=== PATIENT | male | born 1955 | race Caucasian/White ===

== ENCOUNTER → 2018-01-03 09:24 | Outpatient (CLI) | payer MEDICAID, SELFPAY ==
--- NOTE | 2018-01-03 09:39 | DI.REPORT_ITS ---
SYMPTOM/DIAGNOSIS: CHRONIC LT FOOT PAIN, M79.672 LEFT FOOT: Three views. No priors. No acute fracture or dislocation, lytic or sclerotic lesion is seen. The soft tissues are unremarkable. Mild periarticular spurring is seen at the first metatarsal phalangeal joint. The joint spaces are otherwise well maintained. There is a small spur at the plantar surface of the calcaneus. IMPRESSION: Minimal degenerative changes of the left foot. No acute abnormality.
[2018-01-03 11:21] LABS: ALT 24 U/L (12-78); AST 17 U/L (15-37); Albumin 4.2 g/dL (3.4-5.0); Alkaline Phosphatase 76 U/L (46-116); Anion Gap 7.7 mmol/L (3-11); BUN 22 mg/dL (7-18); Bilirubin, Total 1.2 mg/dL (0.2-1.0); CO2 27.3 mmol/L (21.0-32.0); CREATININE 0.94 mg/dL (0.70-1.30); Calcium 9.1 mg/dL (8.5-10.1); Chloride 104 mmol/L (98-107); Cholesterol 184 mg/dL (50-200); Glucose 99 mg/dL (70-100); HDL Cholesterol 63 mg/dL (40-60); LDL CHOLESTEROL 109 mg/dL (<100); Potassium 4.4 mmol/L (3.5-5.1); Sodium 139 mmol/L (136-145); Total Protein 7.1 g/dL (6.4-8.2); Triglyceride 97 mg/dL (30-150)
== END ==
PROVIDERS: PCP Internal Medicine; Visit Provider Internal Medicine
DX: M79.672 Pain in left foot (principal); M77.32 Calcaneal spur, left foot; M19.072 Primary osteoarthritis, left ankle and foot; G89.29 Other chronic pain; I25.10 Atherosclerotic heart disease of native coronary artery without angina pectoris; Z86.010 Personal history of colon polyps; Z98.890 Other specified postprocedural states; Z12.5 Encounter for screening for malignant neoplasm of prostate
CPT/HCPCS: 36415; 80053; 80061; 83721; 73630; 84154

== ENCOUNTER 2018-07-29 10:19 | Outpatient (CLI) | payer MEDICAID, SELFPAY ==
[2018-07-29 11:18] LABS: Absolute Basophil Count 0.02 k/cumm (0.0-0.2); Absolute Eosinophil Count 0.07 k/cumm (0.0-0.7); Absolute Monocyte Count 0.55 k/cumm (0.11-0.7); Absolute Neutrophil Count 2.97 k/cumm (1.2-6.7); Basophils % 0.4; Eosinophils % 1.3; HCT 44.3 % (40.0-50.0); HGB 15.2 g/dL (13.5-17.5); Lymphocytes % 33.3; Mean Corp. HGB Concentration 34.3 g/dL (32.0-36.0); Mean Corpuscular Hemoglobin 31.4 pg (27.0-33.0); Mean Corpuscular Volume 91.5 fL (80-95); Mean Platelet Volume 11.2 fL (8.0-11.0); Monocytes % 10.2; Neutrophils % 54.8; Platelet Count 227 x1000/uL (130-400); RBC 4.84 m/cumm (4.50-6.00); RBC Distribution Width 13.9 % (11.8-14.1); White Blood Cell Count 5.41 k/cumm (4.4-10.8)
[2018-07-29 11:50] LABS: Anion Gap 8.7 mmol/L (3-11); BUN 22 mg/dL (7-18); CO2 28.3 mmol/L (21.0-32.0); CREATININE 0.93 mg/dL (0.70-1.30); Calcium 9.7 mg/dL (8.5-10.1); Chloride 102 mmol/L (98-107); Glucose 113 mg/dL (70-100); Potassium 4.6 mmol/L (3.5-5.1); Sodium 139 mmol/L (136-145)
== END 2018-07-29 10:39 ==
PROVIDERS: PCP Internal Medicine; Visit Provider Family Medicine
DX: R23.0 Cyanosis (principal)
CPT/HCPCS: 36415; 80048; 83050; 83060; 85025

== ENCOUNTER 2018-08-10 12:11 | Outpatient (CLI) | payer MEDICAID, SELFPAY ==
--- NOTE | 2018-08-10 14:30 | DI.RAD_ITS ---
SYMPTOMS/DIAGNOSIS: FATIGUE, O2 SAT 92-95, NONSMOKER, R53.83 PA AND LATERAL CHEST: The lungs are well expanded and free of infiltrate. There is no pleural effusion. The cardiovascular structures are intact. SUMMARY: Normal chest.
== END 2018-08-10 12:31 ==
PROVIDERS: PCP Internal Medicine; Visit Provider Internal Medicine
DX: R53.83 Other fatigue (principal)
CPT/HCPCS: 71046

== ENCOUNTER 2019-01-27 01:51 | Outpatient (CLI) | payer MEDICAID, SELFPAY ==
--- NOTE | 2019-01-27 08:12 | DI.RAD_ITS ---
EXAM: XR CERVICAL SPINE COMP 4-5V INDICATION: NECK PAIN,M54.2,CERVICALGIA. COMPARISON: No exams were available for comparison TECHNIQUE: 2D digital imaging was performed. FINDINGS: The bony structures are normally mineralized with partial reversal of the normal cervical lordosis. Disc space narrowing and discogenic sclerosis are identified at C4-C5 where the canal and neural fora men appear widely patent. The odontoid is intact and is closely applied to the anterior arch of C1. Prevertebral soft tissues are unremarkable. IMPRESSION: Degenerative changes involving the cervical spine as described above.
== END 2019-01-27 02:11 ==
PROVIDERS: PCP Internal Medicine; Visit Provider Internal Medicine
DX: M54.2 Cervicalgia (principal); M47.812 Spondylosis without myelopathy or radiculopathy, cervical region
CPT/HCPCS: 72050

== ENCOUNTER 2020-01-23 10:06 | Outpatient (REF) | payer MEDICAID, SELFPAY ==
[2020-01-23 14:53] LABS: Anion Gap 6.2 mmol/L (3-11); BUN 24 mg/dL (7-18); CO2 29.8 mmol/L (21.0-32.0); CREATININE 0.85 mg/dL (0.70-1.30); Calcium 9.3 mg/dL (8.5-10.1); Calculated LDL 135 mg/dL (<100); Chloride 103 mmol/L (98-107); Cholesterol 225 mg/dL (<200); Glucose 109 mg/dL (74-106); HDL Cholesterol 60 mg/dL (40-60); Potassium 5.2 mmol/L (3.5-5.1); Sodium 139 mmol/L (136-145); Triglyceride 151 mg/dL (<150)
[2020-01-23 22:18] LABS: PSA, Screening 0.6 ng/mL (0.0-4.5)
== END 2020-01-23 10:26 ==
LOC: LBN 10:06
PROVIDERS: PCP Family Medicine; Visit Provider Family Medicine
DX: E78.5 Hyperlipidemia, unspecified (principal); E87.1 Hypo-osmolality and hyponatremia; Z12.5 Encounter for screening for malignant neoplasm of prostate
CPT/HCPCS: 80048; 80061; 84153

== ENCOUNTER 2020-05-24 02:22 | Outpatient (CLI) | payer MEDICAID, SELFPAY ==
[2020-05-24 11:09] LABS: Potassium 4.6 mmol/L (3.5-5.1)
== END 2020-05-24 02:42 ==
PROVIDERS: PCP Family Medicine; Visit Provider Family Medicine
DX: I10 Essential (primary) hypertension (principal)
CPT/HCPCS: 36415; 84132

== ENCOUNTER 2020-06-12 03:51 | Outpatient (CLI) | payer MEDICAID, SELFPAY ==
[2020-06-12 11:00] LABS: Potassium 4.5 mmol/L (3.5-5.1)
[2020-06-12 11:07] LABS: ALT 24 U/L (16-63); AST 13 U/L (15-37); BUN 28 mg/dL (7-18); CREATININE 0.9 mg/dL (0.70-1.30); Creatine Kinase 82 U/L (39-308); Glucose 106 mg/dL (74-106)
[2020-06-12 11:42] LABS: Calculated LDL 84 mg/dL (<100); Cholesterol 164 mg/dL (<200); HDL Cholesterol 66 mg/dL (40-60); Triglyceride 74 mg/dL (<150)
== END 2020-06-12 03:52 | disposition home or self-care (01) ==
LOC: LBO 03:51
PROVIDERS: PCP Family Medicine; Visit Provider Internal Medicine Cardiovascular Disease
DX: I25.10 Atherosclerotic heart disease of native coronary artery without angina pectoris (principal)
CPT/HCPCS: 36415; 80061; 82550; 82947; 84520; 82565; 84132; 84450; 84460; 84550

== ENCOUNTER 2021-03-28 01:24 | Outpatient (CLI) | payer MEDICAID, SELFPAY ==
--- NOTE | 2021-03-28 09:40 | DI.RAD_ITS ---
Exam(s) XR LUMBAR SPINE COMPLETE EXAM: XR LUMBAR SPINE COMPLETE CLINICAL HISTORY: left low back pain, M54.9. TECHNIQUE: 2D digital imaging was performed. COMPARISON: CR XR CERVICAL SPINE COMP 4-5V from 01/27/2019 CR XR CERVICAL SPINE COMP 4-5V from 01/27/2019 FINDINGS: The vertebral bodies are well maintained in height. Small to moderate endplate osteophytes are seen greatest at L2-3 on the left. There is mild L2-3 disc space narrowing and mild L5-S1 disc space narr owing. No spondylolysis, spondylolisthesis or significant scoliosis. Bowel gas pattern unremarkable . IMPRESSION: Opns-zo-ffsbjrxk degenerative changes. DATA REPOSITORY: RADIATION DOSE DELIVERED:
== END 2021-03-28 01:44 ==
PROVIDERS: PCP Family Medicine; Visit Provider Family Medicine
DX: M54.59 Other low back pain (principal); M51.37 Other intervertebral disc degeneration, lumbosacral region; M25.78 Osteophyte, vertebrae
CPT/HCPCS: 72110

== ENCOUNTER 2021-03-28 03:36 | Outpatient (CLI) | payer MEDICAID, SELFPAY ==
[2021-03-28 10:35] LABS: Calculated LDL 125 mg/dL (<100); Cholesterol 215 mg/dL (<200); Glucose 99 mg/dL (74-106); HDL Cholesterol 62 mg/dL (40-60); Triglyceride 143 mg/dL (<150)
== END 2021-03-28 03:37 | disposition home or self-care (01) ==
LOC: LBO 03:36
PROVIDERS: PCP Family Medicine; Visit Provider Family Medicine
DX: E78.5 Hyperlipidemia, unspecified (principal); R73.9 Hyperglycemia, unspecified; Z12.5 Encounter for screening for malignant neoplasm of prostate
CPT/HCPCS: 36415; 80061; 82947; 84153

== ENCOUNTER 2021-10-14 13:54 | Emergency (ER) | payer MEDICAID, SELFPAY ==
[2021-10-14] VITALS (15 sets, daily range): BP systolic 131–154; BP diastolic 74–94; PULSE 78–104; RESP 14–24; TEMP 36.8; O2SAT 97
--- NOTE | 2021-10-14 13:45 | RT.EKG_ITS ---
APPROVED REPORT Exam: Resting ECG Reason for Exam: chest pain Patient Location: E HR:96 bpm ECG Measurements Heart Rate 96 AXIS TX 157 P 55 QRSd 102 QRS -22 QT 364 T 55 QTc 461 Conclusion Sinus rhythm. Probable left atrial enlargement Incomplete RBBB and LAFB.
--- NOTE | 2021-10-14 14:00 | DI.RAD_ITS ---
Exam(s) XR CHEST 2V PA LATERAL EXAM: XR CHEST 2V PA LATERAL CLINICAL HISTORY: Anterior CP and cough TECHNIQUE: 2D digital imaging was performed. COMPARISON: CR XR CHEST 2V PA LATERAL from 08/10/2018 FINDINGS: MEDIASTINUM: Normal. HEART: Normal. PULMONARY VASCULATURE: Normal. LUNGS: Clear. PLEURAL SPACE: No pleural effusion or pneumothorax. BONE:Unremarkable for age. IMPRESSION: No acute abnormality. DATA REPOSITORY: RADIATION DOSE DELIVERED:
--- NOTE | 2021-10-14 14:15 | W.ED.GENAD ---
Discharge Plan Disposition Patient Disposition: HOME Condition: Improving Discharge Details Clinical Impression: Persistent cough Primary Care Provider: Carloz Orellana ED Provider: Roddy Charles Home Meds and New Rx's Prescriptions: New prednisone 50 mg tablet 50 mg PO DAILY 4 Days Qty: 4 0RF Continued aspirin [Aspir-81] 81 MG tablet,delayed release (DR/EC) 81 mg PO DAILY Qty: 30 nitroglycerin 0.4 mg tablet, sublingual 0.4 mg Sublingual q 5 mins prn Qty: 25 0RF atorvastatin 40 mg tablet 40 mg PO DAILY Qty: 90 3RF Discharge Instructions Instructions: Acute Cough (ED) Additional Instructions: Your laboratory work-up and chest x-ray were unremarkable. As discussed we will trial a short burst of prednisone for its anti-inflammatory effects. Return if you develop difficulty breathing, or any other acute concerns Medical Decision Making This is a 66-year-old male who presents from home complaining of 7 to 10 days of cough with congestion, minimal sputum production, and a achy dull anterior chest pain that has no exacerbating or ameliorating factors. He reports no change with nitroglycerin at home. He arrives to ER slightly hypertensive but with otherwise normal vital signs. He does have a history of atherosclerotic coronary artery disease status post stenting in 2016. Differential diagnosis is broad including viral syndrome, pneumonia, ACS, must exclude consideration of pulmonary embolism. Patient was placed on a threat monitoring analyst and screening laboratories obtained. He is referred for x-ray and EKG. Patient's laboratories returned with a white count of 11.3, hematocrit 44, platelets 200. D-dimer is 460, unremarkable electrolytes with a BUN of 27 and creatinine 1.0. Troponin is negative, BNP is 49. Chest x-ray without acute findings. Patient will note recent diagnosis of COVID. Patient may have some component of long COVID and persistent cough. He may benefit from a brief burst of steroids. Discussed with him the risks and benefits. He is stable and appropriate for discharge Lab Data Lab results reviewed: Yes I reviewed the patient's lab results. Labs: Laboratory Results - last 24 hr 10/14/21 10/14/21 10/14/21 14:24 14:24 14:24 WBC 11.39 H RBC 4.70 Hgb 14.7 Hct 44.0 MCV 94 MCH 31.3 MCHC 33.4 RDW 13.2 Plt Count 200 MPV 10.3 Immature Gran % 0.4 Neutrophils % 76.6 Lymphocytes % 13.0 Monocytes % 9.4 Eosinophils % 0.3 Basophils % 0.3 Nucleated RBC % 0.0 Absolute Neutrophils 8.72 H Absolute Lymphocytes 1.48 Absolute Monocytes 1.07 H Absolute Eosinophils 0.03 Absolute Basophils 0.03 D-Dimer 460 Sodium 137 Potassium 3.9 Chloride 101 Carbon Dioxide 28.5 Anion Gap 7.5 BUN 27 H Creatinine 1.0 Estimated GFR/1.73 m2 >= 60.00 Glucose 183 H Calcium 9.1 Magnesium 2.0 Total Bilirubin 1.9 H AST 17 ALT 26 Alkaline Phosphatase 71 Troponin I < 50 NT-Pro-B Natriuret Pep 49 Total Protein 7.2 Albumin 4.0 HPI General Mode of arrival: ambulatory. Date/Time Provider Initiated Documentation: 10/14/21 13:56. Limitations to Documentation: no limitations. Information obtained by: patient. History of Present Illness 66 year old M presents to the emergency department with the chief complaint of 7 to 10 days of cough that has been dry and chest discomfort, described as moderate, Quality is described as dull, and is localized to the chest. Patient reports no radiation. Patient started experiencing this day(s) and it has been intermittent. No relieving factors improve symptom(s), No exacerbating factors reported . Patient notes chest pain and cough; denies fever/chills, nausea/vomiting, syncope and weakness. Patient did receive the following treatments prior to arrival, none Related Data Home Medications Medication Instructions Recorded Confirmed aspirin 81 mg tablet,delayed 81 mg PO DAILY #30 tab-caps 08/04/16 10/14/21 release (Aspir-) nitroglycerin 0.4 mg sublingual 0.4 mg sublingual q 5 mins prn #25 09/02/20 10/14/21 tablet tab-caps atorvastatin 40 mg tablet 40 mg PO DAILY #90 tab-caps 02/12/21 10/14/21 prednisone 50 mg tablet 50 mg PO DAILY 4 days #4 tabs 10/14/21 Previous Rx's Medication Instructions Recorded nitroglycerin 0.4 mg sublingual 0.4 mg sublingual q 5 mins prn #25 09/02/20 tablet tab-caps atorvastatin 40 mg tablet 40 mg PO DAILY #90 tab-caps 02/12/21 prednisone 50 mg tablet 50 mg PO DAILY 4 days #4 tabs 10/14/21 Allergies Allergy/AdvReac Type Severity Reaction Status Date / Time No Known Allergies Allergy Verified 10/14/21 14:00 General Stated Complaint: Chest Pain VIJAY: 3 Review of Systems Narrative: No leg pain or swelling, no rash, no fever or sputum production. 8 systems were reviewed and otherwise negative. Patient reports loose stool yesterday and today. PFSH All Active Problems Persistent cough (Acute) Testicular pain, left (Acute) Elevated blood pressure reading without diagnosis of hypertension (Acute) Umbilical hernia (Acute) Cervical arthritis (Acute) URI (upper respiratory infection) (Acute) Plantar fasciitis (Acute) Neck and shoulder pain (Acute) Status post vasectomy (Acute) Right flank pain (Acute) Personal history of colonic polyps (Chronic) -Hyperplastic polyp Polyp of colon (Acute) hyperplastic Hyperlipidemia (Acute) Family history of diabetes mellitus (Acute 12/21/13) mother Family history of coronary artery disease (Acute 12/21/13) father and brother Chest pain (Acute) atypical negative ETT 2009 Arteriosclerotic heart disease (Acute 07/08/15) Stents x 5 Lad x2 diagonal RCA OM1 Alcohol abuse (Acute) Surgical History Vasectomy Family History Mother Diabetes Essential hypertension Hyperlipidemia Father Heart disease Hyperlipidemia Sister Asthma Cancer Brother Heart disease Hyperlipidemia FAMILY HISTORY CAD (coronary artery disease) Sister No problems noted. Sister No problems noted. Daughter No problems noted. Son No problems noted. Social History Smoking/Tobacco Use Status: Former Tobacco Use Quit Date: 05/10/05 Tobacco: How many years used: 5 Smokeless tobacco user: chewing tobacco Smoking risk assessment performed?: Yes Alcohol Intake: current Alcohol Intake frequency: 0-2 drinks per day Drug use: Never Substance use type: does not use Caregiver/Support person: No Household members: none Communication Needs: None Pets and animals: Yes Pets and animals: cat(s) Do you think of yourself as: straight/heterosexual Current gender identity: male What is your relationship status?: How often do you talk on the phone with friends or family?: decline to answer How often do you get together with friends or relatives?: decline to answer How often do you attend nondenominational or holiness services?: decline to answer Do you belong to any clubs or organized social groups?: decline to answer Panel score (0-1 are the most socially isolated patients): 1 What type of physical activity do you participate in: decline to answer Duration: > 90 minutes/day Frequency: decline to answer Mildred/Yarsanism: No preference Special mildred needs: No Seatbelt use: always Helmet use: Yes Helmet use: always Drive intox or ride w/intox hazardous materials tanker driver: No Do you feel safe at home: Yes Do you feel safe in your relationship?: Yes Exam Narrative Exam Narrative: GEN: awake, alert, oriented 3. Pleasant, well groomed, interactive. HEAD: Normocephalic, atraumatic ENT: Mucous membranes moist, oropharynx unremarkable, External ear exam unremarkable EYES: PERRL, EOMI NECK: Full ROM, no ELEAZAR, no menigismus CHEST/RESP: Nontender, clear to auscultation bilateral, no wheeze/rhonchi/rales CARDIOVASCULAR: RRR, no murmur, rub belia. 2+ Rad pulse bilateral ABDOMEN: Soft, nontender, no mass. +Bowel sounds EXT: Full ROM, no edema, no rash Neuro: Grossly normal neurologic exam, conversant, interactive. Psych: Speech fluent, thoughts congruent, affect normal Course Vital Signs Vital signs: Vital Signs Temperature 36.8 C 10/14/21 13:57 Pulse 96 H 10/14/21 13:57 Respiratory Rate 16 10/14/21 13:57 Blood Pressure 154/92 H 10/14/21 13:57 Pulse Oximetry 97 10/14/21 13:57 Temperature 36.8 C 10/14/21 13:57 Temperature Source Temporal Artery Scan 10/14/21 13:57 Pulse 96 H 10/14/21 13:57 Respiratory Rate 16 10/14/21 13:57 Respiratory Effort 10/14/21 13:59 Blood Pressure 154/92 H 10/14/21 13:57 Blood Pressure Position Sitting 10/14/21 13:57 Pulse Oximetry 97 10/14/21 13:57 Oxygen Delivery Method Room Air 10/14/21 13:57 Oxygen Flow Rate 0 10/14/21 13:57 Pain Level 4 10/14/21 13:57
[2021-10-14 14:32] LABS: Abs Immature Grans 0.04 10^3/uL (0.0-0.06); Absolute Basophil Count 0.03 10^3/uL (0.0-0.2); Absolute Eosinophil Count 0.03 10^3/uL (0.0-0.7); Absolute Lymphocyte Count 1.48 10^3/uL (1.2-3.4); Absolute Monocyte Count 1.07 10^3/uL (0.1-0.8); Basophils % 0.3; Eosinophils % 0.3; HGB 14.7 g/dL (13.5-17.5); Immature Grans % 0.4; MCH 31.3 pg (27.0-33.0); MCHC 33.4 % (32.0-36.0); MCV 94 fL (80-95); MPV 10.3 fL (8.0-11.0); Monocytes % 9.4; Neutrophils % 76.6; Platelet Count 200 10^3/uL (130-400); RDW 13.2 % (11.8-14.1); RDW-SD 45.3 fL; WBC 11.39 10^3/uL (4.4-10.8)
[2021-10-14 14:33] LABS: Absolute Neutrophil Count 8.72 10^3/uL (1.2-6.7)
[2021-10-14 14:54] LABS: ALT 26 U/L (16-63); AST 17 U/L (15-37); Alkaline Phosphatase 71 U/L (46-116); Anion Gap 7.5 mmol/L (3-11); BUN 27 mg/dL (7-18); Bilirubin, Total 1.9 mg/dL (0.2-1.0); CO2 28.5 mmol/L (21.0-32.0); Calcium 9.1 mg/dL (8.5-10.1); Chloride 101 mmol/L (98-107); Glucose 183 mg/dL (74-106); NT-proBNP 49 pg/mL (<300); Potassium 3.9 mmol/L (3.5-5.1); Sodium 137 mmol/L (136-145); Total Protein 7.2 g/dL (6.4-8.2); Troponin I < 50 ng/L (<or=60)
[2021-10-14 15:11] LABS: D-Dimer 460 ng/mlFEU (<500)
[2021-10-14] MEDS: predniSONE 20 MG TAB 60 MG PO (15:50)
== END 2021-10-14 15:59 | disposition home or self-care (01) ==
PROVIDERS: Emergency Provider Emergency Medicine; PCP Family Medicine
DX: R05.1 Acute cough (principal); R07.9 Chest pain, unspecified
CPT/HCPCS: 80053; 93005; 99284; 71046; 83735; 83880; 84484; 85025; 85379; 93010; 99283; J7512

== ENCOUNTER 2022-05-13 09:43 | Outpatient (CLI) | payer MEDICARE, SELFPAY ==
[2022-05-13 12:31] LABS: Hemoglobin A1C 5.4 % (<5.7)
[2022-05-13 12:32] LABS: Bilirubin, Total 1.2 mg/dL (0.2-1.0); Calculated LDL 188 mg/dL (<100); Cholesterol 293 mg/dL (<200); HDL Cholesterol 73 mg/dL (40-60); Triglyceride 162 mg/dL (<150)
[2022-05-14 11:56] LABS: Hepatitis C Ab w Rflx HCV PCR Negative (Negative)
== END 2022-05-13 09:44 | disposition home or self-care (01) ==
LOC: LOS 09:43
PROVIDERS: PCP Family Medicine; Visit Provider Family Medicine
DX: E78.5 Hyperlipidemia, unspecified (principal); R73.9 Hyperglycemia, unspecified; R17 Unspecified jaundice; Z11.59 Encounter for screening for other viral diseases
CPT/HCPCS: 36415; 80061; 86803; 82247; 83036

== ENCOUNTER 2022-11-17 03:33 | Outpatient (CLI) | payer MEDICARE, SELFPAY ==
[2022-11-17 12:19] LABS: HCT 44.6 % (40.0-50.0); HGB 14.8 g/dL (13.5-17.5); MCH 31.2 pg (27.0-33.0); MCHC 33.2 % (32.0-36.0); MCV 94 fL (80-95); MPV 10.7 fL (8.0-11.0); Platelet Count 255 10^3/uL (130-400); RBC 4.75 10^6/uL (4.36-5.78); RDW 12.9 % (11.8-14.1); RDW-SD 44.8 fL; WBC 6.01 10^3/uL (4.4-10.8)
[2022-11-17 12:31] LABS: Anion Gap 7.6 mmol/L (3-11); BUN 26 mg/dL (7-18); CO2 27.4 mmol/L (21.0-32.0); Calcium 9.2 mg/dL (8.5-10.1); Calculated LDL 155 mg/dL (<100); Chloride 104 mmol/L (98-107); Cholesterol 235 mg/dL (<200); Estimated GFR 83.52 (mL/min/1.73m2); Glucose 111 mg/dL (74-106); HDL Cholesterol 66 mg/dL (40-60); Potassium 4.5 mmol/L (3.5-5.1); Sodium 139 mmol/L (136-145); Triglyceride 72 mg/dL (<150)
== END 2022-11-17 03:34 | disposition home or self-care (01) ==
LOC: LOS 03:33
PROVIDERS: PCP Family Medicine; Visit Provider Physician Assistant
DX: I25.10 Atherosclerotic heart disease of native coronary artery without angina pectoris (principal)
CPT/HCPCS: 36415; 80048; 80061; 85027

== ENCOUNTER 2023-04-22 01:55 | Outpatient (CLI) | payer MEDICARE, SELFPAY ==
[2023-04-22 13:06] LABS: Anion Gap 6.1 mmol/L (3-11); BUN 18 mg/dL (7-18); CO2 29.9 mmol/L (21.0-32.0); Calcium 9.1 mg/dL (8.5-10.1); Calculated LDL 81 mg/dL (<100); Chloride 103 mmol/L (98-107); Cholesterol 177 mg/dL (<200); Estimated GFR 83.01 (mL/min/1.73m2); Glucose 125 mg/dL (74-106); HDL Cholesterol 75 mg/dL (40-60); Potassium 4.3 mmol/L (3.5-5.1); Sodium 139 mmol/L (136-145); Triglyceride 107 mg/dL (<150)
== END 2023-04-22 01:56 | disposition home or self-care (01) ==
LOC: LOS 01:55
PROVIDERS: PCP Family Medicine; Visit Provider Physician Assistant
DX: I25.10 Atherosclerotic heart disease of native coronary artery without angina pectoris (principal)
CPT/HCPCS: 36415; 80048; 80061

== ENCOUNTER → 2023-11-25 01:31 | Outpatient (CLI) | payer MEDICARE, SELFPAY ==
--- OUTSIDE RECORDS SUMMARY | 2023-11-25 01:37 | XMS_ITS | Encounter Summary ---
Author Organization [facility] Address [address] [place] [address] Care Team Providers Care Oven Baker Name Role Phone Carloz Orellana MD Primary Care Provider [phone] Encounter Details Date Type Department Care Team (Late st Contact Info) Description 04/27/2023 Orders Only [facility] Cardiology - [address] [place] [address] Jennifer Michelle, RN [address] [place] [address] Social History Tobacco Use Types Packs/Day Years Used Date Smoking Tobacco: Never Smokeless Tobacco: Former Chew Comments:former use Alcohol Use Standard Drinks/Week Comments Yes 1 (1 standard drink = 0.6 oz pur e alcohol) Interpersonal Safety Answer Date Record ed Physically Hurt Never 12/10/2019 Verbally Threaten Not on file 12/10/2019 Sex and Gender Information Value Date Recorded Sex Assigned at Male 06/05/2019 10:10 EST Gender Identity Male 06/05/2019 10:10 EST Sexual Orientation Not on file documented as of this encounter Functional Status Functional Status Response Date of Assess ment Are you deaf or do you have serious difficulty h earing? No 07/16/2015 Are you blind or do you have serious difficulty seeing, even when wearing glasses? No 07/16/2015 Do you have serious difficul ty walking or climbing stairs? (5 years old or older) No 07/16/2015 Do you have difficulty dress ing or bathing? (5 years old or older) No 07/16/2015 Because of a physical, menta l, or emotional condition, does this person have difficulty doing errands alone such as visiting a doctor's office or shopping? No 10/14/2017 Cognitive Status Response Date of Assessm ent Because of a physical, menta l, or emotional condition, does this person have serious difficulty concentrating, remembering, or making decisions? No 06/04/2020 documented as of this encounter Ordered Prescriptions Prescription Sig Dispensed Refills Start Date End Da te atorvastatin (LIPITOR) 80 mg tablet Take 1 Tablet by mouth at bedtime. 90 Tablet 3 04/27/2023 documented in this encounter Plan of Treatment Upcoming Encounters Date Type Department Care Team (Late st Contact Info) Description 12/28/2023 13:00 EDT Office Visit [facility] Cardiology - [address] [address] Rosalind Mckeon PA-C [address] [place] [address] [address] [place] [phone] documented as of this encounter Visit Diagnoses Not on filedocumented in this encounter Discontinued Medications Medication Sig Discontinue Reason Start Date End Da te atorvastatin (LIPITOR) 40 mg tablet Take 1 Tablet by mouth daily. 12/15/2022 04/27/2023 documented as of this encounter Care Teams Oven Baker Relationship Specialty Start Date End Date Carloz Orellana MD [address] [place] [id number] PCP - General Family Medicine - Primary Care 04/06/22 documented as of this encounter
--- OUTSIDE RECORDS SUMMARY | 2023-11-25 01:37 | XMS_ITS | Encounter Summary ---
Author Organization [facility] Address [address] [place] [address] Care Team Providers Care Magazine Designer Name Role Phone Carloz Orellana MD Primary Care Provider [phone] Reason for Visit * Reason Onset Date Comments Advice Only 04/20/2023 Encounter Details Date Type Department Care Team (Late st Contact Info) Description 04/20/2023 Telephone [facility] Cardiology - [facility] [address] [place] [address] Rosalind Mckeon, PAYogeshC [address] [facility] [address] [place] [phone] Advice Only Social History Tobacco Use Types Packs/Day Years [...] No 10/14/2017 Cognitive Status Response Date of [facility] ent Because of a physical, menta l, or emotional condition, does this person have serious difficulty concentrating, remembering, or making decisions? No 06/04/2020 documented as of this encounter Miscellaneous Notes * Telephone Encounter - Jennifer Michelle, MELANIE - 04/20/2023 1350 EST ear Mr. Lima: I have tried leaving a message on your preferred contact phone number, the recording says there is no room for any more messages. I am about to fax the lab requests to [facility]. I am unsure of their policies, I do not know if you need to make an appointment or not. I am Rosalind Sanchezs, PA-C nurse and will be looking for the results. Please give me a call at [phone] if you have any questions. Jennifer RN * Telephone Encounter - Jazmyn Murray - 04/20/2023 1228 EST Would like lab orders sent to [facility] in [facility] so he can get them done before he goes out of town. documented in this encounter Plan of Treatment Upcoming Encounters Date Type Department Care Team (Late st Contact Info) Description 12/28/2023 13:00 EDT Office Visit [facility] Cardiology - [place] [address] Rosalind Mckeon PA-C [address] [facility] [address] [place] [phone] documented as of this encounter Visit Diagnoses Not on filedocumented in this encounter Care Teams Magazine Designer Relationship Specialty Start Date End Date Orellana, Carloz J, MD [address] [place] [address] PCP - General Family Medicine - Primary Care 04/06/22 documented as of this encounter
--- OUTSIDE RECORDS SUMMARY | 2023-11-25 01:37 | XMS_ITS | Encounter Summary ---
Author Organization [facility] Address [address] [place] [address] Care Team Providers Care Finish Photographer Name Role Phone Carloz Orellana MD Primary Care Provider [phone] Encounter Details Date Type Department Care Team (Late st Contact Info) Description 11/18/2022 Orders Only [facility] Cardiology - [address] [place] [address] Joie Welsh, RN Social History Tobacco Use Types Packs/Day Years [...] No 10/14/2017 Cognitive Status Response Date of Assess ent Because of a physical, menta l, or emotional condition, does this person have serious difficulty concentrating, remembering, or making decisions? No 06/04/2020 documented as of this encounter Progress Notes * Joie Welsh, RN - 11/18/2022 1223 EDT Manually entered BMP, lipid profile, CBC drawn on 11/17/22 from [facility]. Routed to Rosalind Mckeon PA-C. Physical copy of results scanned into chart. documented in this encounter Plan of Treatment Upcoming Encounters Date Type Department Care Team (Late st Contact Info) Description 12/28/2023 13:00 EDT Office Visit [facility] Cardiology - [address] [address] Rosalind Mckeon PA-C [address] [facility] [address] [place] [phone] documented as of this encounter Procedures Procedure Name Priority Date/Time Associated Diagnosis Comments COMPLETE BLOOD COUNT Routine 11/17/2022 LIPID PROFILE (INCLUDES CHOLESTEROL, TRIGLYCERIDES, HDL, LDL) Routine 11/17/2022 BASIC METABOLIC PANEL (BMP) Routine 11/17/2022 documented in this encounter Results * BASIC METABOLIC PANEL (BMP) (11/17/2022) GFR, Calculated, External 83.52 [facility] Glucose, Serum, External 111 mg/dL [facility] Calculated Calcium, External [facility] BUN, External 26 mg/dL [facility] Calcium, External 9.2 mg/dL [facility] Chloride, External 104 mmol/L [facility] CO2, External 27.4 mmol/L [facility] Creatinine, External 1 mg/dL [facility] Fasting?, External [facility] Potassium, External 4.5 mmol/L [facility] Sodium, External 139 mmol/L [facility] Blood VENOUS BLOOD / Unknown 11/17/2022 Rosalind Mckeon PA-C CHEMISTRY & BLOOD G ORDERABLES [facility] * COMPLETE BLOOD COUNT (11/17/2022) HCT, External 44.6 [facility] MCH, External 31.2 g/dL [facility] MCV, External 94 [facility] MCHC, External 33.2 g/dL [facility] Hemoglobin, External 14.8 % [facility] WBC, External 6.01 [facility] RBC, External 4.75 [facility] PLT, External 255 [facility] RDW-CV, External 12.9 [facility] Blood VENOUS BLOOD / Unknown 11/17/2022 Rosalind Mckeon PA-C HEMATOLOGY & PF4 OR DERABLES Performing Organization Address City/[facility] Co de Phone Number [facility] * LIPID PROFILE (INCLUDES CHOLESTEROL, TRIGLYCERIDES, HDL, LDL) (11/17/2022) Cholesterol, External 235 [facility] Triglycerides, External 72 [facility] HDL, External 66 [facility] LDL, External 155 [facility] Chol/HDL Ratio, External [facility] Fasting?, External [facility] Blood VENOUS BLOOD / Unknown 11/17/2022 Rosalind Mckeon PA-C CHEMISTRY & BLOOD G ORDERABLES [facility] documented in this encounter Visit Diagnoses Not on filedocumented in this encounter Care Teams Finish Photographer Relationship Specialty Start Date End Date Carloz Orellana MD [address] [place] [address] PCP - General Family Medicine - Primary Care 04/06/22 documented as of this encounter
--- OUTSIDE RECORDS SUMMARY | 2023-11-25 01:37 | XMS_ITS | Encounter Summary ---
Author Organization [facility] Address [address] [place] [address] Care Team Providers Care Radioisotope Technologist Name Role Phone Carloz Orellana MD Primary Care Provider [phone] Reason for Visit * Reason Onset Date Comments Labs Only 11/02/2022 Encounter Details Date Type Department Care Team (Late st Contact Info) Description 11/02/2022 Telephone [facility] Cardiology - [address] [place] [address] Joie Welsh, RN Labs Only Social History Tobacco Use Types Packs/Day [...] encounter Miscellaneous Notes * Telephone Encounter - Joie Welsh RN - 11/02/2022 2654 EDT Images from the original note were not included. Rosalind Mckeon, LEA P Cardiology Nurse Pool Can we get recent labs (within 3 months) from PCP? To included lipids, BMP and CBC. If not done in the last 3 months, then please let patient know and fax lab recs to wherever he wants to go for labs. Thanks, Rosalind Called PCP office who states that pt has not completed labs for them since October 2021. States that lab draw will need to be completed at [facility] lab. Attempted to call pt on both home and mobile phones, no answer, no ability to leave VM. Will send [employer] message. documented in this encounter Plan of Treatment Upcoming Encounters Date Type Department Care Team (Late st Contact Info) Description 12/28/2023 13:00 EDT Office Visit [facility] Cardiology - [address] [place] [address] Rosalind Mckeon, FANC [address] [facility] [address] [place] [phone] documented as of this encounter Visit Diagnoses Diagnosis ASCVD (arteriosclerotic cardiovascular disease)- Primary Unspecified cardiovascular disease documented in this encounter Care Teams Radioisotope Technologist Relationship Specialty Start Date End Date Carloz Orellana MD [address] [place] [address] PCP - General Family Medicine - Primary Care 04/06/22 documented as of this encounter
--- OUTSIDE RECORDS SUMMARY | 2023-11-25 01:37 | XMS_ITS | Encounter Summary ---
Author Organization [facility] Address [address] [place] [address] Care Team Providers Care Structural Steel Equipment Erector Name Role Phone Carloz Orellana MD Primary Care Provider [phone] [phone] Reason for Visit * Reason Comments Coronary Artery Disease ASCVD (arteriosc lerotic cardiovascular disease) Encounter Details Date Type Department Care Team (Latest Contact Info) Description 08/24/2023 10:40 EDT Office Visit [facility] - [address] [address] Rosalind Mckeon, PA-C [address] [facility] [address] [place] [phone] ASCVD (arteriosclerotic cardiovascular disease) (Primary Dx); Primary hypertension Social History Tobacco Use Types Packs/Day Years [...] on file documented as of this encounter Last Filed Vital Signs Vital Sign Reading Time Taken Comments Blood Pressure 126/90 08/24/2023 1037 EDT Pulse 70 08/24/2023 1037 EDT Temperature - - Respiratory Rate - - Oxygen Saturation 96% 08/24/2023 1037 EDT Inhaled Oxygen Concentration - - Weight 88 kg (194 lb) 08/24/2023 1037 EDT Height - - Body Mass Index 26.31 04/30/2022 1140 EST documented in this encounter Functional Status Functional Status Response [...] Dispensed Refills Start Date End Da te amLODIPine (NORVASC) 5 mg tablet Take 1 Tablet by mouth daily. 90 Tablet 1 08/24/2023 documented in this encounter Progress Notes * Rosalind Mckeon, LEA - 08/24/2023 1040 EDT Subjective: Patient ID: Lan Lima is an 68 y.o. male. Chief Complaint Patient presents with Coronary Artery Disease ASCVD (arteriosclerotic cardiovascular disease) History of Present Illness: Bairon is a 68-year-old male with a pertinent medical history including coronary artery disease history abnormal stress test with subsequent PCI, NSTEMI soon after PCI with repeat PCI, most recent stenting 2015, hyperlipidemia and family history of coronary disease who presents for routine follow-up, last seen in December. He had some recurrent anginal symptoms at that time, he was started on amlodipine but was dizzy on this and so was discontinued. He had felt improved with weight loss, diet as needed metoprolol for singular elevated blood pressures. Since then, he describes getting sick with a flulike syndrome over the winter now with a chronic cough, still recovering slowly but surely. He notes he was unable to be as active during this period, weeks to couple months and has gained the weight back that he lost. With this his blood pressure hasbeen more elevated on average just above 140/90 with some variability. With this he gets a head pressure sensation as he has in the past with he be willing to retry antihypertensives, antianginals. He describes stable angina with moderate exertion, or stress quickly relieved with rest. Has not feltthe need to take nitro as it does quickly resolve on its own. He has been compliant with his aspirin and statin therapy. ROS: Chronic dry nonproductive cough since pulmonary infection (was on antibiotics and steroids forthis previously ). no bleeding issues. No other recent illness or change in medical history. Patient Active Problem List Diagnosis Date Noted ASCVD (arteriosclerotic cardiovascular disease) 12/14/2022 Umbilical hernia without obstruction and without gangrene 01/22/2020 Subsequent non-ST elevation (NSTEMI) myocardial infarction within 4 weeks of initial infarction ([facility]) 07/13/2015 Chest pain 07/08/2015 Past Medical History: Diagnosis Date Abnormal nuclear stress test Activity, other involving cardiorespiratory exercise Noted 03/30/22- 1-2 FOS without difficulty/very active. Anomaly, cardiac 2016 Noted 03/30/22- DC, cardiac stents x 6 total Arthritis Noted 03/30/22-Neck pain due to arthritis. ASCVD (arteriosclerotic cardiovascular disease) Chest pain radiating to arm Colon polyp Coronary artery disease 2016 Noted 03/30/22 Does not exercise Edentulous Noted 03/30/22- He does have missing teeth. Family history of coronary artery disease Head trauma Noted 03/30/22- Several Head injuries as a teenager with LOC. Heart attack ([facility]) Noted 03/30/22- Heart attack a few weeks after stent placement History of general anesthesia HLD (hyperlipidemia) Noted 03/30/22- Not taking Lipitor, afraid of memory loss. Umbilical hernia Noted 03/30/22 Past Surgical History: Procedure Laterality Date ANKLE FRACTURE SURGERY Right CARDIAC SURGERY six stents x2 FRACTURE SURGERY broken leg -right UMBILICAL HERNIA REPAIR N/A 04/06/2022 no mesh Family History Problem Relation Age of Onset High Cholesterol Father Heart Disease Father Breast Cancer Sister Heart Disease Brother Colon Cancer Neg Hx Colon Polyps Neg Hx Endometrial Cancer Neg Hx Esophageal Cancer Neg Hx Ovarian Cancer Neg Hx Pancreatic Cancer Neg Hx Rectal Cancer Neg Hx Stomach Cancer Neg Hx Social Social History Tobacco Use Smoking status: Never Smokeless tobacco: Former Types: Chew Tobacco comments: former use Substance Use Topics Alcohol use: Yes Alcohol/week: 1.0 - 2.0 standard drink of alcohol Types: 1 - 2 Shots of liquor per week Drug use: No Marital Status: Occupation: Data Unavailable Outpatient Medications Marked as Taking for the 08/24/23 encounter (Office Visit) with Rosalind Mckeon PA-C Medication Sig Dispense Refill aspirin 81 mg EC tablet Take 1 Tablet by mouth daily. atorvastatin (LIPITOR) 80 mg tablet Take 1 Tablet by mouth at bedtime. 90 Tablet 3 nitroGLYCERIN (NITROSTAT) 0.[address] 1 tablet under the tongue every 5 minutes as needed for Pain. Reported on 04/16/2016 25 tablet 3 Allergies Allergen Reactions No Known Drug Allergies Objective: BP 126/90 (BP Cuff Location: Right arm, BP Patient Position: Sitting, BP Cuff Sizes: Adult, regular) Pulse 70 Wt 88 kg (194 lb) SpO2 96% BMI 26.31 kg/m?? Wt Readings from Last 3 Encounters: 08/24/23 88 kg (194 lb) 12/15/22 79.8 kg (176 lb) 10/30/22 87.2 kg (192 lb 3.2 oz) Physical Exam CONST: Appears healthy and well developed. No signs of apparent distress present. HEAD/FACE: Normal on inspection. No JVD appreciated while sitting upright. EYES: Conjunctivae clear without petechiae. No xanthelasma of the upper & lower lids. Sclerae clear. RESP: No use of accessory muscles noted. Good air entry bilaterally. No rales or rhonchi appreciated over the lungs bilaterally. CV: regular rate and rhythm. S1 is normal. S2 is normal. No extra sounds. No murmurs. 2+ bilateral radial and posterior tibialis, dorsalis pedis pulses. Digits and Nails: No clubbing, cyanosis or edema. ABD: non-distended MUSCULO: Spine: No scoliosis or thoracic kyphosis. SKIN: pink, warm and dry without suspicious rashes or lesions. NEURO: Alert and oriented x3. Mood is normal. Affect is normal. Memory is grossly intact. Speech isarticulate and language is fluent. Knowledge and vocabulary consistent with education. PSYCH: Mood/Affect: Patient's attitude is cooperative and appropriate. Data Labs 04/2023 Cholesterol 177 Triglycerides 107 HDL 75 LDL 81 Most Recent Cardiac Testing ECG today 10/30/2022: Sinus rhythm with incomplete right bundle branch block. Transthoracic Echocardiogram 08/26/2018 *STUDY CONCLUSIONS* Summary: 1. Left ventricle: The cavity size was normal. Wall thickness was normal. Systolic function was normal. The estimated ejection fraction was 55-60%. Wall motion was normal; there were no regional wall motion abnormalities. 2. Aortic valve: Valve area (VTI): 3cm^2. Valve area (Vmax): 3cm^2. Valve area (Vmean): 3cm^2. 3. Mitral valve: Valve area by continuity equation (using LVOT flow): 4.8cm^2. 4. Right ventricle: The cavity size was normal. Wall thickness was normal. Systolic function was normal. Left Heart Catheterization 07/17/2015: IMPRESSIONS: 1. Single vessel coronary artery disease. 2. Non ST-elevated myocardial infarction (NSTEMI). The culprit lesion was identified and reperfusion was successfully achieved. SUMMARY: 1. HPI and indications: Dyspnea. Coronary artery disease. Unstable angina. 2. Left main: Normal. 3. LAD: Prior intervention: drug-eluting stent in the proximal LAD. The stent originated in the proximal vessel and terminated in the mid vessel. The stented segment is patent. Proximal vessel lesion: There is a < 10% in-stent restenosis. 4. 1st diagonal: Prior intervention: stent in the proximal D1. Proximal vessel lesion: There is a 10% in-stent restenosis. Mid-vessel lesion: There is a 30% stenosis. 5. Left circumflex: Mid-vessel lesion: There is a 30% stenosis. 6. 1st obtuse marginal: Prior intervention: stent in the proximal OM1. Proximal vessel lesion: There is a 10% in-stent restenosis. 7. RCA posterolateral extension: Proximal vessel lesion: There is an 80%de reggie stenosis. This lesion is irregularly contoured, complex, eccentric, without evidence of thrombus, worsened from a prior study, and a bifurcation lesion. There is MALATHI grade 3 flow (brisk flow) across the lesion. The lesion is significant by visual estimate. The lesion was stented (see 1st lesion intervention), with balloon angioplasty. Following intervention, there is a residual 0% stenosis with an excellent angiographic appearance and MALATHI grade 3 flow (brisk flow). 8. Right posterior descending: Ostial lesion: There is an 80% stenosis. An angioplasty with balloon angioplasty was performed (see 2nd lesion intervention). Following intervention, there is a residual 0% stenosis with an excellent angiographic appearance, a smooth contour, and MALATHI grade 3 flow (brisk flow). Resulting blush score 3: normal transfer of contrast through the microvasculature. The stent is fully deployed and fully apposed. RECOMMENDATIONS: 1. ACC recommendation: PCI w/o planned CABG. 2. Aspirin. 3. Clopidogrel (Plavix). Assessment & Plan: 1. ASCVD (arteriosclerotic cardiovascular disease) Stable class II angina with exertion, or stress relieved with rest In the context of recent decrease in exertion, weight gain related to pulmonary illness Currently not on any antianginals Is appropriately maintained on aspirin 81 mg and atorvastatin 80 mg daily He generally is distrustful of medications But while he makes lifestyle changes again to lose weight, would be agreeable to resuming amlodipine 5 mg once daily for its antianginal and antihypertensive effects. Once he loses the weight, he would be eager to get off this medication if possible. 2. Primary hypertension Suboptimally controlled. Start amlodipine 5 mg once daily today. LEA Clarke Dr. was the supervising physician today in office. Primary Care Provider: Carloz Orellana Referring Provider: no referring provider I spent a total of 33 minutes on the date of this encounter meeting with the patient and reviewing documentation/coordinating care as described in the above note. documented in this encounter Plan of Treatment Upcoming Encounters Date Type Department Care Team (Late st Contact Info) Description 12/28/2023 13:00 EDT Office Visit [facility] - [address] [place] [address] Rosalind Mckeon PA-C 62 [facility] [address] [place] [phone] documented as of this encounter Visit Diagnoses Diagnosis ASCVD (arteriosclerotic cardiovascular disease)- Primary Unspecified cardiovascular disease Primary hypertension Unspecified essential hypertension documented in this encounter Care Teams Structural Steel Equipment Erector Relationship Specialty Start Date End Date Carloz Orellana MD [address] [place] [address] PCP - General Family Medicine - Primary Care 04/06/22 documented as of this encounter
--- OUTSIDE RECORDS SUMMARY | 2023-11-25 01:37 | XMS_ITS | Encounter Summary ---
Author Organization [facility] Address [address] [place] [address] Care Team Providers Care Type Copyist Name Role Phone Carloz Orellana MD Primary Care Provider [phone] Reason for Visit * Reason Comments Heart Problem ASCVD (arteriosclero tic cardiovascular disease) Encounter Details Date Type Department Care Team (Latest Contact Info) Description 12/15/2022 14:20 EDT Office Visit [facility] - [address] [address] Rosalind Mckeon, PA-C 62 [facility] [address] [place] [phone] ASCVD (arteriosclerotic cardiovascular disease) (Primary Dx) Social History Tobacco Use Types Packs/Day Years [...] Sign Reading Time Taken Comments Blood Pressure 122/68 12/15/2022 1411 EDT Pulse 51 12/15/2022 1411 EDT Temperature - - Respiratory Rate - - Oxygen Saturation 100% 12/15/2022 1411 EDT Inhaled Oxygen Concentration - - Weight 79.8 kg (176 lb) 12/15/2022 1411 EDT Height - - Body Mass Index 23.86 04/30/2022 1140 EST documented in this encounter [...] 1 Tablet by mouth daily. 90 Tablet 3 12/15/2022 04/27/2023 documented in this encounter Progress Notes * Rosalind Mckeon PA-C - 12/15/2022 1420 EDT Images from the original note were not included. Subjective: Patient ID: Lan Lima is an 67 y.o. male. Chief Complaint Patient presents with ??? Heart Problem ASCVD (arteriosclerotic cardiovascular disease) History of Present Illness: Bairon is a 67-year-old male with a pertinent medical history including coronary artery disease history abnormal stress test with subsequent PCI, NSTEMI soon after PCI with repeat PCI, most recent stenting 2015, hyperlipidemia and family history of coronary disease who presents for routine follow-up, last seen in October of this year. He reported gradually recurrent anginal symptoms over the course of the year, exertional and associated with elevated BP. He did not wish to go for stress testing or LHC if possible. He was started on amlodipine for anti-anginal and anti-hypertensive effects. He had ongoing intrascapular discomfort for 1 week after starting amlodipine, but they subsequentlyimproved. 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 His blood pressure was becoming much lower with 110s to 120s over 60s and he found himself a little dizzy and so he stopped amlodipine a few days ago. His blood pressures remain 120s over 70s on average and his dizziness has resolved. This is also in the context of doing major lifestyle changes, he has lost 30 pounds over the course of the year intentionally with diet changes -stopped eating snacks late at night, cut out alcohol. Denies other cardiac symptoms. No dyspnea, edema, orthopnea, near-syncope or syncope. He had no previous intolerance to atorvastatin but had wondered if it caused dementia and that was why it was held previously, he is open to resuming it after review of his cholesterol labs from year. ROS: Occasional headaches at night now resolved with improved blood pressure. No bleeding issues. No other recent illness or change in medical history. Patient Active Problem List Diagnosis Date Noted ??? ASCVD (arteriosclerotic cardiovascular disease) 12/14/2022 ??? Umbilical hernia without obstruction and without gangrene 01/22/2020 ??? Subsequent non-ST elevation (NSTEMI) myocardial infarction within 4 weeks of initial infarction(HCC) 07/13/2015 ??? Chest pain 07/08/2015 Past Medical History: Diagnosis Date ??? Abnormal nuclear stress test ??? Activity, other involving cardiorespiratory exercise Noted 03/30/22- 1-2 FOS without difficulty/very active. ??? Anomaly, cardiac 2016 Noted 03/30/22- [place], cardiac stents x 6 total ??? Arthritis Noted 03/30/22-Neck pain due to arthritis. ??? ASCVD (arteriosclerotic cardiovascular disease) ??? Chest pain radiating to arm ??? Colon polyp ??? Coronary artery disease 2016 Noted 03/30/22 ??? Does not exercise ??? Edentulous Noted 03/30/22- He does have missing teeth. ??? Family history of coronary artery disease ??? Head trauma Noted 03/30/22- Several Head injuries as a teenager with LOC. ??? Heart attack (HCC-CMS) (HCC) (HCC-CMS) Noted 03/30/22- Heart attack a few weeks after stent placement ??? History of general anesthesia ??? HLD (hyperlipidemia) Noted 03/30/22- Not taking Lipitor, afraid of memory loss. ??? Umbilical hernia Noted 03/30/22 Past Surgical History: Procedure Laterality Date ??? ANKLE FRACTURE SURGERY Right ??? CARDIAC SURGERY six stents x2 ??? FRACTURE SURGERY broken leg -right ??? UMBILICAL HERNIA REPAIR N/A 04/06/2022 no mesh Family History Problem Relation Age of Onset ??? High Cholesterol Father ??? Heart Disease Father ??? Breast Cancer Sister ??? Heart Disease Brother ??? Colon Cancer Neg Hx ??? Colon Polyps Neg Hx ??? Endometrial Cancer Neg Hx ??? Esophageal Cancer Neg Hx ??? Ovarian Cancer Neg Hx ??? Pancreatic Cancer Neg Hx ??? Rectal Cancer Neg Hx ??? Stomach Cancer Neg Hx Social Social History Tobacco Use ??? Smoking status: Never ??? Smokeless tobacco: Former Types: Chew ??? Tobacco comments: former use Substance Use Topics ??? Alcohol use: Yes Alcohol/week: 1.0 - 2.0 standard drink of alcohol Types: 1 - 2 Shots of liquor per week ??? Drug use: No Marital Status: Occupation: Data Unavailable Outpatient Medications Marked as Taking for the 12/15/22 encounter (Office Visit) with Rosalind Mckeon MC, PA-C Medication Sig Dispense Refill ??? aspirin 81 mg EC tablet Take 1 Tablet by mouth daily. ??? nitroGLYCERIN (NITROSTAT) 0.[address] 1 tablet under the tongue every 5 minutes as needed for Pain. Reported on 04/16/2016 25 tablet 3 Allergies Allergen Reactions ??? No Known Drug Allergies Objective: BP 122/68 (BP Cuff Location: Left arm, BP Patient Position: Sitting, BP Cuff Sizes: Adult, regular) Pulse 51 Wt 79.8 kg (176 lb) SpO2 100% BMI 23.86 kg/m?? Wt Readings from Last 3 Encounters: 12/15/22 79.8 kg (176 lb) 10/30/22 87.2 kg (192 lb 3.2 oz) 04/30/22 91.6 kg (202 lb) Physical Exam CONST: Appears healthy and well [...] Patient's attitude is cooperative and appropriate. Data Most Recent Cardiac Testing ECG today 10/30/2022: Sinus rhythm with incomplete right bundle branch block. Transthoracic Echocardiogram 08/26/2018 *STUDY CONCLUSIONS* Summary:?? 1. Left ventricle: The cavity size was [...] & Plan: 1. ASCVD (arteriosclerotic cardiovascular disease) Bairon describes stable class II angina over this past year, typically intrascapular discomfort on exertion It is stable if not improved first last visit Now with well-controlled blood pressure, no significant progression of his angina with stopping amlodipine though I discussed caution and stopping medications like this he can stay off it at this time but low threshold to resume but perhaps at a lower dose 2.5 mg instead of 5 mg given his improved b lood pressure with weight loss. Otherwise we will continue aspirin 81 mg daily As his total and LDL cholesterol are well above his goal of below 150 and 70 respectively, he is agreeable to resuming atorvastatin 40 mg daily which he tolerated previously and had reasonable control we will recheck before next visit If he is to have progressive anginal symptoms he is to contact this office, consider Ranexa vs low dose amlodipine given his improved BP. LEA Clarke Dr. was the supervising physician today in office. Primary Care Provider: Carloz Orellana Referring Provider: no referring provider I spent a total of 35 minutes on the date of this encounter meeting with the patient and reviewing documentation/coordinating care as described in the above note. documented in this encounter Plan of Treatment Upcoming Encounters Date Type Department Care Team (Late st Contact Info) Description 12/28/2023 13:00 EDT Office Visit [facility] - [address] [place], [place] [id number] Rosalind Mckeon PA-C 62 [facility] [address] [place] [phone] Scheduled Orders Name Type Priority Associated Diagnoses Orde r Schedule LIPID PROFILE (INCLUDES CHOLESTEROL, TRIGLYCERIDES, HDL, LDL) Lab Routine ASCVD (arteriosclerotic cardiovascular disease) Expected: 03/17/2023 (Approximate), Expires: 12/16/2023 documented as of this encounter Visit Diagnoses Diagnosis ASCVD (arteriosclerotic cardiovascular disease)- Primary Unspecified cardiovascular disease documented in this encounter Discontinued Medications Medication Sig Discontinue Reason Start Date End Da te amLODIPine (NORVASC) 5 mg tablet Take 1 Tablet by mouth daily. Alternate therapy 10/30/2022 12/15/2022 documented as of this encounter Care Teams Type Copyist Relationship Specialty Start Date End Date Carloz Orellana MD [address] [place] [id number] PCP - General Family Medicine - Primary Care 04/06/22 documented as of this encounter
--- OUTSIDE RECORDS SUMMARY | 2023-11-25 01:37 | XMS_ITS | Encounter Summary ---
Author Organization [facility] Address [address] [place] [address] Care Team Providers Care Retail Parts Professional Name Role Phone Carloz Orellana MD Primary Care Provider [phone] Reason for Visit * Reason Onset Date Comments Results 04/27/2023 Encounter Details Date Type Department Care Team (Late st Contact Info) Description 04/27/2023 Telephone [facility] - [address] [place] [address] Jennifer Michelle, RN [address] [place] [address] Results Social History Tobacco Use Types Packs/Day Years [...] Miscellaneous Notes * Telephone Encounter - Jennifer Michelle RN - 04/27/2023 1024 EST Informed patient of the following lab values: Cholesterol 177 Triglycerides 107 HDL 75 LDL 81 Pt is also reporting when his SBP is over 140, he feels pressure in the back of his head. This usually occurs in the evening and prevents him from sleeping. He takes 1 to 2 left over Metoprolol when this happens. Per Rosalind Mckeon PA-C he is to increase his Atorvastating form 40mg to 80mg at night. Confirmed best phone numbers to reach him at, updated in chart. 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 documented in this encounter Plan of Treatment Upcoming Encounters Date Type Department Care Team (Late st Contact Info) Description 12/28/2023 13:00 EDT Office Visit [facility] - [address] [place] [address] Rosalind Mckeon PA-C 62 [facility] [address] [place] [phone] documented as of this encounter Visit Diagnoses Not on filedocumented in this encounter Care Teams Retail Parts Professional Relationship Specialty Start Date End Date Carloz Orellana MD [address] [place] [address] PCP - General Family Medicine - Primary Care 04/06/22 documented as of this encounter
--- OUTSIDE RECORDS SUMMARY | 2023-11-25 01:37 | XMS_ITS | Encounter Summary ---
Author Organization [facility] Address [address] [place] [address] Care Team Providers Care Railroad Car Loader Name Role Phone Carloz Orellana MD Primary Care Provider [phone] [phone] Reason for Referral * Laboratory Services (Routine/Next Available) - New Request Specialty Diagnoses / Procedures [facility] Referred To Contact Diagnoses Atherosclerosis of coronary artery of [place] heart without angina pectoris, unspecified vessel or lesion type Procedures LIPID PROFILE (INCLUDES CHOLESTEROL, TRIGLYCERIDES, HDL, LDL) Donta Mckeon PA-C [address] [place] [id number] Referral ID Status Reason Start Date Expiration Date V isits Requested Visits Authorized [id number] New Request 04/20/2023 1 1 Encounter Details Date Type Department Care Team (Late st Contact Info) Description 04/20/2023 Orders Only [facility] Cardiology - [facility] [address] [facility] [place] [address] Jennifer Michelle, RN [address] [place] [address] Atherosclerosis of coronary artery of [place] heart without angina pectoris, unspecified vessel or lesion type (Primary Dx) Social History Tobacco Use Types [...] as of this encounter Progress Notes * Jennifer Michelle, RN - 04/20/2023 1415 EST Labs ordered documented in this encounter Miscellaneous Notes * Addendum Note - Donta Mckeon PA-C - 04/20/2023 1415 ESTAddended by: DONTA MCKEON on: 04/20/2023 14:42 Modules accepted: Orders documented in this encounter Plan of Treatment Upcoming Encounters Date Type Department Care Team (Late st Contact Info) Description 12/28/2023 13:00 EDT Office Visit [facility] Cardiology - [address] [place] [address] Donta Mckeon PA-C [address] [place] [address] [address] [place] [address] Scheduled Orders Name Type Priority Associated Diagnoses Orde r Schedule BASIC METABOLIC PANEL (BMP) Lab Routine Atherosclerosis of coronary artery of [place] heart without angina pectoris, unspecified vessel or lesion type Expected: 04/20/2023 (Approximate), Expires: 04/20/2024 LIPID PROFILE (INCLUDES CHOLESTEROL, TRIGLYCERIDES, HDL, LDL) Lab Routine Atherosclerosis of coronary artery of [place] heart without angina pectoris, unspecified vessel or lesion type Expected: 04/20/2023 (Approximate), Expires: 04/20/2024 documented as of this encounter Visit Diagnoses Diagnosis Atherosclerosis of coronary artery of [place] heart without angina pectoris, unspecified vessel or lesion type- Primary documented in this encounter Care Teams Railroad Car Loader Relationship Specialty Start Date End Date Carloz Orellana MD [address] [place] [id number] PCP - General Family Medicine - Primary Care 04/06/22 documented as of this encounter
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
--- OUTSIDE RECORDS SUMMARY | 2023-11-25 01:37 | XMS_ITS | Referral Summary ---
Author Organization [facility] Address [address] [place] [address] Care Team Providers Care Tile Power Shear Operator Name Role Phone Carloz Orellana MD Primary Care Provider [phone] Allergies Active Allergy Reactions Criticality Noted Date [...] original. - Medicaid ACO (X8) per web/Trace #[id number] Brando Shannon 06/17/20 12:56 Problem Noted Date Diagnosed Date ASCVD (arteriosclerotic cardiovascular disease) 12/14/2022 Umbilical hernia without obstruction and without gangrene 01/22/2020 Subsequent non-ST elevation (NSTEMI) myocardial infarction within 4 weeks of initial infarction ([facility]) 07/13/2015 Chest pain 07/08/2015 Social History Tobacco Use Types Packs/Day Years [...] 10:10 EST Sexual Orientation Not on file Last Filed Vital Signs Vital Sign Reading [...] Body Mass Index 26.31 04/30/2022 1140 EST Functional Status Functional Status Response Date of [...] concentrating, remembering, or making decisions? No 06/04/2020 Plan of Treatment Upcoming Encounters Date Type Department Care Team (Late st Contact Info) Description 12/28/2023 13:00 EDT Office Visit [facility] Cardiology - [address] [place] [address] Rosalind Mckeon PA-C [address] [place] [address] Medical Devices Implanted Type Area Clinical Research Technician Device Identifier Shelf Expiration Date Model / Serial / Lot Cardiac Stents X5-Mr Safe ([facility] 06/13/19) Procedures Procedure Name Priority Date/Time [...] C Antibody Negative Negative 05/14/2022 11:52 EST [facility] Blood VENOUS BLOOD / Unknown 05/13/2022 10:12 EST 05/13/2022 21:57 EST Provider Outr Resulting Lab CHEMISTRY & BLOOD GAS ORDERABLES [facility] [address] [place] [address] * COLONOSCOPY PROCEDURE (06/05/2019 11:49 EST) Anatomical [...] procedure. ??Total sedation time was ??12 ??minutes. [place] Bowel Prep Right Colon: 3 ? Transverse [...] Reed MD Enio Reed MD GI PROCEDURE [place] from Last 3 Months or Most Recently Relevant to Health Maintenance Advance Directives For more information, please contact: [phone] * Full Code (Latest Code Status on [...] the discussion? Not Discusse d Care Teams Tile Power Shear Operator Relationship Specialty Start Date End Date Carloz Orellana MD [address] [place] [address] PCP - General Family Medicine - Primary Care 04/06/22
--- OUTSIDE RECORDS SUMMARY | 2023-11-25 01:38 | XMS_ITS | Encounter Summary ---
Author Organization [facility] Address [address] [place] [address] Care Team Providers Care Public Address Servicer Name Role Phone Veronica Servin MD Primary Care Provider +[phone] Encounter Details Date Type Department Care Team (Late st Contact Info) Description 08/04/2018 Phlebotomy Only [address] [address] Utilization Supervisor, Outpatient ASCVD (arteriosclerotic cardiovascular disease); Weakness Social History Tobacco Use Types Packs/Day Years Used Date Smoking Tobacco: Never Smokeless Tobacco: Former Chew Alcohol Use Standard Drinks/Week Comments Yes 0 (1 standard drink = 0.6 oz pur e alcohol) rarely Sex and Gender Information Value Date Recorded [...] difficulty concentrating, remembering, or making decisions? No 10/14/2017 documented as of this encounter Plan of Treatment Upcoming Encounters Date Type Department Care Team (Late st Contact Info) Description 12/28/2023 13:00 EDT Office Visit [facility] Cardiology - [address] [place] [address] Rosalind Mckeon PA-C [address] [place] [address] documented as of this encounter Procedures Procedure Name Priority Date/Time Associated Diagnosis Comments BACTERIAL CULTURE, BLOOD Routine 08/04/2018 12:48 EDT ASCVD (arteriosclerotic cardiovascular disease) Weakness BACTERIAL CULTURE, BLOOD Routine 08/04/2018 12:48 EDT ASCVD (arteriosclerotic cardiovascular disease) Weakness RHEUMATOID FACTOR Routine 08/04/2018 12: 48 EDT Weakness C REACTIVE PROTEIN Routine 08/04/2018 12 :48 EDT Weakness ANTI NUCLEAR AB (SUPA), IFA Routine 08/04/2018 12:48 EDT Weakness documented in this encounter Results * C REACTIVE PROTEIN (08/04/2018 12:48 EDT) Pathologist [facility] C Reactive Protein <7.0 <10.0 mg/L 08/04/2018 14:26 EDT [facility] Blood specimen (specimen) BLOOD SPECIMEN / Unknown 08/04/2018 12:48 EDT 08/04/2018 13:43 EDT Ken Kapadia MD CHEMISTRY & BLOOD GA S ORDERABLES [facility] [address] [place] [address] * ANTI NUCLEAR AB (SUPA), IFA (08/04/2018 12:48 EDT) Pathologist [facility] SUPA Interpretation Negative Negative 2018 11:04 EDT [facility] Comment: No titer performed, SUPA screen is negative. Results were obtained with the INOVA NOVA Lite HEp-2 SUPA kit by indirect immunofluorescence. Blood specimen (specimen) BLOOD SPECIMEN / Unknown 08/04/2018 12:48 EDT 08/04/2018 13:43 EDT Ken Kpaadia MD IMMUNOLOGY AND SEROL OGY ORDERABLES [facility] [address] [place] [address] * RHEUMATOID FACTOR (08/04/2018 12:48 EDT) Rheumatoid Factor <8 <12.5 IU/mL 08/05/2018 11:14 EDT [facility] Blood specimen (specimen) BLOOD SPECIMEN / Unknown 08/04/2018 12:48 EDT 08/04/2018 13:43 EDT Ken Kapadia MD CHEMISTRY & BLOOD GA S ORDERABLES Performing Organization Address [facility] Co de Phone Number [facility] [address] [place] [address] * BACTERIAL CULTURE, BLOOD (08/04/2018 12:48 EDT) Result No growth 08/09/2018 7:58 EDT [facility] Blood specimen (specimen) BLOOD SPECIMEN / Unknown 08/04/2018 12:48 EDT 08/04/2018 14:17 EDT Comment:Left~Antecubital Ken Kapadia MD MICROBIOLOGY - GENER AL ORDERABLES Performing Organization Address [facility] Co de Phone Number [facility] [address] [place] [address] * BACTERIAL CULTURE, BLOOD (08/04/2018 12:48 EDT) Result No growth 08/09/2018 7:58 EDT [facility] Blood specimen (specimen) BLOOD SPECIMEN / Unknown 08/04/2018 12:48 EDT 08/04/2018 14:16 EDT Comment:Right~Antecubital Ken Kapadia MD MICROBIOLOGY - GENER AL ORDERABLES [facility] [address] [place] [address] documented in this encounter Visit Diagnoses Diagnosis ASCVD (arteriosclerotic cardiovascular disease) Unspecified cardiovascular disease Weakness Other malaise and fatigue documented in this encounter Care Teams Public Address Servicer Relationship Specialty Start Date End Date Veronica Servin MD PCP - General 10/13/17 08/22/18 documented as of this encounter
--- OUTSIDE RECORDS SUMMARY | 2023-11-25 01:38 | XMS_ITS | Encounter Summary ---
Author Organization [facility] Address [address] [place] [address] Care Team Providers Care Cage Maker Machine Name Role Phone Ann Carrillo MD Primary Care Provider Reason for Visit * Reason Comments Follow-up 1 yr FUR Encounter Details Date Type Department Care Team (Latest Contact Info) Description 06/04/2020 11:00 EST Office Visit [facility] Cardiology - [address] [place] [address] Ken Kapadia MD [address] [place] [address] ASCVD (arteriosclerotic cardiovascular disease) (Primary Dx) Social History Tobacco Use Types Packs/Day Years Used Date Smoking Tobacco: Never Smokeless Tobacco: Former Chew Comments:former use Alcohol Use Standard Drinks/Week Comments Yes 4 (1 standard drink = 0.6 oz pur [...] Sign Reading Time Taken Comments Blood Pressure 122/90 06/04/2020 1054 EST Pulse 64 06/04/2020 1054 EST Temperature - - Respiratory Rate - - Oxygen Saturation 97% 06/04/2020 1054 EST Inhaled Oxygen Concentration - - Weight 91.9 kg (202 lb 9.6 oz) 06/04/[address] Height - - Body Mass Index 27.48 01/22/2020 0949 EDT documented in this encounter Functional Status Functional [...] as of this encounter Progress Notes * Ken Kapadia MD - 06/04/2020 1100 EST Subjective: Patient is a 65 y.o. male who presents for follow-up of ASCVD. Patient reports upcoming herniorrhaghy for umbilical hernia. He denies chest pain on exertion and dyspnea on exertion. He describes his symptoms as not changed. He has been compliant with his medications. Medications side effects include none Past Medical History: Diagnosis Date ??? Abnormal nuclear stress test ??? Anomaly, cardiac PR, cardiac stents, CAD ??? Chest pain radiating to arm ??? Colon polyp ??? Family history of coronary artery disease ??? HLD (hyperlipidemia) Patient Active Problem List Diagnosis Date Noted ??? Umbilical hernia without obstruction and without gangrene 01/22/2020 Priority: Medium ??? Subsequent non-ST elevation (NSTEMI) myocardial infarction within 4 weeks of initial infarction([facility]) 07/13/2015 Priority: Medium ??? Chest pain 07/08/2015 Priority: Medium Current Outpatient Medications Medication Sig Dispense Refill ??? aspirin 81 mg EC tablet Take 81 mg by mouth daily. ??? atorvastatin (LIPITOR) 40 mg tablet Take 1 Tab by mouth at bedtime. 90 Tab 3 ??? nitroGLYCERIN (NITROSTAT) 0.[address] 1 tablet under the tongue every 5 minutes as needed for Pain. Reported on 04/16/2016 25 tablet 3 ??? polyethylene glycol (GOLYTELY) 236-22.74-6.74 -5.86 gram suspension Follow instructions on 'colonoscopy preparation instructions' sheet. (Patient not taking: Reported on 01/22/2020) 1 Bottle 0 No current facility-administered medications for this visit. Review of Systems A ten point ROS was performed. Pertinent positives are listed above, all others are negative. Works [id number] MyQuoteApp Objective: BP 122/90 (BP Cuff Location: Right arm, BP Patient Position: Sitting, BP Cuff Sizes: Adult, regular) Pulse 64 Wt 91.9 kg (202 lb 9.6 oz) SpO2 97% BMI 27.48 kg/m?? Body mass index is 27.48 kg/m??. Physical Exam: General: Alert, cooperative, no distress, appears stated age. Eyes: Conjunctivae not injected, not pale, nonicteric. Ears: Hearing grossly intact. Neck: Trachea midline, no adenopathy, no thyromegaly. Carotid upstroke normal, no carotid bruit andno JVD. Lungs: Clear to auscultation bilaterally. Chest wall: No tenderness or deformity. Heart: Regular heart sounds, S1, S2 normal, no murmur or rub heard. Normal apical impulse. Abdomen: Soft, non-tender to palpation. No masses felt, No organomegaly. No bruits heard. Extremities: No peripheral edema. No cyanosis. Pulses: Radial pulses 2+ bilaterally. Dorsalis pedis and tibialis posterior 2+ bilaterally. Skin: No pallor, rashes or lesions. Lymph nodes: Cervical, supraclavicular, and axillary nodes normal. Neurologic: Normal strength, nonfocal on exam. Lab Review: Lab Results Component Value Date CHOL 168 07/13/2015 TRIG 130 07/13/2015 HDL 53 07/13/2015 LDLBASE 89 07/13/2015 Assessment: Lan Lima is a 65 y.o. year old male who presents with stable CV status and good functional status Plan: Cont present rx Patient stable from CV status to undergo elective hernia repair documented in this encounter Plan of Treatment Upcoming Encounters Date Type Department Care Team (Late st Contact Info) Description 12/28/2023 13:00 EDT Office Visit [facility] Cardiology - [facility] [address] [facility] [place] [address] Rosalind Mckeon, FANC [address] [facility] [address] [place] [address] documented as of this encounter Visit Diagnoses Diagnosis ASCVD (arteriosclerotic cardiovascular disease)- Primary Unspecified cardiovascular disease documented in this encounter Care Teams Cage Maker Machine Relationship Specialty Start Date End Date Ann Carrillo MD [address] [place] [id number] PCP - General 08/23/18 04/05/22 documented as of this encounter
--- OUTSIDE RECORDS SUMMARY | 2023-11-25 01:38 | XMS_ITS | Encounter Summary ---
Author Organization [facility] Address [address] [place] [address] Care Team Providers Care Senior Paralegal Name Role Phone Carloz Orellana MD Primary Care Provider [phone] Reason for Visit * Reason Onset Date Comments Follow-up Diagnostic PSG 04/10/2022 Encounter Details Date Type Department Care Team (Late st Contact Info) Description 04/10/2022 Telephone [facility] General Surgery - [facility] [address] [place] [address] Ken Rich MD [address] [place] [address], [address] [place] [address] Follow-up Diagnostic PSG Social History Tobacco Use Types Packs/Day Years [...] encounter Miscellaneous Notes * Telephone Encounter - Anna Alvarado RN - 04/10/2022 1241 EST Images from the original note were not included. Picture received: purple area that he is concerned about is post op bruising. To call back with anyfurther changes * Telephone Encounter - Katherine Germain RN - 04/10/2022 1140 EST Call back to patient. Patient Hernia surgical area dark purple. Does not think it is the surgical marker site. Asked patient to send us a picture to review with Dr. Plascencia. Patient denies n/v/d. Patient is able to pass gas. Notes abdomen feels hard, bloated. Patient will call us back if having issues figuring out how to attach picture via [employer]. * Telephone Encounter - Jennifer Artis - 04/10/2022 1120 EST Patient had surgery 04/06 open umbilical hernia, he said the area is purple and red told him to call because she believes she was told in pre-op that it should not turn this color. documented in this encounter Plan of Treatment Upcoming Encounters Date Type Department Care Team (Late st Contact Info) Description 12/28/2023 13:00 EDT Office Visit [facility] [place] [address] Rosalind Mckeon, PAYogeshC [address] [facility] [address] [place] [address] documented as of this encounter Visit Diagnoses Not on filedocumented in this encounter Care Teams Senior Paralegal Relationship Specialty Start Date End Date Carloz Orellana MD [address] [place] [id number] PCP - General Family Medicine - Primary Care 04/06/22 documented as of this encounter
--- OUTSIDE RECORDS SUMMARY | 2023-11-25 01:38 | XMS_ITS | Encounter Summary ---
Author Organization [facility] Address [address] [place] [address] Care Team Providers Care Senior Peoplesoft Developer Name Role Phone Ann Carrillo MD Primary Care Provider Encounter Details Date Type Department Care Team (Late st Contact Info) Description 01/22/2020 Orders Only [facility] General Surgery - [address] [id number] Ken Rich MD [address] [facility] [place] [address] Encounter for preprocedure screening laboratory testing for COVID-19 (Primary Dx) Social History Tobacco Use Types Packs/Day Years Used Date Smoking Tobacco: Never Smokeless Tobacco: Former Chew Alcohol Use Standard Drinks/Week Comments Yes 4 [...] Description 12/28/2023 13:00 EDT Office Visit [facility] Cardiology - [address] [address] Rosalind Mckeon, PAYogeshC [address] [facility] [address] [place] [address] documented as of this encounter Visit Diagnoses Diagnosis Encounter for preprocedure screening laboratory testing for COVID-19- Primary documented in this encounter Care Teams Senior Peoplesoft Developer Relationship Specialty Start Date End Date Ann Carrillo MD [address] [place] [address] [address] [place] [phone] PCP - General 08/23/18 04/05/22 documented as of this encounter
--- OUTSIDE RECORDS SUMMARY | 2023-11-25 01:38 | XMS_ITS | Encounter Summary ---
Author Organization [facility] Address [address] [place] [address] Care Team Providers Care Keypunch Operators Supervisor Name Role Phone Ann Carrillo MD Primary Care Provider Reason for Visit * Reason Comments Cardiac Testing * Cardiology (Routine) - Closed Specialty Diagnoses / Procedures Referred By [facility] Referred To Contact Diagnoses Weakness Procedures ECHOCARDIOGRAM Ken Kapadia MD [address] [place] [address] Referral ID Status Reason Start Date Expiration Date Visits Re quested Visits Authorized [id number] Closed 08/04/2018 1 1 Encounter Details Date Type Department Care Team (Latest Contact Info) Description 08/26/2018 11:15 EDT Procedure visit [facility] Cardiology [place] [place] [address] Ken Kapadia MD [address] [place] [address] EchoYasemin Discharge Disposition: Auto Discharge Social History Tobacco Use Types Packs/Day Years [...] No 10/14/2017 documented as of this encounter Discharge Diagnoses Diagnosis R53.1 Weakness-R53.1[ICD-10-CM] R06.00 Dyspnea, unspecified-R06.00[ICD-10-CM] documented in this encounter Discharge Disposition Disposition Code Departure Means Destination Auto Discharge documented in this encounter Plan of Treatment Upcoming Encounters Date Type Department Care Team (Late st Contact Info) Description 12/28/2023 13:00 EDT Office Visit [facility] Cardiology - [address] [address] Rosalind Mckeon, PA-C [address] [place] [address] [place] [address] documented as of this encounter Visit Diagnoses Not on filedocumented in this encounter Care Teams Keypunch Operators Supervisor Relationship Specialty Start Date End Date Ann Carrillo MD [address] [place], [place] [address] [address] [place] [phone] PCP - General 08/23/18 04/05/22 documented as of this encounter
--- OUTSIDE RECORDS SUMMARY | 2023-11-25 01:38 | XMS_ITS | Encounter Summary ---
Author Organization [facility] Address [address] [place] [address] Care Team Providers Care Information Technology Project Manager Name Role Phone Carloz Orellana MD Primary Care Provider [phone] Encounter Details Date Type Department Care Team (Late st Contact Info) Description 05/13/2022 Lab Requisition [facility] Pathology & Laboratory Medicine - [address] [address] Outr Resulting Lab, Provider Social History Tobacco Use Types Packs/Day Years [...] No 06/04/2020 documented as of this encounter Plan of Treatment Upcoming Encounters Date Type Department Care Team (Late st Contact Info) Description 12/28/2023 13:00 EDT Office Visit [facility] Cardiology - [address] [facility] [place] [address] Rosalind Mckeon PA-C [address] [facility] [address] [place] [address] documented as of this encounter Procedures Procedure Name Priority Date/Time Associated Diagnosis Comments HEPATITIS C AB W REFLEX TO HCV RNA BY PCR Routine 05/13/2022 10:12 EST documented in this encounter Results * HEPATITIS C AB W REFLEX TO HCV RNA BY PCR (05/13/2022 10:12 EST) Hep C Antibody Negative Negative 05/14/2022 11:52 EST [facility] Blood VENOUS BLOOD / Unknown 05/13/2022 10:12 EST 05/13/2022 21:57 EST Provider Outr Resulting Lab CHEMISTRY & BLOOD GAS ORDERABLES Performing Organization Address City/State/[facility] Co de Phone Number [facility] [address] [place] [address] documented in this encounter Visit Diagnoses Not on filedocumented in this encounter Care Teams Information Technology Project Manager Relationship Specialty Start Date End Date Carloz Orellana MD [address] [place] [address] PCP - General Family Medicine - Primary Care 04/06/22 documented as of this encounter
--- OUTSIDE RECORDS SUMMARY | 2023-11-25 01:38 | XMS_ITS | Encounter Summary ---
Author Organization [facility] Address [address] [place] [address] Care Team Providers Care Extruder Operator Multiple Name Role Phone Ann Carrillo MD Primary Care Provider Reason for Referral * Radiology Services (Routine) - Closed Specialty Diagnoses / Procedures Referred By Contac t Referred To Contact Radiology Diagnoses Cervicalgia Pain in unspecified shoulder Procedures MR CERVICAL SPINE WO CONTRAST Ann Carrillo MD [address] [place] [address] Referral ID Status Reason Start Date Expiration Date Visits Re quested Visits Authorized [id number] Closed 06/22/2019 09/20/2019 1 1 Reason for Visit * Radiology Services (Routine) - Closed Specialty Diagnoses / Procedures Referred By Contac t Referred To Contact Radiology Diagnoses Cervicalgia Pain in unspecified shoulder Procedures MR CERVICAL SPINE WO CONTRAST Ann Carrillo MD [address] [place] [address] Referral ID Status Reason Start Date Expiration Date Visits Re quested Visits Authorized [id number] Closed 06/22/2019 09/20/2019 1 1 Encounter Details Date Type Department Care Team (Latest Contact Info) Description 06/26/2019 13:28 EST - 06/26/2019 23:59 EST Hospital Encounter Radha Rebollar [facility] [address] [place] [address] Cervicalgia; Pain in unspecified shoulder Discharge Disposition: Home or Self Care Social History Tobacco Use Types Packs/Day Years Used Date Smoking Tobacco: Never Smokeless Tobacco: Former Chew Alcohol Use Standard Drinks/Week Comments Yes 4 (1 standard drink = 0.6 oz pur e alcohol) Sex and Gender Information Value Date Recorded [...] No 10/14/2017 documented as of this encounter Medications at Time of Discharge Medication Sig Dispensed Refills Start Date End Date aspirin 81 mg EC tablet Take 1 Tablet by mouth daily. nitroGLYCERIN (NITROSTAT) 0.[address] 1 tablet under the tongue every 5 minutes as needed for Pain. Reported on 04/16/2016 25 tablet 3 09/15/2018 atorvastatin (LIPITOR) 40 mg tablet Take 1 Tab by mouth at bedtime. 90 Tab 3 06/01/2019 04/06/2022 polyethylene glycol (GOLYTELY) 236-22.74-6.74 -5.86 gram suspension Follow instructions on 'colonoscopy preparation instructions' sheet. 1 Bottle 05/16/2019 06/21/2020 documented as of this encounter Discharge Disposition Disposition Code Departure Means Destination Home or Self Snf documented in this encounter Plan of Treatment Upcoming Encounters Date Type Department Care Team (Late st Contact Info) Description 12/28/2023 13:00 EDT Office Visit [facility] Cardiology - [address] [place], [place] [phone] Rosalind Mckeon PA-C [address] [place] [address] documented as of this encounter Procedures Procedure Name Priority Date/Time Associated Diagnosis Comments MR CERVICAL SPINE WO CONTAST Routine 06/26/2019 14:49 EST Cervicalgia Pain in unspecified shoulder documented in this encounter Results * MR CERVICAL SPINE WO CONTRAST (06/26/2019 14:49 EST) Anatomical Region Laterality Modality Spine Magnetic Resonan ce 06/26/2019 14:5 9 EST Impressions 06/26/2019 14:59 EST 1. Mild multilevel spondylolisthesis. 2. Cervical degenerative disc and degenerative joint disease. 3. Spinal narrowing due to posterior disc osteophyte complexes at C4-5, C5-6 and C6-7 without associated cord impingement. 4. Multilevel neural foraminal narrowing due to uncovertebral spurring and facet hypertrophy as described by level above. Narrative 06/26/2019 14:59 EST MR CERVICAL SPINE WO CONTRAST 06/26/2019 2:15 PM Signs and Symptoms: Neck and shoulder pain Comparison: None available Technique: Multiplanar noncontrast MR images of the cervical spine were obtained. Findings: There is nonspecific reversal of the cervical lordosis. There is slight anterolisthesis of C2 on C3, retrolisthesis of C5 on C6 and mild anterolisthesis of C7 on T1. Vertebral body heights are preserved. There is mild disc space narrowing and uncovertebral spurring at C3-4, C4-5, C5-6 and C6-7. There appears to be degenerative-appearing fusion of the facet joints at C2-3 on the right. C2-3: No spinal canal stenosis is noted. There is minimal right neural foraminal narrowing due to uncinate spurring and facet hypertrophy. No neural foraminal stenosis is noted. C3-4: No central spinal stenosis is noted. There is moderate right and minimal left neural foraminal narrowing due to uncinate spurring. C4-5: Posterior disc osteophyte complex effaces the ventral thecal sac without cord impingement appreciated. There is moderate bilateral neural foraminal narrowing due to uncinate spurring. C5-6: Posterior disc osteophyte complex produces mass effect on the ventral thecal sac without cord impingement. There is minimal right neural foraminal narrowing due to uncinate during. Moderate left neural foraminal stenosis is noted due to uncinate spurring. C6-7: Posterior disc osteophyte complex produces mass effect on the ventral thecal sac without cord impingement. No neural foraminal stenosis is noted. C7-T1: No central spinal or neural foraminal stenosis is noted. Procedure Note Anne Kessler MD - 06/26/2019 MR CERVICAL SPINE WO CONTRAST 06/26/2019 2:15 PM Signs and Symptoms: Neck and shoulder pain Comparison: None available Technique: Multiplanar noncontrast MR images of the cervical spine were obtained. Findings: There is nonspecific reversal of the cervical lordosis. There is slightanterolisthesis of C2 on C3, retrolisthesis of C5 on C6 and mildanterolisthesis of C7 on T1. Vertebral body heights are preserved. Thereis mild disc space narrowing and uncovertebral spurring at C3-4, C4-5,C5-6 and C6-7. There appears to be degenerative-appearing fusion of thefacet joints at C2-3 on the right. C2-3: No spinal canal stenosis is noted. There is minimal right neuralforaminal narrowing due to uncinate spurring and facet hypertrophy. Noneural foraminal stenosis is noted. C3-4: No central spinal stenosis is noted. There is moderate right andminimal left neural foraminal narrowing due to uncinate spurring. C4-5: Posterior disc osteophyte complex effaces the ventral thecal sacwithout cord impingement appreciated. There is moderate bilateral neuralforaminal narrowing due to uncinate spurring. C5-6: Posterior disc osteophyte complex produces mass effect on theventral thecal sac without cord impingement. There is minimal right neuralforaminal narrowing due to uncinate during. Moderate left neural foraminalstenosis is noted due to uncinate spurring. C6-7: Posterior disc osteophyte complex produces mass effect on theventral thecal sac without cord impingement. No neural foraminal stenosisis noted. C7-T1: No central spinal or neural foraminal stenosis is noted. IMPRESSION 1. Mild multilevel spondylolisthesis. 2. Cervical degenerative disc and degenerative joint disease. 3. Spinal narrowing due to posterior disc osteophyte complexes at C4-5,C5-6 and C6-7 without associated cord impingement. 4. Multilevel neural foraminal narrowing due to uncovertebral spurring andfacet hypertrophy as described by level above. Ann Carrillo MD IMG MRI ORDERAB LES documented in this encounter Visit Diagnoses Diagnosis Cervicalgia Pain in unspecified shoulder documented in this encounter Care Teams Extruder Operator Multiple Relationship Specialty Start Date End Date Ann Carrillo MD [address] [place] [address] PCP - General 08/23/18 04/05/22 documented as of this encounter
--- OUTSIDE RECORDS SUMMARY | 2023-11-25 01:38 | XMS_ITS | Encounter Summary ---
Author Organization [facility] Address [address] [place] [address] Care Team Providers Care Health And Wellness Coach Name Role Phone Ann Carrillo MD Primary Care Provider Carloz Orellana MD Primary Care Provider [phone] Reason for Visit * Reason Onset Date Comments Other 01/15/2022 Encounter Details Date Type Department Care Team (Late st Contact Info) Description 01/15/2022 Telephone [facility] General Surgery - [address] [address] Ken Rich MD [address] [facility] [address] [place] [address] Other Social History Tobacco Use Types Packs/Day Years [...] encounter Miscellaneous Notes * Telephone Encounter - Debra Gee - 01/15/2022 1125 EDT Patient in clinic in September- calling back to schedule surgery. documented in this encounter Plan of Treatment Upcoming Encounters Date Type Department Care Team (Late st Contact Info) Description 12/28/2023 13:00 EDT Office Visit [facility] Cardiology - [address] [phone] Rosalind Mckeon, PA-C [address] [place] [address] [place] [address] documented as of this encounter Visit Diagnoses Not on filedocumented in this encounter Care Teams Health And Wellness Coach Relationship Specialty Start Date End Date Ann Carrillo MD [address] [place] [address] PCP - General 08/23/18 04/05/22 Carloz Orellana MD [address] [place] [address] PCP - General Family Medicine - Primary Care 04/06/22 documented as of this encounter
--- OUTSIDE RECORDS SUMMARY | 2023-11-25 01:38 | XMS_ITS | Encounter Summary ---
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 06/05/19 1130 Posted [facility] GI/ENDO ENDO Gastroenterology [facility] Outpatient Procedure H - Elective Panel 1 Procedure LRB Anes Op Region Wound Class Comments COLONOSCOPY PROCEDURE-GI N/A Nurse Moderate Sedation Surgeon Surgeon Role Service Panel Enio Reed MD Primary Gastroenterology 1 documented in this encounter Social History Tobacco Use Types Packs/Day Years [...] Sign Reading Time Taken Comments Blood Pressure 119/79 06/05/2019 1157 EST Pulse - - Temperature 35.8 ??C (96.4 ??F) 06/05/2019 1157 EST Respiratory Rate 11 06/05/2019 1157 EST Oxygen Saturation 97% 06/05/2019 1157 EST Inhaled Oxygen Concentration - - Weight 90.7 kg (200 lb) 06/05/2019 1040 EST Height 182.9 cm (6') 06/05/2019 1040 EST Body Mass Index 27.12 06/05/2019 1040 EST documented in this encounter Functional Status [...] Discharge Disposition Disposition Code Departure Means Destination Comment s Home or Self Care Wheelchair Home accompanied by , Rosa documented in this encounter H&P Notes * Enio Reed MD - 06/05/2019 1132 EST Endoscopy Sedation for Procedure History & Physical Date: 06/05/2019 Time: 11:32 Location: [facility] GI/ENDO Planned Procedure: Procedure(s): COLONOSCOPY PROCEDURE-GI Chief Complaint/Indications for Procedure: Encounter for screening for malignant neoplasm of colon [Z12.11] History Previous Complication with Sedation and/or Anesthesia? Allergies: Allergies Allergen Reactions ??? No Known Drug Allergies Current Medications: Current Facility-Administered Medications: diphenhydrAMINE (BENADRYL) injection 25 mg intravenous Once PRN lactated ringers (LR) infusion intravenous CONTINUOUS lidocaine (PF) 10 mg/mL (1 %) injection 2 mg intradermal PRN ondansetron (PF) (ZOFRAN) injection 2-4 mg intravenous PRN sodium chloride 0.9 % (flush) flush 3 mL intravenous PRN Past Medical History: Past Medical History: Diagnosis Date ??? Abnormal nuclear stress test ??? Anomaly, cardiac IL, cardiac stents, CAD ??? Chest pain radiating to arm ??? Colon polyp ??? Family history of coronary artery disease ??? HLD (hyperlipidemia) Social History: Past Surgical History: Procedure Laterality Date ??? ANKLE FRACTURE SURGERY Social History Tobacco Use ??? Smoking status: Never Smoker ??? Smokeless tobacco: Former User Types: Chew Substance Use Topics ??? Alcohol use: Yes Alcohol/week: 4.0 - 5.0 standard drinks Types: 4 - 5 Shots of liquor per week Family History: Family History Problem Relation Age of Onset ??? Heart Disease Father ??? Heart Disease Brother ??? Breast Cancer Sister ??? Colon Cancer Neg Hx ??? Colon Polyps Neg Hx ??? Endometrial Cancer Neg Hx ??? Esophageal Cancer Neg Hx ??? Ovarian Cancer Neg Hx ??? Pancreatic Cancer Neg Hx ??? Rectal Cancer Neg Hx ??? Stomach Cancer Neg Hx Review of Systems as pertinent: Physical Exam Vital Signs: BP (!) 143/83 Temp 35.9 ??C (96.6 ??F) (Tympanic) Resp 14 Ht 182.9 cm (72) Wt90.7 kg (200 lb) SpO2 98% BMI 27.12 kg/m?? Heart Examination: Cardiac Regularity: Regular Respiratory Examination: Respiratory Pattern: Regular Breath Sounds Right: Clear Breath Sounds Left: Clear Abdominal Examination: Soft, non-tender, bowel sounds normal, no masses, no organomegaly Additional physical exam related to the proposed procedure, patient activity, disease state and treatment as pertinent: Assessment Previous complications with sedation or anesthesia?: No Airway Concerns: None/NA Anesthesia Classification: ASA 2 Plan: Proceed with sedation for procedure Fasting Time: Date of Last Liquid: 06/05/19 Time of Last Liquid: 0600 Date of Last Solid: 06/03/19 Time of Last Solid: 2300 Patient Appropriate Candidate for Planned Sedation?: Yes Enio Reed MD 06/05/2019 11:32 documented in this encounter Plan of Treatment Upcoming Encounters Date Type Department Care Team (Late st Contact Info) Description 12/28/2023 13:00 EDT Office Visit [facility] Cardiology - [address] [address] Rosalind Mckeon, LEA [address] [facility] [address] [place] [address] documented as of this encounter Procedures Procedure Name Priority Date/Time Associated Diagnosis Comments COLONOSCOPY PROCEDURE Routine 06/05/2019 11:49 EST SURGICAL PATHOLOGY Routine 06/05/2019 11 :43 EST COLONOSCOPY 06/05/2019 11:30 EST Encounter for screening for malignant neoplasm of colon Personal history of colonic polyps documented in this encounter Results * COLONOSCOPY PROCEDURE (06/05/2019 11:49 EST) Anatomical [...] procedure. ??Total sedation time was ??12 ??minutes. Barney Bowel Prep Right Colon: 3 ? Transverse [...] MD Enio Reed MD GI PROCEDURE ORDE RABLES * SURGICAL PATHOLOGY (06/05/2019 11:43 EST) Final Diagnosis A. COLON, TRANSVERSE, POLYP, BIOPSY: -Tubular adenoma. 06/06/2019 14:28 EST [facility] at 1428 Clinical History Screening for malignant neoplasm of colon; personal history of colon polyps; clinical diagnosis code: Z12.11, Z86.010 06/06/2019 14:28 EST [facility] Attestation By the signature below, the attending physician certifies that they have personally conducted a gross and/or microscopic examination of the described specimens and rendered or confirmed the above diagnosis. 06/06/2019 14:28 EST [facility] at 1428 Gross Description A. Received in formalin labelled with proper patient identification (initials B, R) and transverse colon polyp are 2 briones-brown irregular tissues, 0.2 x 0.2 x 0.1 cm and 0.4 x 0.2 x 0.1 cm. Entirely submitted in A1. Lisa Lopez 06/05/2019 14:07 06/06/2019 14:28 EST [facility] Scanned Images 06/06/2019 14:28 EST [facility] Tissue POLYP OF COLON / Unknown 06/05/2019 11:43 EST 06/05/2019 12:37 EST Comment:Pre-op diagnosis: Encounter for screening for malignant neoplasm of colon [Z12.11] Personal history of colonic polyps [Z86.010] Enio Reed MD PATHOLOGY ORDERAB LES [facility] [address] [place] [address] documented in this encounter Visit Diagnoses Diagnosis Encounter for screening for malignant neoplasm of colon Special screening for malignant neoplasms, colon Personal history of colonic polyps documented in this encounter Administered Medications Inactive Administered Medications - up to 3 most recent administrations Medication Order MAR Action Action Date Dose Rate Site diphenhydrAMINE (BENADRYL) injection 25 mg 25 mg, intravenous, ONCE PRN, 1 dose, Starting on Wed06/05/19 at 1130, Until Wed06/05/19 at 1436, Sleep, Routine, Preprocedure lactated ringers (LR) infusion 30 mL/hr, intravenous, CONTINUOUS, Starting on Wed06/05/19 at 1145, Until Wed06/05/19 at 1436, Routine, Preprocedure New Bag 06/05/2019 11:00 EST 30 mL/hr 30 mL/hr lidocaine (PF) 10 mg/mL (1 %) injection 2 mg 2 mg, intradermal, PRN, 4 doses, Starting on Wed06/05/19 at 1130, Until Wed06/05/19 at 1436, peripheral intravenous catheter placement, Routine, Preprocedure meperidine (PF) (DEMEROL) injection intravenous, PRN, Starting on Wed06/05/19 at 1134, Until Wed06/05/19 at 1436, Routine Given 06/05/2019 11:40 EST 25 mg Given 06/05/2019 11:34 EST 50 mg midazolam (MDV) (VERSED) injection intravenous, PRN, Starting on Wed06/05/19 at 1134, Until Wed06/05/19 at 1436, Routine Given 06/05/2019 11:39 EST 1 mg Given 06/05/2019 11:34 EST 2 mg ondansetron (PF) (ZOFRAN) injection 2-4 mg 2-4 mg, intravenous, PRN, Starting on Wed06/05/19 at 1130, Until Wed06/05/19 at 1436, Nausea, Vomiting, Routine, Intraprocedure sodium chloride 0.9 % (flush) flush 3 mL 3 mL, intravenous, PRN, Starting on Wed06/05/19 at 1130, Until Wed06/05/19 at 1436, Line Care, Routine, Preprocedure documented in this encounter Discontinued Medications Medication Sig Discontinue Reason Start Date End Da te acetaminophen (TYLENOL) 325 mg tablet Take 2 Tabs by mouth every 4 hours as needed for Pain. Patient Stopped Taking 07/08/2015 06/05/2019 famotidine (PEPCID) 20 mg tablet Take 1 Tab by mouth daily. Patient Stopped Taking 08/06/2015 06/05/2019 ibuprofen (MOTRIN) 400 mg tablet Take 1 Tab by mouth 4 times daily. Patient Stopped Taking 07/18/2015 06/05/2019 LORazepam (ATIVAN) 0.5 mg tablet Take 1 mg by mouth 2 times daily. Therapy completed 06/05/2019 documented as of this encounter Active and Recently Administered Medications Times are shown in EST. Continuous Medication Order 06/03/2019 06/04/2019 06/05/2019 lactated ringers (LR) infusion 30 mL/hr, intravenous, CONTINUOUS, Starting on Wed06/05/19 at 1145, Until Wed06/05/19 at 1436, Routine, Preprocedure 1100 (New Bag - Prov ider: Nesha Orellana RN)1231 (Completed - Provider: Amparo Luther RN) PRN Medication Order 06/03/2019 06/04/2019 06/05/2019 diphenhydrAMINE (BENADRYL) injection 25 mg 25 mg, intravenous, ONCE PRN, 1 dose, Starting on Wed06/05/19 at 1130, Until Wed06/05/19 at 1436, Sleep, Routine, Preprocedure lidocaine (PF) 10 mg/mL (1 %) injection 2 mg 2 mg, intradermal, PRN, 4 doses, Starting on Wed06/05/19 at 1130, Until Wed06/05/19 at 1436, peripheral intravenous catheter placement, Routine, Preprocedure meperidine (PF) (DEMEROL) injection intravenous, PRN, Starting on Wed06/05/19 at 1134, Until Wed06/05/19 at 1436, Routine 1134 (Given - Provid er: Anne Fajardo RN)1140 (Given - Provider: Junie Hare RN) midazolam (MDV) (VERSED) injection intravenous, PRN, Starting on Wed06/05/19 at 1134, Until Wed06/05/19 at 1436, Routine 1134 (Given - Provid er: Anne Fajardo RN)1139 (Given - Provider: Junie Hare RN) ondansetron (PF) (ZOFRAN) injection 2-4 mg 2-4 mg, intravenous, PRN, Starting on Wed06/05/19 at 1130, Until Wed06/05/19 at 1436, Nausea, Vomiting, Routine, Intraprocedure sodium chloride 0.9 % (flush) flush 3 mL 3 mL, intravenous, PRN, Starting on Wed06/05/19 at 1130, Until Wed06/05/19 at 1436, Line Care, Routine, Preprocedure documented in this encounter Orders Medications Ordered That Vignesh ht Not Have Been Administered Count Last Ordered Date First Ordered Date diphenhydrAMINE (BENADRYL) injection 25 mg 1 06/05/2019 lidocaine (PF) 10 mg/mL (1 % ) injection 2 mg 1 06/05/2019 ondansetron (PF) (ZOFRAN) injection 2-4 mg 1 06/05/2019 sodium chloride 0.9 % (flush) flush 3 mL 1 06/05/2019 documented in this encounter Care Teams Grain Elevator Operator Relationship Specialty Start Date End Date Ann Carrillo MD [address] [place] [id number] PCP - General 08/23/18 04/05/22 documented as of this encounter
--- OUTSIDE RECORDS SUMMARY | 2023-11-25 01:38 | XMS_ITS | Encounter Summary ---
Author Organization [facility] Address [address] [place] [address] Care Team Providers Care Platen Drier Operator Name Role Phone Carloz Orellana MD Primary Care Provider [phone] Reason for Referral * Specialty Diagnoses / Procedures Referred By Contac t Referred To Contact June Solomon MD [address] [place] [phone] Referral ID Status Reason Start Date Expiration Date Visits Re quested Visits Authorized Comments Please make an appointment with your physician in 3-4 weeks. The number to call is [phone]. Call your physician immediately if: You have any fevers greater than 100 Drainage from you wound that is not clear or looks infected Persistent bleeding Increasing abdominal pain Problems urinating, or persistent nausea/vomiting * Specialty Diagnoses / Procedures Referred By Contac t Referred To Contact June Solomon MD [address] [place] [phone] Referral ID Status Reason Start Date Expiration Date Visits Re quested Visits Authorized Comments We are currently collecting quality data on patients having surgery. You may receive a phone call, email, and/or letter about your surgery asking you a series of follow up questions to evaluate specifics aspects of your care. Thank you for your participation. Reason for Visit * Auth/Cert Specialty Diagnoses / Procedures Referred By Contac t Referred To Contact Diagnoses Umbilical hernia without obstruction and without gangrene Procedures [place] REPAIR UMBILICAL OBED,5+Y/O,REDUC open umbilical hernia repair Referral ID Status Reason Start Date Expiration Date Visits Re quested Visits Authorized [id number] 03/04/2022 05/09/2022 1 1 Encounter Details Date Type Department Care Team (Late st Contact Info) Description 04/06/2022 6:03 EST - 04/06/2022 9:54 EST Hospital Encounter [facility] OR [address] [place] [phone] Ken Rich MD [address] [place] [address], [facility], [address] [place] [address] Discharge Disposition: Home or Self Care Social [...] Sign Reading Time Taken Comments Blood Pressure 123/88 04/06/2022 0945 EST Pulse 53 04/06/2022 0830 EST Temperature 36.4 ??C (97.5 ??F) 04/06/2022 0945 EST Respiratory Rate 14 04/06/2022 0945 EST Oxygen Saturation 98% 04/06/2022 0945 EST Inhaled Oxygen Concentration - - Weight - - Height - - Body Mass Index - - documented in this encounter Functional Status Functional [...] No 06/04/2020 documented as of this encounter Medications at Time of Discharge Medication Sig Dispensed Refills Start Date End Date aspirin 81 mg EC tablet Take 1 Tablet by mouth daily. Cholecalciferol, Vitamin D3, 50 mcg capsule Take 2,000 Units by mouth daily. cyanocobalamin (VITAMIN B-12) 500 mcg tablet Take 500 mcg by mouth daily. HYDROmorphone (DILAUDID) 2 mg tablet Take 1 Tablet by mouth every 8 hours as needed for Pain (For pain not controlled on Tylenol). Daily Max: 6 mg 8 Tablet 04/06/2022 nitroGLYCERIN (NITROSTAT) 0.[address] 1 tablet under the tongue every 5 minutes as needed for Pain. Reported on 04/16/2016 25 tablet 3 09/15/2018 tocopheryl acetate (VITAMIN E) 90 mg (200 unit) capsule Take 200 Units by mouth daily. documented as of this encounter Ordered Prescriptions Prescription Sig Dispensed Refills Start Date End Da te HYDROmorphone (DILAUDID) 2 mg tablet Take 1 Tablet by mouth every 8 hours as needed for Pain (For pain not controlled on Tylenol). Daily Max: 6 mg 8 Tablet 04/06/2022 documented in this encounter Discharge Disposition Disposition Code Departure Means Destination Home or Self Usp documented in this encounter H&P Notes * June Kingston MD - 04/06/2022 0709 EST Surgical H+P Admission Admit Date: 04/06/2022 Date of Service: 04/06/2022 Hospital day: LOS: 0 days Chief Complaint: Umbilical hernia HPI: (The history is obtained from the chart, providers, and the patient.) Lan Lima is a 67 y.o. male who presents with an umbilical hernia. Per clinic visit with Dr. Rich in September 2021 This is a 66 y.o. male who follows up with me today for his umbilical hernia. He had seen me a couple of years ago but postponed his umbilical hernia repair due to COVID. He recently has lost 40 pounds voluntarily. The hernia is relatively asymptomatic. He is never been to the emergency room because of an incarceration event. He is able to reduce it in the supine position. Bowels and urine are normal. Denies any changes to medical conditions or medications since last seen in clinic. Denies any recent hospitalizations, illnesses, or emergency department visits. Today, denies any fevers, chills, chest pain, shortness of breath, nausea, vomiting, abdominal pain, lower extremity swelling. Hernia hascontinued to be reducible. PMH PSH Past Medical History: Diagnosis Date ??? Abnormal nuclear stress test ??? Activity, other involving cardiorespiratory exercise Noted 03/30/22- 1-2 FOS without difficulty/very active. ??? 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 Arthritis [...] with LOC. ??? Heart attack (HCC-CMS) (HCC) Noted 03/30/22- Heart attack a few weeks after stent placement ??? History of general anesthesia ??? HLD (hyperlipidemia) Noted 03/30/22- Not taking Lipitor, afraid of memory loss. ??? Umbilical hernia Noted 03/30/22 Past Surgical History: Procedure Laterality Date ??? ANKLE FRACTURE SURGERY Right ??? CARDIAC SURGERY six stents x2 ??? FRACTURE SURGERY broken leg -right Social History Family history Social History Tobacco Use ??? Smoking status: Never ??? Smokeless tobacco: Former Types: Chew ??? Tobacco comments: former use Substance Use Topics ??? Alcohol use: Yes Alcohol/week: 1.0 - 2.0 standard drink Types: 1 - 2 Shots of liquor per week Family History Problem Relation Age of Onset ??? High Cholesterol Father ??? Heart Disease Father ??? Breast Cancer Sister ??? Heart Disease Brother ??? Colon Cancer Neg Hx ??? Colon Polyps Neg Hx ??? Endometrial Cancer Neg Hx ??? Esophageal Cancer Neg Hx ??? Ovarian Cancer Neg Hx ??? Pancreatic Cancer Neg Hx ??? Rectal Cancer Neg Hx ??? Stomach Cancer Neg Hx Medications Medications Prior to Admission Medication Sig Dispense Refill Last Dose ??? aspirin 81 mg EC tablet Take 81 mg by mouth daily. 04/05/2022 ??? [DISCONTINUED] atorvastatin (LIPITOR) 40 mg tablet Take 1 Tab by mouth at bedtime. (Patient nottaking: No sig reported) 90 Tab 3 ??? Cholecalciferol, Vitamin D3, 50 mcg capsule Take 2,000 Units by mouth daily. Past Week ??? cyanocobalamin (VITAMIN B-12) 500 mcg tablet Take 500 mcg by mouth daily. Past Week ??? nitroGLYCERIN (NITROSTAT) 0.[address] 1 tablet under the tongue every 5 minutes as needed for Pain. Reported on 04/16/2016 (Patient not taking: Reported on 04/06/2022) 25 tablet 3 Not Taking ??? tocopheryl acetate (VITAMIN E) 90 mg (200 unit) capsule Take 200 Units by mouth daily. Past Week Allergies Allergies Allergen Reactions ??? No Known Drug Allergies Review of Systems: A complete 10-point review of systems was completed and is negative except for the above positive mentions in the HPI. Objective/Physical Exam: VS: Patient Vitals for the past 8 hrs: BP Resp Temp SpO2 O2 Device 04/06/22 0637 (!) 142/89 17 36.8 ??C (98.2 ??F) 97 % None Exam: General appearance - alert, well appearing, and in no distress Chest - clear to auscultation, no wheezes, rales or rhonchi, symmetric air entry Heart - normal rate, regular rhythm, normal S1, S2, no murmurs, rubs, clicks or gallops Abdomen - soft, nontender, nondistended, no masses or organomegaly Extremities - no pedal edema noted Labs: CBC: Lab Results Component Value Date WBC 7.15 07/18/2015 RBC 4.04 (L) 07/18/2015 HGB 12.5 (L) 07/18/2015 HCT 36.2 (L) 07/18/2015 MCV 90 07/18/2015 MCH 30.9 07/18/2015 MCHC 34.5 07/18/2015 PLT 256 07/18/2015 BMP: Lab Results Component Value Date NA 140 08/06/2015 K 5.2 (H) 08/06/2015 CL 101 08/06/2015 CO2 28 08/06/2015 BUN 26 08/06/2015 CREATININE 0.98 08/06/2015 CALCIUM 9.7 08/06/2015 MG 2.1 07/16/2015 LABALBU 4.5 08/06/2015 Imaging: (Please refer to the chart for a full radiology report including all of the findings and impressions.) n/a Assessment There are no active hospital problems to display for this patient. Lan Lima is a 67 y.o. male who presents for an umbilical hernia repair. Problems/Plan: OR today Consent complete Ancef preop Plan for PACU then home JUNE KINGSTON MD 04/06/2022 7:09 Portions of this note may be copied from other providers' documentation. All relevant findings and history have been reviewed and updated as appropriate. documented in this encounter OR Notes * OR Surgeon - Ken Rich MD - 04/06/2022 0000 EST OPERATIVE REPORT SERVICE DATE: 04/06/2022 PREOPERATIVE DIAGNOSIS: Umbilical hernia. POSTOPERATIVE DIAGNOSIS: Umbilical hernia. PROCEDURE: Umbilical hernia repair. SURGEON: Ken Rich MD, FACS HSE SPECIALIST: June Kingston MD ANESTHESIA: MAC with local. ESTIMATED BLOOD LOSS: Minimal. FLUIDS: 500 mL of crystalloid. DRAINS: None. COMPLICATIONS: None. INDICATIONS: This is a 67-year-old man with a history of an umbilical hernia. He has had it for several years. He lost a significant amount of weight and he wanted his hernia repaired as it was symptomatic for him. FINDINGS: An approximately 1 cm defect. This was closed primarily. NARRATIVE: The patient was taken to the operating room and placed supine on the operating table, identified as Bairon Lima. I was present for the entire procedure. After sedation was given, the abdomenwas prepped and draped in the usual sterile fashion. The skin in and around the umbilicus was infiltrated with local anesthesia. An infraumbilical incision was then made. It was taken down through the skin and subcutaneous tissue. The umbilical stalk was encircled with a hemostat and the umbilical stalk was dissected off the fascia. The hernia could then be seen and palpated. The hernia sac was dissected from the fascia. The fascia was then dissected from subcutaneous tissue. It came together tr ansversely without tension. The defect was about 1 cm and we closed the defect with 4 interrupted CV-0 Marianna-Hermes sutures. The wound was irrigated. The umbilical stalk was sutured down to the fascia with a 2-0 Vicryl suture. The deep tissue was reapproximated with 2-0 Vicryl suture. Deep dermis was reapproximated with 3-0 Vicryl suture and the skin was closed with subcuticular stitch of 4-0 Monocryl. Prior to closing, we infiltrated the fascia with local anesthetic. Dermabond was applied to the incision. Sponge and instrument counts were correct at the end of the case. The patient was awoken from his sedation and taken to recovery room in stable condition. Unless otherwise noted, there were no complications, no blood loss, no cultures obtained, no specimens removed, and no drains retained. Ken Rich MD FACS / DS Confirmation: [id number] Dictation ID: [id number] cc: Ann Carrillo MD, [address] [place] [phone] Carloz Orellana MD, [place] [address] June Kingston MD, [facility], [address] [place] [phone] Ken Rich MD [facility], [facility] - Surgery, [address] [place] [address] documented in this encounter Miscellaneous Notes * Brief Op Note - June Kingston MD - 04/06/2022 0954 EST Date: 04/06/2022 Location: [facility] OR Name: Lan Lima, : 1955, Diagnosis Pre-Op Diagnosis Codes: * Umbilical hernia without obstruction and without gangrene [K42.9] Post-op Diagnosis * Umbilical hernia without obstruction and without gangrene [K42.9] Procedures * open umbilical hernia repair Surgeons * Ken Rich MD - Primary * June Kingston MD - Resident - Assisting Procedure Summary Anesthesia: Monitor Anesthesia Care ASA: II Estimated Blood Loss: Minimal Total IV Fluids: 500 mL LDAs: none Staff: Handyperson: Judy Nielsen RN Scrub Person: Jazmine Angulo RN Patient Obstetrics Scrub Nurse: Ashlie Gomez Indications: Bairon Lima is an 67 y.o. male who is having surgery for an umbilical hernia. Findings: 1cm umbilical hernia, repaired primarily with goretex sutures Complications: None; patient tolerated the procedure well. Disposition: PACU - hemodynamically stable. Condition: stable Specimens Collected: No specimens collected during this procedure. JUNE KINGSTON MD 04/06/2022 12:48 Pager #[phone] documented in this encounter Plan of Treatment Upcoming Encounters Date Type Department Care Team (Late st Contact Info) Description 12/28/2023 13:00 EDT Office Visit [facility] Cardiology - [address] [place] [address] Rosalind Mckeon PA-C [address] [place] [address] [address] [place] [phone] Scheduled Referrals Name Type Priority Associated Diagnoses Order Schedule PROVIDER FOLLOW-UP INSTRUCTIONS Outpatient Referral Routine Ordered: 04/06/2022 PROVIDER FOLLOW-UP INSTRUCTIONS Outpatient Referral Routine Ordered: 04/06/2022 documented as of this encounter Procedures Procedure Name Priority Date/Time Associated Diagnosis Comments ECG REPORT - SCANNED 04/08/2022 14:37 EST REPAIR, HERNIA, UMBILICAL, REDUCIBLE, AGE 5 YEARS OR OLDER 04/06/2022 7:18 EST Umbilical hernia without obstruction and without gangrene documented in this encounter Results * ECG REPORT - SCANNED (04/08/2022 14:37 EST) 04/08/2022 14:3 7 EST Scan 2 Outgoing Inspector PROCEDURE/MINOR ASPEN GICAL ORDERABLES documented in this encounter Visit Diagnoses Not on filedocumented in this encounter Administered Medications Inactive Administered Medications - up to 3 most recent administrations Medication Order MAR Action Action Date Dose Rate Site atropine 0.1 mg/mL syringe 0.5 mg 0.5 mg, intravenous, PRN, Starting on Wed04/06/22 at 0821, Until Wed04/06/22 at 1154, Symptomatic HR < 50, Routine, Recovery (only) diphenhydrAMINE (BENADRYL) injection 12.5 mg 12.5 mg, intravenous, PRN, 1 dose, Starting on Wed04/06/22 at 0821, Until Wed04/06/22 at 1154, nausea, Routine, Recovery (only) fentaNYL citrate (PF) injection 25-50 mcg 25-50 mcg, intravenous, EVERY 5 MIN PRN, Starting on Wed04/06/22 at 0821, Until Wed04/06/22 at 1154, Pain, Routine, Recovery (only) lactated ringers (LR) infusion at 25 mL/hr, intravenous, CONTINUOUS, Starting on Wed04/06/22 at 0715, Until Wed04/06/22 at 1154, Routine, Preprocedure Restarted 04/06/2022 7:30 EST Continued by Anesthesia 04/06/2022 7:28 EST 25 mL/hr New Bag 04/06/2022 7:13 EST 25 mL/hr lactated ringers (LR) infusion at 75 mL/hr, intravenous, PACU CONTINUOUS, Starting on Wed04/06/22 at 0845, Until Wed04/06/22 at 1154, Routine, Recovery (only) naloxone (NARCAN) injection 0.2 mg 0.2 mg, intravenous, PRN, Starting on Wed04/06/22 at 0821, Until Wed04/06/22 at 1154, Opioid Reversal, Routine, Recovery (only) ondansetron (PF) (ZOFRAN) injection 4 mg 4 mg, intravenous, PRN, 1 dose, Starting on Wed04/06/22 at 0821, Until Wed04/06/22 at 1154, Nausea, Vomiting, Routine, Recovery (only) oxyCODONE (ROXICODONE) immediate release tablet 5-10 mg 5-10 mg, oral, EVERY 30 MINUTES PRN, 2 doses, Starting on Wed04/06/22 at 0821, Until Wed04/06/22 at 1154, Pain, Routine, Recovery (only) Given 04/06/2022 9:22 EST 10 mg documented in this encounter Discontinued Medications Medication Sig Discontinue Reason Start Date End Da te atorvastatin (LIPITOR) 40 mg tablet Take 1 Tab by mouth at bedtime. Therapy completed 06/01/2019 04/06/2022 documented as of this encounter Active and Recently Administered Medications Times are shown in EST. Scheduled Medication Order 04/04/2022 04/05/2022 04/06/2022 ceFAZolin (ANCEF) syringe 2 g (COMPLETED) 2 g, intravenous, Administer over 5 Minutes, PRE-OP ONCE, 1 dose, On Wed04/06/22 at 0730, Routine, Preprocedure 0739 (Given - Provid er: Luana Brown CRNA) Continuous Medication Order 04/04/2022 04/05/2022 04/06/2022 lactated ringers (LR) infusion at 25 mL/hr, intravenous, CONTINUOUS, Starting on Wed04/06/22 at 0715, Until Wed04/06/22 at 1154, Routine, Preprocedure 0713 (New Bag - Prov ider: Gege Jacob RN)0728 (Continued by Anesthesia - Provider: Luana Brown CRNA)0729 (Paused - Provider: Luana Brown CRNA - Comment: Switch to gravity)0730 (Restarted - Provider: Luana Brown CRNA)0819 (Completed - Provider: Luana Brown CRNA) lactated ringers (LR) infusion at 75 mL/hr, intravenous, PACU CONTINUOUS, Starting on Wed04/06/22 at 0845, Until Wed04/06/22 at 1154, Routine, Recovery (only) 0845 (Canceled Entry - Provider: Batch Job User Admin - Comment: Automatically canceled at discontinue of medication order) PRN Medication Order 04/04/2022 04/05/2022 04/06/2022 atropine 0.1 mg/mL syringe 0.5 mg 0.5 mg, intravenous, PRN, Starting on Wed04/06/22 at 0821, Until Wed04/06/22 at 1154, Symptomatic HR < 50, Routine, Recovery (only) bupivacaine (PF) (MARCAINE) 0.5% injection (CANCELED) PRN, Starting on Wed04/06/22 at 0805, Until Wed04/06/22 at 0825, Routine, Intraprocedure 0805 (Given - Provid er: Ken Rich MD) diphenhydrAMINE (BENADRYL) injection 12.5 mg 12.5 mg, intravenous, PRN, 1 dose, Starting on Wed04/06/22 at 0821, Until Wed04/06/22 at 1154, nausea, Routine, Recovery (only) fentaNYL citrate (PF) injection 25-50 mcg 25-50 mcg, intravenous, EVERY 5 MIN PRN, Starting on Wed04/06/22 at 0821, Until Wed04/06/22 at 1154, Pain, Routine, Recovery (only) lidocaine 1 % 40 mL, sodium bicarbonate 4.2 % 4 mL (CANCELED) PRN, Starting on Wed04/06/22 at 0806, Until Wed04/06/22 at 0825, Routine, Intraprocedure 0806 (Given - Provid er: Ken Rich MD) naloxone (NARCAN) injection 0.2 mg 0.2 mg, intravenous, PRN, Starting on Wed04/06/22 at 0821, Until Wed04/06/22 at 1154, Opioid Reversal, Routine, Recovery (only) ondansetron (PF) (ZOFRAN) injection 4 mg 4 mg, intravenous, PRN, 1 dose, Starting on Wed04/06/22 at 0821, Until Wed04/06/22 at 1154, Nausea, Vomiting, Routine, Recovery (only) oxyCODONE (ROXICODONE) immediate release tablet 5-10 mg 5-10 mg, oral, EVERY 30 MINUTES PRN, 2 doses, Starting on Wed04/06/22 at 0821, Until Wed04/06/22 at 1154, Pain, Routine, Recovery (only) 0922 (Given - Provid er: Laura Bond RN) sodium chloride 0.9 % irrigation (CANCELED) PRN, Starting on Wed04/06/22 at 0753, Until Wed04/06/22 at 0825, Routine, Intraprocedure 0753 (Given - Provid er: Ken Rich MD) documented in this encounter Orders Medications Ordered That Vignesh ht Not Have Been Administered Count Last Ordered Date First Ordered Date atropine 0.1 mg/mL syringe 0.5 mg 1 022 bupivacaine (PF) (MARCAINE) 0.5% injection 1 04/06/2022 ceFAZolin (ANCEF) syringe 2 g 1 04/06/2022 diphenhydrAMINE (BENADRYL) i njection 12.5 mg 1 04/06/2022 fentaNYL citrate (PF) injection 25-50 mcg 1 04/06/2022 lactated ringers (LR) infusion 1 04/06/2022 lidocaine (PF) 10 mg/mL (1 % ) injection 2 mg 1 04/06/2022 lidocaine 1 % 40 mL, sodium bicarbonate 4.2 % 4 mL 1 04/06/2022 naloxone (NARCAN) injection 0.2 mg 1 2021 ondansetron (PF) (ZOFRAN) injection 4 mg 1 04/06/2022 sodium chloride 0.9 % irrigation 1 04/06/20 Diet Count Last Ordered Date First Orde red Date DISCHARGE DIET 1 04/06/2022 Nursing Count Last Ordered Date First Orde red Date ACTIVITY INSTRUCTIONS 1 04/06/2022 DRIVING INSTRUCTIONS 1 04/06/2022 WOUND CARE INSTRUCTIONS 1 04/06/2022 Discharge Count Last Ordered Date First Orde red Date DISCHARGE PATIENT 1 04/06/2022 Legal Count Last Ordered Date First Orde red Date MISCELLANEOUS DISCHARGE INSTRUCTIONS 1 03/11 documented in this encounter Care Teams Platen Drier Operator Relationship Specialty Start Date End Date Carloz Orellana MD [address] [place] [id number] PCP - General Family Medicine - Primary Care 04/06/22 documented as of this encounter
--- OUTSIDE RECORDS SUMMARY | 2023-11-25 01:38 | XMS_ITS | Encounter Summary ---
Author Organization [facility] Address [address] [place] [address] Care Team Providers Care Ortho Nurse Name Role Phone Ann Carrillo MD Primary Care Provider Reason for Visit * Reason Onset Date Comments Appointment Related 05/29/2020 Encounter Details Date Type Department Care Team (Late st Contact Info) Description 05/29/2020 Telephone [facility] Cardiology - [address] [place], [place] [phone] Ken Kapadia MD [address] [place] [address] Appointment Related Social History Tobacco Use Types Packs/Day Years [...] 10:10 EST Sexual Orientation Not on file COVID-19 Exposure Response Date Recorded In the last month, have you been in contact with someone who was confirmed or suspected to have Coronavirus / COVID-19? No / Unsure 06/21/2020 13:10 EST documented as of this encounter Functional Status [...] No 10/14/2017 documented as of this encounter Miscellaneous Notes * Telephone Encounter - Wyatt Alexander - 05/29/2020 1211 EST Called 1x for patient's preference regarding an in office visit vs. telehealth appt on 06/04/20, unable to leave a message. documented in this encounter Plan of Treatment Upcoming Encounters Date Type Department Care Team (Late st Contact Info) Description 12/28/2023 13:00 EDT Office Visit [facility] Cardiology - [address] [place] [address] Rosalind Mckeon PA-C [address] [place] [address] [place] [phone] documented as of this encounter Visit Diagnoses Not on filedocumented in this encounter Care Teams Ortho Nurse Relationship Specialty Start Date End Date Ann Carrillo MD [address] [place] [address] [address] [place] [phone] PCP - General 08/23/18 04/05/22 documented as of this encounter
--- OUTSIDE RECORDS SUMMARY | 2023-11-25 01:38 | XMS_ITS | Encounter Summary ---
Author Organization [facility] Address [address] [place] [address] Care Team Providers Care Gas Compressor Turbine Operator Name Role Phone Ann Carrillo MD Primary Care Provider Reason for Visit * Reason Comments Follow-up Umbilical hernia wit hout obstruction and without gangrene Encounter Details Date Type Department Care Team (Late st Contact Info) Description 09/22/2021 9:30 EDT Office Visit [facility] General Surgery - [address] [id number] Ken Rich MD [address] [place] [address], [facility] [address] [place] [address] Umbilical hernia without obstruction and without gangrene (Primary Dx) Social History Tobacco Use Types [...] Sign Reading Time Taken Comments Blood Pressure 159/93 09/22/2021 0905 EDT Pulse 61 09/22/2021 0905 EDT Temperature - - Respiratory Rate - - Oxygen Saturation - - Inhaled Oxygen Concentration - - Weight 86.5 kg (190 lb 9.6 oz) 09/22/2021 09 E DT Height 182.9 cm (6' 0.01) 09/22/2021 09 EDT Body Mass Index 25.84 09/22/2021904 EDT documented in this encounter Functional Status [...] of this encounter Progress Notes * Ken Rich MD - 09/22/2021 0930 EDT Division of General Surgery Date of Service: 09/22/2021 PROBLEM: 1. Umbilical hernia without obstruction and without gangrene HISTORY OF PRESENT ILLNESS: This is a 66 y.o. male who [...] the supine position. Bowels and urine are nor mal. Past Medical History: Diagnosis Date ??? Abnormal nuclear stress test ??? Anomaly, cardiac AL, cardiac stents, CAD ??? Arthritis all joints ache -old age ??? Chest pain radiating to arm ??? Colon polyp ??? Does not exercise ??? Family history of coronary artery disease ??? Heart attack (HCC-CMS) (HCC) ??? History of general anesthesia ??? HLD (hyperlipidemia) Past Surgical History: Procedure Laterality Date ??? ANKLE FRACTURE SURGERY ??? CARDIAC SURGERY six stents x2 ??? FRACTURE SURGERY broken leg -right Family History Problem Relation Age of Onset ??? Heart Disease Father ??? Heart Disease Brother ??? Breast Cancer Sister ??? Colon Cancer Neg Hx ??? Colon Polyps Neg Hx ??? Endometrial Cancer Neg Hx ??? Esophageal Cancer Neg Hx ??? Ovarian Cancer Neg Hx ??? Pancreatic Cancer Neg Hx ??? Rectal Cancer Neg Hx ??? Stomach Cancer Neg Hx Social History Socioeconomic History ??? Marital status: Spouse name: Not on file ??? Number of children: Not on file ??? Years of education: Not on file ??? Highest education level: Not on file Occupational History ??? Not on file Tobacco Use ??? Smoking status: Never Smoker ??? Smokeless tobacco: Former User Types: Chew ??? Tobacco comment: former use Substance and Sexual Activity ??? Alcohol use: Yes Alcohol/week: 1.0 - 2.0 standard drink Types: 1 - 2 Shots of liquor per week ??? Drug use: No ??? Sexual activity: Yes Comment: no viagra Other Topics Concern ??? Not on file Social History Narrative ??? Not on file Social Determinants of Health Financial Resource Strain: Not on file Food Insecurity: Not on file Transportation Needs: Not on file Physical Activity: Not on file Stress: Not on file Social Connections: Not on file Current Outpatient Medications Medication ??? aspirin 81 mg EC tablet ??? atorvastatin (LIPITOR) 40 mg tablet ??? nitroGLYCERIN (NITROSTAT) 0.4 mg SL tablet No current facility-administered medications for this visit. Allergies Allergen Reactions ??? No Known Drug Allergies REVIEW OF SYSTEMS: A ten point review of systems was performed and all were negative except as listed below. Patient Active Problem List Diagnosis ??? Chest pain ??? Subsequent non-ST elevation (NSTEMI) myocardial infarction within 4 weeks of initial infarction(HCC-CMS) (HCC) ??? Umbilical hernia without obstruction and without gangrene OBJECTIVE: Vitals: 09/22/21 0905 BP: (!) 159/93 Pulse: 61 Weight: 86.5 kg (190 lb 9.6 oz) Height: 182.9 cm (72.01) Body mass index is 25.84 kg/m??. He is afebrile. General: No acute distress. HEENT: Normal. Neck: Supple. Skin: Normal. Lungs: Clear, bilaterally. Heart: Regular rate and rhythm. Abdomen: Soft, nondistended, nontender, no masses, no organomegaly. Reducible umbilical hernia. Defect is approximately 1 cm. Vascular: Normal. Musculoskeletal: Normal. Neurologic: Normal. ASSESSMENT & PLAN: A 66 y.o. male with an umbilical hernia. It is symptomatic for him. We talked about the relative merits of open versus laparoscopic repair. I think a laparoscopic repair with a large mesh is unlikelynecessary in this case. It would be easier for him to have an open repair and hopefully done primarily but a small mesh could be placed if there was tension on the fascial closure. PLAN: Umbilical hernia repair was described to the Mr. Lima. Risks include infection, bleeding, bowel injury, recurrence of the hernia. We can do this with sedation and local as an outpatient operation. I explained that he will need to avoid any heavy lifting for about a month after surgery. He understood all this and was willing to proceed. Surgery will be scheduled for the first mutually convenient time. 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 He has had seen Dr. Jairo Kapadia from cardiology as he has a history of coronary artery disease and stent placement. Back in May Dr. Kapadia thought he was an acceptable risk for surgery with routine monitoring. --Ken Rich MD CC: Primary Care Provider: Ann Deleon MD Referring Provider: Ann Carrillo MD . documented in this encounter Plan of Treatment Upcoming Encounters Date Type Department Care Team (Late st Contact Info) Description 12/28/2023 13:00 EDT Office Visit [facility] Cardiology - [place] [id number] [place] [address] Rosalind Mckeon, LEA [address] [facility] [address] [place] [address] documented as of this encounter Visit Diagnoses Diagnosis Umbilical hernia without obstruction and without gangrene- Primary documented in this encounter Care Teams Gas Compressor Turbine Operator Relationship Specialty Start Date End Date Ann Carrillo MD [address] [place] [address] PCP - General 08/23/18 04/05/22 documented as of this encounter
--- OUTSIDE RECORDS SUMMARY | 2023-11-25 01:38 | XMS_ITS | Encounter Summary ---
Author Organization [facility] Address [address] [place] [address] Care Team Providers Care City Planner Name Role Phone Veronica Servin MD Primary Care Provider [phone] Reason for Visit * Reason Onset Date Comments Results 08/08/2018 Encounter Details Date Type Department Care Team (Late st Contact Info) Description 08/08/2018 Telephone [facility] Cardiology - [address] [place], [place] [id number] Ken Kapadia MD [address] [place] [address] Results Social History Tobacco Use Types Packs/Day [...] encounter Miscellaneous Notes * Telephone Encounter - Carly Bermudez RN - 08/10/2018 0907 EDT Notified pt labs ok .Cultures are negative. Awaiting echo. CARLY BERMUDEZ RN * Telephone Encounter - Carly Bermudez RN - 08/09/2018 1535 EDT All labs ok. Cultures negative. Awaiting echo Ken Kapadia MD * Telephone Encounter - Carly Bermudez RN - 08/09/2018 1222 EDT Please review pt's recent labs. Pt asking for results . CARLY BERMUDEZ RN * Telephone Encounter - Rekha Maldonado - 08/08/2018 1635 EDT Reason for Call: Results Summary/Symptoms: Pt looking for his lab results Please call back as soon as possible Rekha Maldonado 08/08/2018 16:36 documented in this encounter Plan of Treatment Upcoming Encounters Date Type Department Care Team (Late st Contact Info) Description 12/28/2023 13:00 EDT Office Visit [facility] Cardiology - [place] [address] Rosalind Mckeon, LEA [address] [facility] [address] [place] [address] documented as of this encounter Visit Diagnoses Not on filedocumented in this encounter Care Teams City Planner Relationship Specialty Start Date End Date Veronica Servin MD PCP - General 10/13/17 08/22/18 documented as of this encounter
--- OUTSIDE RECORDS SUMMARY | 2023-11-25 01:38 | XMS_ITS | Encounter Summary ---
Author Organization [facility] Address [address] [place] [address] Care Team Providers Care Lithoplate Maker Name Role Phone Ann Carrillo MD Primary Care Provider Carloz Orellana MD Primary Care Provider [phone] Reason for Visit * Reason Onset Date Comments COVID-19 06/17/2020 Encounter Details Date Type Department Care Team (Late st Contact Info) Description 06/17/[address] [facility] - [employer] [address] [place] [address] Ken Rich MD [address] [facility] [address] [place] [address] COVID-19 Social History Tobacco Use Types Packs/Day Years [...] encounter Miscellaneous Notes * Telephone Encounter - Scott Luque - 06/18/2020 0912 EST Update: I was able to fax the order to [facility], PT is awaiting a call from them for scheduling. * Telephone Encounter - Scott Luque - 06/17/2020 1706 EST PT wishes to be tested at [facility]. I was unable to fax at the time of this encounter. PT does not require a call back, please just fax his order and cover sheet to [facility]. documented in this encounter Plan of Treatment Upcoming Encounters Date Type Department Care Team (Late st Contact Info) Description 12/28/2023 13:00 EDT Office Visit [facility] Cardiology - [address] [place], [place] [phone] Rosalind Mckeon PA-C [address] [facility] [address] [place] [phone] documented as of this encounter Visit Diagnoses Not on filedocumented in this encounter Care Teams Lithoplate Maker Relationship Specialty Start Date End Date Ann Carrillo MD [address] [place] [address] [address] [place] [phone] PCP - General 08/23/18 04/05/22 Carloz Orellana MD [address] [place] [id number] PCP - General Family Medicine - Primary Care 04/06/22 documented as of this encounter
--- OUTSIDE RECORDS SUMMARY | 2023-11-25 01:38 | XMS_ITS | Encounter Summary ---
Author Organization [facility] Address [address] [place] [address] Care Team Providers Care Production Line Manager Name Role Phone Veronica Servin MD Primary Care Provider [phone] Reason for Referral * Cardiology (Routine) - Closed Specialty Diagnoses / Procedures [facility] Referred To Contact Diagnoses Weakness Procedures ECHOCARDIOGRAM Ken Tracy MD [address] [place] [address] Referral ID Status Reason Start Date Expiration Date Visits Re quested Visits Authorized [id number] Closed 08/04/2018 1 1 Reason for Visit * Reason Comments Shortness of Breath FUR Fatigue Nausea Encounter Details Date Type Department Care Team (Latest Contact Info) Description 08/04/2018 11:30 EDT Office Visit [facility] Cardiology - [address] [place], [place] [phone] Ken Tracy MD [address] [place] [address] Weakness (Primary Dx); ASCVD (arteriosclerotic cardiovascular disease) Social History Tobacco Use Types Packs/Day Years [...] Sign Reading Time Taken Comments Blood Pressure 130/76 08/04/2018 1111 EDT Pulse 60 08/04/2018 1111 EDT Temperature - - Respiratory Rate - - Oxygen Saturation 100% 08/04/2018 1111 EDT Inhaled Oxygen Concentration - - Weight 89.8 kg (198 lb) 08/04/2018 1111 EDT Height 182.9 cm (6') 08/04/2018 1111 EDT Body Mass Index 26.85 08/04/2018 1111 EDT documented in this encounter Functional Status [...] No 10/14/2017 documented as of this encounter Progress Notes * Ken Tracy MD - 08/04/2018 1130 EDT Subjective: Patient is a 63 y.o. male who presents for follow-up of CAD. Patient reports dyspnea on exertion. He denies chest pain on exertion. He describes his symptoms as worsened. Noted blue nails and saw PCP He has been compliant with his medications. Medications side effects include none Past Medical History: Diagnosis Date ??? Abnormal nuclear stress test ??? Chest pain radiating to arm ??? Family history of coronary artery disease ??? HLD (hyperlipidemia) Patient Active Problem List Diagnosis Date Noted ??? Subsequent non-ST elevation (NSTEMI) myocardial infarction within 4 weeks of initial infarction([facility]) 07/13/2015 Priority: Medium ??? Chest pain 07/08/2015 Priority: Medium Current Outpatient Medications Medication Sig Dispense Refill ??? acetaminophen (TYLENOL) 325 mg tablet Take 2 Tabs by mouth every 4 hours as needed for Pain. (Patient not taking: Reported on 04/16/2016) ??? aspirin 81 mg EC tablet Take 81 mg by mouth daily. ??? atorvastatin (LIPITOR) 40 mg tablet Take 1 Tab by mouth at bedtime. 90 Tab 3 ??? famotidine (PEPCID) 20 mg tablet Take 1 Tab by mouth daily. (Patient not taking: Reported on 04/16/2016) 90 Tab 3 ??? ibuprofen (MOTRIN) 400 mg tablet Take 1 Tab by mouth 4 times daily. (Patient not taking: Reported on 04/16/2016) 16 Tab 0 ??? LORazepam (ATIVAN) 0.5 mg tablet Take 1 mg by mouth 2 times daily. ??? nitroGLYCERIN (NITROSTAT) 0.[address] 0.4 mg under the tongue every 5 minutes as needed for Chest Pain. Reported on 04/16/2016 No current facility-administered medications for this visit. Review of Systems A ten point ROS was performed. Pertinent positives are listed above, all others are negative. Objective: BP 130/76 Pulse 60 Ht 182.9 cm (72) Wt 89.8 kg (198 lb) SpO2 100% BMI 26.85 kg/m?? Body mass index is 26.85 kg/m??. Physical Exam: General: Alert, cooperative, no [...] bilaterally. Skin: No pallor, rashes or lesions. Splinter hemmorrhages Lymph nodes: Cervical, supraclavicular, and axillary nodes normal. Neurologic: Normal strength, nonfocal on exam. Lab Review: No visits with results within 2 Month(s) from this visit. Latest known visit with results is: Phlebotomy Only on 08/06/2015 Component Date Value ??? Potassium 08/06/2015 5.2* ??? Sodium 08/06/2015 140 ??? Chloride 08/06/2015 101 ??? CO2 08/06/2015 28 ??? Total Alkaline Phosphata* 08/06/2015 69 ??? Bilirubin, Total 08/06/2015 1.3 ??? AST 08/06/2015 25 ??? ALT 08/06/2015 45 ??? Albumin 08/06/2015 4.5 ??? Total Protein 08/06/2015 7.3 ??? Creatinine 08/06/2015 0.98 ??? GFR, Calculated 08/06/2015 85 ??? BUN 08/06/2015 26 ??? Calcium 08/06/2015 9.7 ??? Calculated Calcium 08/06/2015 9.6 ??? Glucose, Serum 08/06/2015 95 ??? Fasting? 08/06/2015 No ??? CK 08/06/2015 91 Assessment: Lan Lima is a 63 y.o. year old male who presents with atypical sxs Plan: Check Sed Rate RF SUPA * Ken Tracy MD - 08/04/2018 0000 EDT [facility] CARDIOLOG[facility] PROGRESS / FOLLOWUP NOTE - 08/04/2018 [place] [address] Dear Veronica: Lan Lima is a 63-year-old gentleman with known coronary disease, status post non-STEMI/LAD stenting in 07/2015. The patient underwent stress testing as recently as 11/2017 with good results. Thepatient recently developed what he described as blue fingernails. He was seen in evaluation in [facility]. A methemoglobin was drawn, as he had been using some hair dye apparently associated with methemoglobinemia. This workup was unremarkable. The patient was then referred for cardiac evaluation. Symptomatically, the patient states that he has dyspnea on exertion and weakness. It was a little difficult for him to quantitate his symptoms. 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 He states that more recently he finds that he is quite a bit weaker. He denies orthopnea, PND, lower extremity swelling. He states that his back somewhat feels warm but otherwise denies fevers, chills, diaphoresis. He has not had any neurologic symptoms. There is no history of IV drug abuse. Mr Lima on physical today had a blood pressure of 130/76. Heart rate was 60 and regular. Height and weight were unchanged. Cardiac exam demonstrated normal S1 and an S2. No murmurs were appreciated.The patient had no gallops. The lungs were clear. Examination of the fingertips demonstrated splinter hemorrhages throughout. I did not appreciate any Heberden's nodes. The patient had no retinal findings. There was no adenopathy or splenomegaly. The patient had no skin findings. Mr Lima presents with weakness as well as peripheral findings, splinter hemorrhages. Usually we worry about endocarditis in this setting, although these hemorrhages are multiple in nature. Other issues include rheumatologic conditions such as scleroderma or lupus. I did send off some blood work on Lan. I will get him back in for an echocardiogram, although Ithink his risk of endocarditis is pretty low. We will certainly keep you apprised as to the resultsof the above evaluation. Thanks for allowing me to participate in your patient's care. Sincerely, Ken Tracy MD 12 36 PM - Ken Tracy MD nn Dictation ID: [id number] cc: Veronica Servin MD, [address] [address] documented in this encounter Miscellaneous Notes * Addendum Note - Ken Tracy MD - 08/04/2018 1130 EDTAddended by: KEN TRACY on: 08/04/2018 12:04 Modules accepted: Orders documented in this encounter Plan of Treatment Upcoming Encounters Date Type Department Care Team (Late st Contact Info) Description 12/28/2023 13:00 EDT Office Visit [facility] Cardiology - [address] [place] [phone] Rosalind Mckeon, LEA [address] [facility] [address] [place] [address] documented as of this encounter Procedures Procedure Name Priority Date/Time Associated Diagnosis Comments ECHOCARDIOGRAM Routine 08/26/2018 11:33 EDT Weakness documented in this encounter Results * ECHOCARDIOGRAM (08/26/2018 11:33 EDT) Anatomical Region Laterality Modality Other 08/26/2018 11:3 3 EDT Narrative 08/26/2018 11:40 EDT *Interpreting Group:* *[facility]* [address] [place] [address] Date of study: 08/26/2018 Transthoracic Echocardiography M-mode, complete 2D, complete spectral Doppler, and color Doppler *STUDY CONCLUSIONS* Summary: 1. Left ventricle: The cavity size was normal. Wall thickness was ?? normal. Systolic function was normal. The estimated ejection fraction ?? was 55-60%. Wall motion was normal; there were no regional wall ?? motion abnormalities. 2. Aortic valve: Valve area (VTI): 3cm^2. Valve area (Vmax): 3cm^2. ?? Valve area (Vmean): 3cm^2. 3. Mitral valve: Valve area by continuity equation (using LVOT flow): ?? 4.8cm^2. 4. Right ventricle: The cavity size was normal. Wall thickness was ?? normal. Systolic function was normal. *PATIENT PRESENTATION* Height: ? 182.9cm ((72in) ) S/D Pressure: 117 / 70 Weight: ? 89.8kg ((197.6lb) ) BSA: ?2.15m^2 Test start time: ??11:11 AM. Test stop time: ??11:28 AM. ATTENDING ?Ken Tracy MD ORDERING ? Ken Tracy MD REFERRING ?Veronica Servin PERFORMING ?? [facility], Op DRILLER MACHINE ??Renee Ruff RDCS *PROCEDURE DATA* Procedure information: ??The patient was identified by two identifiers. This study was interpreted by [facility]. Pertinent images and digital data are archived for permanent storage and are available for subsequent review. ??Study status: Routine. Transthoracic echocardiography. ??M-mode, complete 2D, complete spectral Doppler, and color Doppler. A Transthoracic Echocardiogram was performed. Scanning was performed from the parasternal, apical, subcostal, and suprasternal notch acoustic windows. Images were obtained using an Simworxq 12 cardiac ultrasound machine. Image quality was adequate. Study completion: ??The patient tolerated the procedure well. *INDICATIONS AND HISTORY* Indications: ?? Weakness (R53.1). *CARDIAC ANATOMY* Left ventricle: ??The cavity size was normal. Wall thickness was normal. Systolic function was normal. The estimated ejection fraction was 55-60%. Wall motion was normal; there were no regional wall motion abnormalities. Diastolic parameters were normal. Aortic valve: ?? Trileaflet; normal thickness leaflets. Mobility was not restricted. ??Doppler: ??Transvalvular velocity was within the normal range. There was no stenosis. There was no significant regurgitation. VTI ratio of LVOT to aortic valve: 0.73. Valve area (VTI): 3cm^2. Indexed valve area (VTI): 1.4cm^2/m^2. Peak velocity ratio of LVOT to aortic valve: 0.72. Valve area (Vmax): 3cm^2. Indexed valve area (Vmax): 1.4cm^2/m^2. Mean velocity ratio of LVOT to aortic valve: 0.71. Valve area (Vmean): 3cm^2. Indexed valve area (Vmean): 1.4cm^2/m^2. ?Mean gradient (S): 4mm Hg. Peak gradient (S): 8mm Hg. Aorta: ??Aortic root: The aortic root was normal in size. Mitral valve: ?? Structurally normal valve. ?? Mobility was not restricted. ??Doppler: ??Transvalvular velocity was within the normal range. There was no evidence for stenosis. There was trivial regurgitation. ?Valve area by continuity equation (using LVOT flow): 4.8cm^2. Indexed valve area by continuity equation (using LVOT flow): 2.2cm^2/m^2. ?Mean gradient (D): 0mm Hg. Peak gradient (D): 1mm Hg. Left atrium: ??The atrium was normal in size. Right ventricle: ??The cavity size was normal. Wall thickness was normal. Systolic function was normal. Pulmonic valve: ?Doppler: ??Transvalvular velocity was within the normal range. There was no evidence for stenosis. There was no significant regurgitation. Tricuspid valve: ?? Structurally normal valve. ?Doppler: ??Transvalvular velocity was within the normal range. There was no evidence for stenosis. There was no significant regurgitation. Pulmonary artery: ?? Pulmonary systolic pressure was within the normal range. Right atrium: ??The atrium was normal in size. Pericardium: ??There was no pericardial effusion. Systemic veins: Inferior vena cava: The vessel was normal in size. The respirophasic diameter changes were in the normal range (greater than or equal to 50%), consistent with normal central venous pressure. Measurements Left ventricle ? Value ?07/16/2015 Reference LV ID, ED, PLAX ?4.8 ?? cm ? 3.5 - 6.0 LV ID, ES, PLAX ?3.2 ?? cm ? 2.1 - 4.0 LV PW thickness, ED, PLAX ?1.1 ?? cm ? LV end-diastolic volume, ? 77 ?ml ? 1-p A2C LV ejection fraction, 1-p ?57 ?% ? A2C LV end-diastolic volume, ? 84 ?ml ? 68 ? 1-p A4C LV ejection fraction, 1-p ?65 ?% ?66 ? A4C LV e', lateral ? 0.115 m/sec ? LV E/e', lateral ? 4 ? LV e', medial ?0.077 m/sec ? LV E/e', medial ?5 ? LV e', average ? 0.096 m/sec ? LV E/e', average ? 4 ? Ventricular septum ? Value ?07/16/2015 Reference IVS thickness, ED, PLAX ?1.1 ?? cm ? LVOT ? Value ?07/16/2015 Reference LVOT ID, S ? 2.3 ?? cm ? LVOT area ?4.2 ?? cm^2 ? LVOT peak velocity, S ?1.02 ??m/sec ? LVOT mean velocity, S ?0.64 ??m/sec ? LVOT VTI, S ?20.4 ??cm ? LVOT mean gradient, S ?2 ? mm Hg ? Stroke volume (SV), LVOT ? 85 ?ml ? DP Stroke index (SV/bsa), ? 40 ?ml/m^2 ?? LVOT DP Aortic valve ? Value ?07/16/2015 Reference Aortic valve peak ?1.4 ?? m/sec ? velocity, S Aortic valve mean ?0.9 ?? m/sec ? velocity, S Aortic valve VTI, S ?28.0 ??cm ? Aortic mean gradient, S ?4 ? mm Hg ? Aortic peak gradient, S ?8 ? mm Hg ? VTI ratio, LVOT/AV ? 0.73 ? Aortic valve area, VTI ? 3 ? cm^2 ? Velocity ratio, peak, ?0.72 ? LVOT/AV Aortic valve area, peak ?3 ? cm^2 ? velocity Velocity ratio, mean, ?0.71 ? LVOT/AV Aortic valve area, mean ?3 ? cm^2 ? velocity Aortic valve area/bsa, ? 1.4 ?? cm^2/m^2 mean velocity Aorta ?Value ?07/16/2015 Reference Aortic root ID ? 3.5 ?? cm ? Ascending aorta ID, A-P ?3.2 ?? cm ? Ascending aorta ID, A-P, S ? 3.2 ?? cm ? Left atrium ?Value ?07/16/2015 Reference LA ID, A-P, ES ? 3.3 ?? cm ? LA ID/bsa, A-P ? 1.5 ?? cm/m^2 ?? <=2.2 LA area, ES, A4C ? 14.3 ??cm^2 ? 19.7 ? 8.8 - 23.4 LA area, ES, A2C ? 19 ?cm^2 ? LA volume, ES, 2-p ? 42 ?ml ? LA volume/bsa, ES, 2-p ? 20 ?ml/m^2 ?? LA/aortic root ratio ? 0.94 ? Mitral valve ? Value ?07/16/2015 Reference Mitral E-wave peak ? 0.42 ??m/sec ? velocity Mitral A-wave peak ? 0.36 ??m/sec ? velocity Mitral deceleration time ?? (H) ? 275 ?? ms ? 150 - 230 Mitral mean gradient, D ?0 ? mm Hg ? Mitral peak gradient, D ?1 ? mm Hg ? Mitral E/A ratio, peak ? 1.2 ? Mitral valve area, LVOT ?4.8 ?? cm^2 ? continuity Mitral valve area/bsa, ? 2.2 ?? cm^2/m^2 LVOT continuity Legend: (L) ??and ??(H) ??kimberly values outside specified reference range. I have personally reviewed the images and have reviewed and edited the reported findings. Electronically signed by Jayjay Santiago MD 08/26/2018 11:39 Procedure Note Jayjay June MD - 08/26/2018 *Interpreting Group:* *[facility]* [address] [place] [address] Date of study: 08/26/2018 Transthoracic Echocardiography M-mode, complete 2D, complete spectral Doppler, and color Doppler *STUDY CONCLUSIONS* Summary: 1. Left ventricle: The [...] thickness was normal. Systolic function was normal. *PATIENT PRESENTATION* Height: 182.9cm ((72in) ) S/D Pressure: 117 / 70 Weight: 89.8kg ((197.6lb) ) BSA: 2.15m^2 Test start time: 11:11 AM. Test stop time: 11:28 AM. ATTENDING Ken Tracy MD ORDERING Ken Tracy MD REFERRING Veronica Servin PERFORMING [facility], Op DRILLER MACHINE Renee Ruff RDCS *PROCEDURE DATA* Procedure information: The patient was identified by two identifiers. This study was interpreted by [facility]. Pertinent images and digital data are archived for permanent storage and are available for subsequent review. Study status: Routine. Transthoracic echocardiography. M-mode, complete 2D, complete spectral Doppler, and color Doppler. A Transthoracic Echocardiogram was performed. Scanning was performed from the parasternal, apical, subcostal, and suprasternal notch acoustic windows. Images were obtained using an Simworxq 12 cardiac ultrasound machine. Image quality was adequate. Study completion: The patient tolerated the procedure well. *INDICATIONS AND HISTORY* Indications: Weakness (R53.1). *CARDIAC ANATOMY* Left ventricle: The cavity size was normal. Wall thickness was normal. Systolic function was normal. The estimated ejection fraction was 55-60%. Wall motion was normal; there were no regional wall motion abnormalities. Diastolic parameters were normal. Aortic valve: Trileaflet; normal thickness leaflets. Mobility was not restricted. Doppler: Transvalvular velocity was within the normal range. There was no stenosis. There was no significant regurgitation. VTI ratio of LVOT to aortic valve: 0.73. Valve area (VTI): 3cm^2. Indexed valve area (VTI): 1.4cm^2/m^2. Peak velocity ratio of LVOT to aortic valve: 0.72. Valve area (Vmax): 3cm^2. Indexed valve area (Vmax): 1.4cm^2/m^2. Mean velocity ratio of LVOT to aortic valve: 0.71. Valve area (Vmean): 3cm^2. Indexed valve area (Vmean): 1.4cm^2/m^2. Mean gradient (S): 4mm Hg. Peak gradient (S): 8mm Hg. Aorta: Aortic root: The aortic root was normal in size. Mitral valve: Structurally normal valve. Mobility was not restricted. Doppler: Transvalvular velocity was within the normal range. There was no evidence for stenosis. There was trivial regurgitation. Valve area by continuity equation (using LVOT flow): 4.8cm^2. Indexed valve area by continuity equation (using LVOT flow): 2.2cm^2/m^2. Mean gradient (D): 0mm Hg. Peak gradient (D): 1mm Hg. Left atrium: The atrium was normal in size. Right ventricle: The cavity size was normal. Wall thickness was normal. Systolic function was normal. Pulmonic valve: Doppler: Transvalvular velocity was within the normal range. There was no evidence for stenosis. There was no significant regurgitation. Tricuspid valve: Structurally normal valve. Doppler: Transvalvular velocity was within the normal range. There was no evidence for stenosis. There was no significant regurgitation. Pulmonary artery: Pulmonary systolic pressure was within the normal range. Right atrium: The atrium was normal in size. Pericardium: There was no pericardial effusion. Systemic veins: Inferior vena cava: The vessel was normal in size. The respirophasic diameter changes were in the normal range (greater than or equal to 50%), consistent with normal central venous pressure. Measurements Left ventricle Value 07/16/2015 Reference LV ID, ED, PLAX 4.8 cm 3.5 - 6.0 LV ID, ES, PLAX 3.2 cm 2.1 - 4.0 LV PW thickness, ED, PLAX 1.1 cm LV end-diastolic volume, 77 ml 1-p A2C LV ejection fraction, 1-p 57 % A2C LV end-diastolic volume, 84 ml 68 1-p A4C LV ejection fraction, 1-p 65 % 66 A4C LV e', lateral 0.115 m/sec LV E/e', lateral 4 LV e', medial 0.077 m/sec LV E/e', medial 5 LV e', average 0.096 m/sec LV E/e', average 4 Ventricular septum Value 07/16/2015 Reference IVS thickness, ED, PLAX 1.1 cm LVOT Value 07/16/2015 Reference LVOT ID, S 2.3 cm LVOT area 4.2 cm^2 LVOT peak velocity, S 1.02 m/sec LVOT mean velocity, S 0.64 m/sec LVOT VTI, S 20.4 cm LVOT mean gradient, S 2 mm Hg Stroke volume (SV), LVOT 85 ml DP Stroke index (SV/bsa), 40 ml/m^2 LVOT DP Aortic valve Value 07/16/2015 Reference Aortic valve peak 1.4 m/sec velocity, S Aortic valve mean 0.9 m/sec velocity, S Aortic valve VTI, S 28.0 cm Aortic mean gradient, S 4 mm Hg Aortic peak gradient, S 8 mm Hg VTI ratio, LVOT/AV 0.73 Aortic valve area, VTI 3 cm^2 Velocity ratio, peak, 0.72 LVOT/AV Aortic valve area, peak 3 cm^2 velocity Velocity ratio, mean, 0.71 LVOT/AV Aortic valve area, mean 3 cm^2 velocity Aortic valve area/bsa, 1.4 cm^2/m^2 mean velocity Aorta Value 07/16/2015 Reference Aortic root ID 3.5 cm Ascending aorta ID, A-P 3.2 cm Ascending aorta ID, A-P, S 3.2 cm Left atrium Value 07/16/2015 Reference LA ID, A-P, ES 3.3 cm LA ID/bsa, A-P 1.5 cm/m^2 <=2.2 LA area, ES, A4C 14.3 cm^2 19.7 8.8 - 23.4 LA area, ES, A2C 19 cm^2 LA volume, ES, 2-p 42 ml LA volume/bsa, ES, 2-p 20 ml/m^2 LA/aortic root ratio 0.94 Mitral valve Value 07/16/2015 Reference Mitral E-wave peak 0.42 m/sec velocity Mitral A-wave peak 0.36 m/sec velocity Mitral deceleration time (H) 275 ms 150 - 230 Mitral mean gradient, D 0 mm Hg Mitral peak gradient, D 1 mm Hg Mitral E/A ratio, peak 1.2 Mitral valve area, LVOT 4.8 cm^2 continuity Mitral valve area/bsa, 2.2 cm^2/m^2 LVOT continuity Legend: (L) and (H) kimberly values outside specified reference range. I have personally reviewed the images and have reviewed and edited the reported findings. Electronically signed by Jayjay Santiago MD 08/26/2018 11:39 Ken Tracy MD CARDIAC ECHO ORDERAB LES * BACTERIAL CULTURE, BLOOD (08/04/2018 12:48 EDT) Result No growth 08/09/2018 7:58 EDT [facility] Blood specimen (specimen) BLOOD SPECIMEN / Unknown 08/04/2018 12:48 EDT 08/04/2018 14:16 EDT Comment:Right~Antecubital Ken Tracy MD MICROBIOLOGY - GENER AL ORDERABLES Performing Organization Address City/[facility] Co de Phone Number [facility] [address] [place] [address] * BACTERIAL CULTURE, BLOOD (08/04/2018 12:48 EDT) Result No growth 08/09/2018 7:58 EDT [facility] Blood specimen (specimen) BLOOD SPECIMEN / Unknown 08/04/2018 12:48 EDT 08/04/2018 14:17 EDT Comment:Left~Antecubital Ken Tracy MD MICROBIOLOGY - GENER AL ORDERABLES Performing Organization Address [facility] Co de Phone Number [facility] [address] [place] [address] * RHEUMATOID FACTOR (08/04/2018 12:48 EDT) Rheumatoid Factor <8 <12.5 IU/mL 08/05/2018 11:14 EDT [facility] Blood specimen (specimen) BLOOD SPECIMEN / Unknown 08/04/2018 12:48 EDT 08/04/2018 13:43 EDT Ken Tracy MD CHEMISTRY & BLOOD GA S ORDERABLES Performing Organization Address [facility] Co de Phone Number [facility] [address] [place] [phone] * ANTI NUCLEAR AB (SUPA), IFA (08/04/2018 12:48 EDT) SUPA Interpretation Negative Negative 2018 11:04 EDT [facility] Comment: No titer performed, SUPA screen is negative. Results were obtained with the [facility] Lite HEp-2 SUPA kit by indirect immunofluorescence. Blood specimen (specimen) BLOOD SPECIMEN / Unknown 08/04/2018 12:48 EDT 08/04/2018 13:43 EDT Ken Tracy MD IMMUNOLOGY AND SEROL OGY ORDERABLES Performing Organization Address [facility] Co de Phone Number [facility] [address] [place] [address] * C REACTIVE PROTEIN (08/04/2018 12:48 EDT) C Reactive Protein <7.0 <10.0 mg/L 08/04/2018 14:26 EDT [facility] Blood specimen (specimen) BLOOD SPECIMEN / Unknown 08/04/2018 12:48 EDT 08/04/2018 13:43 EDT Ken Tracy MD CHEMISTRY & BLOOD GA S ORDERABLES Performing Organization Address [facility] Co de Phone Number [facility] [address] [place] [phone] documented in this encounter Visit Diagnoses Diagnosis Weakness- Primary Other malaise and fatigue ASCVD (arteriosclerotic cardiovascular disease) Unspecified cardiovascular disease documented in this encounter Care Teams Production Line Manager Relationship Specialty Start Date End Date Veronica Servin MD PCP - General 10/13/17 08/22/18 documented as of this encounter
--- OUTSIDE RECORDS SUMMARY | 2023-11-25 01:38 | XMS_ITS | Encounter Summary ---
Author Organization [facility] Address [address] [place] [address] Care Team Providers Care Freight Handler Name Role Phone Ann Carrillo MD Primary Care Provider Carloz Orellana MD Primary Care Provider [phone] [phone] Encounter Details Date Type Department Care Team (Late st Contact Info) Description 01/23/2020 Lab Requisition [facility] Pathology & Laboratory Medicine - [address] [address] Outr Resulting Lab, Provider Social History Tobacco [...] Info) Description 12/28/2023 13:00 EDT Office Visit [facility] Cardiology - [facility] [address] [place] [address] Rosalind Mckeon PA-C [address] [place] [address] documented as of this encounter Procedures Procedure Name Priority Date/Time Associated Diagnosis Comments PSA TOTAL, DIAGNOSTIC Routine 01/23/2020 9:00 EDT documented in this encounter Results * PSA TOTAL, DIAGNOSTIC (01/23/2020 9:00 EDT) PSA 0.6 0.0 - 4.5 ng/mL 01/23/2020 22:14 EDT [facility] Blood VENOUS BLOOD / Unknown 01/23/2020 9:00 EDT 01/23/2020 20:54 EDT Narrative [facility] - 01/23/2020 22:14 EDT NOTE: Serum PSA concentration should not be interpreted as absolute evidence for the presence or absence of malignant disease. Assayed on Siemens ADVIA Centaur XPT using chemiluminescent technology.??Values obtained by using different assay methods cannot be used interchangeably. Provider Outr Resulting Lab CHEMISTRY & BLOOD GAS ORDERABLES [facility] [address] [place] [address] documented in this encounter Visit Diagnoses Not on filedocumented in this encounter Care Teams Freight Handler Relationship Specialty Start Date End Date Ann Carrillo MD [address] [place] [address] PCP - General 08/23/18 04/05/22 Carloz Orellana MD [address] [place] [address] PCP - General Family Medicine - Primary Care 04/06/22 documented as of this encounter
--- OUTSIDE RECORDS SUMMARY | 2023-11-25 01:38 | XMS_ITS | Encounter Summary ---
Author Organization [facility] Address [address] [place] [address] Care Team Providers Care Therapeutic Recreation Assistant Name Role Phone Ann Carrillo MD Primary Care Provider Encounter Details Date Type Department Care Team (Late st Contact Info) Description 06/05/2019 10:10 EST - 06/05/2019 12:35 EST Hospital Encounter [facility] Endoscopy - [address] [address] Enio Reed MD [address] [facility], [address] [place] [address] Discharge Disposition: Home or Self [...] Sign Reading Time Taken Comments Blood Pressure 128/79 06/05/2019 1217 EST Pulse - - Temperature 35.8 ??C (96.4 ??F) 06/05/2019 1157 EST Respiratory Rate 15 06/05/2019 1217 EST Oxygen Saturation 95% 06/05/2019 1217 EST Inhaled Oxygen Concentration - - Weight [...] & Physical Date: 06/05/2019 Time: 11:32 Location: [facility] GI/ENDO Planned Procedure: Procedure(s): COLONOSCOPY PROCEDURE-GI Chief [...] Abnormal nuclear stress test ??? 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 Chest pain radiating [...] 12/28/2023 13:00 EDT Office Visit [facility] Cardiology - [address] [place] [address] Rosalind Mckeon PA-C [address] [place] [address] documented as of this encounter [...] procedure. ??Total sedation time was ??12 ??minutes. [place] Bowel Prep Right Colon: 3 ? Transverse [...] TRANSVERSE, POLYP, BIOPSY: -Tubular adenoma. 06/06/2019 14:28 [facility] at 1428 Clinical History Screening for malignant neoplasm of colon; personal history of colon polyps; clinical diagnosis code: Z12.11, Z86.010 06/06/2019 14:28 [facility] Attestation By the signature below, the attending physician certifies that they have personally conducted a gross and/or microscopic examination of the described specimens and rendered or confirmed the above diagnosis. 06/06/2019 14:28 [facility] at 1428 Gross Description A. Received in formalin labelled with proper patient identification (initials B, R) and transverse colon polyp are 2 briones-brown irregular tissues, 0.2 x 0.2 x 0.1 cm and 0.4 x 0.2 x 0.1 cm. Entirely submitted in A1. Lisa Lopez 06/05/2019 14:07 06/06/2019 14:28 EST [facility] Scanned Images 06/06/2019 14:28 EST [facility] Tissue POLYP OF COLON / Unknown 06/05/2019 11:43 EST 06/05/2019 12:37 EST Comment:Pre-op diagnosis: Encounter for screening for malignant neoplasm of colon [Z12.11] Personal history of colonic polyps [Z86.010] Enio Reed MD PATHOLOGY ORDERAB LES Performing Organization Address City/State/[facility] Co de Phone Number [facility] [address] [place] [address] documented in this encounter Visit Diagnoses Not [...] Anne Fajardo RN)1140 (Given - Provider: Junie Hare, RN) midazolam (MDV) (VERSED) injection intravenous, PRN, [...] 06/05/2019 documented in this encounter Care Teams Therapeutic Recreation Assistant Relationship Specialty Start Date End Date Ann Carrillo MD [address] [facility] [address] [place] [address] PCP - General 08/23/18 04/05/22 documented as of this encounter
--- OUTSIDE RECORDS SUMMARY | 2023-11-25 01:38 | XMS_ITS | Encounter Summary ---
Author Organization [facility] Address [address] [place] [address] Care Team Providers Care Solderer Barrel Ribs Name Role Phone Ann Carrillo MD Primary Care Provider Reason for Visit * Reason Comments Heart Problem 1 yr f/u ASCVD Encounter Details Date Type Department Care Team (Latest Contact Info) Description 06/05/2021 11:00 EST Office Visit [facility] Cardiology - [address] [place] [address] Ken Kapadia MD [address] [place] [address] ASCVD (arteriosclerotic cardiovascular disease) (Primary Dx) [...] Sign Reading Time Taken Comments Blood Pressure 124/76 06/05/2021 1058 EST Pulse 67 06/05/2021 1058 EST Temperature - - Respiratory Rate - - Oxygen Saturation 98% 06/05/2021 1058 EST Inhaled Oxygen Concentration - - Weight 95.5 kg (210 lb 9.6 oz) 06/05/[address] Height - - Body Mass Index 28.56 01/22/2020 0949 EDT documented in this encounter [...] Progress Notes * Ken Kapadia MD - 06/05/2021 1100 EST Subjective: Patient is a 66 y.o. male who presents for follow-up of ASCVD . Patient reports doing well. He denies chest pain on exertion and dyspnea on exertion. He describes his symptoms as not changed. He has been compliant with his medications. Medications side effects include none Past Medical History: Diagnosis Date ??? Abnormal nuclear stress test ??? 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 Arthritis all joints ache -old age ??? Chest pain radiating to arm ??? Colon polyp ??? Does not exercise ??? Family history of coronary artery disease ??? Heart attack ([facility]) ([facility]) ??? History of general anesthesia ??? HLD (hyperlipidemia) Patient Active Problem List Diagnosis Date Noted ??? Umbilical hernia without obstruction and without gangrene 01/22/2020 ??? Subsequent non-ST elevation (NSTEMI) myocardial infarction within 4 weeks of initial infarction(HCC-CMS) ([facility]) 07/13/2015 ??? Chest pain 07/08/2015 Current Outpatient Medications Medication Sig Dispense Refill ??? aspirin 81 mg EC tablet Take 81 mg by mouth daily. ??? atorvastatin (LIPITOR) 40 mg tablet Take 1 Tab by mouth at bedtime. 90 Tab 3 ??? nitroGLYCERIN (NITROSTAT) 0.[address] 1 tablet under the tongue every 5 minutes as needed for Pain. Reported on 04/16/2016 25 tablet 3 No current facility-administered medications for this visit. Review of Systems A ten point ROS was performed. Pertinent positives are listed above, all others are negative. Wanting to get umbilical Objective: BP 124/76 (BP Cuff Location: Left arm, BP Patient Position: Sitting, BP Cuff Sizes: Adult, regular) Pulse 67 Wt 95.5 kg (210 lb 9.6 oz) SpO2 98% BMI 28.56 kg/m?? Body mass index is 28.56 kg/m??. Physical Exam: General: Alert, cooperative, no [...] 89 07/13/2015 Assessment: Lan Lima is a 66 y.o. year old male who presents with ASCVD , asymptomatic w/ excellent functional status Plan: Cont present rx patient is an acceptable candidate for elective herniorrhaphy with routine monitoring documented in this encounter Plan of Treatment Upcoming Encounters Date Type Department Care Team (Late st Contact Info) Description 12/28/2023 13:00 EDT Office Visit [facility] Cardiology - [facility] [address] [facility] [place], [place] [phone] Rosalind Mckeon, LEA [address] [facility] [address] [place] [address] documented as of this encounter Visit Diagnoses Diagnosis ASCVD (arteriosclerotic cardiovascular disease)- Primary Unspecified cardiovascular disease documented in this encounter Care Teams Solderer Barrel Ribs Relationship Specialty Start Date End Date Ann Carrillo MD [address] [place] [phone] PCP - General 08/23/18 04/05/22 documented as of this encounter
--- OUTSIDE RECORDS SUMMARY | 2023-11-25 01:38 | XMS_ITS | Encounter Summary ---
Author Organization [facility] Address [address] [place] [address] Care Team Providers Care Dam Tender Name Role Phone Ann Carrillo MD Primary Care Provider Carloz Orellana MD Primary Care Provider [phone] Reason for Visit * Reason Onset Date Comments COVID-19 06/13/2020 Encounter Details Date Type Department Care Team (Late st Contact Info) Description 06/13/2020 Telephone [facility] - [employer] [address] [place] [address] Ken Rich MD [address] [facility] [address] [place] [address] COVID-19 Social History Tobacco Use [...] encounter Miscellaneous Notes * Telephone Encounter - Jesenia Alaniz - 06/15/2020 1515 EST Voicemail on both lines not set up. This is 2nd attempt to contact for covid scheduling. * Telephone Encounter - Martita Hermosillo - 06/13/2020 1155 EST Voicemail box is not set up yet. Unable to leave message. This is our first attempt. documented in this encounter Plan of Treatment Upcoming Encounters Date Type Department Care Team (Late st Contact Info) Description 12/28/2023 13:00 EDT Office Visit [facility] Cardiology - [address] [place] [address] Rosalind Mckeon, LEA [address] [facility] [address] [place] [address] documented as of this encounter Visit Diagnoses Not on filedocumented in this encounter Care Teams Dam Tender Relationship Specialty Start Date End Date Ann Carrillo MD [address] [place] [address] [address] [place] [phone] PCP - General 08/23/18 04/05/22 Carloz Orellana MD [address] [place] [address] PCP - General Family Medicine - Primary Care 04/06/22 documented as of this encounter
--- OUTSIDE RECORDS SUMMARY | 2023-11-25 01:38 | XMS_ITS | Encounter Summary ---
Author Organization [facility] Address [address] [place] [address] Care Team Providers Care Visitor Use Assistant Name Role Phone Carloz Orellana MD Primary Care Provider [phone] Reason for Visit * Reason Comments Follow-up Umbilical hernia wit hout obstruction and without gangrene Encounter Details Date Type Department Care Team (Late st Contact Info) Description 04/30/2022 11:40 EST Post-op Visit [facility] General Surgery - [facility] [address] [place], [place] [address] Ken Rich MD [address] [place] [address], [address] [place] [address] Umbilical hernia without obstruction and [...] Sign Reading Time Taken Comments Blood Pressure 154/99 04/30/2022 1140 EST Pulse 67 04/30/2022 1140 EST Temperature - - Respiratory Rate - - Oxygen Saturation - - Inhaled Oxygen Concentration - - Weight 91.6 kg (202 lb) 04/30/2022 1140 EST Height 182.9 cm (6' 0.01) 04/30/2022 1140 EST Body Mass Index 27.39 04/30/2022 1140 EST documented in this encounter [...] Progress Notes * Ken Rich MD - 04/30/2022 1140 EST Lan Lima is several weeks status-post umbilical hernia repair. He Is doing well and has no pain. He has not noticed any bulging. His bowels and urine are normal, and he is eating well. OBJECTIVE: His incision is well healed. There is no sign of infection or recurrent hernia. ASSESSMENT AND PLAN: Doing well after umbilical hernia repair, fully recovered. Resume regular activity. Mr.. Lima was counseled on signs, symptoms and rates of recurrent hernia and will follow up in the future as needed. --Ken Rich MD CC: Carloz Orellana MD documented in this encounter Plan of Treatment Upcoming Encounters Date Type Department Care Team (Late st Contact Info) Description 12/28/2023 13:00 EDT Office Visit [facility] Cardiology - [address] [place], [place] [phone] Rosalind Mckeon, PAYogeshC [address] [facility] [address] [place] [address] documented as of this encounter Visit Diagnoses Diagnosis Umbilical hernia without obstruction and without gangrene- Primary documented in this encounter Care Teams Visitor Use Assistant Relationship Specialty Start Date End Date Carloz Orellana MD [address] [place] [address] PCP - General Family Medicine - Primary Care 04/06/22 documented as of this encounter
--- OUTSIDE RECORDS SUMMARY | 2023-11-25 01:38 | XMS_ITS | Encounter Summary ---
Author Organization [facility] Address [address] [place] [address] Care Team Providers Care Senior Advisor Name Role Phone Carloz Orellana MD Primary Care Provider [phone] [phone] Reason for Visit * Reason Comments Heart Problem Encounter Details Date Type Department Care Team (Latest Contact Info) Description 10/30/2022 8:00 EDT Office Visit [facility] Cardiology - [address] [address] Rosalind Mckeon, PAYogeshC [address] [facility] [address] [place] [phone] ASCVD (arteriosclerotic cardiovascular disease) (Primary Dx) [...] Sign Reading Time Taken Comments Blood Pressure 150/90 10/30/2022 0803 EDT Pulse 67 10/30/2022 0803 EDT Temperature - - Respiratory Rate - - Oxygen Saturation 98% 10/30/2022 0803 EDT Inhaled Oxygen Concentration - - Weight 87.2 kg (192 lb 3.2 oz) 10/30/2022 0803 E DT Height - - Body Mass Index 26.06 04/30/2022 1140 EST documented in this encounter [...] 1 Tablet by mouth daily. 90 Tablet 10/30/2022 12/15/2022 documented in this encounter Progress Notes * Rosalind Mckeon, LEA - 10/30/2022 0800 EDT Subjective: Patient ID: Lan Lima is an 67 y.o. male. Chief Complaint Patient presents with ??? Heart Problem History of Present Illness: Bairon is a 67-year-old male with a pertinent medical history including coronary artery disease history abnormal stress test with subsequent PCI, NSTEMI soon after PCI with repeat PCI, most recent stenting 2015, hyperlipidemia and family history of coronary disease who presents for routine follow-up, previously followed by Dr. Kapadia last seen in May 2021. At that time, patient expressed concerns that statins were causing memory issues and so statin was discontinued. Patient today notes his memory issues did not improve, but he has remained off the statin therapy. He recently had his lipidsredone 3 months ago at his PCP office, but is not aware of the results. His biggest concern today is over this past year he has developed recurrent anginal symptoms including discomfort, tightness between his shoulder blades as he did before PCI although this is not as intense. 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 He has generalized fatigue. Over the past 6 months his blood pressures havebeen elevated on home checks often with systolics in the 150s. He is concerned he may have another blockage. He has no rapid progression of symptoms, he is not on any antianginal or antihypertensive regimen. Breathing is okay. No edema, orthopnea, PND. Rare mild palpitations, self-limited. ROS: Occasional headaches at night, he wonders if this is the hypertension. No bleeding issues. No other recent illness [...] active. ??? Anomaly, cardiac 2016 Noted 03/30/22- [place], cardiac stents x 6 total ??? Arthritis [...] Outpatient Medications Marked as Taking for the 10/30/22 encounter (Office Visit) with Rosalind Mckeon PA-C Medication Sig Dispense Refill ??? aspirin 81 mg EC tablet Take 1 Tablet by mouth daily. ??? nitroGLYCERIN (NITROSTAT) 0.[address] 1 tablet under the tongue every 5 minutes as needed for Pain. Reported on 04/16/2016 25 tablet 3 Allergies Allergen Reactions ??? No Known Drug Allergies Objective: BP (!) 150/90 (BP Cuff Location: Left arm, BP Patient Position: Sitting, BP Cuff Sizes: Adult, regular) Pulse 67 Wt 87.2 kg (192 lb 3.2 oz) SpO2 98% BMI 26.06 kg/m?? Physical Exam CONST: Appears healthy and well [...] Patient's attitude is cooperative and appropriate. Data Lab Results Component Value Date WBC 7.15 07/18/2015 HGB 12.5 (L) 07/18/2015 HCT 36.2 (L) 07/18/2015 MCV 90 07/18/2015 PLT 256 07/18/2015 Lab Results Component Value Date NA 140 08/06/2015 K 5.2 (H) 08/06/2015 CL 101 08/06/2015 CO2 28 08/06/2015 BUN 26 08/06/2015 CREATININE 0.98 08/06/2015 SERGLU 95 08/06/2015 CALCIUM 9.7 08/06/2015 CALCGFR 85 08/06/2015 Lab Results Component Value Date CHOL 168 07/13/2015 HDL 53 07/13/2015 TRIG 130 07/13/2015 LDLBASE 89 07/13/2015 CHOLHDL 3.2 07/13/2015 Lab Results Component Value Date HGBA1C 5.2 07/12/2015 Most Recent Cardiac Testing ECG today 10/30/2022: [...] class II angina over this past year, and 6 months of elevated blood pressures Without rapid progression, not currently on antianginals or statin therapy ECG without acute ischemic changes We discussed pathophysiology of coronary disease, stable angina As well as further treatment options Continues aspirin 81 mg daily He is agreeable to resuming statin therapy, we will request labs from PCP and send this over Additionally will treat his blood pressure and angina with amlodipine 5 mg daily I recommend stress testing for risk stratification, he does not trust stress testing would be sufficient to identify the issue. He is also not eager to go for cardiac catheterization directly either given history of previous complication. He also generally speaking would like to minimize number of m edicines. We discussed options in this setting. Today will start antianginal, improve blood pressure, start statin, follow-up closely to see if symptoms improving with medical management. If no improvement or if he is to have rapidly progressive symptoms, he is to contact this office and we could reconsider cardiac catheterization for definitivediagnosis and possible intervention. Will get recent labs from PCP - EKG 12-LEAD Rosalind Mckeon PA-C Dr. was the supervising physician today in office. Primary Care Provider: Carloz Orellana Referring Provider: no referring provider I spent a total of 45 minutes on the date of this encounter meeting with the patient and reviewing documentation/coordinating care as described in the above note. documented in this encounter Plan of Treatment Upcoming Encounters Date Type Department Care Team (Late st Contact Info) Description 12/28/2023 13:00 EDT Office Visit [facility] Cardiology - [address] [place], [place] [phone] Rosalind Mckeon PA-C [address] [place] [address] documented as of this encounter Procedures Procedure Name Priority Date/Time Associated Diagnosis Comments ECG REPORT - SCANNED 11/02/2022 13:17 EDT EKG 12-LEAD Routine 10/30/2022 8:10 EDT ASCVD (arteriosclerotic cardiovascular disease) documented in this encounter Results * ECG REPORT - SCANNED (11/02/2022 13:17 EDT) 11/02/2022 13:1 7 EDT Scan 2 Pan Cleaner PROCEDURE/MINOR ASPEN GICAL ORDERABLES * EKG 12-LEAD (10/30/2022 8:10 EDT) 10/30/2022 8:10 EDT Narrative [facility] EKG - 10/30/2022 17:34 EDT ? [facility] ? Test Date: ?2022-10-30 Pat Name: ? LAN LIMA ?Department: ?? [facility] Card ? Room: ? Gender: ? Male ? Research Nurse Practitioner: ?? [id number] : ?1955 ? Requested By: SHAHAB Grant Order Number: [id number] ? Reading MD: ?? LAZ YASMEEN MD ? Measurements Intervals ?[place] ? Rate: ? 60 ? P: ?30 [place]: ? 169 ?QRS: ?-12 QRSD: ? 105 ?T: ?40 QT: ? 430 ? QTc: ?431 ? Interpretive Statements SINUS RHYTHM INCOMPLETE RIGHT BUNDLE BRANCH BLOCK Compared to ECG 07/17/2015 10:38:17 Incomplete right bundle-branch block now present ST (T wave) deviation no longer present Myocardial infarct finding no longer present I reviewed the tracing and have either agreed or edited the findings in this report. Electronically Signed On 10-30-2022 17:34:12 EDT by LAZ ARANA MD. Procedure Note Laz Arana MD - 10/30/2022 [facility] Test Date: 2022-10-30 Pat Name: LAN LIMA Department: [facility] Irvin Room: Gender: Male Research Nurse Practitioner: [id number] : 1955 Requested By: SHAHAB Grant Order Number: [id number] Reading MD: LAZ ARANA MD Measurements Intervals [place] Rate: 60 P: 30 [place]: 169 QRS: -12 QRSD: 105 T: 40 QT: 430 QTc: 431 Interpretive Statements SINUS RHYTHM INCOMPLETE RIGHT BUNDLE BRANCH BLOCK Compared to ECG 07/17/2015 10:38:17 Incomplete right bundle-branch block now present ST (T wave) deviation no longer present Myocardial infarct finding no longer present I reviewed the tracing and have either agreed or edited the findings inthis report. Electronically Signed On 10-30-2022 17:34:12 EDT by LAZ TALAMANTES. Rosalind Mckeon PA-C CARDIAC ECG ORDERAB LES [facility] EKG documented in this encounter Visit Diagnoses Diagnosis ASCVD (arteriosclerotic cardiovascular disease)- Primary Unspecified cardiovascular disease documented in this encounter Care Teams Senior Advisor Relationship Specialty Start Date End Date Carloz Orellana MD [address] [place] [address] PCP - General Family Medicine - Primary Care 04/06/22 documented as of this encounter
--- OUTSIDE RECORDS SUMMARY | 2023-11-25 01:38 | XMS_ITS | Encounter Summary ---
Author Organization [facility] Address [address] [place] [address] Care Team Providers Care Custom Seamstress Name Role Phone Ann Carrillo MD Primary Care Provider Reason for Visit * Reason Onset Date Comments Coordination Of Care 06/12/2020 Encounter Details Date Type Department Care Team (Late st Contact Info) Description 06/12/2020 Telephone [facility] Cardiology - [address] [place] [address] Micah Diaz, RN [address] [place] [address] Coordination Of Care Social History Tobacco Use Types Packs/Day [...] encounter Miscellaneous Notes * Telephone Encounter - Micah Diaz RN - 06/12/2020 0814 EST Incoming fax received from [facility] lab requesting lab orders be faxed to them for Maikel's lab draw today. Outgoing fax sent to [facility] lab with orders and request for them to fax us the results to [phone] documented in this encounter Plan of Treatment Upcoming Encounters Date Type Department Care Team (Late st Contact Info) Description 12/28/2023 13:00 EDT Office Visit [facility] Cardiology - [address] [address] Rosalind Mckeon, PA-C [address] [place] [address] [place] [phone] documented as of this encounter Visit Diagnoses Not on filedocumented in this encounter Care Teams Custom Seamstress Relationship Specialty Start Date End Date Ann Carrillo MD [address] [place] [address] [address] [place] [phone] PCP - General 08/23/18 04/05/22 documented as of this encounter
--- OUTSIDE RECORDS SUMMARY | 2023-11-25 01:38 | XMS_ITS | Encounter Summary ---
Author Organization [facility] Address [address] [place] [address] Care Team Providers Care Religious Assistant Name Role Phone Ann Carrillo MD Primary Care Provider Encounter Details Date Type Department Care Team (Late st Contact Info) Description 05/17/2020 Orders Only [facility] General Surgery - [address] [phone] Ken Rich MD 111 [facility], [address] [place] [address] Encounter for preoperative screening laboratory testing for COVID-19 virus (Primary Dx) Social History Tobacco Use Types [...] Info) Description 12/28/2023 13:00 EDT Office Visit [facility] Cardiology - [address] [address] Rosalind Mckeon, PAYogeshC 62 [facility] [address] [place] [phone] documented as of this encounter Visit Diagnoses Diagnosis Encounter for preoperative screening laboratory testing for COVID-19 virus- Primary documented in this encounter Care Teams Religious Assistant Relationship Specialty Start Date End Date Ann Carrillo MD [address] [place] [address] [address] [place] [phone] PCP - General 08/23/18 04/05/22 documented as of this encounter
--- OUTSIDE RECORDS SUMMARY | 2023-11-25 01:38 | XMS_ITS | Encounter Summary ---
Author Organization [facility] Address [address] [place] [address] Care Team Providers Care Hob Grinder Name Role Phone Ann Carrillo MD Primary Care Provider Reason for Visit * Reason Onset Date Comments Labs Only 06/05/2020 Encounter Details Date Type Department Care Team (Late st Contact Info) Description 06/05/2020 Telephone [facility] Cardiology - [address] [place] [address] Nidhi Toledo, RN Labs Only Social History Tobacco Use [...] encounter Miscellaneous Notes * Telephone Encounter - Nidhi Toledo RN - 06/05/2020 1301 EST Have external orders for lipids, tried to call pt on phones, however both Voice mailboxes are not set up. Mailed orders with the lipid profile protocol to pt at home address. documented in this encounter Plan of Treatment Upcoming Encounters Date Type Department Care Team (Late st Contact Info) Description 12/28/2023 13:00 EDT Office Visit [facility] Cardiology - [address] [place], [place] [phone] Rosalind Mckeon, FANC [address] [place] [address] [place] [phone] documented as of this encounter Visit Diagnoses Not on filedocumented in this encounter Care Teams Hob Grinder Relationship Specialty Start Date End Date Ann Carrillo MD [address] [place] [address] [address] [place] [phone] PCP - General 08/23/18 04/05/22 documented as of this encounter
--- OUTSIDE RECORDS SUMMARY | 2023-11-25 01:38 | XMS_ITS | Encounter Summary ---
Author Organization [facility] Address [address] [place] [address] Care Team Providers Care Tactical Debriefer Name Role Phone Ann Carrillo MD Primary Care Provider Reason for Visit * Reason Onset Date Comments Follow-up Diagnostic PSG 04/01/2022 Encounter Details Date Type Department Care Team (Late st Contact Info) Description 04/01/2022 Telephone [facility] General Surgery - [address] [phone] Ken Rich MD [address] [place] [address], [facility] [address] [place] [address] Follow-up Diagnostic PSG Social History [...] encounter Miscellaneous Notes * Telephone Encounter - Chandra Jennifer - 04/01/2022 0820 EST Check in at 6;00 am 04/06.nothing to eat or drink after midnight. documented in this encounter Plan of Treatment Upcoming Encounters Date Type Department Care Team (Late st Contact Info) Description 12/28/2023 13:00 EDT Office Visit [facility] Cardiology - [address] [phone] Rosalind Mckeon, PA-C [address] [place] [address] [place] [phone] documented as of this encounter Visit Diagnoses Not on filedocumented in this encounter Care Teams Tactical Debriefer Relationship Specialty Start Date End Date Ann Carrillo MD [address] [place] [address] [address] [place] [phone] PCP - General 08/23/18 04/05/22 documented as of this encounter
--- OUTSIDE RECORDS SUMMARY | 2023-11-25 01:38 | XMS_ITS | Encounter Summary ---
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 acetaminophen (TYLENOL) 325 mg tablet Take 2 Tabs by mouth every 4 hours as needed for Pain. 07/08/2015 06/05/2019 atorvastatin (LIPITOR) 40 mg tablet Take 1 Tab by mouth at bedtime. 90 Tab 3 10/14/2017 06/01/2019 famotidine (PEPCID) 20 mg tablet Take 1 Tab by mouth daily. 90 Tab 3 08/06/2015 06/05/2019 ibuprofen (MOTRIN) 400 mg tablet Take 1 Tab by mouth 4 times daily. 16 Tab 0 07/18/2015 06/05/2019 LORazepam (ATIVAN) 0.5 mg tablet Take 1 mg by mouth 2 times daily. 06/05/2019 nitroGLYCERIN (NITROSTAT) 0.[address] 0.4 mg under the tongue every 5 minutes as needed for Chest Pain. Reported on 04/16/2016 09/15/2018 documented as of this encounter Discharge Disposition Disposition Code Departure Means Destination Auto Discharge Home documented in this encounter Plan of Treatment Upcoming Encounters Date Type Department Care Team (Late st Contact Info) Description 12/28/2023 13:00 EDT Office Visit [facility] Cardiology - [facility] 62 [facility] [place] [address] Rosalind Mckeon, PA-C 62 [facility] [address] [place] [phone] documented as of this encounter Visit Diagnoses Not on filedocumented in this encounter Care Teams Industrial Equipment Wirer Relationship Specialty Start Date End Date Veronica Servin MD PCP - General 10/13/17 08/22/18 documented as of this encounter
--- OUTSIDE RECORDS SUMMARY | 2023-11-25 01:38 | XMS_ITS | Encounter Summary ---
Author Organization [facility] Address [address] [place] [address] Care Team Providers Care Cold Rolling Coordinator Name Role Phone Veronica Servin MD Primary Care Provider [phone] Encounter Details Date Type Department Care Team (Late st Contact Info) Description 08/04/2018 11:40 EDT Procedure visit [facility] Endocrinology - [address] [address] Ken Kapadia MD [facility] [place] [place] [phone] Phlebotomy, [facility] Social History Tobacco Use Types Packs/Day Years [...] as of this encounter Progress Notes * Tata Soto - 08/04/2018 1140 EDT Can collect Blood cultures at [facility] Pt was redirected to [facility] lab for collections. documented in this encounter Plan of Treatment Upcoming Encounters Date Type Department Care Team (Late st Contact Info) Description 12/28/2023 13:00 EDT Office Visit [facility] Cardiology - [address] [place], [place] [phone] Rosalind Mckeon, PAYogeshC 62 [facility] [address] [place] [address] documented as of this encounter Visit Diagnoses Not on filedocumented in this encounter Care Teams Cold Rolling Coordinator Relationship Specialty Start Date End Date Veronica Servin MD PCP - General 10/13/17 08/22/18 documented as of this encounter
--- OUTSIDE RECORDS SUMMARY | 2023-11-25 01:38 | XMS_ITS | Encounter Summary ---
Author Organization [facility] Address [address] [place] [address] Care Team Providers Care Coroner Technician Name Role Phone Carloz Orellana MD Primary Care Provider [phone] Reason for Visit * Auth/Cert Specialty Diagnoses / Procedures [facility] To Contact Diagnoses Umbilical hernia without obstruction and without gangrene Procedures [place] REPAIR UMBILICAL OBED,5+Y/O,REDUC open umbilical hernia repair Referral ID Status Reason Start Date Expiration Date Visits Re quested Visits Authorized [id number] 03/04/2022 05/09/2022 1 1 Encounter Details Date Type Department Care Team (Late st Contact Info) Description 04/06/2022 7:25 EST - 04/06/2022 9:10 EST Surgery [facility] OR [address] [place] [address] Ken Rich MD [address] [place] [address], [facility], [address] [place] [address] open umbilical hernia repair [84838 (CPT??)] Surgery Details Date/Time Status Location OR Service Patient Class Case Cl ass Case Type Trauma Case? 04/06/22 0725 Posted [facility] OR [facility] H - Elective Panel 1 Procedure LRB Anes Op Region Wound Class Comments open umbilical hernia repair N/A Monitored Anesthesia Care Abdomen Class I/ Clean Surgeon Surgeon Role Service Panel Ken Rich MD Primary General 1 June Solomon MD Resident - Assisting Rosario munoz 1 documented in this encounter Social History [...] Sign Reading Time Taken Comments Blood Pressure 116/81 04/06/2022 0900 EST Pulse 53 04/06/2022 0830 EST Temperature 36.4 ??C (97.5 ??F) 04/06/2022 0830 EST Respiratory Rate 13 04/06/2022 0900 EST Oxygen Saturation 96% 04/06/2022 0900 EST Inhaled Oxygen Concentration - - Weight [...] Code Departure Means Destination Home or Self Half-Way documented in this encounter H&P Notes * [...] active. ??? 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 Arthritis [...] hernia repair. SURGEON: Ken Rich MD, FACS CORN POPPER: June Kingston MD ANESTHESIA: MAC with local. [...] closed the defect with 4 interrupted CV-0 Riparius-Hermes sutures. The wound was irrigated. The umbilical [...] Ken Rich MD FACS / DS Confirmation: [id number] Dictation ID: [id number] cc: Ann Carrillo MD, [address] [place], [place] [phone] Carloz Orellana MD, [place] [address] June Kingston MD, [facility], [address] [place] [address] Ken Rich MD [facility], [facility] - Surgery, [address] [place] [address] documented in this encounter Miscellaneous Notes * Brief Op Note - June Kingston MD - 04/06/2022 0954 EST Date: 04/06/2022 Location: [facility] OR Name: Lan Lima, : 1955, [...] IV Fluids: 500 mL LDAs: none Staff: Director Home Health: Judy Nielsen RN Scrub Person: Hudson, Jazmine, RN Patient Carbon Grinder: Ashlie Gomez Indications: Bairon Lima is an 67 y.o. male who is having surgery for an umbilical hernia. Findings: 1cm umbilical hernia, repaired primarily with goretex sutures Complications: None; patient tolerated the procedure well. Disposition: PACU - hemodynamically stable. Condition: stable Specimens Collected: No specimens collected during this procedure. JUNE KINGSTON MD 04/06/2022 12:48 Pager #[phone] documented in this encounter Plan of Treatment Upcoming Encounters Date Type Department Care Team (Late st Contact Info) Description 12/28/2023 13:00 EDT Office Visit [facility] Cardiology - [address] [address] Rosalind Mckeon PA-C 62 [facility] [address] [place] [address] Scheduled Referrals Name Type Priority [...] EST) 04/08/2022 14:3 7 EST Scan 2 Gas Fitter PROCEDURE/MINOR ASPEN GICAL ORDERABLES documented in this encounter Visit Diagnoses Diagnosis Umbilical hernia without obstruction and without gangrene documented in this encounter Administered Medications Inactive Administered Medications - up to 3 most recent administrations Medication Order MAR Action Action Date Dose Rate Site atropine 0.1 mg/mL syringe 0.5 mg 0.5 mg, intravenous, PRN, Starting on Wed04/06/22 at 0821, Until Wed04/06/22 at 1154, Symptomatic HR < 50, Routine, Recovery (only) bupivacaine (PF) (MARCAINE) 0.5% injection PRN, Starting on Wed04/06/22 at 0805, Until Wed04/06/22 at 0825, Routine, Intraprocedure Given 04/06/2022 8:05 EST 10 mL diphenhydrAMINE (BENADRYL) injection 12.5 mg 12.5 mg, [...] Until Wed04/06/22 at 1154, Routine, Recovery (only) lidocaine 1 % 40 mL, sodium bicarbonate 4.2 % 4 mL PRN, Starting on Wed04/06/22 at 0806, Until Wed04/06/22 at 0825, Routine, Intraprocedure Given 04/06/2022 8:06 EST 9 mL naloxone (NARCAN) injection 0.2 mg 0.2 mg, [...] (only) Given 04/06/2022 9:22 EST 10 mg sodium chloride 0.9 % irrigation PRN, Starting on Wed04/06/22 at 0753, Until Wed04/06/22 at 0825, Routine, Intraprocedure Given 04/06/2022 7:5 3 EST 1,000 mL documented in this encounter Discontinued Medications Medication [...] 0.1 mg/mL syringe 0.5 mg 1 022 ceFAZolin (ANCEF) syringe 2 g 1 04/06/2022 diphenhydrAMINE (BENADRYL) i njection 12.5 mg 1 04/06/2022 fentaNYL citrate (PF) injection 25-50 mcg 1 04/06/2022 lactated ringers (LR) infusion 1 04/06/2022 lidocaine (PF) 10 mg/mL (1 % ) injection 2 mg 1 04/06/2022 naloxone (NARCAN) injection 0.2 mg 1 2021 ondansetron (PF) (ZOFRAN) injection 4 mg 1 04/06/2022 Diet Count Last Ordered Date First Orde [...] 03/11 documented in this encounter Care Teams Coroner Technician Relationship Specialty Start Date End Date Carloz Orellana MD [address] [place] [address] PCP - General Family Medicine - Primary Care 04/06/22 documented as of this encounter
--- OUTSIDE RECORDS SUMMARY | 2023-11-25 01:38 | XMS_ITS | Encounter Summary ---
Author Organization [facility] Address [address] [place] [address] Care Team Providers Care Refrigeration Service Technician Name Role Phone Ann Carrillo MD Primary Care Provider Reason for Visit * Reason Onset Date Comments Other 05/12/2019 Encounter Details Date Type Department Care Team (Late st Contact Info) Description 05/12/2019 Telephone [facility] [place] [address] Chase Weaver, RN Other Social History Tobacco Use Types Packs/Day [...] encounter Miscellaneous Notes * Telephone Encounter - Chase Weaver RN - 05/16/2019 0847 EST RN spoke with patient regarding cardiac clearance for his colonoscopy at the recommendation of CARO Hidalgo per referral. Patient states he has not called the office yet. RN spoke with Dr. Kapadia's office regarding clearance and they want him to come in for an appointment on 06/01 at 10:40 for an evaluation prior to his colo on 06/05. Patient expressed understanding. RN notified Dr. Reed. * Telephone Encounter - Chase Weaver RN - 05/12/2019 1655 EST RN spoke with patient regarding ativan and cardiology clearance. Patient states he does not take ativan. Per the colonoscopy referral note from the PCP, patient was requested to get clearance for theprocedure for colonoscopy. Patient reports he has not done this yet but will call his milk inspector to send us the clearance. Electronically signed by CHASE WEAVER RN RN attempted to call cardiology but the office was closed. documented in this encounter Plan of Treatment Upcoming Encounters Date Type Department Care Team (Late st Contact Info) Description 12/28/2023 13:00 EDT Office Visit [facility] [place] [address] Rosalind Mckeon PA-C 62 [facility] [address] [place] [phone] documented as of this encounter Visit Diagnoses Not on filedocumented in this encounter Care Teams Refrigeration Service Technician Relationship Specialty Start Date End Date Ann Carrillo MD [address] [place] [address] [address] [place] [address] PCP - General 08/23/18 04/05/22 documented as of this encounter
--- OUTSIDE RECORDS SUMMARY | 2023-11-25 01:38 | XMS_ITS | Encounter Summary ---
Author Organization [facility] Address [address] [place] [address] Care Team Providers Care Applications Programmer Analyst Name Role Phone Ann Carrillo MD Primary Care Provider Encounter Details Date Type Department Care Team (Late st Contact Info) Description 05/12/2019 Orders Only [facility] Gastroenterology - [address] [phone] Enio Reed MD 111 [facility], [address] [place] [address] Social History Tobacco Use Types Packs/Day Years [...] No 10/14/2017 documented as of this encounter Ordered Prescriptions Prescription Sig Dispensed Refills Start Date End Da te polyethylene glycol (GOLYTELY) 236-22.74-6.74 -5.86 gram suspension Follow instructions on 'colonoscopy preparation instructions' sheet. 1 Bottle 05/16/2019 06/21/2020 documented in this encounter Plan of Treatment Upcoming Encounters Date Type Department Care Team (Late st Contact Info) Description 12/28/2023 13:00 EDT Office Visit [facility] Cardiology - [address] [phone] Rosalind Mckeon, PAKatharina 62 [facility] [address] [place] [phone] documented as of this encounter Visit Diagnoses Not on filedocumented in this encounter Care Teams Applications Programmer Analyst Relationship Specialty Start Date End Date Ann Carrillo MD [address] [place] [address] [address] [place] [phone] PCP - General 08/23/18 04/05/22 documented as of this encounter
--- OUTSIDE RECORDS SUMMARY | 2023-11-25 01:38 | XMS_ITS | Encounter Summary ---
Author Organization [facility] Address [address] [place] [address] Care Team Providers Care Microsoft Developer Name Role Phone Carloz Orellana MD Primary Care Provider [phone] Reason for Visit * Auth/Cert Specialty Diagnoses / Procedures [facility] Referred To Contact Diagnoses Umbilical hernia without obstruction and without gangrene Procedures CO REPAIR UMBILICAL OBED,5+Y/O,REDUC open umbilical hernia repair Referral ID Status Reason Start Date Expiration Date Visits Re quested Visits Authorized [id number] 03/04/2022 05/09/2022 1 1 Encounter Details Date Type Department Care Team (Late st Contact Info) Description 04/06/2022 7:28 EST Anesthesia Event [facility] OR [address] [place], [place] [id number] Scott Alfaro MD PhD 111 [facility], [facility] [address] [place] [phone] Anesthesia Record Procedure Summary Procedure Name Responsible Anesthesiologist Anesthesia Start Time Anesthesia Stop Time open umbilical hernia repair (Abdomen) Scott Alfaro MD PhD 04/06/22 0728 04/06/22 0830 Events Date Time Event Comment 04/06/2022 0728 An Start The patient was re-evaluated immediately before moderate or deep sedation use, before anesthesia induction, or before the anesthesia procedure. 0728 An Start Data 0738 An Induction The patient was reevaluated immediately before moderate or deep sedation use and before anesthesia induction. 0740 Anesthesia Ready 0746 Incision LA per surgeon 0825 an stop data 0830 Handoff to RN I completed my handoff to the receiving nurse during which we: 1. Identified the patient 2. Identified the responsible provider 3. Reviewed the pertinent medical history 4. Discussed the surgical course 5. Reviewed intra-op anesthesia management and issues during anesthesia 6. Set expectations for post-procedure period 7. Allowed opportunity for questions and acknowledgement of understanding. 0830 An Stop Meds Name Total dexaMETHasone (DECADRON) injection 4 mg/ mL (for IV doses up to 10mg) 8 mg ketAMINE 5 mL prefilled syringe 30 mg midazolam (versed) 1 mg/mL 2 mL vial 2 m g ondansetron (PF) (ZOFRAN) injection 4 mg lidocaine 2% (PF) injection glass vial 8 0 mg propOFol (DIPRIVAN) injection 70 mg propOFol injection 347,680 mcg ceFAZolin (ANCEF) syringe 2 g 2 g dexmedetomidine injection - vial 20 mcg acetaminophen 10 mg/ml 100 mL infusion 1 ,000 mg ketOROLAC injection 30 mg lactated ringers (LR) infusion 500 mL * Agents Name O2 N2O Air Aux O2 flow * Blood No blood administrations on file. Lines, Drains, and Airways Type Details Placement Removal Peripheral IV 04/06/22; 0712; 12/0 09/28; 20; 1.25; B Villanueva Introcan; Right, Posterior, Lateral, Distal; Forearm; Inserted by RN; 1; None; 2% Chlorhexidine with IPA 04/06/22 0712 by Gege Jacob, safety and skill based pay manager 04/06/22; 0746; Inci gregorio; Midline; Umbilicus; Incision to facilitate umbilical hernia repair; N; Full thickness 04/06/22 0746 by Judy Nielsen, MELANIE documented in this encounter Social History Tobacco [...] No 06/04/2020 documented as of this encounter OR Notes * Anesthesia Postprocedure Evaluation - Luana Bronw CRNA - 04/06/2022 0830 EST Patient: Bairon Lima Vital signs were reviewed with the recovery nurse. [facility] Vitals Value Taken Time BP 104/71 04/06/22 0830 Temp 36.4 04/06/22 0830 Resp 12 04/06/22 0830 Pulse From Oximetry 57 04/06/22 0830 SpO2 97 04/06/22 0830 Heart Rate 57 04/06/22 0830 Last Pain Score - Numeric Pain Level (Scale 1-10): 0 Type of Anesthesia - MAC Anesthesia Post Evaluation Post-procedure vitals reviewed and are stable. Level of consciousness: sedated Temperature status: normothermia Respiratory status: airway patent and nasal cannula Cardiovascular status: acceptable Hydration status: adequate Pain management: adequate Post-Op Assessment: patient tolerated procedure well with no complications Patient participation: able to participate Disposition: outpatient/home Anesthesia Complications: No apparent anesthesia complications * Anesthesia Preprocedure Evaluation - Scott Alfaro MD PhD - 04/06/2022 0770 EST Anesthesia Preprocedure Evaluation Patient Medical History, including Anesthesia History reviewed. Chart and Nursing Notes reviewed, including NPO status and Medication History. Additional ROS/History Findings: Allergies Allergen Reactions ??? No Known Drug Allergies Review of Systems Past Medical History: Diagnosis Date ??? Abnormal nuclear stress test ??? Activity, other involving cardiorespiratory exercise Noted 03/30/22- 1-2 FOS without difficulty/very active. ??? 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 Arthritis [...] memory loss. ??? Umbilical hernia Noted 03/30/22 Relevant Problems CARDIOVASCULAR (+) Subsequent non-ST elevation (NSTEMI) myocardial infarction within 4 weeks of initial infarction(HCC) Physical Exam Airway Mallampati: I TM distance: >3 FB Neck ROM: full Cardiovascular Rhythm: regular Rate: normal Dental Comments: Multiple missing molars. Permanent upper bridge. Nothing loose or removable. Pulmonary - normal exam Abdominal Anesthesia Plan ASA 2 Anesthesia Type - MAC Anesthesia plan and risks discussed. Informed consent obtained from patient. Specific risks discussed were bleeding, myocardial infarction, stroke, dental injury, nausea and vomiting. PAT Note PAT Note by Everton Mcghee LPN at 2022 15:20 Version 1 of 1 Pt has upcoming surgery on 04/06/22 for an open umbilical hernia repair with Dr. Rich. Pt has aPMHX of MT and has 6 stents. Pt is followed by Dr. Kapadia at [facility] Cardio and he states he was cleared for surgery back in 06/05/21. documented in this encounter Plan of Treatment Upcoming Encounters Date Type Department Care Team (Late st Contact Info) Description 12/28/2023 13:00 EDT Office Visit [facility] Cardiology - [address] [place] [address] Rosalind Mckeon PA-C [address] [facility] [address] [place] [address] documented as of this encounter Visit Diagnoses Not on filedocumented in this encounter Administered Medications Inactive Administered Medications - up to 3 most recent administrations Medication Order MAR Action Action Date Dose Rate Site acetaminophen (OFIRMEV) IV solution intravenous, PRN, Starting on Wed04/06/22 at 0753, Until Wed04/06/22 at 0830, Routine, Anesthesia Intraprocedure Given 04/06/2022 7:53 EST 1,000 mg ceFAZolin (ANCEF) syringe 2 g 2 g, intravenous, Administer over 5 Minutes, PRE-OP ONCE, 1 dose, On Wed04/06/22 at 0730, Routine, Preprocedure Given 04/06/2022 7:39 EST 2 g dexAMETHasone (DECADRON) injection intravenous, PRN, Starting on Wed04/06/22 at 0750, Until Wed04/06/22 at 0830, Routine, Anesthesia Intraprocedure Given 04/06/2022 7:50 EST 8 mg dexmedeTOMIDine (PRECEDEX) injection intravenous, PRN, Starting on Wed04/06/22 at 0746, Until Wed04/06/22 at 0830, Routine, Anesthesia Intraprocedure Given 04/06/2022 8:04 EST 8 mcg Given 04/06/2022 7:46 EST 12 mcg ketAMINE in NaCl, iso-osmotic (KETALAR) 50 mg/5 mL (10 mg/mL) IV injection intravenous, PRN, Starting on Wed04/06/22 at 0738, Until Wed04/06/22 at 0830, Routine, Anesthesia Intraprocedure Given 04/06/2022 7:38 EST 30 mg ketOROLAC (TORADOL) injection intravenous, PRN, Starting on Wed04/06/22 at 0816, Until Wed04/06/22 at 0830, Routine, Anesthesia Intraprocedure Given 04/06/2022 8:16 EST 30 mg lactated ringers (LR) infusion at 25 mL/hr, intravenous, CONTINUOUS, Starting on Wed04/06/22 at 0715, Until Wed04/06/22 at 1154, Routine, Preprocedure Restarted 04/06/2022 7:30 EST Continued by Anesthesia 04/06/2022 7:28 EST 25 mL/hr New Bag 04/06/2022 7:13 EST 25 mL/hr lidocaine (PF) 20 mg/mL (2 %) injection intravenous, PRN, Starting on Wed04/06/22 at 0738, Until Wed04/06/22 at 0830, Routine, Anesthesia Intraprocedure Given 04/06/2022 7:38 EST 80 mg midazolam (PF) (VERSED) injection intravenous, PRN, Starting on Wed04/06/22 at 0730, Until Wed04/06/22 at 0830, Routine, Anesthesia Intraprocedure Given 04/06/2022 7:30 EST 2 mg ondansetron (PF) (ZOFRAN) injection intravenous, PRN, Starting on Wed04/06/22 at 0806, Until Wed04/06/22 at 0830, Routine, Anesthesia Intraprocedure Given 04/06/2022 8:06 EST 4 mg propOFol (DIPRIVAN) injection intravenous, PRN, Starting on Wed04/06/22 at 0738, Until Wed04/06/22 at 0830, Routine, Anesthesia Intraprocedure Given 04/06/2022 7:47 EST 30 mg Given 04/06/2022 7:38 EST 40 mg propOFol (DIPRIVAN) injection intravenous, FA IP EQF CONTINUOUS PRN FOR ONE STEP MEDS, Starting on Wed04/06/22 at 0738, Until Wed04/06/22 at 0830, Routine, Anesthesia Intraprocedure Rate Change 04/06/2022 8:06 EST 80 mcg/kg/min 40.704 mL/hr Rate Change 04/06/2022 7:52 EST 125 mcg/kg/min 63.6 mL/hr Rate Change 04/06/2022 7:47 EST 150 mcg/kg/min 76.32 mL/hr documented in this encounter Care Teams Microsoft Developer Relationship Specialty Start Date End Date Carloz Orellana MD [address] [place] [address] [place] [address] PCP - General Family Medicine - Primary Care 04/06/22 documented as of this encounter
--- OUTSIDE RECORDS SUMMARY | 2023-11-25 01:38 | XMS_ITS | Encounter Summary ---
Author Organization [facility] Address [address] [place] [address] Care Team Providers Care Fire Truck Driver Name Role Phone Carloz Orellana MD Primary Care Provider [phone] Reason for Visit * Reason Onset Date Comments Appointment Related 05/25/2022 Encounter Details Date Type Department Care Team (Late st Contact Info) Description 05/25/2022 Telephone [facility] Cardiology - [address] [place], [place] [phone] Ken Kapadia MD [address] [place] [address] Appointment Related Social History Tobacco Use [...] encounter Miscellaneous Notes * Telephone Encounter - Clarisa Myers - 05/25/2022 1012 EST Patient states he was supposed to return in one year. Former patient of Dr. Kapadia's Please call back to reschedule documented in this encounter Plan of Treatment Upcoming Encounters Date Type Department Care Team (Late st Contact Info) Description 12/28/2023 13:00 EDT Office Visit [facility] Cardiology - [address] [place] [address] Rosalind Mckeon, FANC [address] [place] [address] [address] [place] [phone] documented as of this encounter Visit Diagnoses Not on filedocumented in this encounter Care Teams Fire Truck Driver Relationship Specialty Start Date End Date Carloz Orellana MD [address] [place] [address] PCP - General Family Medicine - Primary Care 04/06/22 documented as of this encounter
--- OUTSIDE RECORDS SUMMARY | 2023-11-25 01:38 | XMS_ITS | Encounter Summary ---
Author Organization [facility] Address [address] [place] [address] Care Team Providers Care Core Assembly Supervisor Name Role Phone Ann Carrillo MD Primary Care Provider Reason for Visit * Reason Comments Coronary Artery Disease Encounter Details Date Type Department Care Team (Latest Contact Info) Description 09/15/2018 14:10 EDT Office Visit [facility] Cardiology - [place] [address] Ken Kapadia MD [address] [place] [address] Atherosclerosis of [place] coronary artery of [place] heart without angina pectoris (Primary Dx) Social History Tobacco Use Types [...] Sign Reading Time Taken Comments Blood Pressure 150/70 09/15/2018 1407 EDT Pulse 61 09/15/2018 1407 EDT Temperature - - Respiratory Rate - - Oxygen Saturation 98% 09/15/2018 1407 EDT Inhaled Oxygen Concentration - - Weight 86.5 kg (190 lb 12.8 oz) 09/15/2018 1407 EDT Height 182.9 cm (6' 0.01) 09/15/2018 1407 EDT Body Mass Index 25.87 09/15/2018 1407 EDT documented in this encounter Functional Status [...] Dispensed Refills Start Date End Da te nitroGLYCERIN (NITROSTAT) 0.[address] 1 tablet under the tongue every 5 minutes as needed for Pain. Reported on 04/16/2016 25 tablet 3 09/15/2018 documented in this encounter Progress Notes * Ken Kapadia MD - 09/15/2018 1410 EDT Subjective: Patient is a 63 y.o. male who presents for follow-up of abnormal nail. Patient reports doing better. He denies chest pain on exertion and [...] within 4 weeks of initial infarction([facility]) 07/13/2015 Priority: Medium ??? Chest [...] above, all others are negative. Objective: BP (!) 150/70 Pulse 61 Ht 182.9 cm (72.01) Wt 86.5 kg (190 lb 12.8 oz) SpO2 98% BMI 25.87 kg/m?? Body mass index is 25.87 kg/m??. Physical Exam: General: Alert, cooperative, no [...] 89 07/13/2015 Assessment: Lan Lima is a 63 y.o. year old male who presents with cad stable Plan: Cont present rx documented in this encounter Plan of Treatment Upcoming Encounters Date Type Department Care Team (Late st Contact Info) Description 12/28/2023 13:00 EDT Office Visit [facility] Cardiology - [facility] [address] [place] [address] Rosalind Mckeon PA-C 62 [facility] [address] [place] [phone] documented as of this encounter Visit Diagnoses Diagnosis Atherosclerosis of [place] coronary artery of [place] heart without angina pectoris- Primary documented in this encounter Discontinued Medications Medication Sig Discontinue Reason Start Date End Da te nitroGLYCERIN (NITROSTAT) 0.[address] 0.4 mg under the tongue every 5 minutes as needed for Chest Pain. Reported on 04/16/2016 Reorder 09/15/2018 documented as of this encounter Care Teams Core Assembly Supervisor Relationship Specialty Start Date End Date Ann Carrillo MD [address] [facility] [address] [place] [phone] PCP - General 08/23/18 04/05/22 documented as of this encounter
--- OUTSIDE RECORDS SUMMARY | 2023-11-25 01:38 | XMS_ITS | Encounter Summary ---
Author Organization [facility] Address [address] [place] [address] Care Team Providers Care Transmitter Chief Name Role Phone Ann Carrillo MD Primary Care Provider Carloz Orellana MD Primary Care Provider [phone] Encounter Details Date Type Department Care Team (Late st Contact Info) Description 03/28/2021 Lab Requisition [facility] - [address] [address] Outr Resulting Lab, Provider Social History Tobacco [...] 12/28/2023 13:00 EDT Office Visit [facility] Cardiology - [facility] [address] [facility] [place] [address] Rosalind Mckeon PA-C [address] [facility] [address] [place] [address] documented as of this encounter Procedures Procedure Name Priority Date/Time Associated Diagnosis Comments PSA TOTAL, DIAGNOSTIC Routine 03/28/2021 9:20 EST documented in this encounter Results * PSA TOTAL, DIAGNOSTIC (03/28/2021 9:20 EST) PSA 1.0 0.0 - 4.5 ng/mL 03/28/2021 18:09 EST [facility] Blood VENOUS BLOOD / Unknown 03/28/2021 9:20 EST 03/28/2021 17:02 EST Narrative [facility] - 03/28/2021 18:09 EST NOTE: Serum PSA concentration should not be interpreted as absolute evidence for the presence or absence of malignant disease. Assayed on Siemens ADVIA Centaur XPT using chemiluminescent technology.??Values obtained by using different assay methods cannot be used interchangeably. Provider Outr Resulting Lab CHEMISTRY & BLOOD GAS ORDERABLES [facility] [address] [place] [address] documented in this encounter Visit Diagnoses Not on filedocumented in this encounter Care Teams Transmitter Chief Relationship Specialty Start Date End Date Ann Carrillo MD [address] [place] [address] PCP - General 08/23/18 04/05/22 Carloz Orellana MD [address] [place] [address] PCP - General Family Medicine - Primary Care 04/06/22 documented as of this encounter
--- OUTSIDE RECORDS SUMMARY | 2023-11-25 01:38 | XMS_ITS | Encounter Summary ---
Author Organization [facility] Address [address] [place] [address] Care Team Providers Care Speech Correction Consultant Name Role Phone Ann Carrillo MD Primary Care Provider Reason for Visit * Reason Comments New Patient Visit Hernia * Consult (Routine) - Closed Specialty Diagnoses / Procedures [facility] To Contact General Surgery Diagnoses Umbilical hernia Ann Carrillo MD [address] [place] [address] [address] [place] [address] Surgery [address] [place] [address] Referral ID Status Reason Start Date Expiration Date Visits Re quested Visits Authorized [id number] Closed 1 1 Encounter Details Date Type Department Care Team (Late st Contact Info) Description 01/22/2020 10:00 EDT Office Visit [facility] General Surgery - [address] [id number] Ken Rich MD [address] [place] [address], [address] [place] [address] Umbilical hernia without obstruction and [...] Sign Reading Time Taken Comments Blood Pressure 169/97 01/22/2020948 EDT Pulse 78 01/22/2020948 EDT Temperature - - Respiratory Rate - - Oxygen Saturation - - Inhaled Oxygen Concentration - - Weight 91.6 kg (202 lb) 01/22/2020948 EDT Height 182.9 cm (6') 01/22/2020948 EDT Body Mass Index 27.4 01/22/2020948 EDT documented in this encounter Functional Status [...] as of this encounter Progress Notes * Kemi Woodard MD - 01/22/2020 1000 EDT Division of General Surgery Date of Service: 01/22/2020 PROBLEM: 1. Umbilical hernia without obstruction and without gangrene HISTORY OF PRESENT ILLNESS: I am seeing Lan Lima in the office today in consultation by Ann Carrillo, * for 1. Umbilical hernia without obstruction and without gangrene This is a 64 y.o. male w/ history of CAD and NSTEMI who is here for an umbilical hernia. Has had hernia for 'a couple of years' - about two. Causes pain 'at times' w/ increased activity. Pt is able to reduce, but this can be painful as well. No hx of abd surgeries or trauma to the area. No sx of obstruction from hernia. Has had two cardiac catheterizations, six stents placed. Last one was about four years ago. Gets chest pains intermittently, but not severe. Followed by Dr. Kapadia from cardiology. Social History Tobacco Use ??? Smoking status: Never Smoker ??? Smokeless tobacco: Former User Types: Chew Substance Use Topics ??? Alcohol use: Yes Alcohol/week: 4.0 - 5.0 standard drinks Types: 4 - 5 Shots of liquor per week Past Medical History: Diagnosis Date ??? Abnormal nuclear stress test ??? Anomaly, cardiac IA, cardiac stents, CAD ??? Chest pain radiating to arm ??? Colon polyp ??? Family history of coronary artery disease ??? HLD (hyperlipidemia) Past Surgical History: Procedure Laterality Date ??? ANKLE FRACTURE SURGERY Current Outpatient Medications Medication ??? aspirin 81 mg EC tablet ??? atorvastatin (LIPITOR) 40 mg tablet ??? nitroGLYCERIN (NITROSTAT) 0.4 mg SL tablet ??? polyethylene glycol (GOLYTELY) 236-22.74-6.74 -5.86 gram suspension No current facility-administered medications for this visit. Allergies Allergen Reactions ??? No Known Drug Allergies REVIEW OF SYSTEMS: A ten point review of systems was performed and all were negative except as listed below. Patient Active Problem List Diagnosis ??? Chest pain ??? Subsequent non-ST elevation (NSTEMI) myocardial infarction within 4 weeks of initial infarction([facility]) ??? Umbilical hernia without obstruction and without gangrene OBJECTIVE: Vitals: 01/22/20 0949 BP: (!) 169/97 Pulse: 78 Weight: 91.6 kg (202 lb) Height: 182.9 cm (72) Body mass index is 27.4 kg/m??. He is afebrile. General: No acute distress. HEENT: Normal. Neck: Supple. Skin: Normal. Lungs: Clear, bilaterally. Heart: Regular rate and rhythm. No murmurs Abdomen: Soft, nondistended, nontender, no masses, no organomegaly. Diverticula of rectus noted, <1 cm umbilical hernia that is reducible Vascular: Normal. Musculoskeletal: Normal. Neurologic: Normal. ASSESSMENT & PLAN: A 64 y.o. male with small umbilical hernia. Discussed with patient the risks of undergoing repair considering his cardiac history. Due to the small size of the hernia informed him that it would be easy to do under local anesthesia without needto place a mesh as an outpatient. Will want him to be cleared by cardiology prior to his surgery. Will also need EKG. Pt amenable to plan. Will have him schedule for surgery at his earliest convenience. Pt seen and discussed with Dr. Hilario Woodard MD 01/22/20 10:31 Family Medicine PGY2, Page #[phone] Attestation statement: I saw and examined the patient with the resident/fellow. I agree with the findings and plan of care documented in the resident's/fellow's note. --Ken Rich MD CC: Primary Care Provider: Ann Deleon MD documented in this encounter Plan of Treatment Upcoming Encounters Date Type Department Care Team (Late st Contact Info) Description 12/28/2023 13:00 EDT Office Visit [facility] Cardiology - [address] [place] [address] Rosalind Mckeon PA-C [address] [place] [address] [place] [phone] Scheduled Orders Name Type Priority Associated Diagnoses Orde r Schedule EKG 12-LEAD ECG Routine Umbilical hernia without obstruction and without gangrene Ordered: 01/22/2020 documented as of this encounter Visit Diagnoses Diagnosis Umbilical hernia without obstruction and without gangrene- Primary documented in this encounter Care Teams Speech Correction Consultant Relationship Specialty Start Date End Date Ann Carrillo MD [address] [facility] [address] [place] [address] PCP - General 08/23/18 04/05/22 documented as of this encounter
--- OUTSIDE RECORDS SUMMARY | 2023-11-25 01:38 | XMS_ITS | Encounter Summary ---
Author Organization [facility] Address [address] [place] [address] Care Team Providers Care Food Adviser Name Role Phone Ann Carrillo MD Primary Care Provider Reason for Visit * Reason Comments Coronary Artery Disease fur Encounter Details Date Type Department Care Team (Latest Contact Info) Description 06/01/2019 10:40 EST Office Visit [facility] Cardiology [place] [place] [address] Ken Kapadia MD [address] [place] [address] ASCVD (arteriosclerotic cardiovascular disease) (Primary Dx) [...] Sign Reading Time Taken Comments Blood Pressure 138/80 06/01/2019 1045 EST Pulse 73 06/01/2019 1045 EST Temperature - - Respiratory Rate - - Oxygen Saturation 96% 06/01/2019 1045 EST Inhaled Oxygen Concentration - - Weight 93.9 kg (207 lb) 06/01/2019 1045 EST Height 182.9 cm (6' 0.01) 06/01/2019 1045 EST Body Mass Index 28.07 06/01/2019 1045 EST documented in this encounter Functional Status [...] at bedtime. 90 Tab 3 06/01/2019 04/06/2022 documented in this encounter Progress Notes * Ken Kapadia MD - 06/01/2019 1040 EST Subjective: Patient is a 64 y.o. male who presents for follow-up of CAD. Patient reports doing well. He denies chest [...] myocardial infarction within 4 weeks of initial infarction([facility]) 07/13/2015 Priority: Medium ??? Chest pain 07/08/2015 [...] instructions' sheet. (Patient not taking: Reported on 06/01/2019) 1 Bottle 0 No current facility-administered medications for this visit. Review of Systems A ten point ROS was performed. Pertinent positives are listed above, all others are negative. Objective: BP 138/80 Pulse 73 Ht 182.9 cm (72.01) Wt 93.9 kg (207 lb) SpO2 96% BMI 28.07 kg/m?? Body mass index is 28.07 kg/m??. Physical Exam: General: Alert, cooperative, no [...] normal. Neurologic: Normal strength, nonfocal on exam. Data: Lab Review: Lab Results Component Value Date NA 140 08/06/2015 NA 139 07/18/2015 NA 131 (L) 07/17/2015 K 5.2 (H) 08/06/2015 K 5.0 07/18/2015 K 4.6 07/17/2015 CL 101 08/06/2015 CL 103 07/18/2015 CL 99 07/17/2015 CO2 28 08/06/2015 CO2 26 07/18/2015 CO2 24 07/17/2015 BUN 26 08/06/2015 BUN 23 07/18/2015 BUN 27 (H) 07/17/2015 CREATININE 0.98 08/06/2015 CREATININE 0.95 07/18/2015 CREATININE 0.85 07/17/2015 CALCIUM 9.7 08/06/2015 Lab Results Component Value Date WBC 7.15 07/18/2015 HGB 12.5 (L) 07/18/2015 HCT 36.2 (L) 07/18/2015 MCV 90 07/18/2015 PLT 256 07/18/2015 Lab Results Component Value Date CHOL 168 07/13/2015 TRIG 130 07/13/2015 HDL 53 07/13/2015 LDLBASE 89 07/13/2015 PCP watching cho;lesterol Assessment: Lan Lima is a 64 y.o. year old male who presents with cad stable Plan: Cont present rx documented in this encounter Plan of Treatment Upcoming Encounters Date Type Department Care Team (Late st Contact Info) Description 12/28/2023 13:00 EDT Office Visit [facility] Cardiology - [address] [address] Rosalind Mckeon, PA-C [address] [place] [address] [place] [phone] documented as of this encounter Visit Diagnoses Diagnosis ASCVD (arteriosclerotic cardiovascular disease)- Primary Unspecified cardiovascular disease documented in this encounter Discontinued Medications Medication Sig Discontinue Reason Start Date End Da te atorvastatin (LIPITOR) 40 mg tablet Take 1 Tab by mouth at bedtime. Reorder 10/14/2017 06/01/2019 documented as of this encounter Care Teams Food Adviser Relationship Specialty Start Date End Date Ann Carrillo MD [address] [place] [address] [address] [place] [address] PCP - General 08/23/18 04/05/22 documented as of this encounter
--- OUTSIDE RECORDS SUMMARY | 2023-11-25 01:38 | XMS_ITS | Encounter Summary ---
Author Organization [facility] Address [address] [place] [address] Care Team Providers Care Watch Dial Stoner Name Role Phone Ann Carrillo MD Primary Care Provider Encounter Details Date Type Department Care Team (Latest Contact Info) Description 2022 9:26 EST - 2022 23:59 EST Hospital Encounter [facility] Pre-Surgical Testing [address] [place] [address] Discharge Disposition: Home or Self Care Social [...] Sign Reading Time Taken Comments Blood Pressure - - Pulse - - Temperature - - Respiratory Rate - - Oxygen Saturation - - Inhaled Oxygen Concentration - - Weight 84.8 kg (187 lb) 2022 0904 EST Height 182.9 cm (6') 2022 0904 EST Body Mass Index 25.36 2022 0904 EST documented in this encounter Functional Status [...] capsule Take 200 Units by mouth daily. atorvastatin (LIPITOR) 40 mg tablet Take 1 Tab by mouth at bedtime. 90 Tab 3 06/01/2019 04/06/2022 documented as of this encounter Discharge Disposition Disposition Code Departure Means Destination Home or Self Care documented in this encounter Plan of Treatment Upcoming Encounters Date Type Department Care Team (Late st Contact Info) Description 12/28/2023 13:00 EDT Office Visit [facility] Cardiology - [address] [address] Rosalind Mckeon, PAYogeshC [address] [place] [address] [address] [place] [address] documented as of this encounter Visit Diagnoses Not on filedocumented in this encounter Historical Medications * This list may reflect changes made after this encounter. Medication Sig Dispensed Refills Start Date End Date cyanocobalamin (VITAMIN B-12) 500 mcg tablet Take 500 mcg by mouth daily. Cholecalciferol, Vitamin D3, 50 mcg capsule Take 2,000 Units by mouth daily. tocopheryl acetate (VITAMIN E) 90 mg (200 unit) capsule Take 200 Units by mouth daily. added in this encounter Care Teams Watch Dial Stoner Relationship Specialty Start Date End Date Ann Carrillo MD [address] [place], [place] [id number] [place] [phone] PCP - General 08/23/18 04/05/22 documented as of this encounter
--- OUTSIDE RECORDS SUMMARY | 2023-11-25 01:38 | XMS_ITS | Encounter Summary ---
Author Organization [facility] Address [address] [place] [address] Care Team Providers Care Bookkeeper Name Role Phone Ann Carrillo MD Primary Care Provider Encounter Details Date Type Department Care Team (Latest Contact Info) Description 06/21/2020 Travel Social History Tobacco Use Types Packs/Day Years [...] 12/28/2023 13:00 EDT Office Visit [facility] Cardiology - [facility] [address] [place] [address] Rosalind Mckeon PA-C [address] [facility] [address] [place] [address] documented as of this encounter Visit Diagnoses Not on filedocumented in this encounter Care Teams Bookkeeper Relationship Specialty Start Date End Date Ann Carrillo MD [address] [place] [address] [address] [place] [phone] PCP - General 08/23/18 04/05/22 documented as of this encounter
--- OUTSIDE RECORDS SUMMARY | 2023-11-25 01:38 | XMS_ITS | Encounter Summary ---
Author Organization [facility] Address [address] [place] [address] Care Team Providers Care Fruit Buying Grader Name Role Phone Ann Carrillo MD Primary Care Provider Reason for Visit * Reason Onset Date Comments Follow-up Diagnostic PSG 03/09/2022 Encounter Details Date Type Department Care Team (Late st Contact Info) Description 03/09/2022 Telephone [facility] General Surgery - [address] [phone] Ken Rich MD [address] [place] [address], [facility] [address] [place] [address] Follow-up Diagnostic PSG Social History [...] * Telephone Encounter - Chandra Jennifer - 03/09/2022 1333 EDT 5 calls made to patient to day can not leave a message tried every number in system, no results. Can not book surgery send a message to the patient also on my chart documented in this encounter Plan of Treatment Upcoming Encounters Date Type Department Care Team (Late st Contact Info) Description 12/28/2023 13:00 EDT Office Visit [facility] Cardiology - [address] [address] Rosalind Mckeon PA-C [address] [place] [address] [place] [phone] documented as of this encounter Visit Diagnoses Not on filedocumented in this encounter Care Teams Fruit Buying Grader Relationship Specialty Start Date End Date Ann Carrillo MD [address] [facility] [address] [place] [phone] PCP - General 08/23/18 04/05/22 documented as of this encounter
--- OUTSIDE RECORDS SUMMARY | 2023-11-25 01:38 | XMS_ITS | Encounter Summary ---
Author Organization [facility] Address [address] [place] [address] Care Team Providers Care Ragman Name Role Phone Ann Carrillo MD Primary Care Provider Reason for Visit * Reason Onset Date Comments Follow-up Diagnostic PSG 05/17/2020 Encounter Details Date Type Department Care Team (Late st Contact Info) Description 05/17/2020 Telephone [facility] General Surgery - [facility] [address] [place], [place] [phone] Ken Rich MD [address] [place] [address], [facility] [address] [place] [address] Follow-up Diagnostic PSG Social History [...] * Telephone Encounter - Chandra Jennifer - 05/17/2020 0805 EST Tried reaching out to patient surgery needs to be moved unable to leave a message. documented in this encounter Plan of Treatment Upcoming Encounters Date Type Department Care Team (Late st Contact Info) Description 12/28/2023 13:00 EDT Office Visit [facility] Cardiology - [address] [address] Rosalind Mckeon, PA-C [address] [facility] [address] [place] [phone] documented as of this encounter Visit Diagnoses Not on filedocumented in this encounter Care Teams Ragman Relationship Specialty Start Date End Date Ann Carrillo MD [address] [place], [place] [id number] [address] [place] [phone] PCP - General 08/23/18 04/05/22 documented as of this encounter
--- OUTSIDE RECORDS SUMMARY | 2023-11-25 01:39 | XMS_ITS | Encounter Summary ---
Author Organization [facility] Address [address] [place] [address] Care Team Providers Care Vice President Process Name Role Phone Veronica Servin MD Primary Care Provider [phone] Encounter Details Date Type Department Care Team (Late st Contact Info) Description 11/08/2017 Results Only Imaging [facility] Cardiology - [address] [place] [address] Ken Kapadia MD [address] [place] [address] Social History Tobacco Use Types Packs/Day Years [...] 12/28/2023 13:00 EDT Office Visit [facility] Cardiology - [address] [place] [address] Rosalind Mckeon PA-C [address] [facility] [address] [place] [address] documented as of this encounter Procedures Procedure Name Priority Date/Time Associated Diagnosis Comments EXERCISE TOLERANCE TEST 11/08/2017 9:00 EDT documented in this encounter Results * EXERCISE TOLERANCE TEST (11/08/2017 9:00 EDT) Anatomical Region Laterality Modality Other 11/08/2017 9:00 EDT Narrative 11/08/2017 20:19 EDT *[facility]* [address] [place] [address] *Interpreting Group:* *[facility] Cardiology* [address] [place] [address] Stress Electrocardiography Ministerio protocol Date of study: ??11/08/2017 *PATIENT PRESENTATION* Height: ? 182.9cm (72in) Blood Pressure: Weight: ? 90kg (198lb) BSA: ?2.15m^2 Referring physician: Veronica Servin Ordering physician: ??Ken Kapadia MD Impressions: ?? Normal study after maximal exercise. Summary: 1. Stress ECG conclusions: The stress ECG is negative. 2. Stress: The target heart rate was achieved. The heart rate response ?? to stress is normal. There is a normal resting blood pressure with an ?? appropriate response to stress. Stress-induced chest tightness that ?? started in stage II of stress protocol and resolved at the beginning ?? of stage III. Exercise capacity is above normal for age. CAD likelihood: ??Pre test likelihood of CAD: 100%. Post test likelihood of CAD: 100%. Indication: ?? I25.10 CAD. History: ??62 year old male with known CAD. History of LHC after normal nuclear stress test with PCI to LAD, left circ, and RCA. Repeat LHC several days later with PCI to distal RCA. Presents with center to left sided chest pain that occurs while he is at work and will continue off and on the rest of the day. Typically occurs several times a week. The pain lasts a few minutes and nothing makes it better or worse. Last occurred 2 weeks ago. Denies any chest pain/discomfort currently. ??Risk factors: ??Family history of coronary artery disease. Dyslipidemia. Medications: ?? Aspirin. ??Atorvastatin (Lipitor). ??Famotidine (Pepcid). Protocol: ??Ministerio protocol. Stress protocol: + +---+ +------+ + + Stage ? HR BP (mmHg) ?? ST/T ?? Rhythm ? Symptoms ? + +---+ +------+ + + Baseline supine 57 130/76 (94) Normal Sinus ? None ? rhythm, ? incomplete ? RBBB ? + +---+ +------+ + + Baseline ? 4 ?? 140/86 (104) ? standing ? + +---+ +------+ + + Stage I; 1.7mph, 100 148/80 (103) ? 10degrees; 3 min ? + +---+ +------+ + + Stage II; ? 123 154/80 (105) ? Twinge of left ?? 2.5mph, ? sided chest ? 12degrees; 3 min ? tightness ? + +---+ +------+ + + Stage III; ? 147 160/76 (104) ? Chest tightness 3.4mph, ? resolved ? 14degrees; 3 min ? + +---+ +------+ + + Stage IV; ? 175 ? Fatigue ? 4.2mph, ? 16degrees; 3 min ? + +---+ +------+ + + Immediate post ?? 175 148/80 (103) ? Subsiding ? stress ? + +---+ +------+ + + Recovery; 1 min 151 ? Subsiding ? + +---+ +------+ + + Recovery; 3 min 114 180/86 (117) ? Resolved ? + +---+ +------+ + + Recovery; 6 min 99 146/82 (103) ? None ? + +---+ +------+ + + * Stress results: ?? Maximal heart rate during stress was 175bpm (109% of maximal predicted heart rate). The maximal predicted heart rate was 160bpm. The target heart rate was achieved. The heart rate response to stress is normal. There is a normal resting blood pressure with an appropriate response to stress. The rate-pressure product for the peak heart rate and blood pressure was 42952ek Hg/min. Stress-induced chest tightness that started in stage II of stress protocol and resolved at the beginning of stage III. The patient experienced mild dyspnea in response to stress. Exercise capacity is above normal for age. Stress ECG: ?? The stress ECG is negative. Study data: ??Dr. Barry Dennis supervised and was readily available during the procedure. ??Study status: ??Routine. ??Consent: ??The risks, benefits, and alternatives to the procedure were explained to the patient and informed consent was obtained. ??Procedure: ??Initial setup. A baseline ECG was recorded. ECG tracings were obtained using the X-scribe 2 machine. Surface ECG leads and manual cuff blood pressure measurements were monitored. Heart sounds: Normal. Lung sounds: Normal. Treadmill exercise testing was performed using the Ministerio protocol. The patient exercised for 10 min 34 sec, to protocol stage 4, to a maximal work rate of 11.2mets. Exercise was terminated due to fatigue. ??Study completion: The patient tolerated the procedure well and was discharged from the lab. ??Discharge: ??The patient left the laboratory in stable condition. ??Birthdate: ??Patient birthdate: 1955. ??Sex: ??Gender: male. ??Study date: ??Study date: 11/08/2017. Study time: 09:00 AM. Signature Documentation: ?? The Stress ECG portion of this study was interpreted by Dr. Nu Duke. Electronically signed by Nu Duke MD 11/08/2017 20:19 Procedure Note Nu Duke MD - 11/08/2017 *[facility]* [address] [place] [id number] *Interpreting Group:* *[facility] Card[facility]* [address] [place] [address] Stress Electrocardiography Ministerio protocol Date of study: 11/08/2017 *PATIENT PRESENTATION* Height: 182.9cm (72in) Blood Pressure: Weight: 90kg (198lb) BSA: 2.15m^2 Referring physician: Veronica Servin Ordering physician: Ken Kapadia MD Impressions: Normal study after maximal exercise. Summary: 1. Stress ECG conclusions: The stress ECG is negative. 2. Stress: The target heart rate was achieved. The heart rate response to stress is normal. There is a normal resting blood pressure with an appropriate response to stress. Stress-induced chest tightness that started in stage II of stress protocol and resolved at the beginning of stage III. Exercise capacity is above normal for age. CAD likelihood: Pre test likelihood of CAD: 100%. Post test likelihood of CAD: 100%. Indication: I25.10 CAD. History: 62 year old male with known CAD. History of LHC after normal nuclear stress test with PCI to LAD, left circ, and RCA. Repeat LHC several days later with PCI to distal RCA. Presents with center to left sided chest pain that occurs while he is at work and will continue off and on the rest of the day. Typically occurs several times a week. The pain lasts a few minutes and nothing makes it better or worse. Last occurred 2 weeks ago. Denies any chest pain/discomfort currently. Risk factors: Family history of coronary artery disease. Dyslipidemia. Medications: Aspirin. Atorvastatin (Lipitor). Famotidine (Pepcid). Protocol: Ministerio protocol. Stress protocol: + +---+ +------+ + + Stage HR BP (mmHg) ST/T Rhythm Symptoms + +---+ +------+ + + Baseline supine 57 130/76 (94) Normal Sinus None rhythm, incomplete RBBB + +---+ +------+ + + Baseline 4 140/86 (104) standing + +---+ +------+ + + Stage I; 1.7mph, 100 148/80 (103) 10degrees; 3 min + +---+ +------+ + + Stage II; 123 154/80 (105) Twinge of left 2.5mph, sided chest 12degrees; 3 min tightness + +---+ +------+ + + Stage III; 147 160/76 (104) Chest tightness 3.4mph, resolved 14degrees; 3 min + +---+ +------+ + + Stage IV; 175 Fatigue 4.2mph, 16degrees; 3 min + +---+ +------+ + + Immediate post 175 148/80 (103) Subsiding stress + +---+ +------+ + + Recovery; 1 min 151 Subsiding + +---+ +------+ + + Recovery; 3 min 114 180/86 (117) Resolved + +---+ +------+ + + Recovery; 6 min 99 146/82 (103) None + +---+ +------+ + + * Stress results: Maximal heart rate during stress was 175bpm (109% of maximal predicted heart rate). The maximal predicted heart rate was 160bpm. The target heart rate was achieved. The heart rate response to stress is normal. There is a normal resting blood pressure with an appropriate response to stress. The rate-pressure product for the peak heart rate and blood pressure was 49284gd Hg/min. Stress-induced chest tightness that started in stage II of stress protocol and resolved at the beginning of stage III. The patient experienced mild dyspnea in response to stress. Exercise capacity is above normal for age. Stress ECG: The stress ECG is negative. Study data: Dr. Barry Dennis supervised and was readily available during the procedure. Study status: Routine. Consent: The risks, benefits, and alternatives to the procedure were explained to the patient and informed consent was obtained. Procedure: Initial setup. A baseline ECG was recorded. ECG tracings were obtained using the X-scribe 2 machine. Surface ECG leads and manual cuff blood pressure measurements were monitored. Heart sounds: Normal. Lung sounds: Normal. Treadmill exercise testing was performed using the Ministerio protocol. The patient exercised for 10 min 34 sec, to protocol stage 4, to a maximal work rate of 11.2mets. Exercise was terminated due to fatigue. Study completion: The patient tolerated the procedure well and was discharged from the lab. Discharge: The patient left the laboratory in stable condition. Birthdate: Patient birthdate: 1955. Sex: Gender: male. Study date: Study date: 11/08/2017. Study time: 09:00 AM. Signature Documentation: The Stress ECG portion of this study was interpreted by Dr. Nu Duke. Electronically signed by Nu Duke MD 11/08/2017 20:19 Ken Kapadia MD CARDIAC SERVICES ORD ERABLES documented in this encounter Visit Diagnoses Not on filedocumented in this encounter Care Teams Vice President Process Relationship Specialty Start Date End Date Veronica Servin MD PCP - General 10/13/17 08/22/18 documented as of this encounter
--- OUTSIDE RECORDS SUMMARY | 2023-11-25 01:39 | XMS_ITS | Encounter Summary ---
Author Organization [facility] Address [address] [place] [address] Care Team Providers Care Insole Doubler Name Role Phone Jony Castellon MD Primary Care Provider [phone] Reason for Referral * Consult (Routine) - Closed Specialty Diagnoses / Procedures Referred By Contac t Referred To Contact Cardiology Diagnoses NSTEMI (non-ST elevated myocardial infarction) ([facility]) Renny Prince MD [address] [place] [address] [facility] Cardiology [address] [place] [address] Referral ID Status Reason Start Date Expiration Date V isits Requested Visits Authorized [id number] Closed Specialty Services Required 07/13/2015 1 1 Question Answer Reason for Request: post hospitalization follow up * Follow Up (Routine) - Closed Specialty Diagnoses / Procedures Referred By Contac t Referred To Contact Diagnoses NSTEMI (non-ST elevated myocardial infarction) ([facility]) Jony Castellon MD [address] [address] Referral ID Status Reason Start Date Expiration Date V isits Requested Visits Authorized [id number] Closed Continuity of Care 07/13/2015 1 1 Question Answer Reason for Request: post hospitalization follow up for NSTEMI and post procedural MA Encounter Details Date Type Department Care Team (Late st Contact Info) Description 07/12/2015 21:53 EST - 07/13/2015 15:26 EST Hospital Encounter [facility] Cardiac/Telemetry Unit [address], [place] [id number] Jayjay Santiago MD [address] [facility] [place], [address] [place] [address] NSTEMI (non-ST elevated myocardial infarction) ([facility]) (Primary Dx) Discharge Disposition: Home or Self Care Social [...] Sign Reading Time Taken Comments Blood Pressure 116/76 07/13/2015 1200 EST Pulse - - Temperature 36.2 ??C (97.2 ??F) 07/13/2015 0756 EST Respiratory Rate 12 07/13/2015 0756 EST Oxygen Saturation 96% 07/13/2015 1200 EST Inhaled Oxygen Concentration - - Weight 93 kg (205 lb) 07/13/2015 0500 EST Height 182.9 cm (6') 07/12/2015 2211 EST Body Mass Index 27.8 07/12/2015 2211 EST documented in this encounter Functional Status Functional Status Response Date of Assess ment Are you deaf or do you have serious difficulty h earing? No 07/12/2015 Are you blind or do you have serious difficulty seeing, even when wearing glasses? No 07/12/2015 Do you have difficulty dress ing or bathing? (5 years old or older) No 07/12/2015 Because of a physical, menta l, or emotional condition, do you have difficulty doing errands alone such as visiting a doctor's office or shopping? (15 years old or older) No 07/12/2015 Cognitive Status Response Date of Assessm ent Because of a physical, menta l, or emotional condition, do you have serious difficulty concentrating, remembering, or making decisions? (5 years old or older) No 07/12/2015 documented as of this encounter Discharge Summaries * Renny Prince MD - 07/13/2015 1304 EST Discharge Summary Attending Physician: Jayjay June MD Date of Admission: 07/12/2015 Date of Discharge: 07/13/2015 Disposition: Home with family Reason for Admission: Vivian procedural MA Hospital Problems: Principal Problem: Subsequent non-ST elevation (NSTEMI) myocardial infarction within 4 weeks of initial infarction Principal Procedure: Hospital Course: Mr. Fernandez is a 60 yo M with CAD with 5 stents on 07/09/15, HLD, former tobacco use, who presented as a transfer from [facility] with elevated troponin.?? He reports feeling a snapping sensation in his left chest and brief pulses of pain that resolved spontaneously and were not associated specifically with exertion, but otherwise has been doing well since his [facility] with stents.?? Hewas found to have an elevated troponin that increased slightly the day of admission at [facility], so in the setting of recent stent placement he was transferred for consideration of in-stent restenosis.?? He had no acute EKG changes suggestive of ischemia, but in the setting of elevated troponinand known CAD, he was initially treated as NSTEMI with heparin and plavix but after his troponins trended down and his echo showed normal EF and LV function without signs of heart damage so we decided that this episode most likely reflected a vivian procedural MA with possible loss of very small diagonal branch and not restenosis of a stent so he was able to be discharged safely home with his regular follow up as previously scheduled at [facility]. He will need to continue his plavix, aspirin, and statin as previously outlined to him after his procedure. Clinical Issues Needing Follow-up: - follow up with cardiology at [facility] as previously scheduled - follow up pcp Results Pending at Discharge: Test results still pending from this admission Procedure Component Value Units Date/Time Hemoglobin A1c [[id number]] Collected: 07/12/152306 Lab Status: In process Specimen Information: Blood Updated: 07/12/15 2177 Discharge Medications: CONTINUE taking these medications Sig acetaminophen 325 mg tablet Commonly known as: TYLENOL 650 mg, oral, EVERY 4 HOURS PRN aspirin 81 mg EC tablet 81 mg, oral, DAILY atorvastatin 40 mg tablet Commonly known as: LIPITOR 40 mg, oral, AT BEDTIME clopidogrel 75 mg tablet Commonly known as: PLAVIX 75 mg, oral, DAILY lisinopril 5 mg tablet Commonly known as: PRINIVIL, ZESTRIL 5 mg, oral, DAILY metoprolol XL 25 mg tablet Commonly known as: TOPROL-XL 25 mg, oral, DAILY nitroGLYCERIN 0.4 mg SL tablet Commonly known as: NITROSTAT 0.4 mg, sublingual, EVERY 5 MIN PRN Allergies: No known drug allergies Appointments Scheduled with [facility] in the Next 3 Months: Follow-Up Appointments and Procedures Recommended to Patient: Follow-up appointments and procedures Amb Consult/Follow Up Cardiology Reason for Request: post hospitalization follow up Authorizing Provider: Renny Prince MD Amb Consult/Follow Up Primary Care Physician Reason for Request: post hospitalization follow up for NSTEMI and post procedural MA Authorizing Provider: Renny Prince MD Follow-Up Labs and Tests: Renny Prince MD Associated attestation - Jayjay Santiago MD - 07/14/2015 1207 EST Patient seen and evaluated 07-13-15. Agree with findings assessment and plan as documented. Echo preserved LV function very mild mid anterior hypokinesis. Suspect periprocedural increase in troponin now trending down with not cardiac symptoms. Jayjay June MD Attending in Cardiology documented in this encounter Medications at Time of Discharge Medication Sig Dispensed Refills Start Date End Date aspirin 81 mg EC tablet Take 1 Tablet by mouth daily. acetaminophen (TYLENOL) 325 mg tablet Take 2 Tabs by mouth every 4 hours as needed for Pain. 07/08/2015 06/05/2019 atorvastatin (LIPITOR) 40 mg tablet Take 1 Tab by mouth at bedtime. 90 Tab 3 07/08/2015 10/14/2017 clopidogrel (PLAVIX) 75 mg tablet Take 1 Tab by mouth daily. 90 Tab 3 07/08/2015 04/16/2016 lisinopril (PRINIVIL, ZESTRIL) 5 mg tablet Take 1 Tab by mouth daily. 90 Tab 1 07/09/2015 04/23/2016 metoprolol XL (TOPROL-XL) 25 mg tablet Take 1 Tab by mouth daily. 90 Tab 3 07/08/2015 10/08/2015 nitroGLYCERIN (NITROSTAT) 0.[address] 0.4 mg under the tongue every 5 minutes as needed for Chest Pain. Reported on 04/16/2016 09/15/2018 documented as of this encounter Discharge Disposition Disposition Code Departure Means Destination Home or Self Care documented in this encounter Progress Notes * Taylor Chapa - 07/13/2015 1206 EST At noon pt c/o 05/19 sharp left mid chest pain, relieved within a few minutes without intervention. MD ASHWIN notified and stat ECG obtained. * Jenna Monique RN - 07/13/2015 0909 EST Critical Access Treatment Support (CATS) Team Nursing Note (SBAR) Status of Event Upon Arrival: Report received from previous cats RN regarding respiratory distress secondary to fluid overload. Status Of Event Upon Arrival: Stable Clinical Situation Team Times: Situation Reported: Pt states his breathing is better. He says if he did something strenuous he would feel like his breathing was inadequate but it is fine while he is resting in bed. Situation Upon Arrival: CATS - Situation Upon Arrival Arrival Situation: Other Education/ Consult: call one now Code Status: Code Status Code Status At Time Of Event: Full Background: Hourly Checks: CATS - Hourly Checks Routine Hourly Observation: Yes Vitals: Patient Vitals for the past 4 hrs: Temp Heart Rate Resp BP SpO2 Cardiac Rhythm 07/13/15 0756 36.2 ??C (97.2 ??F) 68 BPM 12 109/70 mmHg 98 % NSR Respiratory: No respiratory distress noted. CATS - Respiratory O2 Device: None Neurological: Pt awake and alert. GCS: Skin: Pain: Numeric Pain Scale Numeric Pain Level (Scale 1-10): 0 Cats - Recommendations: Cats - Handoff: CATS Team Members: Cats Team Members core maker helper (Name): Jenna Monique Additional Detail: No respiratory distress. Cats team to sign off. Pt educated regarding call one now should he need additional support. documented in this encounter H&P Notes * Tamika Harris - 07/12/2015 2211 EST Cardiology Admission H&P Admission Date: 07/12/2015 Date of Service: 07/12/2015 PCP: Jony Castellon Admitting Attending: Jayjay June MD CC: Elevated troponin Subjective: HPI: Mr. Fernnadez is a 60 yo M with CAD with 5 stents on 07/09/15, HLD, former tobacco use, who presentsas a transfer from [facility]. He underwent elective LHC with 2 DARLIN to LAD/D1, 1DES to D1, 1 DARLIN to OM1, 1 DARLIN to distal RCA on 07/09/15. He was discharged on daily ASA and Plavix, as well as Lisinopril added for HTN and Atorvastatin was restarted. He reports that he has had shortness of breath and constant trying to catch breath for 5 years and felt much better after LHC on 07/08. Yesterday he felt a snap in his left chest and then felt very cold in that area of his chest like ice cubes. He has been having some dyspnea since then. He reports small pains in his left chest that feels like brief pulses of pain that lasts only seconds and resolves spontaneously. The pain can occur at rest or with exertion, though he has been avoiding much exertion, though is walking andgoing up and down some stairs. These are not similar to his symptoms that he was having prior to LHC and stents - before catheterization, he had chest pain with significant exertion such as splittingwood that would resolve with rest, but would not have pain with normal activity such as walking or stairs. He went to see his PCP for a routine follow up today and mentioned these symptoms, so troponin was checked and found to be 1.79. He was then told to go to the [facility] ED, where he had another troponin that was 1.98, so he was transferred to [facility] for further management. He did not have any chest pain while at [facility]. At [facility], he received IV heparin. EKG showed sinus rhythm without acute ischemic changes. On arrival to [facility], he was feeling well with no complaints. He denies chest pain, dyspnea, lightheadedness, dizziness, or nausea. He has been taking his Plavix as instructed including this morning. He lives in [place], [place] with his Rosa and [facility] have a [facility] He is here with his and sister. He is a never smoker but used to chew tobacco, but quit 3 years ago. He drinks 1-2 drinks of scotch per night. He does not use recreational drugs. Review of Systems Positive for brief episodes of chest pain (not currently), baseline dyspnea, dry cough 1-2 days, cramping in toes and lower legs bilaterally yesterday Negative for fever, chills, dizziness, lightheadedness, nausea, leg swelling, abdominal pain, PMH PSH Past Medical History Diagnosis Date ??? Chest pain radiating to arm ??? Abnormal nuclear stress test ??? HLD (hyperlipidemia) ??? Family history of coronary artery disease Past Surgical History Procedure Laterality Date ??? Ankle fracture surgery Social History Family history History Social History ??? Marital Status: Spouse Name: N/A ??? Number of Children: N/A ??? Years of Education: N/A Occupational History ??? Not on file. Social History Main Topics ??? Smoking status: Never Smoker ??? Smokeless tobacco: Former User Types: Chew ??? Alcohol Use: Yes Comment: rarely ??? Drug Use: No ??? Sexual Activity: Yes Comment: no viagra Other Topics Concern ??? Not on file Social History Narrative Family History Problem Relation Age of Onset ??? Heart Disease Father ??? Heart Disease Brother Prescriptions prior to admission Medication Sig Dispense Refill Last Dose ??? acetaminophen (TYLENOL) 325 mg tablet Take 2 Tabs by mouth every 4 hours as needed for Pain. Past Week ??? aspirin 81 mg EC tablet Take 81 mg by mouth daily. 07/12/2015 ??? atorvastatin (LIPITOR) 40 mg tablet Take 1 Tab by mouth at bedtime. 90 Tab 3 07/11/2015 ??? clopidogrel (PLAVIX) 75 mg tablet Take 1 Tab by mouth daily. 90 Tab 3 07/12/2015 ??? lisinopril (PRINIVIL, ZESTRIL) 5 mg tablet Take 1 Tab by mouth daily. 90 Tab 1 07/12/2015 ??? metoprolol XL (TOPROL-XL) 25 mg tablet Take 1 Tab by mouth daily. 90 Tab 3 07/12/2015 ??? nitroGLYCERIN (NITROSTAT) 0.[address] 0.4 mg under the tongue every 5 minutes as needed for Chest Pain. Past Week Allergies Allergies Allergen Reactions ??? No Known Drug Allergies Objective: Blood pressure 126/81, temperature 35.9 ??C (96.7 ??F), temperature source Tympanic, resp. rate 18,height 182.9 cm (72), weight 91.4 kg (201 lb 8 oz), SpO2 96 %. Wt Readings from Last 1 Encounters: 07/12/15 91.4 kg (201 lb 8 oz) General appearance: alert, cooperative, no distress, appears stated age, looks comfortable, sittingin bed Skin: Skin color, temperature, turgor normal. No rashes or lesions Head: Normocephalic, without obvious abnormality, atraumatic Eyes: negative findings: conjunctivae and sclerae normal and PERRL Throat/Mouth: lips, mucosa, and tongue normal; teeth and gums normal and no oral lesions, moist mucus membranes Lungs: clear to auscultation bilaterally, non labored breathing, no crackles or wheezes, on room air Heart: regular rate and rhythm, S1, S2 normal, no murmur, click, rub or gallop Abdomen: soft, non-tender; bowel sounds active, non-distended Extremities: extremities warm, atraumatic, no cyanosis or edema; no tenderness or bleeding at priorright femoral cath site Pulses: 2+ and symmetric DP/PT/radial bilaterally Genitourinary: No Quiroz Labs: Labs from [facility] 07/11 Troponin 1.98 at 1835 <-- 1.79 at 1500 TSH 5.40 Free T4 0.89 CBC: Recent Labs 07/12/15 2307 WBC 8.61 HGB 14.2 HCT 39.8 MCV 87 PLT 255 BMP: Recent Labs 07/12/15 2307 NA 138 K 4.8 CL 101 CO2 28 BUN 23 CREATININE 0.87 EKG shows sinus rhythm without ST changes 07/12/2015 23:07 D-Dimer <200 07/12/2015 23:07 Magnesium 2.3 Troponin I 1.760 (H) Assessment: Mr. Fernandez is a 60 yo M with CAD with 5 stents on 07/09/15, HLD, former tobacco use, who presents as atransfer from [facility] with elevated troponin. He reports feeling a snapping sensation in his left chest and brief pulses of pain that resolve spontaneously and are not associated specifically with exertion, but otherwise has been doing well since his [facility] with stents. He was found to have an elevated troponin that increased slightly this evening at [facility], so in the setting of recent stent placement, have to consider in- stent restenosis. He does not have a prior troponin from before catheterization to compare with, so it is hard to tell if this elevated troponin wasrelated to having catherization done. He has no acute EKG changes suggestive of ischemia, but in the setting of elevated troponin and known CAD, will treat as NSTEMI with heparin overnight and followhis troponin levels. Plan: Elevated troponin/CAD: - Troponin Q8H - Heparin gtt - Continue home Plavix 75mg daily, ASA 81mg daily, Atorvastatin 40mg QHS, Lisinopril 5mg daily, Metoprolol XL 25mg daily (clarified with patient, because [facility] listed 12.5mg) - PRN Nitroglycerin and morphine for pain - Did not order LHC yet - will follow troponin and if increases significantly, then consider LHC tomorrow - Keep NPO in case he needs LHC HLD: - Continue home Atorvastatin 40mg QHS FEN: NPO at midnight PPX: Heparin gtt Lines: PIV Code status: FULL - discussed with patient personally Dispo: Uncertain but may be able to discharge tomorrow if troponin is improving Tamika Harris MD PGY-3 Pager #[phone] 07/12/2015 22:25 Fellow Addendum: HPI as above, per Dr. Harris. Briefly, 60yoM with known CAD s/p PCI to LAD, OM1 and RCA on 07/08/2015 (~ five days ago) presentingto [facility] with on-off sharp chest pains under left breast lasting 5 seconds at the most, and then a snapping sensation followed by cool ice-like sensation over left ch est/breast area yesterday that prompted him to seek further evaluation at outside hospital. Prior to his [facility], patient had chest pain while chopping wood but not when ambulating up stairs or incline (unstable angina). Since his [facility], these past five days, he has not exerted himself to that degree to know if symptoms are recapitulated. At [facility] his troponin arose (1.78 --> 1.9) for which he was transferred with heparin gtt to [facility]. Here, initial troponin is again at 1.7. On ROS, there is no associated chest pressure, diaphoresis, SOB. He endorses compliance with ASA and Plavix since his LHC. EKG: NSR Exam: ?mild crackles bilaterally, otherwise unremarkable Plan: - will manage as NSTEMI for now with continuation of heparin gtt and home regimen of Plavix and ASA. - continue trending TnI. - it is unlikely that the patient is having in-stent thrombosis with such minimal symptoms. There are no troponins from prior elective C to know whether this elevation is procedure-related or new. Renal function is normal. - continue rest of home medications. - patient has consented for LHC. NPO for now. If TnI increases dramatically, or patient develops worsening symptoms, stat EKG and consider LHC. However, if TnI downtrends and patient remains asymptomatic, I am inclined to send patient home with outpatient stress imaging. - could consider a TTE tomorrow to rule out any gross RWMAs, although again degree of symptoms and EKG findings is not consistent with significant wall ischemia to suggest RWMA. PATIENT CONSENT TO CARDIOVASCULAR CATHETERIZATION OR INTERVENTION: I, Minoo Bowling MD PhD, have explained the risks and benefits of cardiac catheterization and/or intervention to the patient (or responsible constitution party) and have answered the patient's (or responsible constitution party's) questions. To the best of my knowledge, the patient (or responsible constitution party) has been adequately informed. The patient (or responsible constitution party) has consented to the interventional cardiac procedure. As part of the consent we reviewed that, like surgical procedures, interventional procedures require aggressive short term support to determine the potential benefits of the procedures. For this reason, the patient (or responsible constitution party) has agreed to remain FULL CODE for a minimum of 48 hours afte r the procedure. Minoo Bowling MD PhD 07/13/2015 1:46 Associated attestation - Jayjay Santiago MD - 07/13/2015 1241 EST Patient seen and evaluated 07-13-15. Agree with findings assessment and plan as documented. Suspectperi-PCI MA possible loss of very small diagonal branch. Normal LV function by echo today ( possible very mild mid anteroseptal hypokinesis. Will d/c/ to home today. Jayjay June MD Attending in Cardiology documented in this encounter Miscellaneous Notes * Plan of Care - Taylor Chapa - 07/13/2015 1349 EST Problem: Daily Care Plan Goals Goal: Care Plan Documentation Outcome: Ongoing at Discharge Date Met: 07/13/15 07/13/15 0756 Care Plan Focus Area of Focus Circulatory Status Goal This Shift VSS, remain CP free Data: Patient is ready to be discharged home. VSS, had brief CP earlier which MD was aware about and ECG obtained. Action: Heparin gtt turned off. Education provided regarding post-MA. Medication education reviewedwith pt and family. IVs removed. Response: Pt and family demonstrate understanding of discharge instructions. Taylor Chapa RN 07/13/2015 13:47 * Plan of Care - Edita Bernabe RN - 07/13/2015 0641 EST Problem: Daily Care Plan Goals Goal: Care Plan Documentation Outcome: Met This Shift 07/12/15 2211 Care Plan Focus Area of Focus Circulatory Status Goal This Shift vss Data: BP 126/81 mmHg Temp(Src) 35.9 ??C (96.7 ??F) (Tympanic) Resp 18 Ht 182.9 cm (72) Wt 92.987 kg (205 lb) BMI 27.80 kg/m2 SpO2 96% Pt A&Ox3, Independent. VSS. No c/o pain. Action: Admission assessment and database. Heparin gtt started and UFH ordered. Response: UFH therapeutic. Pt NPO. Slept most of night. Edita Bernabe RN 07/13/2015 6:35 documented in this encounter Plan of Treatment Upcoming Encounters Date Type Department Care Team (Late st Contact Info) Description 12/28/2023 13:00 EDT Office Visit [facility] Cardiology - [address] [place] [address] Rosalind Mckeon PA-C [address] [place] [address] Scheduled Referrals Name Type Priority Associated Diagnoses Order Schedule AMB CONS/FOLLOW UP PRIMARY CARE PHYSICIAN Outpatient Referral Routine NSTEMI (non-ST elevated myocardial infarction) ([facility]) Ordered: 07/13/2015 AMB CONS/FOLLOW UP CARDIOLOGY Outpatient Referral Routine NSTEMI (non-ST elevated myocardial infarction) ([facility]) Ordered: 07/13/2015 documented as of this encounter Procedures Procedure Name Priority Date/Time Associated Diagnosis Comments ECG REPORT - SCANNED 07/22/2015 9:46 EDT ECG REPORT - SCANNED 07/22/2015 9:46 EDT ECG REPORT - SCANNED 07/17/2015 11:19 EST ECG REPORT - SCANNED 07/17/2015 11:19 EST EKG 12-LEAD STAT 07/13/2015 12:11 EST ECHOCARDIOGRAM Routine 07/13/2015 10:43 EST TROPONIN I Routine 07/13/2015 7:23 EST HEPARIN LEVEL - UNFRACTIONATED HEPARIN STAT 07/13/2015 5:57 EST COMPLETE BLOOD COUNT Routine 07/13/2015 5:57 EST BUN Routine 07/13/2015 5:57 EST CREATININE Routine 07/13/2015 5:57 EST LIPID PROFILE (INCLUDES CHOLESTEROL, TRIGLYCERIDES, HDL, LDL) Routine 07/13/2015 5:57 EST ELECTROLYTES Routine 07/13/2015 5:57 EST TROPONIN I Routine 07/12/2015 23:07 EST PROTIME Routine 07/12/2015 23:07 EST D-DIMER Routine 07/12/2015 23:07 EST COMPLETE BLOOD COUNT Routine 07/12/2015 23:07 EST BUN Routine 07/12/2015 23:07 EST MAGNESIUM Routine 07/12/2015 23:07 EST HEMOGLOBIN A1C Routine 07/12/2015 23:07 EST CREATININE Routine 07/12/2015 23:07 EST ELECTROLYTES Routine 07/12/2015 23:07 EST EKG 12-LEAD Routine 07/12/2015 22:25 EST documented in this encounter Results * ECG REPORT - SCANNED (07/22/2015 9:46 EDT) 07/22/2015 9:46 EDT Scan 2 Machine Helper PROCEDURE/MINOR ASPEN GICAL ORDERABLES * ECG REPORT - SCANNED (07/22/2015 9:46 EDT) 07/22/2015 9:46 EDT Scan 2 Machine Helper PROCEDURE/MINOR ASPEN GICAL ORDERABLES * ECG REPORT - SCANNED (07/17/2015 11:19 EST) 07/17/2015 11:1 9 EST Scan 2 Machine Helper PROCEDURE/MINOR ASPEN GICAL ORDERABLES * ECG REPORT - SCANNED (07/17/2015 11:19 EST) 07/17/2015 11:1 9 EST Scan 2 Machine Helper PROCEDURE/MINOR ASPEN GICAL ORDERABLES * EKG 12-LEAD (07/13/2015 12:11 EST) 07/13/2015 12:1 1 EST Narrative [facility] EKG - 07/19/2015 13:34 EST ? [facility] ? Test Date: ?2015-07-13 Pat Name: ? LAN FERNANDEZ ?Department: ?? TONG 5 ? Room: ? ME507 Gender: ? M ?Corporate Strategy Intern: ?? [id number] : ?1955 ? Requested By: HAFSA DYER Order Number: [id number] ? Reading MD: ?? ROBERTA RANGEL MD ? Measurements Intervals ?[place] ? Rate: ? 69 ? P: ?28 MS: ? 160 ?QRS: ?15 QRSD: ? 105 ?T: ?28 QT: ? 393 ? QTc: ?422 ? Interpretive Statements SINUS RHYTHM INCOMPLETE RIGHT BUNDLE BRANCH BLOCK Compared to ECG 07/12/2015 22:25:16 Incomplete right bundle-branch block now present I reviewed the tracing and have either agreed or edited the findings in this report. Electronically Signed On 07-19-15 13:34:44 EST by ROBERTA RANGEL MD. Procedure Note Roberta Rangel MD - 07/19/2015 [facility] Test Date: 2015-07-13 Pat Name: LAN FERNANDEZ Department: [place] [address] Room: [facility] Gender: M [employer] Strategy Intern: [id number] : 1955 Requested By: HAFSA DYRE Order Number: [id number] Reading MD: ROBERTA RANGEL MD Measurements Intervals [place] Rate: 69 P: 28 MS: 160 QRS: 15 QRSD: 105 T: 28 QT: 393 QTc: 422 Interpretive Statements SINUS RHYTHM INCOMPLETE RIGHT BUNDLE BRANCH BLOCK Compared to ECG 07/12/2015 22:25:16 Incomplete right bundle-branch block now present I reviewed the tracing and have either agreed or edited the findings inthis report. Electronically Signed On 07-19-15 13:34:44 EST by ROBERTA MADDOX. Renny Prince MD CARDIAC ECG [facility] EKG * ECHOCARDIOGRAM (07/13/2015 10:43 EST) Anatomical Region Laterality Modality Other 07/13/2015 10:4 3 EST Narrative 07/14/2015 15:43 EST *Interpreting Group:* *[facility]* [address] [place] [address] ?? Date of study: 07/13/2015 ?? Transthoracic Echocardiography M-mode, complete 2D, complete spectral Doppler, and color Doppler *STUDY CONCLUSIONS* Summary: 1. Left ventricle: The cavity size was normal. Wall thickness was increased in a ?? pattern of mild LVH. Systolic function was normal. The estimated ejection ?? fraction was 60%. There was mild mid anteroseptal hypokinesis. There was an ?? increased relative contribution of atrial contraction to ventricular filling. 2. Right ventricle: The cavity size was normal. Wall thickness was normal. ?? Systolic function was normal. *PATIENT PRESENTATION* Height: ? 182.9cm (72in ) S/D Pressure: 109 / 70 Weight: ? 92.5kg (203.6lb ) BSA: ?2.18m^2 Test start time: ??10:00 AM. Test stop time: ??10:35 AM. ADMITTING ?Jayjay Santiago MD ATTENDING ?Jayjay Santiago MD LEAD BURNER ??Rosa Ulloa PERFORMING ?? [facility], ORDERING ? Tandan, Samvit REFERRING ?Minoo Bowling *PROCEDURE DATA* Procedure information: ??This study was interpreted by [facility]. Pertinent images and digital data are archived for permanent storage and are available for subsequent review. ??Study status: Routine. Transthoracic echocardiography. ??M-mode, complete 2D, complete spectral Doppler, and color Doppler. A Transthoracic Echocardiogram was performed. Scanning was performed from the parasternal, apical, subcostal, and suprasternal notch acoustic windows. Images were obtained using an [employer] 9 cardiac ultrasound machine. Image quality was adequate. ??Study completion: ??The patient tolerated the procedure well. *INDICATIONS AND HISTORY* Indications: ??R79.89 *CARDIAC ANATOMY* Left ventricle: ??The cavity size was normal. Wall thickness was increased in a pattern of mild LVH. Systolic function was normal. The estimated ejection fraction was 60%. There was mild mid anteroseptal hypokinesis. There was an increased relative contribution of atrial contraction to ventricular filling. Aortic valve: ?? Probably trileaflet; normal thickness leaflets. Mobility was not restricted. ??Doppler: ??Transvalvular velocity was within the normal range. There was no stenosis. ??No regurgitation. Aorta: ??Aortic root: The aortic root was normal in size. Mitral valve: ?? Structurally normal valve. ?? Mobility was not restricted. Doppler: ??Transvalvular velocity was within the normal range. There was no evidence for stenosis. ??No regurgitation. Left atrium: ??The atrium was normal in size. Right ventricle: ??The cavity size was normal. Wall thickness was normal. Systolic function was normal. Pulmonic valve: ?Doppler: ??Transvalvular velocity was within the normal range. There was no evidence for stenosis. ??No regurgitation. Tricuspid valve: ?? Structurally normal valve. ?Doppler: ??Transvalvular velocity was within the normal range. There was no evidence for stenosis. ??No regurgitation. Pulmonary artery: ?Systolic pressure could not be accurately estimated. Right atrium: ??The atrium was normal in size. Pericardium: ??There was no pericardial effusion. Systemic veins: Inferior vena cava: The vessel was normal in size; the respirophasic diameter changes were in the normal range (greater than or equal to 50%); findings are consistent with normal central venous pressure. *MEASUREMENT TABLES* 2D measurements ? Normal Left ventricle Volume, ED, MOD, 1-plane ?72.1 ml ? ------- Ejection fraction, MOD, 1-plane ? 60.3 % ?------- Volume index, ED, MOD, 1-plane ?33 ml/m^2 ------- Volume, ED, MOD, 2-plane ?65.2 ml ? 62-170 Ejection fraction, MOD, 2-plane ? 59 % ?------- Volume index, ED, MOD, 2-plane ?30 ml/m^2 ------- Aorta Root diameter, ED ? 35 mm ? ------- Ascending aorta anterior-posterior diameter, S ?31 mm ? ------- Left atrium Anterior-posterior dimension ?35 mm ? ------- Anterior-posterior dimension index ? 1.6 cm/m^2 <2.2 Superior-inferior dimension, A4C ?35 mm ? 29-53 ?? M-mode measurements ? Normal Left ventricle LV internal dimension, ED ? 50.8 mm ? 37-56 LV internal dimension, ES ? 34.3 mm ? ------- Fractional shortening ? 32 % ?29- 45 LV posterior wall, ED ?*12.6 mm ? 6-11 Septal/posterior wall ratio, ED ?0.9 ?------- Relative wall thickness, ED ? *0.5 ?<0.45 Volume, ED, Teichholz ?123 ml ? ------- Volume, ES, Teichholz ? 48.5 ml ? ------- Ejection fraction, Teichholz ? *60.6 % ?64-83 Volume index, ED, Teichholz ? 56 ml/m^2 ------- Volume index, ES, Teichholz ? 22 ml/m^2 ------- Wall mass ?232.8 g ?------- Wall mass index ?106.6 g/m^2 ??------- Mass/height ? 1.27 g/cm ?? ------- Ventricular septum Septal thickness, ED ?10.9 mm ? ------- ?? Doppler measurements ?Normal Left ventricle IVRT ?*113 ms ? 60-100 Ea, lateral annulus, tissue Doppler ? 5.55 cm/s ?? ------- E/Ea, lateral annulus, tissue Doppler ?6.1 ?------- Mitral valve Peak E-wave velocity ?34 cm/s ?? ------- Peak A-wave velocity ?50.9 cm/s ?? ------- Deceleration time ?208 ms ? 150-230 Peak E/A ratio ? 0.7 ?------- Legend: Mean values are shown as u=mean value. Asterisk (*) beasley values outside specified normal range. I have personally reviewed the images and have reviewed and edited the reported findings. Electronically signed by Jayjay Santiago MD 07/14/2015 15:42 Procedure Note Jayjay June MD - 07/14/2015 *Interpreting Group:* *[facility]* [address] [place] [address] Date of study: 07/13/2015 Transthoracic Echocardiography M-mode, complete 2D, complete spectral Doppler, and color Doppler *STUDY CONCLUSIONS* Summary: 1. Left ventricle: The cavity size was normal. Wall thickness wasincreased in a pattern of mild LVH. Systolic function was normal. The estimatedejection fraction was 60%. There was mild mid anteroseptal hypokinesis. Therewas an increased relative contribution of atrial contraction to ventricularfilling. 2. Right ventricle: The cavity size was normal. Wall thickness was normal. Systolic function was normal. *PATIENT PRESENTATION* Height: 182.9cm (72in ) S/D Pressure: 109 / 70 Weight: 92.5kg (203.6lb ) BSA: 2.18m^2 Test start time: 10:00 AM. Test stop time: 10:35 AM. ADMITTING Jayjay Santiago MD ATTENDING Jayjay Santiago MD LEAD BURNER Rosa Ulloa [facility], ORDERING Minoo Bowling REFERRING Minoo Bowling *PROCEDURE DATA* Procedure information: This study was interpreted by [facility]. Pertinent images and digital data are archivedfor permanent storage and are available for subsequent review. Study status: Routine. Transthoracic echocardiography. M-mode, complete 2D, completespectral Doppler, and color Doppler. A Transthoracic Echocardiogram was performed. Scanning was performed from the parasternal, apical, subcostal, andsuprasternal notch acoustic windows. Images were obtained using an [employer] 9 cardiacultrasound machine. Image quality was adequate. Study completion: The patienttolerated the procedure well. *INDICATIONS AND HISTORY* Indications: R79.89 *CARDIAC ANATOMY* Left ventricle: The cavity size was normal. Wall thickness was increasedin a pattern of mild LVH. Systolic function was normal. The estimated ejection fraction was 60%. There was mild mid anteroseptal hypokinesis. There gena increased relative contribution of atrial contraction to ventricularfilling. Aortic valve: Probably trileaflet; normal thickness leaflets. Mobilitywas not restricted. Doppler: Transvalvular velocity was within the normal range.There was no stenosis. No regurgitation. Aorta: Aortic root: The aortic root was normal in size. Mitral valve: Structurally normal valve. Mobility was not restricted. Doppler: Transvalvular velocity was within the normal range. There was no evidence for stenosis. No regurgitation. Left atrium: The atrium was normal in size. Right ventricle: The cavity size was normal. Wall thickness was normal. Systolic function was normal. Pulmonic valve: Doppler: Transvalvular velocity was within the normalrange. There was no evidence for stenosis. No regurgitation. Tricuspid valve: Structurally normal valve. Doppler: Transvalvular velocity was within the normal range. There was no evidence for stenosis.No regurgitation. Pulmonary artery: Systolic pressure could not be accurately estimated. Right atrium: The atrium was normal in size. Pericardium: There was no pericardial effusion. Systemic veins: Inferior vena cava: The vessel was normal in size; the respirophasicdiameter changes were in the normal range (greater than or equal to 50%); findingsare consistent with normal central venous pressure. *MEASUREMENT TABLES* 2D measurements Normal Left ventricle Volume, ED, MOD, 1-plane 72.1 ml ------- Ejection fraction, MOD, 1-plane 60.3 % ------- Volume index, ED, MOD, 1-plane 33 ml/m^2 ------- Volume, ED, MOD, 2-plane 65.2 ml 62-170 Ejection fraction, MOD, 2-plane 59 % ------- Volume index, ED, MOD, 2-plane 30 ml/m^2 ------- Aorta Root diameter, ED 35 mm ------- Ascending aorta anterior-posterior diameter, S 31 mm ------- Left atrium Anterior-posterior dimension 35 mm ------- Anterior-posterior dimension index 1.6 cm/m^2 <2.2 Superior-inferior dimension, A4C 35 mm 29-53 M-mode measurements Normal Left ventricle LV internal dimension, ED 50.8 mm 37-56 LV internal dimension, ES 34.3 mm ------- Fractional shortening 32 % 29-45 LV posterior wall, ED *12.6 mm 6-11 Septal/posterior wall ratio, ED 0.9 ------- Relative wall thickness, ED *0.5 <0.45 Volume, ED, Teichholz 123 ml ------- Volume, ES, Teichholz 48.5 ml ------- Ejection fraction, Teichholz *60.6 % 64-83 Volume index, ED, Teichholz 56 ml/m^2 ------- Volume index, ES, Teichholz 22 ml/m^2 ------- Wall mass 232.8 g ------- Wall mass index 106.6 g/m^2 ------- Mass/height 1.27 g/cm ------- Ventricular septum Septal thickness, ED 10.9 mm ------- Doppler measurements Normal Left ventricle IVRT *113 ms 60-100 Ea, lateral annulus, tissue Doppler 5.55 cm/s ------- E/Ea, lateral annulus, tissue Doppler 6.1 ------- Mitral valve Peak E-wave velocity 34 cm/s ------- Peak A-wave velocity 50.9 cm/s ------- Deceleration time 208 ms 150-230 Peak E/A ratio 0.7 ------- Legend: Mean values are shown as u=mean value. Asterisk (*) beasley values outside specified normal range. I have personally reviewed the images and have reviewed and edited thereported findings. Electronically signed by Jayjay Santiago MD 07/14/2015 15:42 Minoo Bowling MD PhD CARDIAC ECHO ORDERA BLES * (ABNORMAL) TROPONIN I (07/13/2015 7:23 EST) Troponin I (ng/mL) 1.440(H) <0.034 ng/ml 07/13/2015 8:26 EST [facility] Blood specimen (specimen) BLOOD SPECIMEN / Unknown 07/13/2015 7:23 EST 07/13/2015 7:40 EST Tamika Harris MD CHEMISTRY & BLOOD GA S ORDERABLES Performing Organization Address [facility] de Phone Number [facility] [address] [place] [address] * HEPARIN LEVEL - UNFRACTIONATED HEPARIN (07/13/2015 5:57 EST) Heparin Level-UFH 0.46 IU/mL 016 6:28 EST [facility] Comment: Unfractionated heparin therapeutic range = 0.3-0.7 IU/ml This test is not intended for monitoring direct Xa inhibitors, direct thrombin inhibitors, or fondaparinux. Exogenous ATIII is NOT supplied in this assay. For unexpected or persistently low levels, consider measuring patient's ATIII level. Blood specimen (specimen) BLOOD SPECIMEN / Unknown 07/13/2015 5:57 EST 07/13/2015 6:09 EST Tamika Harris MD HEMATOLOGY & PF4 ORD ERABLES Performing Organization Address [facility] Co de Phone Number [facility] [address] [place] [address] * CREATININE (07/13/2015 5:57 EST) Creatinine 0.83 0.66 - 1.25 mg/dl 07/13/2015 7:05 EST [facility] GFR, Calculated 97 >60 ml/min/1.7 3m2 07/13/2015 7:05 EST [facility] Comment: eGFR calculated using CKD-EPI equation for non Americans. Multiply eGFR by 1.16 for Americans. Blood specimen (specimen) BLOOD SPECIMEN / Unknown 07/13/2015 5:57 EST 07/13/2015 6:09 EST Narrative Authorizing Provider Result Yoshi Harris MD CHEMISTRY & BLOOD GA S ORDERABLES Performing Organization Address City/[facility]/ZIP Co de Phone Number [facility] [address] [place] [address] * ELECTROLYTES (07/13/2015 5:57 EST) Sodium 137 136 - 145 mEq/L 07/13/2015 7:05 EST [facility] Potassium 4.4 3.5 - 5.0 mEq/L 07/13/2015 7:05 [facility] Chloride 102 96 - 110 mEq/L 07/13/2015 7:05 [facility] CO2 24 24 - 32 mEq/L 07/13/2015 7:05 [facility] Blood specimen (specimen) BLOOD SPECIMEN / Unknown 07/13/2015 5:57 EST 07/13/2015 6:09 EST Tamika Harris MD CHEMISTRY & BLOOD GA S ORDERABLES Performing Organization Address [facility] Co de Phone Number [facility] [address] [place] [address] * (ABNORMAL) BUN (07/13/2015 5:57 EST) BUN 27(H) 10 - 26 mg/dl 07/13/2015 7:05 EST [facility] Blood specimen (specimen) BLOOD SPECIMEN / Unknown 07/13/2015 5:57 EST 07/13/2015 6:09 EST Narrative Authorizing Provider Result Yoshi Harris MD CHEMISTRY & BLOOD GA S ORDERABLES Performing Organization Address City/[facility]/ZIP Co de Phone Number [facility] [address] [place] [address] * HEMAGRAM (07/13/2015 5:57 EST) WBC 7.00 4.0 - 10.4 K/cmm 07/13/2015 6:23 EST [facility] RBC 4.48 4.36 - 5.78 M/cmm 07/13/2015 6:23 [facility] Hemoglobin 13.8 13.8 - 17.3 gm/dl 07/13/2015 6:23 [facility] HCT 39.6 39.5 - 50.2 % 07/13/2015 6:23 [facility] MCV 88 81 - 95 fl 07/13/2015 6:23 [facility] MCH 30.8 27.6 - 33.0 pg 07/13/2015 6:23 [facility] MCHC 34.8 32.8 - 36.4 gm/dl 07/13/2015 6:23 [facility] RDW-CV 12.9 11.8 - 14.1 % 07/13/2015 6:23 [facility] RDW-SD 42.2 36.5 - 45.9 fl 07/13/2015 6:23 [facility] PLT 252 141 - 377 K/cmm 07/13/2015 6:23 [facility] MPV 10.8 9.5 - 12.7 fl 07/13/2015 6:23 [facility] Blood specimen (specimen) BLOOD SPECIMEN / Unknown 07/13/2015 5:57 EST 07/13/2015 6:09 EST Tamika Harris MD HEMATOLOGY & PF4 ORD ERABLES [facility] [address] [place] [address] * LIPID PROFILE (INCLUDES CHOLESTEROL, TRIGLYCERIDES, HDL, LDL) (07/13/2015 5:57 EST) Cholesterol 168 mg/dl 07/13/2015 7:05 [facility] Comment: Desirable:<200 Borderline High:200-239 High:>jp=803 Triglycerides 130 mg/dl 07/13/2015 7:05 [facility] Comment: Normal:<150 Borderline High:150-199 High:200-499 Very High:>vc=179 HDL 53 mg/dl 07/13/2015 7:05 [facility] Comment: Low:<40 Normal:40-60 Desirable: >60 LDL, Calculated 89 mg/dl 6 7:05 [facility] Comment: Optimal:<100 Near Optimal:100-129 Borderline High:130-159 High:160-189 Very High:>ty=559 Chol/HDL Ratio 3.2 07/13/2015 7:05 [facility] Fasting? Unknown 07/13/2015 6:09 [facility] Non HDL Cholesterol 115 mg/dl 07/13/2015 7:05 [facility] Comment: Desirable:<130 Borderline:130-159 High: 160-189 Very High: >zk=421 Blood specimen (specimen) BLOOD SPECIMEN / Unknown 07/13/2015 5:57 EST 07/13/2015 6:09 EST Tamika Harris MD CHEMISTRY & BLOOD GA S ORDERABLES Performing Organization Address [facility] Co de Phone Number [facility] [address] [place] [address] * D-DIMER (07/12/2015 23:07 EST) D-Dimer <200 <230 ng/mL 07/12/2015 23:35 EST [facility] Comment:CUTOFF VALUE FOR THE EXCLUSION OF DVT and PE: 230 ng/mL D-dimer units Blood specimen (specimen) BLOOD SPECIMEN / Unknown 07/12/2015 23:07 EST 07/12/2015 23:19 EST Tamika Harris MD HEMATOLOGY & PF4 ORD ERABLES [facility] [address] [place] [address] * (ABNORMAL) TROPONIN I (07/12/2015 23:07 EST) Troponin I (ng/mL) 1.760(H) <0.034 ng/ml 07/12/2015 23:49 EST [facility] Blood specimen (specimen) BLOOD SPECIMEN / Unknown 07/12/2015 23:07 EST 07/12/2015 23:19 EST Tamika Harris MD CHEMISTRY & BLOOD GA S ORDERABLES Performing Organization Address [facility] Co de Phone Number [facility] [address] [place] [address] * PROTIME (07/12/2015 23:07 EST) Pro Time 12.8 10.1 - 13.0 secs 07/12/2015 23:35 [facility] I.N.R. 1.1 0.9 - 1.1 Ratio 07/12/2015 23:35 [facility] Comment: Moderate Intensity Coumadin INR = 2.0-3.0 Adjustments in anticoagulant therapy dose should be based upon the INR and NOT the Pro Time. Blood specimen (specimen) BLOOD SPECIMEN / Unknown 07/12/2015 23:07 EST 07/12/2015 23:19 EST Tamika Harris MD HEMATOLOGY & PF4 ORD ERABLES Performing Organization Address [facility] Co de Phone Number [facility] [address] [place] [address] * HEMAGRAM (07/12/2015 23:07 EST) WBC 8.61 4.0 - 10.4 K/cmm 07/12/2015 23:40 [facility] RBC 4.57 4.36 - 5.78 M/cmm 07/12/2015 23:40 [facility] Hemoglobin 14.2 13.8 - 17.3 gm/dl 07/12/2015 23:40 [facility] HCT 39.8 39.5 - 50.2 % 07/12/2015 23:40 [facility] MCV 87 81 - 95 fl 07/12/2015 23:40 [facility] MCH 31.1 27.6 - 33.0 pg 07/12/2015 23:40 [facility] MCHC 35.7 32.8 - 36.4 gm/dl 07/12/2015 23:40 [facility] RDW-CV 13.0 11.8 - 14.1 % 07/12/2015 23:40 [facility] RDW-SD 40.9 36.5 - 45.9 fl 07/12/2015 23:40 [facility] PLT 255 141 - 377 K/cmm 07/12/2015 23:40 [facility] MPV 10.6 9.5 - 12.7 fl 07/12/2015 23:40 [facility] Blood specimen (specimen) BLOOD SPECIMEN / Unknown 07/12/2015 23:07 EST 07/12/2015 23:19 EST Tamika Harris MD HEMATOLOGY & PF4 ORD ERABLES [facility] [address] [place] [address] * MAGNESIUM (07/12/2015 23:07 EST) Magnesium 2.3 1.7 - 2.8 mg/dl 07/12/2015 23:43 [facility] Blood specimen (specimen) BLOOD SPECIMEN / Unknown 07/12/2015 23:07 EST 07/12/2015 23:19 EST Tamika Harris MD CHEMISTRY & BLOOD GA S ORDERABLES [facility] [address] [place] [address] * ELECTROLYTES (07/12/2015 23:07 EST) Sodium 138 136 - 145 mEq/L 07/12/2015 23:43 [facility] Potassium 4.8 3.5 - 5.0 mEq/L 07/12/2015 23:43 [facility] Chloride 101 96 - 110 mEq/L 07/12/2015 23:43 [facility] CO2 28 24 - 32 mEq/L 07/12/2015 23:43 [facility] Blood specimen (specimen) BLOOD SPECIMEN / Unknown 07/12/2015 23:07 EST 07/12/2015 23:19 EST Narrative Authorizing Provider Result Yoshi Harris MD CHEMISTRY & BLOOD GA S ORDERABLES Performing Organization Address City/[facility]/ZIP Co de Phone Number [facility] [address] [place] [address] * BUN (07/12/2015 23:07 EST) BUN 23 10 - 26 mg/dl 07/12/2015 23:43 EST [facility] Blood specimen (specimen) BLOOD SPECIMEN / Unknown 07/12/2015 23:07 EST 07/12/2015 23:19 EST Tamika Harris MD CHEMISTRY & BLOOD GA S ORDERABLES Performing Organization Address [facility] de Phone Number [facility] [address] [place] [address] * CREATININE (07/12/2015 23:07 EST) Creatinine 0.87 0.66 - 1.25 mg/dl 07/12/2015 23:43 EST [facility] GFR, Calculated 95 >60 ml/min/1.7 3m2 07/12/2015 23:43 EST [facility] Comment: eGFR calculated using CKD-EPI equation for non Americans. Multiply eGFR by 1.16 for Americans. Blood specimen (specimen) BLOOD SPECIMEN / Unknown 07/12/2015 23:07 EST 07/12/2015 23:19 EST Narrative Authorizing Provider Result Yoshi Harris MD CHEMISTRY & BLOOD GA S ORDERABLES Performing Organization Address City/[facility] Co de Phone Number [facility] [address] [place] [address] * HEMOGLOBIN A1C (07/12/2015 23:07 EST) Hemoglobin A1C 5.2 % 07/14/2015 11:31 EST [facility] Comment: Reference Range: <5.7% Normal 5.7-6.4% Increased risk for diabetes =>6.5% Diagnostic for diabetes (if confirmed) The A1c goal for non adults in general is <7%. The A1c goal for selected patients may be significantly lower than 7% if this can be achieved without significant hypoglycemia or other adverse effects of treatment. Est Avg Glucose 103 mg/dl 6 11:31 EST [facility] Comment: eAG represents the A1c result expressed as average glucose in mg/dl. Blood specimen (specimen) BLOOD SPECIMEN / Unknown 07/12/2015 23:07 EST 07/12/2015 23:19 EST Tamika Harris MD CHEMISTRY & BLOOD GA S ORDERABLES [facility] [address] [place] [address] * EKG 12-LEAD (07/12/2015 22:25 EST) 07/12/2015 22:2 5 EST Narrative [facility] - 07/19/2015 13:35 EST ? [facility] ? Test Date: ?2015-07-12 Pat Name: ? LAN FERNANDEZ ?Department: ?? TONG 5 ? Room: ? ME507 Gender: ? M ?Corporate Strategy Intern: ?? [id number] : ?1955 ? Requested By: PANTERA Carpio Order Number: [id number] ? Johnny SCHWAB: ?? ROBERTA RANGEL MD ? Measurements Intervals ?[place] ? Rate: ? 71 ? P: ?10 MS: ? 144 ?QRS: ?11 QRSD: ? 101 ?T: ?26 QT: ? 391 ? QTc: ?425 ? Interpretive Statements SINUS RHYTHM Compared to ECG 07/08/2015 23:02:21 No significant changes I reviewed the tracing and have either agreed or edited the findings in this report. Electronically Signed On 07-19-15 13:35:54 EST by ROBERTA RANGEL MD. Procedure Note Roberta Rangel MD - 07/19/2015 [facility] Test Date: 2015-07-12 Pat Name: LAN FERNANDEZ Department: [place] [address] Room: [facility] Gender: M Corporate Strategy Intern: [id number] : 1955 Requested By: PANTERA Carpio Order Number: [id number] Reading MD: ROBERTA RANGEL MD Measurements Intervals [place] Rate: 71 P: 10 MS: 144 QRS: 11 QRSD: 101 T: 26 QT: 391 QTc: 425 Interpretive Statements SINUS RHYTHM Compared to ECG 07/08/2015 23:02:21 No significant changes I reviewed the tracing and have either agreed or edited the findings inthis report. Electronically Signed On 07-19-15 13:35:54 EST by ROBERTA MADDOX. Tamika Harris MD CARDIAC ECG ORDERABL ES [facility] EKG documented in this encounter Visit Diagnoses Diagnosis Subsequent non-ST elevation (NSTEMI) myocardial infarction within 4 weeks of initial infarction (HCC-CMS)- Primary NSTEMI (non-ST elevated myocardial infarction) (HCC-CMS) Acute myocardial infarction, subendocardial infarction, episode of care unspecified documented in this encounter Administered Medications Inactive Administered Medications - up to 3 most recent administrations Medication Order MAR Action Action Date Dose Rate Site aspirin EC tablet 81 mg 81 mg, oral, DAILY, First dose on 07/13/15 at 0900, Until Discontinued, Routine Given 07/13/2015 8:51 EST 81 mg atorvastatin (LIPITOR) tablet 40 mg 40 mg, oral, AT BEDTIME, First dose (after last modification) on 07/13/15 at 0245, Until Discontinued, Routine Given 07/13/2015 3:06 EST 40 mg clopidogrel (PLAVIX) tablet 75 mg 75 mg, oral, DAILY, First dose on 07/13/15 at 0900, Until Discontinued, Routine Given 07/13/2015 8:51 EST 75 mg heparin in 1/2 NS 25,000 unit/250 mL infusion 15 Units/kg/hr ? 83.1 kg Adjusted weight (12.465 mL/hr, rounded to 12.5 mL/hr), intravenous, CONTINUOUS, Starting on Wed07/12/15 at 2315, Until 07/13/15 at 1735, Routine Rate Documented 07/13/2015 7:56 EST 15 Units/kg/hr 12.5 mL/hr New Bag 07/12/2015 23:17 EST 15 Units/kg/hr 12.5 mL/hr lisinopril (PRINIVIL, ZESTRIL) tablet 5 mg 5 mg, oral, DAILY, First dose on 07/13/15 at 0900, Until Discontinued, Routine Given 07/13/2015 8:51 EST 5 mg metoprolol XL (TOPROL-XL) tablet 25 mg 25 mg, oral, DAILY, First dose on 07/13/15 at 0900, Until Discontinued, Routine Given 07/13/2015 8:51 EST 25 mg sodium chloride 0.9 % flush 3 mL 3 mL, intravenous, EVERY 8 HOURS, First dose on 07/13/15 at 0000, Until Discontinued, Routine Given 07/13/2015 8:52 EST 10 mL Given 07/12/2015 23:20 EST 3 mL documented in this encounter Active and Recently Administered Medications Times are shown in EST. Scheduled Medication Order 07/11/2015 07/12/2015 07/13/2015 aspirin EC tablet 81 mg (CANCELED) 81 mg, oral, DAILY, First dose on 07/13/15 at 0900, Until Discontinued, Routine 0851 (Given - Provid er: Taylor Chapa) atorvastatin (LIPITOR) tablet 40 mg (CANCELED) 40 mg, oral, AT BEDTIME, First dose (after last modification) on 07/13/15 at 0245, Until Discontinued, Routine 0306 (Given - Provid er: Edita Bernabe RN) clopidogrel (PLAVIX) tablet 75 mg (CANCELED) 75 mg, oral, DAILY, First dose on 07/13/15 at 0900, Until Discontinued, Routine 0851 (Given - Provid er: Taylor Chapa) lisinopril (PRINIVIL, ZESTRIL) tablet 5 mg (CANCELED) 5 mg, oral, DAILY, First dose on 07/13/15 at 0900, Until Discontinued, Routine 0851 (Given - Provid er: Taylor Chapa) metoprolol XL (TOPROL-XL) tablet 25 mg (CANCELED) 25 mg, oral, DAILY, First dose on 07/13/15 at 0900, Until Discontinued, Routine 0851 (Given - Provid er: Taylor Chapa) sodium chloride 0.9 % flush 3 mL (CANCELED) 3 mL, intravenous, EVERY 8 HOURS, First dose on 07/13/15 at 0000, Until Discontinued, Routine 232 (Given - Provider: Edita Bernabe RN) 0852 (Given - Provider: Taylor Chapa) Continuous Medication Order 07/11/2015 07/12/2015 07/13/2015 heparin in /2 NS 25,000 unit/250 mL infusion (CANCELED) 15 Units/kg/hr ? 83.1 kg Adjusted weight (12.465 mL/hr, rounded to 12.5 mL/hr), intravenous, CONTINUOUS, Starting on 07/12/15 at 2315, Until 07/13/15 at 1735, Routine 2317 (New Bag - Provider: Edita Bernabe RN) 0756 (Rate Documented - Provider: Taylor Chapa) documented in this encounter Orders Medications Ordered That Vignesh ht Not Have Been Administered Count Last Ordered Date First Ordered Date acetaminophen (TYLENOL) tablet 650 mg 2 09/201507/12/2015 atorvastatin (LIPITOR) tablet 40 mg 2 07/1207/12/2015 nitroGLYCERIN (NITROSTAT) SL tablet 0.4 mg 2 07/13/2015 07/12/2015 aspirin EC tablet 81 mg 1 07/12/2015 clopidogrel (PLAVIX) tablet 75 mg 1 016 heparin 1,000 unit/mL inject ion 2,900 Units 1 07/12/2015 heparin 1,000 unit/mL inject ion 5,800 Units 1 07/12/2015 morphine injection 2-4 mg 1 07/12/2015 Diet Count Last Ordered Date First Orde red Date DISCHARGE DIET 1 07/13/2015 Nursing Count Last Ordered Date First Orde red Date ACTIVITY INSTRUCTIONS 1 07/13/2015 BATHING INSTRUCTIONS 1 07/13/2015 DRIVING INSTRUCTIONS 1 07/13/2015 VTE PHARMACOLOGIC PROPHYLAXI S CURRENTLY ORDERED OR ON ALTERNATIVE THER 1 07/12/2015 Admission Count Last Ordered Date First Orde red Date STATUS: OUTPATIENT OBSERVATION SERVICES 1 0 07/12/2015 Transfer Count Last Ordered Date First Orde red Date NOTIFY PPS OF DISCHARGE COMPLETE 1 07/13/19 16 UR PATIENT STATUS CHANGE 1 07/13/2015 UR TIME CHANGE ONLY 1 07/13/2015 Discharge Count Last Ordered Date First Orde red Date DISCHARGE PATIENT 1 07/13/2015 Legal Count Last Ordered Date First Orde red Date MISCELLANEOUS DISCHARGE INSTRUCTIONS 1 09/2015 documented in this encounter Care Teams Insole Doubler Relationship Specialty Start Date End Date Jony Castellon MD [address] [address] PCP - General 07/04/15 10/12/17 documented as of this encounter
--- OUTSIDE RECORDS SUMMARY | 2023-11-25 01:39 | XMS_ITS | Encounter Summary ---
Author Organization [facility] Address [address] [place] [address] Care Team Providers Care Data Abstractor Name Role Phone Jony Castellon MD Primary Care Provider [phone] Encounter Details Date Type Department Care Team (Late st Contact Info) Description 07/04/2015 Orders Only [facility] Cardiology [place] [address] [place] [address] Darell Mo MD [address] [address] Social History Tobacco Use Types Packs/Day Years Used Date Smoking Tobacco: Never Assessed Sex and Gender Information Value Date Recorded Sex Assigned at Male 06/05/2019 10:10 EST Gender Identity Male 06/05/2019 10:10 EST Sexual Orientation Not on file documented as of this encounter Ordered Prescriptions Prescription Sig Dispensed Refills Start Date End Da te clopidogrel (PLAVIX) 75 mg tablet Take 4 tabs the evening prior to your procedure, take one pill the morning of the procedure before coming to the hospital. 5 Tab 0 07/04/2015 07/08/2015 documented in this encounter Plan of Treatment Upcoming Encounters Date Type Department Care Team (Late st Contact Info) Description 12/28/2023 13:00 EDT Office Visit [facility] Cardiology - [facility] [address] [place] [address] Rosalind Mckeon, PAYogsehC [address] [place] [address] [address] [place] [address] documented as of this encounter Visit Diagnoses Not on filedocumented in this encounter Care Teams Data Abstractor Relationship Specialty Start Date End Date Jony Castellon MD [address] [place] [id number] PCP - General 07/04/15 10/12/17 documented as of this encounter
--- OUTSIDE RECORDS SUMMARY | 2023-11-25 01:39 | XMS_ITS | Encounter Summary ---
Author Organization [facility] Address [address] [place] [address] Care Team Providers Care Manufacturer Name Role Phone Jony Castellon MD Primary Care Provider [phone] Reason for Visit * Reason Onset Date Comments Medication Questions 09/04/2015 Dentist candelario t Paperwork request 09/04/2015 Clearance for dentist Encounter Details Date Type Department Care Team (Late st Contact Info) Description 09/04/2015 Telephone [facility] Cardiology - [address] [place] [address] Ken Kapadia MD [address] [place] [address] [place] [address] Medication Questions (Dentist appt); Paperwork request (Clearance for dentist) Social History Tobacco Use Types Packs/Day Years [...] visiting a doctor's office or shopping? No 08/06/2015 Cognitive Status Response Date of Assessm ent Because of a physical, menta l, or emotional condition, does this person have serious difficulty concentrating, remembering, or making decisions? No 08/06/2015 documented as of this encounter Miscellaneous Notes * Telephone Encounter - Trish No RN - 09/04/2015 1141 EDT Patient's calling to report is scheduled for a dentist appointment on Wednesday. Asking if any of his meds would interfere/ should he take them? Does he need Antibiotics/ if yes - for how long? Called and spoke w/ Patient who explains he has a questionable Abcess that has been bothering him for 2 weeks - unsure what needs to be done. Needs a letter for Clearance with instructions about meds and special considerations to be faxed [facility] in [place] ( ). Patient is s/p [facility] w/ DARLIN PCI - 5 stents 07/08/15. S/p [facility] w/ DESPCI - stent x 1 & dissection repair on 07/17/15. Trish No RN No neeed to change meds, no antibiotic prophylaxis requred Ken Kapadia MD Patient's Rosa notified. She accepted this. No communication barriers noted. Advised note with Dr. Kapadia's message faxed to Dental office. Trish No RN * Telephone Encounter - Carly Zaidi - 09/04/2015 0918 EDT Reason for Call: Medication Questions Summary/Symptoms: Pt's called and her has a dentist appt on Wednesday. He wanted to know if any of his medications would interfere with this and can he take them. Also, he needs a note of clearance as well as if he needs to be on a antibiotic for this and for how long. The dentist's office is [facility] and their Fax# is [phone] Carly Zaidi 09/04/2015 9:48 documented in this encounter Plan of Treatment Upcoming Encounters Date Type Department Care Team (Late st Contact Info) Description 12/28/2023 13:00 EDT Office Visit [facility] Cardiology - [facility] [address] [place] [address] Rosalind Mckeon PA-C [address] [facility] [address] [place] [address] documented as of this encounter Visit Diagnoses Not on filedocumented in this encounter Care Teams Manufacturer Relationship Specialty Start Date End Date Jony Castellon MD [address] [place] [address] [address] [place] [address] PCP - General 07/04/15 10/12/17 documented as of this encounter
--- OUTSIDE RECORDS SUMMARY | 2023-11-25 01:39 | XMS_ITS | Encounter Summary ---
Author Organization [facility] Address [address] [place] [address] Care Team Providers Care Prompt Care Rn Name Role Phone Jony Castellon MD Primary Care Provider [phone] Reason for Referral * Consult (Routine) - Closed Specialty Diagnoses / Procedures Referred By Contac t Referred To Contact Diagnoses Coronary artery disease involving [place] coronary artery of [place] heart without angina pectoris Abril Chris NP [address] [address] Erick Holden MD [address] [place] [address] Referral ID Status Reason Start Date Expiration Date V isits Requested Visits Authorized [id number] Closed Specialty Services Required 07/09/2015 1 1 Question Answer Reason for Request: cad Expected Discharge Date (Inpatient Only): 07/09/2015 Practice Site (External Referral Only): [facility] cardiology clinic * Consult (Routine) - Closed Specialty Diagnoses / Procedures Referred By Contac t Referred To Contact Cardiac Rehabilitation Diagnoses Chest pain, unspecified chest pain type Coronary artery disease involving [place] coronary artery of [place] heart without angina pectoris Abril Chris NP 111 [facility] [address] [place] [address] Referral ID Status Reason Start Date Expiration Date V isits Requested Visits Authorized [id number] Closed Specialty Services Required 07/08/2015 1 1 Question Answer Reason for Request: cad Expected Discharge Date (Inpatient Only): 07/09/2015 Practice Site (External Referral Only): [facility] * Follow Up (Routine) - Closed Specialty Diagnoses / Procedures Referred By Denise t Referred To Contact Diagnoses Chest pain, unspecified chest pain type Adams Parker PA-C 111 [facility] [address] [place] [address] Referral ID Status Reason Start Date Expiration Date V isits Requested Visits Authorized [id number] Closed Continuity of Care 07/08/2015 1 1 Question Answer Reason for Request: cad Expected Discharge Date (Inpatient Only): 07/09/2015 Encounter Details Date Type Department Care Team (Latest Contact Info) Description 07/08/2015 6:57 EST - 07/09/2015 10:36 EST Hospital Encounter [facility] Cardiac/Telemetry Unit [address] [place] [address] Arun Kapadia MD [address] [place] [address] [place] [id number] Chest pain, unspecified chest pain type (Primary Dx); Coronary artery disease involving [place] coronary artery of [place] heart without angina pectoris; Coronary artery disease involving [place] coronary artery of [place] heart with angina pectoris with documented spasm ([facility]) ([facility]); S/P coronary artery stent placement Discharge Disposition: Home or Self Care Social [...] Sign Reading Time Taken Comments Blood Pressure 148/100 07/09/2015 0806 EST Pulse - - Temperature 36.7 ??C (98.1 ??F) 07/09/2015 0806 EST Respiratory Rate 16 07/09/2015 0806 EST Oxygen Saturation 96% 07/09/2015 0806 EST Inhaled Oxygen Concentration - - Weight 94.3 kg (208 lb) 07/08/2015 0700 EST Height 182.9 cm (6') 07/08/2015 0700 EST Body Mass Index 28.21 07/08/2015 07 EST documented in this encounter Discharge Diagnoses Diagnosis I25.110 Atherosclerotic heart disease of [place] coronary artery with unstable angina pectoris-I25.110[ICD-10-CM] I25.9 Chronic ischemic heart disease, unspecified-I25.9[ICD-10-CM] documented in this encounter Discharge Summaries * Abril Chris NP - 07/08/2015 1415 EST Discharge Summary Admission Date: 07/09/2015 Discharge Date: 07.09.2015 Chief Complaint/Reason for Admission: stable anginal pain class III/IV Principal/Final Diagnosis: Coronary artery disease Principal Procedure: DARLIN PCI LAD/D1, OM1, RCA Date: 07/08/2015 Secondary Procedures: Not applicable Condition at Discharge: Improved Assessment at Discharge: Vital signs: Patient Vitals for the past 12 hrs: BP Heart Rate Resp Temp SpO2 O2 Device 07/09/15 0806 (!) 148/100 mmHg 73 BPM 16 36.7 ??C (98.1 ??F) 96 % None 07/09/15 0600 - 64 BPM - - - - 07/09/15 0501 - 61 BPM - - - - 07/09/15 0410 (!) 141/99 mmHg 65 BPM 16 36.4 ??C (97.5 ??F) 97 % None 07/09/15 0400 - 61 BPM - - - - 07/09/15 0300 - 77 BPM - - - - 07/09/15 0200 - 64 BPM - - - - 07/09/15 0100 - 59 BPM - - - - 07/09/15 0000 - 65 BPM - - - - 07/08/15 2307 - - - 37.1 ??C (98.8 ??F) - - 07/08/152305 (!) 136/93 mmHg 73 BPM - - 99 % None 07/08/152242 (!) 155/91 mmHg 64 BPM 16 - 98 % - 07/08/15 2241 - 75 BPM - - - - Tele: NSR 73, no events Exam: Blood pressure 148/100, temperature 36.7 ??C (98.1 ??F), temperature source Tympanic, resp. rate 16, height 182.9 cm (72), weight 94.348 kg (208 lb), SpO2 96 %. Mental: Alert and orient x 3, thought process is logical and sequential Eyes:Conjunctiva and lids WNL ENT: Hearing grossly intact Neck: Trachea midline Resp: Normal resp effort, CTA bilaterally CVS: Cor: Reg rate and rhythm, S1 and S2 present, no murmur rubs or gallops Peripheral: 2+right DP pulse; no peripheral edema Right femoral access site clear, minimal ecchymosis, no hematoma GI: abd soft non tender Neuro: Functionally intact Musculoskeletal: Normal muscle bulk and strength Skin: No rashes or ulcers Hospital Course: 60 male with complains of exertional chest pain x 4 weeks, improves with rest and associated with sob and nausea. SPECT scan negative. Diagnostic cardiac catheterization, performed on 07/08/15 via the right femoral artery revealed significant 3 vessel coronary disease. The LAD/D1, the OM1 and the RCA were all treated with drug-eluting stents (DARLIN) with a good result. There is no immunization history on file for this patient. Diagnostic Studies: Cardiac catheterization: Diagnostic Cardiac Study Results Left main: nl Left anterior descendin% prox and mid w/ 80% D1 Left circumflex:?? 90% OM1 Right coronary artery: distal indeterminate Grafts: n/a Left Ventriculography and Hemodynamic Results LVEDP 15, EF 65% Endovascular Study Results None Post-Procedure Diagnostic Conclusion:?? PCI is indicated. Interventional Procedure: Using standard technique, the LAD/D1 vessel was stented using a 2.5x 16 a.d 3.5x28 Synergy stents. D1 stented with a 2.25x20 Synergy, prox LAD post dilated to 4.0. The OM1 was stented with a 2.25x16 Synergy. The distal RCA IVUS confirmed a high grade distal stenosis stented with a 3.5x16 DARLIN. Plavix was added to the medical regimen without interruption x 1 year. Lisinopril was added for hypertension. Atorvastatin has recently been restarted prior to admission for significant hyperlipidemia. The patient remained stable overnight. He did experience some chest pressure,which resolved with 1 S/L NTG and tylenol. He is pain free this a.m with ambulation and discharged home in stable condition. He states his has NTG with him in his pocket. Follow up has been requestedwith Dr Holden in the [facility] cardiology clinic and referral sent for cardiac rehab at [facility]. Plan: Aspirin 81mg po daily. Plavix 75 mg po daily x 1 year minimum. Relevant Studies at Discharge: none Last Lab Results at Discharge: BUN: Lab Results Component Value Date BUN 18 07/09/2015 Creatinine: Lab Results Component Value Date CREATININE 0.85 07/09/2015 CBC: Lab Results Component Value Date WBC 10.08 07/09/2015 RBC 4.65 07/09/2015 HGB 14.1 07/09/2015 HCT 41.4 07/09/2015 MCV 89 07/09/2015 MCH 30.3 07/09/2015 MCHC 34.1 07/09/2015 PLT 243 07/09/2015 Electrolytes: Lab Results Component Value Date NA 134* 07/09/2015 K 4.5 07/09/2015 CL 101 07/09/2015 CO2 25 07/09/2015 Lipid Profile: Lab Results Component Value Date CHOL 245 07/09/2015 TRIG 182 07/09/2015 HDL 64 07/09/2015 LDLBASE 145 07/09/2015 CHOLHDL 3.8 07/09/2015 No results found for: HGBA1C Meds at Discharge: Medication List START taking these medications acetaminophen 325 mg tablet Commonly known as: TYLENOL Take 2 Tabs by mouth every 4 hours as needed for Pain. atorvastatin 40 mg tablet Commonly known as: LIPITOR Take 1 Tab by mouth at bedtime. lisinopril 5 mg tablet Commonly known as: PRINIVIL, ZESTRIL Take 1 Tab by mouth daily. metoprolol XL 25 mg tablet Commonly known as: TOPROL-XL Take 1 Tab by mouth daily. CHANGE how you take these medications clopidogrel 75 mg tablet Commonly known as: PLAVIX Take 1 Tab by mouth daily. What changed: - how much to take - how to take this - when to take this - additional instructions CONTINUE taking these medications aspirin 81 mg EC tablet Take 81 mg by mouth daily. nitroGLYCERIN 0.4 mg SL tablet Commonly known as: NITROSTAT Place 0.4 mg under the tongue every 5 minutes as needed for Chest Pain. documented in this encounter Discharge Instructions * Appointments* Elizabeth Stout - 07/08/2015 15:54 EST Please see your Primary Care Physician Dr Castellon office on July 16, 2015 at 10:20 am. The patient phone number is [phone] documented in this encounter Medications at Time [...] 04/16/2016 09/15/2018 documented as of this encounter Ordered Prescriptions Prescription Sig Dispensed Refills Start Date End Da te lisinopril (PRINIVIL, ZESTRIL) 5 mg tablet Take 1 Tab by mouth daily. 90 Tab 1 07/09/2015 04/23/2016 metoprolol XL (TOPROL-XL) 25 mg tablet Take 1 Tab by mouth daily. 90 Tab 3 07/08/2015 10/08/2015 clopidogrel (PLAVIX) 75 mg tablet Take 1 Tab by mouth daily. 90 Tab 3 07/08/2015 04/16/2016 atorvastatin (LIPITOR) 40 mg tablet Take 1 Tab by mouth at bedtime. 90 Tab 3 07/08/2015 10/14/2017 acetaminophen (TYLENOL) 325 mg tablet Take 2 Tabs by mouth every 4 hours as needed for Pain. 07/08/2015 06/05/2019 documented in this encounter Discharge Disposition Disposition Code Departure Means Destination Home or Self Care documented in this encounter Progress Notes * Brittany Davila, RN - 07/10/2015 0801 EST CM DISCHARGE NOTE: Pt discharged prior to being met by CM. Chart reviewed; no d/c needs identified. Brittany Davila, RN #[id number] * Renato Ellis MD - 07/08/2015 2335 EST Patient seen and evaluated for CP s/p LHC. Symptoms have been present since procedure today. Not worse or better. Positional CP and back pain worse lying down, especially on left side. Intermittent, coming and going within seconds. No associated symptoms. No change w nitro. Better w tylenol. Examination notable for mild epigastric TTP and paraspinous muscle TTP reproducing symptoms. EKG without ischemic changes Unlikely related to obst CAD. Maybe post PCI inflammation vs MSK/GERD. * Adams Parker PA - 07/08/2015 1535 EST Plavix 75mg daily without interruption x 1 year and Aspirin 81 mg daily lifetime reviewed with patient and the patient verbalizes understanding. Cardiac rehab reviewed with patient and the patient iswilling to attend. Referral sent and written material given to patient. Follow up has been requested with [facility]. * Arun Kapadia MD - 07/08/2015 1257 EST July 08, 2015 [place] [address] Dear Al: I am writing in regards to Lan Fernandez. Briefly, he is a 60-year-old gentleman who developed a fairly classic chest pain syndrome. He underwent a stress Cardiolite, which demonstrated no perfusion defects; however, due to the atypical nature of his symptoms, the patient was referred for coronary a rteriography. Today we performed left heart catheterization on Lan that demonstrated normal left ventricular filling pressure and function. The patient did indeed have 3-vessel coronary disease. Specifically, his left main was normal. His LAD had high-grade proximal stenosis and then more moderate stenosis at the bifurcation of the mid LAD and the diagonal branch. The circumflex system was notable for a 95% stenosis involving the first OM. The distal right coronary evidenced a step down without a clear stenosis. We treated the OM and the LAD with balloon angioplasty followed by adjunctive stenting. We performed an intravascular ultrasound of the distal right and demonstrated a high-grade distal lesion. This was also stented. In all cases, very nice angiographic results were achieved. We will place Lan on dual antiplatelet therapy for the foreseeable future. As always, I want to thank you for allowing us to participate in your patient's care. Sincerely, Arun Kapadia MD 10 41 AM / Arun Kapadia MD mn Confirmation: [id number] Dictation ID: [id number] cc:Jony Castellon MD * Jazmine Arguello RN - 07/08/2015 0824 EST Lan Fernandez arrived to the Cardiovascular Unit via ambulation. Patient alert and oriented x3. Transfers to stretcher easily . Patient greeted and identified per [facility] policy. Allergies and procedure verified & patient oriented to Unit. Reviewed all pre-procedure instructions with Lan Fernandez. All questions answered & patient verbalizes willingness and understanding ofpre- procedure education. Patient stretcher in low position with side rails up & call gage within patient reach. Patient's is at bedside. * Addie Ho RN - 07/04/2015 1601 EST Patient instructed to take Plavix 300 mg 07/07/2015 evening and 75 mg the morning of the procedure * Addie Ho RN - 07/04/2015 1008 EST Precardiac Cath Nursing Checklist Recent Labs:BUN 24 CR .96 GFR >60 No results found for: BUN, CREATININE, HGB, CALCGFR Hgt: Height: 180.3 cm (70.98) Wgt:Weight : 94.1 kg (207 lb 7.3 oz) Allergies: Allergies Allergen Reactions ??? No Known Drug Allergies [id number] - [facility], [place] - [address] [facility] [address] [facility] [address] Cardiac History: Stress Test? Yes,Nuclear Reason for Cath:chest pain radiating to the arms, nausea Medical/Surgical History: Patient has a past medical history of Chest pain radiating to arm; Abnormal nuclear stress test; HLD (hyperlipidemia); and Family history of coronary artery disease. Patient has no past surgical history on file. Smoking and Alcohol intake: has no tobacco and alcohol history on file. History of complications from sedation: No Patient Instructions: Patient Instructed by: Patient instructed by Advanced Testing Nurse NPO Instructions: Patient/family instructed to have no solid food after midnight and to stop drinking clear liquids 3 hours prior to registration time. Diabetic Pre procedure Instructions: N/A Shower Instructions: Patient/family instructed to shower the night before or the day of the procedure. Registration location: Patient/family instructed to register on the 3rd floor [facility]. Transportation Issues: No Patient/family instructed that they will need a designated team driver if they are discharged on the dayof the procedure. Medications: Medication list: Patient/family instructed to bring medication list with them on the day of the procedure. Anticoagulants/Antiplatelets: Takes Aspirin 81 mg daily Anti-Anginal meds: [facility] RN documented in this encounter H&P Notes * Jean Pierre Gotti - 07/08/2015 0900 EST Images from the original note were not included. Cardiology Admitting H&P Admit Date: 07/08/2015 Date of Service: 07/04/2015 PCP: Jony Castellon Code Status: No Order Chief Complaint: Chest pain HPI: 60 M nonsmoker - complains of exertional chest pain since 4 weeks ago that happens with exertion and improves with rest associated with sob and nausea. SPECT scan negative. Presents for elective LHC secondary to clinical symptoms. PMH PSH Past Medical History Diagnosis Date ??? Chest pain radiating to arm ??? Abnormal nuclear stress test ??? HLD (hyperlipidemia) ??? Family history of coronary artery disease No past surgical history on file. Social History Family History History Substance Use Topics ??? Smoking status: Not on file ??? Smokeless tobacco: Not on file ??? Alcohol Use: Not on file Family History Problem Relation Age of Onset ??? Heart Disease Father ??? Heart Disease Brother Medications (Not in a hospital admission) Allergies Allergies Allergen Reactions ??? No Known Drug Allergies Review of Systems: A ten point review of systems was performed. Pertinent positives are listed above in HPI, all others are negative. Objective/Physical Exam: VS:BP 153/93 mmHg Temp(Src) 36.4 ??C (97.5 ??F) (Temporal) Resp 16 Ht 182.9 cm (72) Wt 94.348 kg (208 lb) BMI 28.20 kg/m2 SpO2 96% Weight: Weight : 94.1 kg (207 lb 7.3 oz) Body mass index is 28.95 kg/(m^2). Exam: GEN: no acute distress Lungs: Clear to auscultation CV: RRR, S1 S2, No gallp, no murmur Abd: soft, nontender, not distended Ext: no edema, full bilateral pulses Neuro: intact to conversation Labs: I have personally reviewed CBC: Lab Results Component Value Date WBC 6.42 07/08/2015 RBC 4.99 07/08/2015 HGB 15.6 07/08/2015 HCT 44.3 07/08/2015 MCV 89 07/08/2015 MCH 31.3 07/08/2015 MCHC 35.2 07/08/2015 PLT 239 07/08/2015 BMP: Lab Results Component Value Date NA 138 07/08/2015 K 4.4 07/08/2015 CL 104 07/08/2015 CO2 22* 07/08/2015 BUN 29* 07/08/2015 CREATININE 0.74 07/08/2015 Coagulation: Lab Results Component Value Date PROTIME 11.3 07/08/2015 INR 1.0 07/08/2015 SPECT 07/01/2015 eGFR calculation: No results found for: CALCGFR Assessment: 60 M - unstable angina class III/IV with negative nuc. Plan : Plan to proceed with LHC and coronary angiography with intent to perform percutaneous revascularization if indicated per coronary anatomy and/or physiologic assessment. Patient loaded with plavix, currently on ASA and plavix. Jean Pierre Gotti M.D. [employer] Pager: [phone] 07/08/2015 8:59 documented in this encounter Procedure Notes * Arun Kapadia MD - 07/08/2015 1034 EST Cardiovascular Catheterization Laboratory Preliminary Report -- Catheterization Date of Service/Procedure: 07/08/2015 Attending Physician: Arun Kapadia MD Fellow: Lakeisha Snow MD and Jean Pierre Gotti MD Pre-Procedure Diagnosis/Indication: Lan Fernandez is a 60 y.o. year old male with Stable angina-CCS III/IV. NCDR Indication for PCI:Stable angina-CCS III/IV Prior Stress Testing? Yes, with a negative result. Cardiac Medications: On two or more anti anginal medications at the time of catheterization? No Anesthesia: A moderate level of anesthesia/conscious sedation was used in addition to local anesthesia. Access: Right femoral artery Procedure: He was brought to the [facility] Cardiac Catheterization Laboratory for the procedure: Diagnostic coronary/graft angiography, LV gram, Left heart cath and Coronary intervention (PCI). IVUS Closure: Angioseal Post-Procedure Condition: The condition of the patient was Fair. Complications: None. IV Contrast Total: 330 mL Estimated Blood Loss: Minimal. Unless otherwise noted, there were no specimens removed, cultures obtained, or drains retained. Clinical Trial: Patient is not enrolled in a research study. Diagnostic Cardiac Study Results Left main: nl Left anterior descendin% prox and mid w/ 80% D1 Left circumflex: 90% OM1 Right coronary artery: distal indeterminate Grafts: n/a Left Ventriculography and Hemodynamic Results LVEDP 15, EF 65% Endovascular Study Results None Post-Procedure Diagnostic Conclusion: PCI is indicated. Interventional Procedure: Using standard technique, the LAD/D1 vessel was stented using a 2.5x 16 a.d 3.5x28 Synergy stents. D1 stented with a 2.25x20 Synergy, prox LAD post dilated to 4.0. The OM1 was stented with a 2.25x16 Synergy. The distal RCA IVUS confirmed a high grade distal stenosis stented with a 3.5x16 DARLIN. Plan: Aspirin 81mg po daily. Plavix 75 mg po daily x 1 year minimum. At the completion of the procedure, the attending physician has explained the findings, therapies, any complications and treatment plan to the patient. With the patients consent, all family members and patient support persons who were present at the conclusion of the procedure have been notified ofthese results and treatment plans as well. Post Interventional Conclusion/Physician Disposition: (check one main category) Elective procedure-continue outpatient status. Discharge plan is for extended post-procedure recovery on floor. Arun Kapadia MD Pager Number: [phone] 07/08/2015 10:34 documented in this encounter Miscellaneous Notes * Plan of Care - Nancy Carty RN - 07/09/2015 0925 EST Problem: Daily Care Plan Goals Goal: Care Plan Documentation Outcome: Met This Shift 07/09/15 0806 Care Plan Focus Area of Focus Circulatory Status Goal This Shift right groin CDI, stable rhythm, VS WNL, Cp free D: s/p [facility]. Denies CP/SOB this am. VSS.SR on tele. Has only ambulated in his room. A: encouraged ambulation - and to report any changes in condition. R: ambulated in halls without issue. Right groin stable upon. Order to d/c home. * Plan of Care - Mirta Duarte - 07/09/2015 0140 EST Problem: Daily Care Plan Goals Goal: Care Plan Documentation Outcome: Ongoing 07/08/15 2307 Care Plan Focus Area of Focus Circulatory Status Goal This Shift vss BP 136/93 mmHg Temp(Src) 37.1 ??C (98.8 ??F) (Tympanic) Resp 16 Ht 182.9 cm (72) Wt 94.348kg (208 lb) BMI 28.20 kg/m2 SpO2 99% Data: Pt admitted for [facility], received 5 stents, right groin approach, site c/d/i and soft with moderate bruising, covered with tegaderm. NSR on tele in 50's-60's, VSS, c/o mild 2/10 CP that he hadsince his LHC in the AM. Action: Around 2300 pt c/o increasing CP radiating to his back, now rating a 4/10, different from the pain he was having earlier. MD Ellis paged and at bedside, state EKG obtained, nitrox1 given with relief in pain, tylenol also administered for back pain. Response: Pt sleeping upon reassessment, will continue to monitor. Mirta Duarte RN 07/09/2015 1:33 * Plan of Care - Theo Lee RN - 07/08/2015 1829 EST Problem: Safety: Goal: Will remain free from falls BP 138/105 mmHg Temp(Src) 35.3 ??C (95.5 ??F) (Tympanic) Resp 18 Ht 182.9 cm (72) Wt 94.348 kg (208 lb) BMI 28.20 kg/m2 SpO2 97% Data: Assumed care of patient 0730 s/p DPOA Left heart cath with placement of 5 DARLIN. VSS on room air. SR on telemetry. Passed ortho VS. Right fem site c/d/i and soft to palpation. Action: Medications administered, assessments documented per protocol. Response: Patient resting comfortably in bed. Will continue to monitor and assess per protocol. Theo Lee RN 07/08/2015 18:27 documented in this encounter Plan of Treatment Upcoming Encounters Date Type Department Care Team (Late st Contact Info) Description 12/28/2023 13:00 EDT Office Visit [facility] - [address] [place] [address] Rosalind Mckeon PA-C [address] [place] [address] Scheduled Referrals Name Type Priority Associated Diagnoses Order Schedule AMB CONS/FOLLOW UP PRIMARY CARE PHYSICIAN Outpatient Referral Routine Chest pain, unspecified chest pain type Ordered: 07/08/2015 AMB CONS/FOLLOW UP CARDIAC REHABILITATION Outpatient Referral Routine Chest pain, unspecified chest pain type Coronary artery disease involving [place] coronary artery of [place] heart without angina pectoris Ordered: 07/08/2015 AMB CONS/FOLLOW UP CARDIOLOGY Outpatient Referral Routine Coronary artery disease involving [place] coronary artery of [place] heart without angina pectoris Ordered: 07/09/2015 documented as of this encounter Procedures Procedure Name Priority Date/Time Associated Diagnosis Comments ECG REPORT - SCANNED 07/17/2015 7:04 EST ECG REPORT - SCANNED 07/12/2015 12:03 EST INVASIVE CARDIOLOGY REPORT-SCANNED 07/12/2015 12:03 EST ECG REPORT - SCANNED 07/12/2015 12:03 EST ECG REPORT - SCANNED 07/11/2015 11:34 EST COMPLETE BLOOD COUNT Routine 07/09/2015 5:36 EST BUN Routine 07/09/2015 5:36 EST CREATININE Routine 07/09/2015 5:36 EST LIPID PROFILE (INCLUDES CHOLESTEROL, TRIGLYCERIDES, HDL, LDL) Routine 07/09/2015 5:36 EST ELECTROLYTES Routine 07/09/2015 5:36 EST EKG 12-LEAD STAT 07/08/2015 23:02 EST ACT, CELITE ISTAT Routine 07/08/2015 10: 02 EST ACT, CELITE ISTAT Routine 07/08/2015 9:3 1 EST EKG 12-LEAD Routine 07/08/2015 8:14 EST PROTIME STAT 07/08/2015 7:38 EST COMPLETE BLOOD COUNT STAT 07/08/2015 7:38 EST BUN STAT 07/08/2015 7:38 EST CREATININE STAT 07/08/2015 7:38 EST ELECTROLYTES STAT 07/08/2015 7:38 EST documented in this encounter Results * ECG REPORT - SCANNED (07/17/2015 7:04 EST) 07/17/2015 7:04 EST Scan 2 [employer] PROCEDURE/MINOR ASPEN GICAL ORDERABLES * INVASIVE CARDIOLOGY REPORT-SCANNED (07/12/2015 12:03 EST) 07/12/2015 12:0 3 EST Scan 2 [employer] PROCEDURE/MINOR ASPEN GICAL ORDERABLES * ECG REPORT - SCANNED (07/12/2015 12:03 EST) 07/12/2015 12:0 3 EST Scan 2 [employer] PROCEDURE/MINOR ASPEN GICAL ORDERABLES * ECG REPORT - SCANNED (07/12/2015 12:03 EST) 07/12/2015 12:0 3 EST Scan 2 [employer] PROCEDURE/MINOR ASPEN GICAL ORDERABLES * ECG REPORT - SCANNED (07/11/2015 11:34 EST) 07/11/2015 11:3 4 EST Scan 2 [employer] PROCEDURE/MINOR ASPEN GICAL ORDERABLES * LIPID PROFILE (INCLUDES CHOLESTEROL, TRIGLYCERIDES, HDL, LDL) (07/09/2015 5:36 EST) Cholesterol 245 mg/dl 07/09/2015 7:00 [facility] Comment: Desirable:<200 Borderline High:200-239 High:>pq=216 Triglycerides 182 mg/dl 07/09/2015 7:00 [facility] Comment: Normal:<150 Borderline High:150-199 High:200-499 Very High:>sy=545 HDL 64 mg/dl 07/09/2015 7:00 [facility] Comment: Low:<40 Normal:40-60 Desirable: >60 LDL, Calculated 145 mg/dl 6 7:00 [facility] Comment: Optimal:<100 Near Optimal:100-129 Borderline High:130-159 High:160-189 Very High:>rl=287 Chol/HDL Ratio 3.8 07/09/2015 7:00 [facility] Fasting? NO 07/09/2015 0:16 [facility] Non HDL Cholesterol 181 mg/dl 07/09/2015 7:00 [facility] Comment: Desirable:<130 Borderline:130-159 High: 160-189 Very High: >or=085 Blood specimen (specimen) BLOOD SPECIMEN / Unknown 07/09/2015 5:36 EST 07/09/2015 6:10 EST Brandon Snow MD CHEMISTRY & BLOOD GA S ORDERABLES Performing Organization Address City/State/[facility] Co de Phone Number [facility] [address] [place] [address] * CREATININE (07/09/2015 5:36 EST) Creatinine 0.85 0.66 - 1.25 mg/dl 07/09/2015 7:00 [facility] GFR, Calculated 96 >60 ml/min/1.7 3m2 07/09/2015 7:00 [facility] Comment: eGFR calculated using CKD-EPI equation for non Americans. Multiply eGFR by 1.16 for Americans. Blood specimen (specimen) BLOOD SPECIMEN / Unknown 07/09/2015 5:36 EST 07/09/2015 6:10 EST Brandon Snow MD CHEMISTRY & BLOOD GA S ORDERABLES Performing Organization Address [facility] Co de Phone Number [facility] [address] [place] [address] * BUN (07/09/2015 5:36 EST) BUN 18 10 - 26 mg/dl 07/09/2015 7:00 EST [facility] Blood specimen (specimen) BLOOD SPECIMEN / Unknown 07/09/2015 5:36 EST 07/09/2015 6:10 EST Brandon Snow MD CHEMISTRY & BLOOD GA S ORDERABLES Performing Organization Address [facility] de Phone Number [facility] [address] [place] [address] * (ABNORMAL) ELECTROLYTES (07/09/2015 5:36 EST) Sodium 134(L) 136 - 145 mEq/L 07/09/2015 7:00 [facility] Potassium 4.5 3.5 - 5.0 mEq/L 07/09/2015 7:00 [facility] Chloride 101 96 - 110 mEq/L 07/09/2015 7:00 [facility] CO2 25 24 - 32 mEq/L 07/09/2015 7:00 [facility] Blood specimen (specimen) BLOOD SPECIMEN / Unknown 07/09/2015 5:36 EST 07/09/2015 6:10 EST Brandon Snow MD CHEMISTRY & BLOOD GA S ORDERABLES Performing Organization Address City/[facility] Co de Phone Number [facility] [address] [place] [address] * HEMAGRAM (07/09/2015 5:36 EST) WBC 10.08 4.0 - 10.4 K/cmm 07/09/2015 7:13 [facility] RBC 4.65 4.36 - 5.78 M/cmm 07/09/2015 7:13 [facility] Hemoglobin 14.1 13.8 - 17.3 gm/dl 07/09/2015 7:13 [facility] HCT 41.4 39.5 - 50.2 % 07/09/2015 7:13 [facility] MCV 89 81 - 95 fl 07/09/2015 7:13 [facility] MCH 30.3 27.6 - 33.0 pg 07/09/2015 7:13 [facility] MCHC 34.1 32.8 - 36.4 gm/dl 07/09/2015 7:13 [facility] RDW-CV 13.2 11.8 - 14.1 % 07/09/2015 7:13 [facility] RDW-SD 43.4 36.5 - 45.9 fl 07/09/2015 7:13 [facility] PLT 243 141 - 377 K/cmm 07/09/2015 7:13 [facility] Comment:Note new reference r lamont effective 05/20/15 MPV 10.9 9.5 - 12.7 fl 07/09/2015 7:13 [facility] Comment:Note new reference r lamont effective 05/20/15 Blood specimen (specimen) BLOOD SPECIMEN / Unknown 07/09/2015 5:36 EST 07/09/2015 6:10 EST Brandon Snow MD HEMATOLOGY & PF4 ORD ERABLES [facility] Organization Address City/State/[facility] Co de Phone Number [facility] [address] [place] [address] * EKG 12-LEAD (07/08/2015 23:02 EST) 07/08/2015 23:0 2 EST Narrative [facility] EKG - 07/15/2015 17:11 EST ? [facility] ? Test Date: ?2015-07-08 Pat Name: ? LAN FERNANDEZ ?Department: ?? TONG 5 ? Room: ? ME520 Gender: ? M ?Charge Hand: ?? [id number] : ?1955 ? Requested By: ROSSANA ARUN F Order Number: [id number] ? Reading MD: ?? EVA CAPELESS MD ? Measurements Intervals ?[place] ? Rate: ? 67 ? P: ?23 MD: ? 148 ?QRS: ?-6 QRSD: ? 110 ?T: ?29 QT: ? 381 ? QTc: ?404 ? Interpretive Statements SINUS RHYTHM INCOMPLETE RIGHT BUNDLE BRANCH BLOCK Compared to ECG 07/08/2015 08:14:45 No significant changes I reviewed the tracing and have either agreed or edited the findings in this report. Electronically Signed On 07-15-15 17:11:13 EST by EVA CHANEL MD. Procedure Note Eva Chanel MD - 07/15/2015 [facility] Test Date: 2015-07-08 Pat Name: LAN FERNANDEZ Department: [place] [address] [place] [facility] [place] Gender: M Charge Hand: [id number] : 1955 Requested By: ROSSANA Kohli Order Number: [id number] Reading MD: EVA CHANEL MD Measurements Intervals [place] Rate: 67 P: 23 MD: 148 QRS: -6 QRSD: 110 T: 29 QT: 381 QTc: 404 Interpretive Statements SINUS RHYTHM INCOMPLETE RIGHT BUNDLE BRANCH BLOCK Compared to ECG 07/08/2015 08:14:45 No significant changes I reviewed the tracing and have either agreed or edited the findings inthis report. Electronically Signed On 07-15-15 17:11:13 EST by EVA DICK. Arun Kapadia MD CARDIAC ECG ORDERABL ES [facility] EKG * ACT, CELITE ISTAT (07/08/2015 10:02 EST) Activated Clotting Time 256 07/08/2015 15:04 EST [facility] customs consultant ID [id number] 07/08/2015 15:04 EST [facility] Comment: Test performed by Cardiology Baseline ref range for ACT = 84 to 139 seconds For non baseline ref ranges see procedure. BLOOD SPECIMEN / Unknown 07/08/2015 10:02 EST 07/08/2015 15:04 EST Arun Kapadia MD POINT OF CARE TEST O RDYVONNE Performing Organization Address [facility] Co de Phone Number [facility] [address] [place] [address] * ANGIE DUNBAR ISTAT (07/08/2015 9:31 EST) Activated Clotting Time 288 07/08/2015 15:04 EST [facility] customs consultant ID [id number] 07/08/2015 15:04 EST [facility] Comment: Test performed by Cardiology Baseline ref range for ACT = 84 to 139 seconds For non baseline ref ranges see procedure. BLOOD SPECIMEN / Unknown 07/08/2015 9:31 EST 07/08/2015 15:04 EST Arun Kapadia MD POINT OF CARE TEST O KE Performing Organization Address [facility] Co de Phone Number [facility] [address] [place] [address] * EKG 12-LEAD (07/08/2015 8:14 EST) 07/08/2015 8:14 EST Narrative [facility] EKG - 07/10/2015 11:22 EST ? [facility] ? Test Date: ?2015-07-08 Pat Name: ? LAN FERNANDEZ ?Department: ?? CVU ? Room: ? CVU25 Gender: ? M ?Charge Hand: ?? [id number] : ?1955 ? Requested By: SAMANTHA BOO Order Number: [id number] ? Reading : ?? JOSEPH FERRER MD ? Measurements Intervals ?[place] ? Rate: ? 60 ? P: ?43 MD: ? 160 ?QRS: ?-9 QRSD: ? 109 ?T: ?17 QT: ? 418 ? QTc: ?419 ? Interpretive Statements SINUS RHYTHM INCOMPLETE RIGHT BUNDLE BRANCH BLOCK Automated Interpretation. ??Physician Interpretation to follow. No previous ECG available for comparison I reviewed the tracing and have either agreed or edited the findings in this report. Electronically Signed On 07-10-15 11:22:17 EST by JOSEPH FERRER MD. Procedure Note Joseph Ferrer MD - 07/10/2015 [facility] Test Date: 2015-07-08 Pat Name: LAN FERNANDEZ Department: CVU Room: [facility] Gender: M Charge Hand: [id number] : 1955 Requested By: SAMANTHA BOO Order Number: [id number] Reading MD: JOSEPH FERRER MD Measurements Intervals [place] Rate: 60 P: 43 MD: 160 QRS: -9 QRSD: 109 T: 17 QT: 418 QTc: 419 Interpretive Statements SINUS RHYTHM INCOMPLETE RIGHT BUNDLE BRANCH BLOCK Automated Interpretation. Physician Interpretation to follow. No previous ECG available for comparison I reviewed the tracing and have either agreed or edited the findings inthis report. Electronically Signed On 07-10-15 11:22:17 EST by JOSEPH FANG. Darell Mo MD CARDIAC ECG ORDERABL ES [facility] EKG * PROTIME (07/08/2015 7:38 EST) Pro Time 11.3 10.1 - 13.0 secs 07/08/2015 8:19 EST [facility] I.N.R. 1.0 0.9 - 1.1 Ratio 07/08/2015 8:19 EST [facility] Comment: Moderate Intensity Coumadin INR = 2.0-3.0 Adjustments in anticoagulant therapy dose should be based upon the INR and NOT the Pro Time. Blood specimen (specimen) BLOOD SPECIMEN / Unknown 07/08/2015 7:38 EST 07/08/2015 7:57 EST Darell Mo MD HEMATOLOGY & PF4 ORD ERABLES [facility] [address] [place] [address] * HEMAGRAM (07/08/2015 7:38 EST) WBC 6.42 4.0 - 10.4 K/cmm 07/08/2015 8:05 EST [facility] RBC 4.99 4.36 - 5.78 M/cmm 07/08/2015 8:05 EST [facility] Hemoglobin 15.6 13.8 - 17.3 gm/dl 07/08/2015 8:05 [facility] HCT 44.3 39.5 - 50.2 % 07/08/2015 8:05 [facility] MCV 89 81 - 95 fl 07/08/2015 8:05 [facility] MCH 31.3 27.6 - 33.0 pg 07/08/2015 8:05 [facility] MCHC 35.2 32.8 - 36.4 gm/dl 07/08/2015 8:05 [facility] RDW-CV 13.2 11.8 - 14.1 % 07/08/2015 8:05 [facility] RDW-SD 42.7 36.5 - 45.9 fl 07/08/2015 8:05 [facility] PLT 239 141 - 377 K/cmm 07/08/2015 8:05 [facility] Comment:Note new reference r lamont effective 05/20/15 MPV 10.5 9.5 - 12.7 fl 07/08/2015 8:05 [facility] Comment:Note new reference r lamont effective 05/20/15 Blood specimen (specimen) BLOOD SPECIMEN / Unknown 07/08/2015 7:38 EST 07/08/2015 7:57 EST Darell Mo MD HEMATOLOGY & PF4 ORD ERABLES [facility] [address] [place] [address] * (ABNORMAL) ELECTROLYTES (07/08/2015 7:38 EST) Sodium 138 136 - 145 mEq/L 07/08/2015 8:22 [facility] Potassium 4.4 3.5 - 5.0 mEq/L 07/08/2015 8:22 [facility] Chloride 104 96 - 110 mEq/L 07/08/2015 8:22 [facility] CO2 22(L) 24 - 32 mEq/L 07/08/2015 8:22 [facility] Blood specimen (specimen) BLOOD SPECIMEN / Unknown 07/08/2015 7:38 EST 07/08/2015 7:57 EST Darell Mo MD CHEMISTRY & BLOOD GA S ORDERABLES Performing Organization Address City/[facility] Co de Phone Number [facility] [address] [place] [address] * CREATININE (07/08/2015 7:38 EST) Creatinine 0.74 0.66 - 1.25 mg/dl 07/08/2015 8:22 EST [facility] GFR, Calculated 102 >60 ml/min/1.7 3m2 07/08/2015 8:22 EST [facility] Comment: eGFR calculated using CKD-EPI equation for non Americans. Multiply eGFR by 1.16 for Americans. Blood specimen (specimen) BLOOD SPECIMEN / Unknown 07/08/2015 7:38 EST 07/08/2015 7:57 EST Darell Mo MD CHEMISTRY & BLOOD GA S ORDERABLES Performing Organization Address [facility] Co de Phone Number [facility] [address] [place] [address] * (ABNORMAL) BUN (07/08/2015 7:38 EST) BUN 29(H) 10 - 26 mg/dl 07/08/2015 8:22 EST [facility] Blood specimen (specimen) BLOOD SPECIMEN / Unknown 07/08/2015 7:38 EST 07/08/2015 7:57 EST Darell Mo MD CHEMISTRY & BLOOD GA S ORDERABLES Performing Organization Address City/[facility] Co de Phone Number [facility] [address] [place] [address] documented in this encounter Visit Diagnoses Diagnosis Chest pain, unspecified chest pain type- Primary 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 documented spasm ([facility]) S/P coronary artery stent placement Postsurgical percutaneous transluminal coronary angioplasty status Chest pain Chest pain, unspecified documented in this encounter Administered Medications Inactive Administered Medications - up to 3 most recent administrations Medication Order MAR Action Action Date Dose Rate Site acetaminophen (TYLENOL) tablet 650 mg 650 mg, oral, EVERY 4 HOURS PRN, Starting on Wed07/08/15 at 1038, Until Wed07/09/15 at 1237, Pain, Routine Given 07/09/2015 5:01 EST 650 mg Given 07/08/2015 22:44 EST 650 mg aspirin EC tablet 81 mg 81 mg, oral, DAILY, First dose on Wed07/09/15 at 0900, Until Discontinued, Routine Given 07/09/2015 8:10 EST 81 mg atorvastatin (LIPITOR) tablet 40 mg 40 mg, oral, AT BEDTIME, First dose on Wed07/08/15 at 2100, Until Discontinued, Routine Given 07/08/2015 20:13 EST 4 0 mg clopidogrel (PLAVIX) tablet 75 mg 75 mg, oral, DAILY, First dose on Wed07/09/15 at 0900, Until Discontinued, Routine Given 07/09/2015 8:10 EST 75 mg fentaNYL citrate (PF) 50 mcg/mL injection intravenous, PRN, Starting on Wed07/08/15 at 0904, Until Wed07/08/15 at 1014, Routine Given 07/08/2015 10:14 EST 25 mc g Given 07/08/2015 10:05 EST 50 mcg Given 07/08/2015 9:48 EST 25 mcg heparin 1,000 unit/mL injection intravenous, PRN, Starting on Wed07/08/15 at 0918, Until Wed07/08/15 at 0918, Routine Given 07/08/2015 9:18 EST 10,000 Units lisinopril (PRINIVIL, ZESTRIL) tablet 5 mg 5 mg, oral, DAILY, First dose on Wed07/09/15 at 0900, Until Discontinued, Routine Given 07/09/2015 8:10 EST 5 mg metoprolol XL (TOPROL-XL) tablet 25 mg 25 mg, oral, DAILY, First dose on Wed07/08/15 at 1100, Until Discontinued, Routine Given 07/09/2015 8:10 EST 25 mg Given 07/08/2015 12:15 EST 25 mg midazolam (PF) (VERSED) 1 mg/mL injection intravenous, PRN, Starting on Wed07/08/15 at 0903, Until Wed07/08/15 at 1006, Routine Given 07/08/2015 10:06 EST 1 mg Given 07/08/2015 9:44 EST 1 mg Given 07/08/2015 9:30 EST 1 mg nitroGLYCERIN (NITROSTAT) SL tablet 0.4 mg 0.4 mg, sublingual, EVERY 5 MIN PRN, Starting on Wed07/08/15 at 2251, Until Wed07/09/15 at 1237, Chest Pain, Routine Given 07/08/2015 23:03 EST 0.4 mg sodium chloride 0.9 % (NS) infusion 30 mL/hr, intravenous, CONTINUOUS, Starting on Wed07/08/15 at 0800, Until Wed07/08/15 at 1122, Routine, Preprocedure New Bag 07/08/2015 8:24 EST 30 mL/hr 30 mL/hr sodium chloride 0.9 % (NS) infusion at 75 mL/hr, intravenous, CONTINUOUS, Starting on Wed07/08/15 at 1100, Until Wed07/08/15 at 1618, Routine Given by Other 07/08/2015 12:19 EST 75 mL/ hr documented in this encounter Discontinued Medications Medication Sig Discontinue Reason Start Date End Da te clopidogrel (PLAVIX) 75 mg tablet Take 4 tabs the evening prior to your procedure, take one pill the morning of the procedure before coming to the hospital. 07/04/2015 07/08/2015 AMB CONS/FOLLOW UP CARDIOLOGYIndications:C oronary artery disease involving [place] coronary artery of [place] heart without angina pectoris Patient Discharge 07/08/2015 07/09/2015 documented as of this encounter Historical Medications * This list may reflect changes made after this encounter. Medication Sig Dispensed Refills Start Date End Date aspirin 81 mg EC tablet Take 1 Tablet by mouth daily. nitroGLYCERIN (NITROSTAT) 0.[address] 0.4 mg under the tongue every 5 minutes as needed for Chest Pain. Reported on 04/16/2016 09/15/2018 added in this encounter Active and Recently Administered Medications Times are shown in EST. Scheduled Medication Order 07/07/2015 07/08/2015 07/09/2015 aspirin EC tablet 81 mg (CANCELED) 81 mg, oral, DAILY, First dose on Wed07/09/15 at 0900, Until Discontinued, Routine 0810 (Given - Provid er: Nancy Carty RN) atorvastatin (LIPITOR) tablet 40 mg 40 mg, oral, AT BEDTIME, First dose on Wed07/08/15 at 2100, Until Discontinued, Routine 2012 (Given - Provider: Mirta Duarte) clopidogrel (PLAVIX) tablet 75 mg (CANCELED) 75 mg, oral, DAILY, First dose on Wed07/09/15 at 0900, Until Discontinued, Routine 0810 (Given - Provid er: Nancy Carty RN) lisinopril (PRINIVIL, ZESTRIL) tablet 5 mg 5 mg, oral, DAILY, First dose on Wed07/09/15 at 0900, Until Discontinued, Routine 0810 (Given - Provid er: Nancy Carty RN) metoprolol XL (TOPROL-XL) tablet 25 mg 25 mg, oral, DAILY, First dose on Wed07/08/15 at 1100, Until Discontinued, Routine 1215 (Given - Provider: Theo Lee RN) 0810 (Given - Provider: Nancy Carty RN) Continuous Medication Order 07/07/2015 07/08/2015 07/09/2015 sodium chloride 0.9 % (NS) infusion (CANCELED) 30 mL/hr, intravenous, CONTINUOUS, Starting on Wed07/08/15 at 0800, Until Wed07/08/15 at 1122, Routine, Preprocedure 0824 (New Bag - Provider: Jazmine Arguello RN) sodium chloride 0.9 % (NS) infusion () at 75 mL/hr, intravenous, CONTINUOUS, Starting on Wed07/08/15 at 1100, Until Wed07/08/15 at 1618, Routine 1219 (Given by Other - Provider: Theo Lee RN) PRN Medication Order 07/07/2015 07/08/2015 07/09/2015 acetaminophen (TYLENOL) tablet 650 mg 650 mg, oral, EVERY 4 HOURS PRN, Starting on Wed07/08/15 at 1038, Until Wed07/09/15 at 1237, Pain, Routine 2244 (Given - Provider: Mirta Duarte) 0501 (Given - Provider: Mirta Duarte) fentaNYL citrate (PF) 50 mcg/mL injection (COMPLETED) intravenous, PRN, Starting on Wed07/08/15 at 0904, Until Wed07/08/15 at 1014, Routine 0904 (Given - Provider: Brittany Zambrano, RN)0906 (Given - Provider: Brittany Zambrano, RN)0908 (Given - Provider: Brittany Zambrano, RN)0922 (Given - Provider: Brittany Zambrano, RN)0930 (Given - Provider: Brittany Zambrano, RN)0939 (Given - Provider: Brittany Zambrano, RN)0948 (Given - Provider: Brittany Zambrano, RN)1005 (Given - Provider: Brittany Zambrano, RN)1014 (Given - Provider: Brittany Zambrano, RN) heparin 1,000 unit/mL injection (COMPLETED) intravenous, PRN, Starting on Wed07/08/15 at 0918, Until Wed07/08/15 at 0918, Routine 0918 (Given - Provider: Brittany Zambrano, MELANIE) midazolam (PF) (VERSED) 1 mg/mL injection (COMPLETED) intravenous, PRN, Starting on Wed07/08/15 at 0903, Until Wed07/08/15 at 1006, Routine 0903 (Given - Provider: Brittany Zambrano RN)0906 (Given - Provider: Brittany Zambrano, RN)0920 (Given - Provider: Brittany Zambrano, RN)0930 (Given - Provider: Brittany Zambrano, RN)0944 (Given - Provider: Brittany Zambrano, RN)1006 (Given - Provider: Brittany Zambrano, RN) nitroGLYCERIN (NITROSTAT) SL tablet 0.4 mg (CANCELED) 0.4 mg, sublingual, EVERY 5 MIN PRN, Starting on Wed07/08/15 at 2251, Until Wed07/09/15 at 1237, Chest Pain, Routine 2303 (Given - Provider: Mirta Duarte) documented in this encounter Orders Medications Ordered That Vignesh ht Not Have Been Administered Count Last Ordered Date First Ordered Date lidocaine-EPINEPHrine 2 %-1: 100,000 injection 5-10 mL 1 07/08/2015 Diet Count Last Ordered Date First Orde red Date DISCHARGE DIET 3 07/08/2015 Nursing Count Last Ordered Date First Orde red Date BATHING INSTRUCTIONS 2 07/09/2015 016 ACTIVITY INSTRUCTIONS 2 07/08/2015 PATIENT AT LOW RISK FOR VTE: RISK OF MECHANICAL PROPHYLAXIS OUTWEIGHS 1 07/08/2015 PATIENT AT LOW RISK FOR VTE: RISK OF PHARMACOLOGIC PROPHYLAXIS OUTWEIG 1 07/08/2015 WOUND CARE INSTRUCTIONS 2 07/08/2015 Admission Count Last Ordered Date First Orde red Date STATUS: OUTPATIENT SURGICAL OP BED/SERVICES 1 07/08/2015 Transfer Count Last Ordered Date First Orde red Date NOTIFY PPS OF DISCHARGE COMPLETE 1 07/09/19 16 PPS NOTIFICATION OF PATIENT ARRIVAL ON UNIT 1 07/08/2015 Discharge Count Last Ordered Date First Orde red Date DISCHARGE PATIENT 1 07/09/2015 Legal Count Last Ordered Date First Orde red Date MISCELLANEOUS DISCHARGE INSTRUCTIONS 6 0 05/201507/08/2015 documented in this encounter Care Teams Prompt Care Rn Relationship Specialty Start Date End Date Jony Castellon MD [address] [place] [id number] PCP - General 07/04/15 10/12/17 documented as of this encounter
--- OUTSIDE RECORDS SUMMARY | 2023-11-25 01:39 | XMS_ITS | Encounter Summary ---
Author Organization [facility] Address [address] [place] [address] Care Team Providers Care Senior Gl Accountant Name Role Phone Jony Castellon MD Primary Care Provider [phone] Reason for Visit * Reason Onset Date Comments Other 08/09/2017 Returning call Encounter Details Date Type Department Care Team (Late st Contact Info) Description 08/09/[address] [facility] Cardiology - [address] [place] [address] Trish No, MELANIE Other (Returning call) Social History Tobacco Use Types Packs/Day Years [...] visiting a doctor's office or shopping? No 10/13/2016 Cognitive Status Response Date of Assessm ent Because of a physical, menta l, or emotional condition, does this person have serious difficulty concentrating, remembering, or making decisions? No 10/13/2016 documented as of this encounter Miscellaneous Notes * Telephone Encounter - Trish No, RN - 08/09/2017 2248 EDT Patient calling back. He reports the Colonoscopy is just for the 10 year follow- up. He'd prefer to put this off. He'd like to keep his current appointment w/ Dr. Kapadia on 10/14/17 and address cardiacclearance at that time. He will f/u with PCP & Dr. Spencer's office. Trish No RN documented in this encounter Plan of Treatment Upcoming Encounters Date Type Department Care Team (Late st Contact Info) Description 12/28/2023 13:[address] [facility] Cardiology - [address] [place] [address] Rosalind Mckeon PA-C [address] [facility] [address] [place] [phone] documented as of this encounter Visit Diagnoses Not on filedocumented in this encounter Care Teams Senior Gl Accountant Relationship Specialty Start Date End Date Jony Castellon MD [address] [place] [id number] PCP - General 07/04/15 10/12/17 documented as of this encounter
--- OUTSIDE RECORDS SUMMARY | 2023-11-25 01:39 | XMS_ITS | Encounter Summary ---
Author Organization [facility] Address [address] [place] [address] Care Team Providers Care Brusher Tender Name Role Phone Jony Castellon MD Primary Care Provider [phone] Reason for Referral * Follow Up (Routine) - Closed Specialty Diagnoses / Procedures Referred By Contac t Referred To Contact Diagnoses Chest pain, unspecified chest pain type Jony Castellon MD [address] [place] [id number] Referral ID Status Reason Start Date Expiration Date V isits Requested Visits Authorized [id number] Closed Continuity of Care 07/18/2015 1 1 Question Answer Reason for Request: post hospitalization follow up * Follow Up (Routine/Next Available) - Closed Specialty Diagnoses / Procedures [facility] Referred To Contact Cardiology Diagnoses S/P coronary artery stent placement Unstable angina (HCC-CMS) Abril Chris NP [address] [address] Erick Holden MD [address] [place] [id number] Referral ID Status Reason Start Date Expiration Date V isits Requested Visits Authorized [id number] Closed Specialty Services Required 07/17/2015 1 1 Question Answer Reason for Request: post USAP post repeat PCI Scheduling Comments (optional ? describe specific scheduling needs if applicable): 2-4 weeks Expected Discharge Date (Inpatient Only): 07/18/2015 Practice Site (External Referral Only): [facility] cardiology clinic * Consult (Routine) - Closed Specialty Diagnoses / Procedures Referred By Denise chaparro Referred To Contact Cardiac Rehabilitation Diagnoses S/P coronary artery stent placement Abril Chris NP [address] [address] Referral ID Status Reason Start Date Expiration Date V isits Requested Visits Authorized [id number] Closed Specialty Services Required 07/17/2015 1 1 Question Answer Reason for Request: post repeat pci Scheduling Comments (optional ? describe specific scheduling needs if applicable): 1 week Expected Discharge Date (Inpatient Only): 07/18/2015 Practice Site (External Referral Only): [facility] Encounter Details Date Type Department Care Team (Late st Contact Info) Description 07/17/2015 13:09 EST - 07/18/2015 11:32 EST Hospital Encounter [facility] Cardiac/Telemetry Unit [address] [place] [address] Corey Stapleton MD PhD 111 [facility] [address] [place] [id number] Chest pain, unspecified chest pain type (Primary Dx); S/P coronary artery stent placement; Unstable angina ([facility]) Discharge Disposition: Home or Self Care Social [...] Sign Reading Time Taken Comments Blood Pressure 107/63 07/18/2015 0120 EST Pulse 77 07/18/2015 0120 EST Temperature 36.6 ??C (97.9 ??F) 07/18/2015 0120 EST Respiratory Rate 18 07/18/2015 0120 EST Oxygen Saturation 97% 07/18/2015 0120 EST Inhaled Oxygen Concentration - - Weight 90.1 kg (198 lb 11.2 oz) 07/16/2015 0400 EST Height 182.9 cm (6') 07/16/2015 0400 EST Body Mass Index 26.95 07/16/2015 0400 EST documented in this encounter Functional Status [...] shopping? (15 years old or older) No 07/16/2015 Cognitive Status Response Date of Assessm ent Because of a physical, menta l, or emotional condition, do you have serious difficulty concentrating, remembering, or making decisions? (5 years old or older) No 07/16/2015 documented as of this encounter Discharge Summaries * Renny Prince MD - 07/18/2015 0929 EST Discharge Summary Attending Physician: Corey Stapleton MD Date of Admission: 07/17/2015 Date of Discharge: 07/18/2015 Disposition: Home with Reason for Admission: Chest pain Hospital Problems: Principal Problem: Chest pain Principal Procedure: LHC with DARLIN and dissection repair Hospital Course: Mr. Fernandez is a 60 yo gentleman with CAD with 5 stents on 07/08/15, HLD, former tobacco use, who presented as a transfer from with recurrent chest pain that woke him from sleep the night of admission, after he was recently hospitalized 07/11-07/12 with chest pain, elevated troponin thought to be due to vivian procedural SD.?? On readmission, he had an elevated troponin, but significantly lower than when he was recently discharged, and had no acute EKG changes.?? However, given his known CAD and recent stents, a repeat LHC was performed (results below) where theyfound a dissection and a known 80% blockage which was stented. After the cath was completed, the dis section repaired, and the blockage stented, the patient had immediate resolution of symptoms. His repeat echo was unchanged from prior and looked normal. Notably there was a concern for some jose/pericarditis so a small dose of ibuprofen was started which the patient will complete after discharge for five days. He was monitored overnight and remained chest pain free. He was then safe for discharge with lifelong aspirin, plavix for 1 year, and 5 days of motrin. [facility]: Diagnostic Cardiac Study Results Left main: normal Left anterior descending: prior prox to mid stent <10%, D1 stent <10% and 30% mid D1 Leftcircumflex:?? OM1 stent <10%, 30% mid Lcx Right coronary artery: 30% mid, dista; stent <10%, dissection at bifurcation of PDA and Post latwith 80% in Post Lateral Grafts: n/a Interventional Procedure: Using standard technique, the distal RCA bifurcation PDA and Post Lat, 80% to 0%, DARLIN X1 into Post lateral and KB both vessels, normal flow into Post lateral and jailed PDA . Repeat limited echo: 1. Left ventricle: The cavity size was normal. Wall thickness was normal. ? Systolic function was normal. The estimated ejection fraction was 60-65%. ? Wall motion was normal; there were no regional wall motion abnormalities. 2. Right ventricle: The cavity size was normal. Systolic function was normal. Clinical Issues Needing Follow-up: - follow up cardiology/cardiac rehab as outlined below - follow up pcp - complete ibuprofen course for 5 days Results Pending at Discharge: Test results still pending from this admission None Discharge Medications: START taking these medications Sig ibuprofen 400 mg tablet Commonly known as: MOTRIN 400 mg, oral, 4 TIMES DAILY CONTINUE taking these medications Sig acetaminophen 325 [...] known drug allergies Appointments Scheduled with [facility] in the Next 3 Months: These [facility] appointments have already been scheduled Aug 06, 2015 10:50 Post Hospital Visit with Ken Kapadia MD [facility] Cardiology - [address] (--) [address] [place] [address] Follow-Up Appointments and Procedures Recommended to Patient: Follow-up appointments and procedures Amb Consult/Follow Up Cardiac Rehabilitation Reason for Request: post repeat pci Scheduling Time Frame: 1 week Expected Discharge Date (Inpatient Only): 07/18/2015 Practice Site (External Referral Only): [facility] Authorizing Provider: Abril Chris NP Amb Consult/Follow Up Cardiology Reason for Request: post USAP post repeat PCI Scheduling Time Frame: 2-4 weeks Expected Discharge Date (Inpatient Only): 07/18/2015 Practice Site (External Referral Only): [facility] cardiology clinic Authorizing Provider: Abril Chris NP Amb Consult/Follow Up Primary Care Physician Reason for Request: post hospitalization follow up Authorizing Provider: Renny Prince MD Follow-Up Labs and Tests: Renny Prince MD documented in this encounter Medications at Time [...] mouth daily. 90 Tab 3 07/08/2015 04/16/2016 ibuprofen (MOTRIN) 400 mg tablet Take 1 Tab by mouth 4 times daily. 16 Tab 0 07/18/2015 06/05/2019 lisinopril (PRINIVIL, ZESTRIL) 5 mg tablet Take [...] Dispensed Refills Start Date End Da te ibuprofen (MOTRIN) 400 mg tablet Take 1 Tab by mouth 4 times daily. 16 Tab 0 07/18/2015 06/05/2019 documented in this encounter Discharge Disposition Disposition Code Departure Means Destination Home or Self Care documented in this encounter Progress Notes * Roberta Rangel MD - 07/18/2015 1458 EST July 18, 2015 Erick Holden MD [facility] - Cardiology [address] [facility], [address] [place] [address] Dear Donnell: I wanted to bring you up to date on the results of the further cardiac evaluation and further coronary stent placement in your patient Lan Fernandez. As you know, this gentleman underwent complex 3-vessel stent placement by Jairo Kapadia at the end of June. He returned with both pleuritic chest pain but also a component of pain syndrome that sounded anginal. There was no myocardial infarction and ventricular function remains normal. In the photofinishing laboratory worker, we found that the previously placed stents in the LAD, circumflex, and right coronary are all patent, but there was a culprit edge dissection at the end of the distal right coronary stent, which was interfering with blood supply to the posterolateral system. In the same setting, I placed one further drug-eluting stent from the distal edge of the prior stent into the posterolateral system jailing the PDA, but without compromise and with a good result. 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 He is scheduled to see you in followup as well as follow up with Dr Castellon. I believe he also has a component of pericardial symptoms, and we are giving him a brief course of Motrin for 5 days. He feels well on discharge and has no angina. Thank you again for allowing me to participate in the care of your patient. Sincerely, Roberta Rangel MD 08 31 AM / Roberta Rangel MD cn Confirmation: [id number] Dictation ID: [id number] cc:Jony Castellon MD * Brook Manuel - 07/18/2015 0945 EST Patient is scheduled for discharge and outpatient follow up today 07/18/15. His will provide transportation. No needs are identified on discharge. Brook Manuel, professional fighter #[id number] * Roberta Rangel MD - 07/18/2015 0866 EST I have examined the patient and reviewed the data and plan as outlined by the Resident Team/Tele Marketing Executive. There is no evidence of recurrent ischemia or uncompensated CHF. There is no evidence of procedure related SD. The vital signs show no acute changes I agree with discharge plan as outlined and have dictated a discharge summary. Will continue prior meds including asa and plavix, F/U Donnell Holden and Jony Merino Short course of motrin, 5 days , for pericarditis Sxs 20 minutes spent on counseling and coordination of care. Roberta Rangel MD Attending Cardiology * Renny Prince MD - 07/17/2015 0404 EST Cardiology Post Procedure Note s/p cardiac catheterization S: Pt resting comfortably. Denies chest pain, palpitations, lightheadedness, dizziness, dyspnea, numbness or weakness. Denies pain, bleeding or discharge from the cath site. Ambulating without complication. O:Blood pressure 100/52, pulse 92, temperature 36.5 ??C (97.7 ??F), temperature source Tympanic, resp. rate 18, height 182.9 cm (72), weight 90.13 kg (198 lb 11.2 oz), SpO2 98 %. Gen: NAD, resting comfortably Chest: CTAB, no w/r/r CV: RRR, S1/S2 normal, no m/r/g Extr: cath site c/d/i, no bleeding or discharge, no hematoma or mass Pulse: 2+ Neuro: A+Ox3, 5/5 strength, grossly normal sensation A/P: 60 y.o.male s/p cardiac catheterization. -- stable as above, cont to monitor -- cont plan as per morning note * Brook Manuel - 07/17/2015 1333 EST Initial Case Management/Social Work Assessment and Discharge Plan/Readmission Risk Assessment Reason for Admission: Recurrent chest pain. Patient Contact Information: Spouse Rosa Fernandez [phone] LIVING ARRANGEMENTS AND ACCESSIBILITY ISSUES: Lives in [place], [place] What in home social supports are available to the patient? Patient lives in [place], [place] with his . They have a 12 year old daughter and he has two grown sons. 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 His son will come and help with the restaurant for the next couple of weeks. 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 He feels well supported by family and friends. ADVANCED DIRECTIVES, POA &/or COLST IN PLACE: No CULTURAL, MOSQUE and/or LANGUAGE factors affecting health care/discharge planning: N/A Insurance in Place: Yes Type of Insurance: Medicaid MEDICAID TYPE: Community DISCHARGE RISK ASSESSMENT: Total # selected above: Score: Zero Tentative plan to address the risk of re-hospitalization for those at HIGH MODERATE RISK: FUNCTIONAL & PSYCHOSOCIAL INFORMATION: No functional limitations, no assistive devices, drives. MEDICAL AND COMMUNITY SERVICES: Primary Care Provider: Jony Castellon Specialists: N/A Skilled home care services: N/A DME Provider: N/A Pharmacy: [facility] Other: N/A POST HOSPITAL TRANSITION PLAN: Case management will continue to follow through transition to discharge. Anticipate home with family. No needs identified at this time. Brook Manuel RN Case Manager #[id number] * Abril Chris NP - 07/17/2015 1322 EST Plavix daily without interruption x 1 year and Aspirin 81 mg daily lifetime reviewed with patient and the patient verbalizes understanding. Cardiac rehab reviewed with patient and the patient is willing to attend at [facility]. Referral sent andwritten material given to patient. Follow up has been requested with Dr Holden at the [facility] cardiology clinic. * Renny Prince MD - 07/17/2015 1110 EST Medicine Progress Note Service Date: 07/17/2015 Admit Date: 07/16/2015 4:05 ( ) Reason for Admission: 60 y.o. male admitted with a chief complaint of chest pain. 24 Hour Events: - did not get LHC yesterday, performed this morning - continued to have chest pain Subjective/Objective Subjective Today, Mr. Fernandez states that after his cath, his chest pain is completely gone. He states that he feels much better overall and that he noticed immediately that his chest pain had desisted. Otherwise, he has no further complaints today. Review of Systems Pertinent items are noted in Subjective/HPI Objective Vital Signs Temp: [36.5 ??C (97.7 ??F)-37.7 ??C (99.9 ??F)] , Heart Rate: [81 BPM-90 BPM] , Resp: [16-20] , BP:(90-116)/(57-71) , SpO2: [94 %-100 %] Exam: General appearance: alert, cooperative, no acute distress Skin: No rashes or lesions, normal turgor Neck: Supple, symmetrical, trachea midline, JVP not elevated Lungs: Clear to auscultation bilaterally, good air entry, normal respiratory effort CVS: RRR, S1, S2 normal, no murmurs appreciated Abdomen: obese, soft, non-tender; positive bowel sounds; no rebound or guarding, no masses, no palpable organomegaly Neurologic: CN II-XII intact, moving all extremities, strength and sensation equal and intact throughout Extremities: extremities warm, atraumatic, no cyanosis or edema, 2+ DP pulses bilaterally Medications Reviewed: - nitro gtt - metoprolol - lisinopril - Atorvastatin - clopidogrel - ibuprofen Labs Reviewed: - Na: 131 - trop downtrended - hgb: 12.8 Imaging Reviewed: Summary: ?? 1. Left ventricle: The cavity size was normal. Wall thickness was normal. ? Systolic function was normal. The estimated ejection fraction was 60-65%. ? Wall motion was normal; there were no regional wall motion abnormalities. 2. Right ventricle: The cavity size was normal. Systolic function was normal. Diagnostic Cardiac Study Results Left main: normal Left anterior descending: prior prox to mid stent <10%, D1 stent <10% and 30% mid D1 Leftcircumflex:?? OM1 stent <10%, 30% mid Lcx Right coronary artery: 30% mid, dista; stent <10%, dissection at bifurcation of PDA and Post latwith 80% in Post Lateral Grafts: n/a Interventional Procedure: Using standard technique, the distal RCA bifurcation PDA and Post Lat, 80% to 0%, DARLIN X1 into Post lateral and KB both vessels, normal flow into Post lateral and jailed PDA . Assessment/Plan Assessment Mr. Fernandez is a 60 yo gentleman with CAD with 5 stents on 07/08/15, HLD, former tobacco use, who presented as a transfer from with recurrent chest pain that woke him from sleep. He was recently hospitalized 3-07/12 with chest pain, elevated troponin thought to be due to vivian procedural SD.?? He has an elevated troponin, but significantly lower than when he wasrecently discharged, and has no acute EKG changes.?? However, given his known CAD and recent stents, he had repeat LHC which showed dissection with stenosis in posterior lateral of 80%. Plan Chest pain: Etiology is not clear.??LHC showed some evidence of dissection of PDA with 80% blockageat posterior lateral. Patient feeling remarkably better after cath. This could also represent post procedural pericarditis, so plan to start ibuprofen for five days - Start nitroglycerin gtt and titrate till chest pain free - Continue home Plavix 75mg daily, ASA 81mg daily, Atorvastatin 40mg QHS, Metoprolol XL 25mg daily,Lisinopril 5mg daily - [facility] today as above - ibuprofen 400 q6hr for 5 days - stop heparin gtt - stop nitro gtt HLD: - Continue home Atorvastatin 40mg QHS Leukocytosis: Very mild, WBC 10.44.?? Afebrile, no signs of infection. - Continue to monitor VTE Prophylaxis Ambulate as tolerated Discharge Plan Home or self care Renny Prince MD 07/17/2015 11:11 * Renato Ellis MD - 07/16/2015 0548 EST /F5 brief note: 60 year old male with known CAD s/p recent elective multivessel PCI on 07/08/15 readmitted on 07/12/15with atypical CP and mildly elevated troponin thought to be due to procedural related SD who presents from OSH transfer with atypical CP and mildly elevated troponin (0.13). EKG without ischemic changes. Pain is positional, pleuritic, better with nitro. No change with exertion. At OSH he was started on heparin in addition to his home ASA and plavix. Currently 2/10 CP, was <1/10 with nitro gtt. No murmurs, rubs, gallops. Mild epigastric TTP. A/P: 60 year old male with recent multivessel PCI who arrives with atypical CP. His troponin seems to be still descending and his pain is atypical. Unlikely to be due to obstructive CAD. However, given this is his second readmission in the past week and his high level of anxiety it is reasonable toreassess coronary anatomy. Discussed in detail with patient and . Renato Ellis MD PATIENT CONSENT TO CARDIOVASCULAR CATHETERIZATION OR INTERVENTION: I, Renato Ellis MD, have explained the risks and benefits of cardiac catheterization and/or intervention to the patient (or responsible democrat) and have answered the patient's (or responsible democrat's) questions. To the best of my knowledge, the patient (or responsible democrat) has been adequately informed. The patient (or responsible democrat) has consented to the interventional cardiac procedure. As part of the consent we reviewed that, like surgical procedures, interventional procedures require aggressive short term support to determine the potential benefits of the procedures. For this reason, the patient (or responsible democrat) has agreed to remain FULL CODE for a minimum of 48 hours after the procedure. Renato Ellis MD 07/16/2015 5:55 documented in this encounter H&P Notes * Blake Fitzgerald MD - 07/16/2015 0400 EST Cardiology Admission H&P Admission Date: 07/16/2015 Date of Service: 07/16/2015 PCP: Jnoy Castellon Admitting Attending: Ken Kapadia MD Admitting Attending: Blake Fitzgerald MD CC: Chest pain Subjective: HPI: Mr. Fernandez is a 60 yo gentleman with CAD with 5 stents on 07/08/15, HLD, former tobacco use, whopresents as a transfer from . He underwent elective LHC with 2 DARLIN to LAD/D1, 1 DARLIN to D1, 1 DARLIN to OM1, 1 DARLIN to distal RCA on 07/08/15. He was hospitalized at [facility] from 07/11-07/12 on cardiology service after he presented to [facility] with recurrent dyspnea and had elevated troponin. He had no acute EKG changes and was initially treated as an NSTEMI with heparin and plavix, but his troponin trended downward. Echo showed normal LVEF of 60% with mild mid-anteroseptal hypokinesis, so he was diagnosed with vivian-procedural SD and not in-stent restenosis and discharged home. No medication changes were made. His troponin was 1.440 on discharge. He was feeling well after discharge and had no chest pain. He still had mild shortness of breath but less than before. He saw his booster pump oiler Dr. Erick Holden on 07/15/15 and apparently his troponin was around 0.17 (per patient). He went to sleep this evening and was awoken from sleep around 23:00 with tight pain in the center of his chest and between his shoulder blades, with associated shortness of breath. The pain feels like the same chest pain he was having prior to the LHC. He had no associated lightheadedness, dizziness, nausea, palpitations. He took 1 SL nitroglycerin which helped and took a second nitroglycerin in the car, which helped but also caused headache and [facility] to supplement his daily ASA 81mg. He received a third SL nitroglycerin and was started on nitroglycerin gtt and heparin gtt. He still had mild chest pain there. Troponin was 0.130. In transport to [facility] he was continued on heparin and nitroglycerin gtts, normal saline at 30 cc/hr, and reported 0-1/10 chest pain. He was placed on 2L NC for O2 saturation in low 90s. [facility] he reports zero to one out of ten chest pain and SBP was in 90s, but felt like his chest painwas starting to come back. He was weaned off supplemental O2. He has a restaurant called [employer]. He lives in [place], [place] with his and they have 3 children. He is a never smoker but used to chew tobacco, but quit 3 years ago. He drinks 1-2 drinks of scotch per night and does not use recreational drugs. Review of Systems Positive for chest pain, dyspnea, dizziness (not with chest pain, but after he took nitroglycerin),headache with nitroglycerin Negative for fever, chills, nausea, vomiting, bleeding, palpitations PMH PSH Past Medical History Diagnosis Date [...] Heart Disease Father ??? Heart Disease Brother No current facility-administered medications for this encounter. Current Outpatient Prescriptions Medication Sig Dispense Refill ??? acetaminophen (TYLENOL) 325 mg tablet Take 2 Tabs by mouth every 4 hours as needed for Pain. ??? aspirin 81 mg EC tablet Take 81 mg by mouth daily. ??? atorvastatin (LIPITOR) 40 mg tablet Take 1 Tab by mouth at bedtime. 90 Tab 3 ??? clopidogrel (PLAVIX) 75 mg tablet Take 1 Tab by mouth daily. 90 Tab 3 ??? lisinopril (PRINIVIL, ZESTRIL) 5 mg tablet Take 1 Tab by mouth daily. 90 Tab 1 ??? metoprolol XL (TOPROL-XL) 25 mg tablet Take 1 Tab by mouth daily. 90 Tab 3 ??? nitroGLYCERIN (NITROSTAT) 0.[address] 0.4 mg under the tongue every 5 minutes as needed for Chest Pain. Allergies Allergies Allergen Reactions ??? No Known Drug Allergies Objective: There were no vitals taken for this visit. Wt Readings from Last 1 Encounters: 07/13/15 92.987 kg (205 lb) General appearance: alert, cooperative, no distress, appears stated age, sitting in bed, looks comfortable, answers all questions appropriately Skin: Skin color, temperature, turgor normal. No rashes or lesions Head: Normocephalic, without obvious abnormality, atraumatic Eyes: negative findings: PERRL, sclera anicteric Chest: no reproducible chest pain on exam, no increased chest pain with taking a deep breath or change in pain with sitting forward Lungs: clear to auscultation bilaterally, non labored breathing, no wheezes or crackles, on room air Heart: regular rate and rhythm, S1, S2 normal, no murmur, click, rub or gallop Abdomen: soft, non-tender; bowel sounds active, non-distended Extremities: extremities warm, atraumatic, no edema Pulses: 2+ and symmetric DP/PT/radial bilaterally Genitourinary: No Quiroz Labs: Labs from [facility] 07/16/15: Troponin 0.130 at 02:16 Na 138, K 4.0, Cl 103, CO2 25, Mg 2.0, Ca 9.4, BUN 24, creatinine 0.92, glucose 124 BNP 29 Alk phos 81, ALT 31, AST 20, total bili 0.6, direct bili 0.1, total protein 7.2, albumin 3.8 CBC: Recent Labs 07/16/15 0523 WBC 10.44* HGB 13.7* HCT 39.1* MCV 90 PLT 270 BMP: Recent Labs 07/16/15 0523 NA 136 K 4.9 CL 100 CO2 27 BUN 22 CREATININE 0.91 07/16/2015 05:23 Magnesium 2.1 Troponin I 0.110 (H) Assessment: Mr. Fernandez is a 60 yo gentleman with CAD with 5 stents on 07/08/15, HLD, former tobacco use, who presents as a transfer from with recurrent chest pain that woke him from sleep tonight, after he was recently hospitalized 07/11-07/12 with chest pain, elevated troponinthought to be due to vivian procedural SD. He has an elevated troponin, but significantly lower than when he was recently discharged, and has no acute EKG changes. However, given his known CAD and recent stents, it seems reasonable to repeat LHC to rule out coronary artery disease as the cause of hischest pain. If he were to have negative non-invasive stress testing and then have recurrent chest pain, he would likely return needing a repeat LHC, so repeating it now would help rule out CAD as theetiology of his current pain and if negative give him significant reassurance. Plan: Chest pain: Etiology is not clear. ACS is possibility, though troponin is down- trending and he has no ischemic EKG changes. He had recent echo on 07/13/15 that showed only mild mid anteroseptal hypokinesis. He has no reproducible pain on exam that would suggest a musculoskeletal etiology. He had a negative D-dimer on 07/12/15 and is not hypoxic or tachycardic, so PE is unlikely. - Recheck troponin - Heparin gtt - Start nitroglycerin gtt and titrate till chest pain free - Continue home Plavix 75mg daily, ASA 81mg daily, Atorvastatin 40mg QHS, Metoprolol XL 25mg daily,Lisinopril 5mg daily - LHC today HLD: - Continue home Atorvastatin 40mg QHS Leukocytosis: Very mild, WBC 10.44. Afebrile, no signs of infection. - Continue to monitor FEN: NPO PPX: Heparin gtt Lines: PIV Code status: FULL - discussed with patient Dispo: Uncertain at this time Tamika Harris MD PGY-3 Pager #[phone] 07/16/2015 4:01 I have seen and examined the patient and have reviewed the resident note, exam and plans as writtenabove. I agree with the findings, history and plan as outlined in the note. In addition, I recommend: if ongoing CP, will warrant cath despite no ECG changes and no significant troponin elevation. Cath today. Blake Fitzgerald MD Attending, Interventional Cardiology documented in this encounter Procedure Notes * Roberta Rangel MD - 07/17/2015 1019 EST Cardiovascular Catheterization Laboratory Preliminary Report -- Catheterization Date of Service/Procedure: 07/17/2015 Attending Physician: Roberta Rangel MD Fellow: Justin Gagnon MD Pre-Procedure Diagnosis/Indication: Lan Fernandez is a 60 y.o. year old male with Unstable angina-CCS IV.Post multivessel PCI NCDR Indication for PCI:Unstable angina-CCS IV Prior Stress Testing? No Cardiac Medications: On two or more anti anginal medications at the time of catheterization? No Anesthesia: A moderate level of anesthesia/conscious sedation was used in addition to local anesthesia. Access:Right radial artery Procedure: He was brought to [facility] Cardiac Catheterization Laboratory for the procedure: Diagnostic coronary/graft angiography and Coronary intervention (PCI). Closure: TR Band Post-Procedure Condition: The condition of the patient was Good. Complications: None. IV Contrast Total: 230 mL Estimated Blood Loss: Minimal. Unless otherwise noted,there were no specimens removed, cultures obtained, or drains retained. Research Study: Patient is not enrolled in a research study. Diagnostic Cardiac Study Results Left main: normal Left anterior descending: prior prox to mid stent <10%, D1 stent <10% and 30% mid D1 Leftcircumflex: OM1 stent <10%, 30% mid Lcx Right coronary artery: 30% mid, dista; stent <10%, dissection at bifurcation of PDA and Post latwith 80% in Post Lateral Grafts: n/a Left Ventriculography and Hemodynamic Results none Endovascular Study Results None Post-Procedure Diagnostic Conclusion: PCI is indicated. Interventional Procedure: Using standard technique, the distal RCA bifurcation PDA and Post Lat, 80% to 0%, DARLIN X1 into Post lateral and KB both vessels, normal flow into Post lateral and jailed PDA . Plan: See post-procedure orders. Continue prior medications. Aspirin 81mg po daily. Plavix 75 mg po daily x 1 year minimum. Evaluation for cardiac rehab program. Plan 5 days of low dose motrin for pericarditis sxs, will F/U with [facility] At the completion of the procedure, the attending physician has explained the findings, therapies, any complications and treatment plan to the patient. With the patients consent, all family members and patient support persons who were present at the conclusion of the procedure have been notified ofthese results and treatment plans as well. Post Interventional Conclusion/Physician Disposition: (check one main category) Inpatient procedure, continue inpatient status (no procedural complication required) Roberta Rangel MD PagerNumber: [phone] 07/17/2015 10:19 documented in this encounter Miscellaneous Notes * Plan of Care - Edita Bernabe RN - 07/18/2015 1016 EST Problem: Daily Care Plan Goals Goal: Care Plan Documentation 07/18/15 0720 Care Plan Focus Area of Focus Discharge Plan Goal This Shift pt will have discharge questions answered and provide teachback. D: Patient discharged home per MD. A: IV removed, catheter tip intact. Telemetry removed. RN reviewed discharge instructions and medications with patient and . Prescription e-scripted to [facility] in [facility]. Medications reviewed. Provided education on using salt substitute. R: Patient expressed good understanding of discharge instructions. Pt states he sill use Rodriguez salt substitute. Patient showered and dressed independently. They left via wheelchair. * Plan of Care - Carly Lazo RN - 07/18/2015 0303 EST D:Received pt for care at 2300. Vital signs stable. Pt alert and oriented. A:No complaints of pain or discomfort. Call light in reach. R:Will continue to monitor and report changes. * Plan of Care - Georgiana Vang RN - 07/17/2015 1653 EST Problem: Daily Care Plan Goals Goal: Care Plan Documentation Outcome: Ongoing 07/17/15 1651 Care Plan Focus Area of Focus Circulatory Status Goal This Shift monitor post cath D pt is post cath right radial approach A tr band is off,pt has tegaderm and gauze to right radial sitr, cdi, denies pain at present, pt reno scheduled motrin R will continue to monitor. * Plan of Care - Anam Rudd RN - 07/17/2015 1433 EST Problem: Daily Care Plan Goals Goal: Care Plan Documentation Outcome: Met This Shift 07/17/15 0016 07/17/15 0840 Care Plan Focus Area of Focus -- Circulatory Status Goal This Shift Pt will maintain stable VS and be free of CP. -- Data: pt received in bed alert and oriented complains of mild wayne 1/10 S/p cath Rt radial approach T-R Band. 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 rate 20, height 182.9 cm (72), weight 90.13 kg (198 lb 11.2 oz), SpO2 98 %. . Encouraged to drink fluid. . Response: pt is resting in bed now. will continue to monitor out put. Anam Rudd RN 07/17/2015 14:24 * Sedation Documentation - Micah Diaz RN - 07/17/2015 1016 EST Pt tx to M5 via bed on a monitor w/nursing and family * Sedation Documentation - Micah Diaz RN - 07/17/[address] Rangel updating pt on findings and plan of care. * Plan of Care - Osmin Dodd RN - 07/17/2015 0101 EST Problem: Daily Care Plan Goals Goal: Care Plan Documentation Outcome: Ongoing 07/17/15 0016 Care Plan Focus Area of Focus Circulatory Status Goal This Shift Pt will maintain stable VS and be free of CP. Data: Pt presets in NSR in the 70's-90's. Pt VSS. Pt continues to endorse sternal/ back pain, pt describes this pain as worsening with change in position particularly side laying positions as well aswhen taking deep breaths. Pt scores pain from 5-2/10. Pt requested PRN morphine when going to bed to help reduce 5/10 pain. Action: VS and telemetry monitored. Scheduled medications provided. PRN morphine provided. Response: Continue to monitor and assess. Pt is currently sleeping in his room. Osmin Dodd RN 07/17/2015 0:54 * Plan of Care - Theo Lee RN - 07/16/2015 1256 EST Problem: Daily Care Plan Goals Goal: Care Plan Documentation BP 126/78 mmHg Temp(Src) 37 ??C (98.6 ??F) (Tympanic) Resp 16 Ht 182.9 cm (72) Wt 90.13 kg(198 lb 11.2 oz) BMI 26.94 kg/m2 SpO2 97% Data: Assumed care of patient 0730. Patient is alert and oriented X 3, appearing anxious and sayingthat we need to figure this out. (related to pain). Patient describes sternal chest pressure thatis continuous and does not resolve, ranking anywhere from 5-8/10. NO gtt 15mcg infusing (highest dose per JUL) and confirmed with MD Prince that this is the max dose to titrate to. Heparin gtt inf using. VSS stable and BP tolerating gtt. Plan for C today to assess for restenosis of stents. Action: 2 L NC put on patient. PRN morphine given to patient per JUL. MD Prince aware of patient's continuing chest pain. Response: Patient resting in bed with at bedside rating pain 5/10 that is tolerable, for him. Will continue to monitor and assess per protocol. Theo Lee RN 07/16/2015 12:50 * Plan of Care - Osmin Dodd RN - 07/16/2015 0509 EST Problem: Daily Care Plan Goals Goal: Care Plan Documentation Outcome: Met This Shift 07/16/15 0418 Care Plan Focus Area of Focus Circulatory Status Goal This Shift Pt will maintain stable VS and be free of CP. [facility]/ Lan Fernandez 60 y.o. male Length of Stay: day(s) Admitted: 07/16/2015 4:05 Service: Cardiology Code Status: Full Code Allergies reviewed and confirmed on admission: No Known Drug Allergies Allergy bracelet applied. 5:06-- D: Lan Fernandez, a 60 y.o. male, admitted to [facility] at 0418 on 07/16/2015, arrived to [place] [address]. Telemetry monitoring initiated, and his vital signs documented. Patient NSR on telemetry with Heart Rate: [79 BPM] . Patient denies pain and SOB. Pt reports 0-1/10 CP declines intervention at this time, pt reports he does not feel additional nitro will help and does not want morphine. Pt agreed to notify nurse if CP increases. 2L O2 applied via NC. Patient states no issues at this time. Patient oriented to room, plan, and call gage use. Awaiting approval of meds by pharmacy. A: Assessment as documented. Admission database complete. R: Oriented pt to use of call gage, and clarified that he needs to notify staff immediately if his CP returns, or if he notices any change in his symptoms. RN will continue to monitor, and will medicate when applicable. Awaiting medications to be delivered from pharmacy. Call gage within patient's reach. Osmin Dodd RN 5:06 07/16/2015 documented in this encounter Plan of Treatment Upcoming Encounters Date Type Department Care Team (Late st Contact Info) Description 12/28/2023 13:00 EDT Office Visit [facility] Cardiology - [address] [place] [address] Rosalind Mckeon PA-C [address] [place] [address] Scheduled Referrals Name Type Priority Associated Diagnoses Order Schedule AMB CONS/FOLLOW UP CARDIAC REHABILITATION Outpatient Referral Routine S/P coronary artery stent placement Ordered: 07/17/2015 AMB CONS/FOLLOW UP CARDIOLOGY Outpatient Referral Routine S/P coronary artery stent placement Unstable angina ([facility]) Ordered: 07/17/2015 AMB CONS/FOLLOW UP PRIMARY CARE PHYSICIAN Outpatient Referral Routine Chest pain, unspecified chest pain type Ordered: 07/18/2015 documented as of this encounter Procedures Procedure Name Priority Date/Time Associated Diagnosis Comments ECG REPORT - SCANNED 07/23/2015 11:28 EDT ECG REPORT - SCANNED 07/23/2015 11:28 EDT INVASIVE CARDIOLOGY REPORT-SCANNED 07/23/2015 11:28 EDT ECG REPORT - SCANNED 07/22/2015 9:50 EDT ECG REPORT - SCANNED 07/22/2015 9:46 EDT COMPLETE BLOOD COUNT Routine 07/18/2015 5:50 EST BUN Routine 07/18/2015 5:50 EST CREATININE Routine 07/18/2015 5:50 EST ELECTROLYTES Routine 07/18/2015 5:50 EST LEFT HEART CATH Routine 07/17/2015 10:42 EST EKG 12-LEAD Routine 07/17/2015 10:38 EST HEPARIN LEVEL - UNFRACTIONATED HEPARIN STAT 07/17/2015 5:50 EST COMPLETE BLOOD COUNT Routine 07/17/2015 5:50 EST BUN Routine 07/17/2015 5:50 EST CREATININE Routine 07/17/2015 5:50 EST ELECTROLYTES Routine 07/17/2015 5:50 EST TROPONIN I Routine 07/16/2015 20:18 EST TROPONIN I Routine 07/16/2015 12:30 EST HEPARIN LEVEL - UNFRACTIONATED HEPARIN STAT 07/16/2015 10:32 EST ECHOCARDIOGRAM LIMITED STAT 6 9:38 EST TROPONIN I Routine 07/16/2015 5:23 EST COMPLETE BLOOD COUNT Routine 07/16/2015 5:23 EST BUN Routine 07/16/2015 5:23 EST MAGNESIUM Routine 07/16/2015 5:23 EST CREATININE Routine 07/16/2015 5:23 EST ELECTROLYTES Routine 07/16/2015 5:23 EST EKG 12-LEAD Routine 07/16/2015 4:26 EST documented in this encounter Results * ECG REPORT - SCANNED (07/23/2015 11:28 EDT) 07/23/2015 11:2 8 EDT Scan 2 Studio Grip PROCEDURE/MINOR ASPEN GICAL ORDERABLES * ECG REPORT - SCANNED (07/23/2015 11:28 EDT) 07/23/2015 11:2 8 EDT Scan 2 Studio Grip PROCEDURE/MINOR ASPEN GICAL ORDERABLES * INVASIVE CARDIOLOGY REPORT-SCANNED (07/23/2015 11:28 EDT) 07/23/2015 11:2 8 EDT Scan 2 Studio Grip PROCEDURE/MINOR ASPEN GICAL ORDERABLES * ECG REPORT - SCANNED (07/22/2015 9:50 EDT) 07/22/2015 9:50 EDT Scan 2 Studio Grip PROCEDURE/MINOR ASPEN GICAL ORDERABLES * ECG REPORT - SCANNED (07/22/2015 9:46 EDT) 07/22/2015 9:46 EDT Scan 2 Studio Grip PROCEDURE/MINOR ASPEN GICAL ORDERABLES * CREATININE (07/18/2015 5:50 EST) Creatinine 0.95 0.66 - 1.25 mg/dl 07/18/2015 6:[address] [facility] GFR, Calculated 88 >60 ml/min/1.7 3m2 07/18/2015 6:[address] [facility] Comment: eGFR calculated using CKD-EPI equation for non Americans. Multiply eGFR by 1.16 for Americans. Blood specimen (specimen) BLOOD SPECIMEN / Unknown 07/18/2015 5:50 EST 07/18/2015 6:01 EST Tamika Harris MD CHEMISTRY & BLOOD GA S ORDERABLES [facility] [address] [place] [address] * BUN (07/18/2015 5:50 EST) BUN 23 10 - 26 mg/dl 07/18/2015 6:[address] [facility] Blood specimen (specimen) BLOOD SPECIMEN / Unknown 07/18/2015 5:50 EST 07/18/2015 6:01 EST Tamika Harris MD CHEMISTRY & BLOOD GA S ORDERABLES [facility] [address] [place] [address] * ELECTROLYTES (07/18/2015 5:50 EST) Sodium 139 136 - 145 mEq/L 07/18/2015 6:45 [facility] Potassium 5.0 3.5 - 5.0 mEq/L 07/18/2015 6:45 [facility] Chloride 103 96 - 110 mEq/L 07/18/2015 6:45 [facility] CO2 26 24 - 32 mEq/L 07/18/2015 6:45 [facility] Blood specimen (specimen) BLOOD SPECIMEN / Unknown 07/18/2015 5:50 EST 07/18/2015 6:01 EST Tamika Harris MD CHEMISTRY & BLOOD GA S ORDERABLES Performing Organization Address City/State/[facility] Co de Phone Number [facility] [address] [place] [address] * (ABNORMAL) HEMAGRAM (07/18/2015 5:50 EST) WBC 7.15 4.0 - 10.4 K/cmm 07/18/2015 6:14 [facility] RBC 4.04(L) 4.36 - 5.78 M/cmm 07/18/2015 6:14 [facility] Hemoglobin 12.5(L) 13.8 - 17.3 gm/dl 07/18/2015 6:14 [facility] HCT 36.2(L) 39.5 - 50.2 % 07/18/2015 6:14 [facility] MCV 90 81 - 95 fl 07/18/2015 6:14 [facility] MCH 30.9 27.6 - 33.0 pg 07/18/2015 6:14 [facility] MCHC 34.5 32.8 - 36.4 gm/dl 07/18/2015 6:14 [facility] RDW-CV 12.8 11.8 - 14.1 % 07/18/2015 6:14 [facility] RDW-SD 42.0 36.5 - 45.9 fl 07/18/2015 6:[address] [facility] PLT 256 141 - 377 K/cmm 07/18/2015 6:[address] [facility] MPV 10.4 9.5 - 12.7 fl 07/18/2015 6:[address] [facility] Blood specimen (specimen) BLOOD SPECIMEN / Unknown 07/18/2015 5:50 EST 07/18/2015 6:01 EST Tamika Harris MD HEMATOLOGY & PF4 ORD ERABLES [facility] [address] [place] [address] * LEFT HEART CATH (07/17/2015 10:42 EST) Anatomical Region Laterality Modality Other 07/17/2015 10:4 2 EST Narrative 07/24/2015 16:22 EDT Cardiology [address] [place] [address] ?? Catheterization Laboratory Study Patient: Lan Fernandez ? Study Date: ?07/17/2015 ? Accession #: ? [id number] : ? 1955 Referring Physician: Jony Castellon Diagnostic Attending: ??Roberta Rangel Interventional Attending: ?? Roberta Rangel Diagnostic Fellow: Justin Schroeder Interventional Fellow: Justin Schroeder ATTESTATION: Dr. Roberta Rangel was present and supervising for the entire procedure, I Dr. Justin Schroeder was the initial author of this report. I, Dr. Roberta Rangel have reviewed and agree with the findings of this report. PROCEDURE PLAN: Based on the diagnostic study percutaneous coronary intervention is indicated. RESEARCH STUDY: Patient is not enrolled in any research studies. IMPRESSIONS: 1. Single vessel coronary artery disease. 2. Non ST-elevated myocardial infarction (NSTEMI). The culprit lesion was ?? identified and reperfusion was successfully achieved. SUMMARY: 1. HPI and indications: Dyspnea. Coronary artery disease. Unstable angina. 2. Left main: Normal. 3. LAD: Prior intervention: drug-eluting stent in the proximal LAD. The stent ?? originated in the proximal vessel and terminated in the mid vessel. The ?? stented segment is patent. Proximal vessel lesion: There is a < 10% in-stent ?? restenosis. 4. 1st diagonal: Prior intervention: stent in the proximal D1. Proximal vessel ?? lesion: There is a 10% in-stent restenosis. Mid-vessel lesion: There is a 30% ?? stenosis. 5. Left circumflex: Mid-vessel lesion: There is a 30% stenosis. 6. 1st obtuse marginal: Prior intervention: stent in the proximal OM1. Proximal ?? vessel lesion: There is a 10% in-stent restenosis. 7. RCA posterolateral extension: Proximal vessel lesion: There is an 80%de reggie ?? stenosis. This lesion is irregularly contoured, complex, eccentric, without ?? evidence of thrombus, worsened from a prior study, and a bifurcation lesion. ?? There is MALATHI grade 3 flow (brisk flow) across the lesion. The lesion is ?? significant by visual estimate. The lesion was stented (see 1st lesion ?? intervention), with balloon angioplasty. Following intervention, there is a ?? residual 0% stenosis with an excellent angiographic appearance and MALATHI grade ?? 3 flow (brisk flow). 8. Right posterior descending: Ostial lesion: There is an 80% stenosis. An ?? angioplasty with balloon angioplasty was performed (see 2nd lesion ?? intervention). Following intervention, there is a residual 0% stenosis with ?? an excellent angiographic appearance, a smooth contour, and MALATHI grade 3 flow ?? (brisk flow). Resulting blush score 3: normal transfer of contrast through ?? the microvasculature. The stent is fully deployed and fully apposed. RECOMMENDATIONS: 1. ACC recommendation: PCI w/o planned CABG. 2. Aspirin. 3. Clopidogrel (Plavix). HISTORY: Dyspnea. ??Coronary artery disease. ??Unstable angina. ??Functional status: ?? CCS class IV (angina at rest or with any physical activity). ??Risk factors: ??Family history of coronary artery disease. Dyslipidemia. ??Medications: ??Beta blockers. Anti-anginal therapy. ??Allergies: ??No known allergies. LABS, PRIOR TESTS, PROCEDURES AND SURGERY: Serum creatinine (current admission) of 0.9 mg/dl. ??Hematocrit of 37.6 %. Platelet count of 269 th/ul. ??Serum potassium (K) of 4.9 mEq/l. ??Blood urea nitrogen of 22 mg/dl. ??Hemoglobin (pre-procedure) of 12.8 g/dl. ??Catheterization with coronary intervention. STUDY DATA: Patient status: ??Inpatient. ??Location: ??Catheterization laboratory. Sex: male. Patient is 60yr old. Weight: 90.1kg. Procedures performed: ?Right radial artery access. ?Left coronary angiography. ?Right coronary angiography. ?Lesion intervention: Percutaneous intervention on the 80% de reggie stenosis in the proximal RCA posterolateral extension. ?Balloon angioplasty. ?Stent placement. Lesion intervention: ?? Percutaneous intervention on the 80% stenosis at the ostium of the right posterior descending. ?Balloon angioplasty. ANESTHESIA: Conscious sedation for pain control by cardiology staff. PROCEDURE: 1. Initial setup. The patient was brought to the laboratory in the fasting ?? state. A baseline ECG was recorded. Surface ECG leads, automatic cuff blood ?? pressure measurements, and pulse oximetric signals were monitored. 2. Skin preparation. The planned puncture sites were prepped with chlorhexidine ?? and draped in the usual sterile manner. 3. Right radial artery access. A 6 FR/10/.021 [place] Sheath SLENDER sheath was ?? advanced into the vessel. 4. Selective left coronary angiography. A 5 Fr Tig Catheter 4.0 catheter was ?? advanced into the left coronary vessel ostium under fluoroscopic guidance. ?? Contrast was injected by hand. Images were obtained in multiple projections. 5. Selective right coronary angiography. A 6F Runway AR2SH catheter was advanced ?? into the right coronary vessel ostium under fluoroscopic guidance. Contrast ?? was injected by hand. Images were obtained in multiple projections. 6. Catheter exchange. The catheter was exchanged for a 6F Runway AR2SH catheter. 7. Right radial artery hemostasis. Mechanical compression was applied. 1st lesion intervention: Percutaneous intervention on the 80% de reggie stenosis in the proximal RCA posterolateral extension. 1. Balloon angioplasty. A 2.5mm (D) x 12mm (L), Gillett RX balloon was positioned ?? across the lesion and given three inflations with a maximum inflation ?? pressure of 12atm. 2. Drug-eluting stent placement. A drug-eluting, Synergy Stent(2.75 x 12) stent ?? was advanced across the lesion and deployed with a maximum pressure of 12atm. 2nd lesion intervention: Percutaneous intervention on the 80% stenosis at the ostium of the right posterior descending. 1. Vessel setup was performed. A 190cm BMW guidewire wire was used to cross the ?? lesion. 2. Balloon angioplasty. A Trek(2.50 x 15) balloon was positioned across the ?? lesion with a maximum inflation pressure of 12atm. STUDY COMPLETION: The estimated blood loss was 10ml. All catheters inserted during the procedure were removed. The patient tolerated the procedure well and was discharged from the lab. There were no complications. ??Contrast: ?? Omnipaque 230ml (total dose). Fluoroscopy time: ??19.2min. ??Fluoroscopy dose: ??169.8cGy. CORONARY ARTERIES: The coronary circulation is right dominant. Left main: ??Normal. LAD: Prior intervention: drug-eluting stent in the proximal LAD. The stent originated in the proximal vessel and terminated in the mid vessel. The stented segment is patent. ??Proximal vessel lesion: There is a < 10% in-stent restenosis. 1st diagonal: Prior intervention: stent in the proximal D1. ??Proximal vessel lesion: There is a 10% in-stent restenosis. ??Mid-vessel lesion: There is a 30% stenosis. Left circumflex: ??Mid-vessel lesion: There is a 30% stenosis. 1st obtuse marginal: Prior intervention: stent in the proximal OM1. ??Proximal vessel lesion: There is a 10% in-stent restenosis. Right coronary: Prior intervention: stent in the distal RCA. ??Mid-vessel lesion: There is a 30% stenosis. ??Distal vessel lesion: There is a 10% in-stent restenosis. dissection at bifurcation of PDA and Post lat distal to the stent with 80% in Post Lateral Right posterior descending: ??Ostial lesion: There is an 80% stenosis. The distal vessel supplies a small vascular territory. An angioplasty with balloon angioplasty was performed (see 2nd lesion intervention). Following intervention, there is a residual 0% stenosis with an excellent angiographic appearance, a smooth contour, and MALATHI grade 3 flow (brisk flow). Resulting blush score 3: normal transfer of contrast through the microvasculature. The stent is fully deployed and fully apposed. RCA posterolateral extension: ??Proximal vessel lesion: There is an 80%de reggie stenosis. This lesion is irregularly contoured, complex, eccentric, without evidence of thrombus, worsened from a prior study, and a bifurcation lesion. There is MALATHI grade 3 flow (brisk flow) across the lesion. The lesion is significant by visual estimate. The distal vessel supplies a moderate-sized vascular territory. The lesion is an ACC/AHA type A/B low/moderate risk lesion for intervention. The lesion was stented (see 1st lesion intervention), with balloon angioplasty. Following intervention, there is a residual 0% stenosis with an excellent angiographic appearance and MALATHI grade 3 flow (brisk flow). There were no site complications. HEMODYNAMICS: + + + Stage description ? Condition1:Condition 1 - + + + Arterial pressure s/d (m) 86/64 (74) ? + + + * Electronically signed by Roberta Rangel 2015-07-24 16:22 Procedure Note Roberta Rangel MD - 07/24/[address] [place] [address] Catheterization Laboratory Study Patient: Lan Fernandez Study Date:07/17/2015 : 1955 Referring Physician: Jony Castellon Diagnostic Attending: Roberta Rangel Interventional Attending: Roberta Rangel Diagnostic Fellow: Justin Schroeder Interventional Fellow: Justin Schroeder ATTESTATION: Dr. Roberta Rangel was present and supervising for the entire procedure,I Dr. Justin Schroeder was the initial author of this report. I, Dr. John have reviewed and agree with the findings of this report. PROCEDURE PLAN: Based on the diagnostic study percutaneous coronary intervention isindicated. RESEARCH STUDY: Patient is not enrolled in any research studies. IMPRESSIONS: 1. Single vessel coronary artery disease. 2. Non ST-elevated myocardial infarction (NSTEMI). The culprit lesion was identified and reperfusion was successfully achieved. SUMMARY: 1. HPI and indications: Dyspnea. Coronary artery disease. Unstable angina. 2. Left main: Normal. 3. LAD: Prior intervention: drug-eluting stent in the proximal LAD. Thestent originated in the proximal vessel and terminated in the mid vessel. The stented segment is patent. Proximal vessel lesion: There is a < 10%in-stent restenosis. 4. 1st diagonal: Prior intervention: stent in the proximal D1. Proximalvessel lesion: There is a 10% in-stent restenosis. Mid-vessel lesion: There john paul 30% stenosis. 5. Left circumflex: Mid-vessel lesion: There is a 30% stenosis. 6. 1st obtuse marginal: Prior intervention: stent in the proximal OM1.Proximal vessel lesion: There is a 10% in-stent restenosis. 7. RCA posterolateral extension: Proximal vessel lesion: There is an 80%denovo stenosis. This lesion is irregularly contoured, complex, eccentric,without evidence of thrombus, worsened from a prior study, and a bifurcationlesion. There is MALATHI grade 3 flow (brisk flow) across the lesion. The lesionis significant by visual estimate. The lesion was stented (see 1st lesion intervention), with balloon angioplasty. Following intervention, thereis a residual 0% stenosis with an excellent angiographic appearance and TIMIgrade 3 flow (brisk flow). 8. Right posterior descending: Ostial lesion: There is an 80% stenosis. An angioplasty with balloon angioplasty was performed (see 2nd lesion intervention). Following intervention, there is a residual 0% stenosiswith an excellent angiographic appearance, a smooth contour, and MALATHI grade3 flow (brisk flow). Resulting blush score 3: normal transfer of contrastthrough the microvasculature. The stent is fully deployed and fully apposed. RECOMMENDATIONS: 1. ACC recommendation: PCI w/o planned CABG. 2. Aspirin. 3. Clopidogrel (Plavix). HISTORY: Dyspnea. Coronary artery disease. Unstable angina. Functional status:CCS class IV (angina at rest or with any physical activity). Risk factors:Family history of coronary artery disease. Dyslipidemia. Medications: Betablockers. Anti-anginal therapy. Allergies: No known allergies. LABS, PRIOR TESTS, PROCEDURES AND SURGERY: Serum creatinine (current admission) of 0.9 mg/dl. Hematocrit of 37.6 %. Platelet count of 269 th/ul. Serum potassium (K) of 4.9 mEq/l. Bloodurea nitrogen of 22 mg/dl. Hemoglobin (pre-procedure) of 12.8 g/dl.Catheterization with coronary intervention. STUDY DATA: Patient status: Inpatient. Location: Catheterization laboratory. Sex:male. Patient is 60yr old. Weight: 90.1kg. Procedures performed: Right radial artery access. Left coronary angiography. Right coronary angiography. Lesionintervention: Percutaneous intervention on the 80% de reggie stenosis in the proximal RCA posterolateral extension. Balloon angioplasty. Stent placement. Lesion intervention: Percutaneous intervention on the 80% stenosis atthe ostium of the right posterior descending. Balloon angioplasty. ANESTHESIA: Conscious sedation for pain control by cardiology staff. PROCEDURE: 1. Initial setup. The patient was brought to the laboratory in the fasting state. A baseline ECG was recorded. Surface ECG leads, automatic cuffblood pressure measurements, and pulse oximetric signals were monitored. 2. Skin preparation. The planned puncture sites were prepped withchlorhexidine and draped in the usual sterile manner. 3. Right radial artery access. A 6 FR/10/.021 [place] Sheath SLENDER sheathwas advanced into the vessel. 4. Selective left coronary angiography. A 5 Fr Tig Catheter 4.0 catheterwas advanced into the left coronary vessel ostium under fluoroscopicguidance. Contrast was injected by hand. Images were obtained in multipleprojections. 5. Selective right coronary angiography. A 6F Runway AR2SH catheter wasadvanced into the right coronary vessel ostium under fluoroscopic guidance.Contrast was injected by hand. Images were obtained in multiple projections. 6. Catheter exchange. The catheter was exchanged for a 6F Runway [id number]. 7. Right radial artery hemostasis. Mechanical compression was applied. 1st lesion intervention: Percutaneous intervention on the 80% de reggie stenosis in the proximal RCA posterolateral extension. 1. Balloon angioplasty. A 2.5mm (D) x 12mm (L), Gillett RX balloon waspositioned across the lesion and given three inflations with a maximum inflation pressure of 12atm. 2. Drug-eluting stent placement. A drug-eluting, Synergy Stent(2.75 x 12)stent was advanced across the lesion and deployed with a maximum pressure [id number]. 2nd lesion intervention: Percutaneous intervention on the 80% stenosis at the ostium of the right posterior descending. 1. Vessel setup was performed. A 190cm BMW guidewire wire was used tocross the lesion. 2. Balloon angioplasty. A Trek(2.50 x 15) balloon was positioned acrossthe lesion with a maximum inflation pressure of 12atm. STUDY COMPLETION: The estimated blood loss was 10ml. All catheters inserted during theprocedure were removed. The patient tolerated the procedure well and was dischargedfrom the lab. There were no complications. Contrast: Omnipaque 230ml (totaldose). Fluoroscopy time: 19.2min. Fluoroscopy dose: 169.8cGy. CORONARY ARTERIES: The coronary circulation is right dominant. Left main: Normal. LAD: Prior intervention: drug-eluting stent in the proximal LAD. The stent originated in the proximal vessel and terminated in the mid vessel. Thestented segment is patent. Proximal vessel lesion: There is a < 10% in-stent restenosis. 1st diagonal: Prior intervention: stent in the proximal D1. Proximalvessel lesion: There is a 10% in-stent restenosis. Mid-vessel lesion: There is a30% stenosis. Left circumflex: Mid-vessel lesion: There is a 30% stenosis. 1st obtuse marginal: Prior intervention: stent in the proximal OM1.Proximal vessel lesion: There is a 10% in-stent restenosis. Right coronary: Prior intervention: stent in the distal RCA. Mid-vessellesion: There is a 30% stenosis. Distal vessel lesion: There is a 10% in-stent restenosis. dissection at bifurcation of PDA and Post lat distal to thestent with 80% in Post Lateral Right posterior descending: Ostial lesion: There is an 80% stenosis. Thedistal vessel supplies a small vascular territory. An angioplasty with balloon angioplasty was performed (see 2nd lesion intervention). Followingintervention, there is a residual 0% stenosis with an excellent angiographic appearance,a smooth contour, and MALATHI grade 3 flow (brisk flow). Resulting blush score3: normal transfer of contrast through the microvasculature. The stent isfully deployed and fully apposed. RCA posterolateral extension: Proximal vessel lesion: There is an 80%denovo stenosis. This lesion is irregularly contoured, complex, eccentric,without evidence of thrombus, worsened from a prior study, and a bifurcationlesion. There is MALATHI grade 3 flow (brisk flow) across the lesion. The lesion is significant by visual estimate. The distal vessel supplies amoderate-sized vascular territory. The lesion is an ACC/AHA type A/B low/moderate risklesion for intervention. The lesion was stented (see 1st lesion intervention),with balloon angioplasty. Following intervention, there is a residual 0%stenosis with an excellent angiographic appearance and MALATHI grade 3 flow (briskflow). There were no site complications. HEMODYNAMICS: + + + Stage description Condition1:Condition 1 - + + + Arterial pressure s/d (m) 86/64 (74) + + + * Electronically signed by Roberta Rangel 2015-07-24 16:22 Casey Alex MD CARDIAC CATH ORDERAB LES * EKG 12-LEAD (07/17/2015 10:38 EST) 07/17/2015 10:[address] [facility] EKG - 07/18/2015 16:59 EST ? [facility] ? Test Date: ?2015-07-17 Pat Name: ? LAN FERNANDEZ ?Department: ?? ALYCIA Bradshaw ? Room: ? MW533 Gender: ? 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 [id number] : ?1955 ? Requested By: EL-SALES MOHAMED A Order Number: [id number] ? Reading MD: ?? ELADIO ADES MD ? Measurements Intervals ?Mckenzie ? Rate: ? 72 ? P: ?44 MO: ? 168 ?QRS: ?12 QRSD: ? 105 ?T: ?42 QT: ? 368 ? QTc: ?403 ? Interpretive Statements SINUS RHYTHM POSSIBLE RIGHT VENTRICULAR CONDUCTION DELAY ST ELEVATION, CONSIDER INFERIOR INJURY Compared to ECG 07/16/2015 04:26:47 No significant changes I reviewed the tracing and have either agreed or edited the findings in this report. Electronically Signed On 07-18-15 16:59:36 EST by ELADIO DENNIS MD. 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 Electronically Signed On 07-18-15 16:59:36 EST by ELADIO TIWARI. Justin Schroeder MD CARDIAC ECG ORDER [facility]YE [facility] EKG * HEPARIN LEVEL - UNFRACTIONATED HEPARIN (07/17/2015 5:50 EST) Heparin Level-UFH 0.50 IU/mL 016 6:[address] [facility] Comment: Unfractionated heparin therapeutic range = 0.3-0.7 IU/ml This test is not intended for monitoring direct Xa inhibitors, direct thrombin inhibitors, or fondaparinux. Exogenous ATIII is NOT supplied in this assay. For unexpected or persistently low levels, consider measuring patient's ATIII level. Blood specimen (specimen) BLOOD SPECIMEN / Unknown 07/17/2015 5:50 EST 07/17/2015 5:55 EST Tamika Harris MD HEMATOLOGY & PF4 ORD ERABLES Performing Organization Address [facility] Co de Phone Number [facility] [address] [place] [address] * CREATININE (07/17/2015 5:50 EST) Creatinine 0.85 0.66 - 1.25 mg/dl 07/17/2015 6:37 [facility] GFR, Calculated 96 >60 ml/min/1.7 3m2 07/17/2015 6:37 [facility] Comment: eGFR calculated using CKD-EPI equation for non Americans. Multiply eGFR by 1.16 for Americans. Blood specimen (specimen) BLOOD SPECIMEN / Unknown 07/17/2015 5:50 EST 07/17/2015 5:55 EST Tamika Harris MD CHEMISTRY & BLOOD GA S ORDERABLES Performing Organization Address [facility] Co de Phone Number [facility] [address] [place] [address] * (ABNORMAL) BUN (07/17/2015 5:50 EST) BUN 27(H) 10 - 26 mg/dl 07/17/2015 6:37 [facility] Blood specimen (specimen) BLOOD SPECIMEN / Unknown 07/17/2015 5:50 EST 07/17/2015 5:55 EST Tamika Harris MD CHEMISTRY & BLOOD GA S ORDERABLES Performing Organization Address [facility] Co de Phone Number [facility] [address] [place] [address] * (ABNORMAL) ELECTROLYTES (07/17/2015 5:50 EST) Sodium 131(L) 136 - 145 mEq/L 07/17/2015 6:37 [facility] Potassium 4.6 3.5 - 5.0 mEq/L 07/17/2015 6:37 [facility] Chloride 99 96 - 110 mEq/L 07/17/2015 6:37 [facility] CO2 24 24 - 32 mEq/L 07/17/2015 6:37 [facility] Blood specimen (specimen) BLOOD SPECIMEN / Unknown 07/17/2015 5:50 EST 07/17/2015 5:55 EST Tamika Harris MD CHEMISTRY & BLOOD GA S ORDERABLES [facility] [address] [place] [address] * (ABNORMAL) HEMAGRAM (07/17/2015 5:50 EST) WBC 10.16 4.0 - 10.4 K/cmm 07/17/2015 6:04 [facility] RBC 4.20(L) 4.36 - 5.78 M/cmm 07/17/2015 6:04 [facility] Hemoglobin 12.8(L) 13.8 - 17.3 gm/dl 07/17/2015 6:04 [facility] HCT 37.6(L) 39.5 - 50.2 % 07/17/2015 6:04 [facility] MCV 90 81 - 95 fl 07/17/2015 6:04 [facility] MCH 30.5 27.6 - 33.0 pg 07/17/2015 6:04 [facility] MCHC 34.0 32.8 - 36.4 gm/dl 07/17/2015 6:04 [facility] RDW-CV 12.9 11.8 - 14.1 % 07/17/2015 6:04 [facility] RDW-SD 42.3 36.5 - 45.9 fl 07/17/2015 6:04 [facility] PLT 269 141 - 377 K/cmm 07/17/2015 6:04 [facility] MPV 10.6 9.5 - 12.7 fl 07/17/2015 6:04 [facility] Blood specimen (specimen) BLOOD SPECIMEN / Unknown 07/17/2015 5:50 EST 07/17/2015 5:55 EST Tamika Harris MD HEMATOLOGY & PF4 ORD ERABLES Performing Organization Address City/[facility]/ZIP Co de Phone Number [facility] [address] [place] [address] * (ABNORMAL) TROPONIN I (07/16/2015 20:18 EST) Troponin I (ng/mL) 0.068(H) <0.034 ng/ml 07/16/2015 21:[address] [facility] Blood specimen (specimen) BLOOD SPECIMEN / Unknown 07/16/2015 20:18 EST 07/16/2015 20:43 EST Tamiak Harris MD CHEMISTRY & BLOOD GA S ORDERABLES Performing Organization Address [facility] Co de Phone Number [facility] [address] [place] [address] * (ABNORMAL) TROPONIN I (07/16/2015 12:30 EST) Troponin I (ng/mL) 0.093(H) <0.034 ng/ml 07/16/2015 13:[address] [facility] Blood specimen (specimen) BLOOD SPECIMEN / Unknown 07/16/2015 12:30 EST 07/16/2015 12:43 EST Tamika Harris MD CHEMISTRY & BLOOD GA S ORDERABLES Performing Organization Address [facility] Co de Phone Number [facility] [address] [place] [address] * HEPARIN LEVEL - UNFRACTIONATED HEPARIN (07/16/2015 10:32 EST) Heparin Level-UFH 0.48 IU/mL 016 10:[address] [facility] Comment: Unfractionated heparin therapeutic range = 0.3-0.7 IU/ml This test is not intended for monitoring direct Xa inhibitors, direct thrombin inhibitors, or fondaparinux. Exogenous ATIII is NOT supplied in this assay. For unexpected or persistently low levels, consider measuring patient's ATIII level. Blood specimen (specimen) BLOOD SPECIMEN / Unknown 07/16/2015 10:32 EST 07/16/2015 10:37 EST Tamika Harris MD HEMATOLOGY & PF4 ORD ERABLES [facility] [address] [place] [address] * ECHOCARDIOGRAM LIMITED (07/16/2015 9:38 EST) Anatomical Region Laterality Modality Other 07/16/2015 9:38 EST Narrative 07/16/2015 9:47 EST *Interpreting Group:* *[facility]* [address] [place] [address] ?? Date of study: 07/16/2015 ?? Transthoracic Echocardiography M-mode, limited 2D, limited spectral Doppler, and color Doppler *STUDY CONCLUSIONS* Summary: 1. Left ventricle: The cavity size was normal. Wall thickness was normal. ?? Systolic function was normal. The estimated ejection fraction was 60-65%. ?? Wall motion was normal; there were no regional wall motion abnormalities. 2. Right ventricle: The cavity size was normal. Systolic function was normal. *PATIENT PRESENTATION* Height: ? 182.9cm (72in ) S/D Pressure: 126 / 68 Weight: ? 89.8kg (197.6lb ) BSA: ?2.15m^2 Test start time: ??09:26 AM. Test stop time: ??09:40 AM. ADMITTING ?Corey Stapleton MD, PhD ATTENDING ?Corey Stapleton MD, PhD REFERRING ?Jony Castellon NEWS SPECIALIST ??Abril Braswell PERFORMING ?? [facility], ORDERING ? Lia Snow REFERRING ?Brandon Snow-Gang *PROCEDURE DATA* Procedure information: ??This study was interpreted by [facility]. Pertinent images and digital data are archived for permanent storage and are available for subsequent review. ??Study status: Routine. Transthoracic echocardiography. ??M-mode, limited 2D, limited spectral Doppler, and color Doppler. A Transthoracic Echocardiogram was performed. Scanning was performed from the parasternal, apical, and subcostal acoustic windows. Images were obtained using a Vikas [id number] 6 cardiac ultrasound machine. Image quality was adequate. ??Study completion: ??The patient tolerated the procedure well. *INDICATIONS AND HISTORY* Indications: ?? Unstable angina (I20.0). ??Chest pain, unspecified (R07.9). Labs, prior tests, procedures, and surgery: Transthoracic echocardiography (July 13, 2015). *CARDIAC ANATOMY* Left ventricle: ??The cavity size was normal. Wall thickness was normal. Systolic function was normal. The estimated ejection fraction was 60-65%. Wall motion was normal; there were no regional wall motion abnormalities. Mitral valve: ?? Structurally normal valve. ?? Mobility was not restricted. Doppler: ??Transvalvular velocity was within the normal range. There was no evidence for stenosis. ??No regurgitation. Left atrium: ??The atrium was normal in size. Right ventricle: ??The cavity size was normal. Systolic function was normal. Right atrium: ??The atrium was normal in size. Pericardium: ??There was no significant pericardial effusion. *MEASUREMENT TABLES* 2D measurements ?Normal Left ventricle Volume, ED, MOD, 1-plane ? 68 ml ? -------- Ejection fraction, MOD, 1-plane ?66 % ?-------- Volume index, ED, MOD, 1-plane ? 32 ml/m^2 -------- Volume, ED, MOD, 2-plane ? 68 ml ? 62-170 Ejection fraction, MOD, 2-plane ?66 % ?-------- Volume index, ED, MOD, 2-plane ? 32 ml/m^2 -------- Left atrium Area ES, A4C ? 19.7 cm^2 ?? 8.8-23.4 ?? M-mode measurements ?Normal Left ventricle LV internal dimension, ED ? *58 mm ? 37-56 LV internal dimension, ES ?38 mm ? -------- Fractional shortening ?34 % ?29-45 LV posterior wall, ED ? 8 mm ? 6-11 Septal/posterior wall ratio, ED ?? 1.1 ?-------- Relative wall thickness, ED ? 0.3 ?<0.45 Volume, ED, Teichholz ? 167 ml ? -------- Volume, ES, Teichholz ?62 ml ? -------- Ejection fraction, Teichholz ?*62.9 % ?64-83 Volume index, ED, Teichholz ?78 ml/m^2 -------- Volume index, ES, Teichholz ?29 ml/m^2 -------- Wall mass ? 189.3 g ?-------- Wall mass index ?88.1 g/m^2 ??-------- Mass/height ?1.03 g/cm ?? -------- Ventricular septum Septal thickness, ED ?9 mm ? -------- Legend: Mean values are shown as u=mean value. Asterisk (*) beasley values outside specified normal range. I have personally reviewed the images and have reviewed and edited the reported findings. Electronically signed by Darell Oconnell MD 07/16/2015 09:47 Procedure Note Darell Oconnell MD - 07/16/2015 *Interpreting Group:* *[facility]* [address] [place] [address] Date of study: 07/16/2015 Transthoracic Echocardiography M-mode, limited 2D, limited spectral Doppler, and color Doppler *STUDY CONCLUSIONS* Summary: 1. Left ventricle: The cavity size was normal. Wall thickness was normal. Systolic function was normal. The estimated ejection fraction xkb12-12%. Wall motion was normal; there were no regional wall motionabnormalities. 2. Right ventricle: The cavity size was normal. Systolic function wasnormal. *PATIENT PRESENTATION* Height: 182.9cm (72in ) S/D Pressure: 126 / 68 Weight: 89.8kg (197.6lb ) BSA: 2.15m^2 Test start time: 09:26 AM. Test stop time: 09:40 AM. ADMITTING Corey Stapleton MD, PhD ATTENDING Corey Stapleton MD, PhD REFERRING Jony Castellon NEWS SPECIALIST Abril Braswell PERFORMING [facility], [facility] ORDERING Suryachristina Brandon-Sallie REFERRING Gwendolyn Brandon-Gang *PROCEDURE DATA* Procedure information: This study was interpreted by [facility]. Pertinent images and digital data are archivedfor permanent storage and are available for subsequent review. Study status: Routine. Transthoracic echocardiography. M-mode, limited 2D, limitedspectral Doppler, and color Doppler. A Transthoracic Echocardiogram was performed. Scanning was performed from the parasternal, apical, and subcostalacoustic windows. Images were obtained using a Vikas [id number] 6 cardiac ultrasoundmachine. Image quality was adequate. Study completion: The patient tolerated the procedure well. *INDICATIONS AND HISTORY* Indications: Unstable angina (I20.0). Chest pain, unspecified (R07.9). Labs, prior tests, procedures, and surgery: Transthoracic echocardiography (July 13, 2015). *CARDIAC ANATOMY* Left ventricle: The cavity size was normal. Wall thickness was normal.Systolic function was normal. The estimated ejection fraction was 60-65%. Wallmotion was normal; there were no regional wall motion abnormalities. Mitral valve: Structurally normal valve. Mobility was not restricted. Doppler: Transvalvular velocity was within the normal range. There was no evidence for stenosis. No regurgitation. Left atrium: The atrium was normal in size. Right ventricle: The cavity size was normal. Systolic function wasnormal. Right atrium: The atrium was normal in size. Pericardium: There was no significant pericardial effusion. *MEASUREMENT TABLES* 2D measurements Normal Left ventricle Volume, ED, MOD, 1-plane 68 ml -------- Ejection fraction, MOD, 1-plane 66 % -------- Volume index, ED, MOD, 1-plane 32 ml/m^2 -------- Volume, ED, MOD, 2-plane 68 ml 62-170 Ejection fraction, MOD, 2-plane 66 % -------- Volume index, ED, MOD, 2-plane 32 ml/m^2 -------- Left atrium Area ES, A4C 19.7 cm^2 8.8-23.4 M-mode measurements Normal Left ventricle LV internal dimension, ED *58 mm 37-56 LV internal dimension, ES 38 mm -------- Fractional shortening 34 % 29-45 LV posterior wall, ED 8 mm 6-11 Septal/posterior wall ratio, ED 1.1 -------- Relative wall thickness, ED 0.3 <0.45 Volume, ED, Teichholz 167 ml -------- Volume, ES, Teichholz 62 ml -------- Ejection fraction, Teichholz *62.9 % 64-83 Volume index, ED, Teichholz 78 ml/m^2 -------- Volume index, ES, Teichholz 29 ml/m^2 -------- Wall mass 189.3 g -------- Wall mass index 88.1 g/m^2 -------- Mass/height 1.03 g/cm -------- Ventricular septum Septal thickness, ED 9 mm -------- Legend: Mean values are shown as u=mean value. Asterisk (*) beasley values outside specified normal range. I have personally reviewed the images and have reviewed and edited thereported findings. Electronically signed by Darell Oconnell MD 07/16/2015 09:47 Brandon Snow MD CARDIAC ECHO ORDERAB LES * (ABNORMAL) HEMAGRAM (07/16/2015 5:23 EST) WBC 10.44(H) 4.0 - 10.4 K/cmm 07/16/2015 5:46 [facility] RBC 4.35(L) 4.36 - 5.78 M/cmm 07/16/2015 5:46 [facility] Hemoglobin 13.7(L) 13.8 - 17.3 gm/dl 07/16/2015 5:46 [facility] HCT 39.1(L) 39.5 - 50.2 % 07/16/2015 5:46 [facility] MCV 90 81 - 95 fl 07/16/2015 5:46 [facility] MCH 31.5 27.6 - 33.0 pg 07/16/2015 5:46 [facility] MCHC 35.0 32.8 - 36.4 gm/dl 07/16/2015 5:46 [facility] RDW-CV 12.8 11.8 - 14.1 % 07/16/2015 5:46 [facility] RDW-SD 42.6 36.5 - 45.9 fl 07/16/2015 5:46 [facility] PLT 270 141 - 377 K/cmm 07/16/2015 5:46 [facility] MPV 10.7 9.5 - 12.7 fl 07/16/2015 5:46 [facility] Blood specimen (specimen) BLOOD SPECIMEN / Unknown 07/16/2015 5:23 EST 07/16/2015 5:36 EST Tamika Harris MD HEMATOLOGY & PF4 ORD ERABLES [facility] [address] [place] [address] * (ABNORMAL) TROPONIN I (07/16/2015 5:23 EST) Troponin I (ng/mL) 0.110(H) <0.034 ng/ml 07/16/2015 6:18 [facility] Blood specimen (specimen) BLOOD SPECIMEN / Unknown 07/16/2015 5:23 EST 07/16/2015 5:36 EST Tamika Harris MD CHEMISTRY & BLOOD GA S ORDERABLES [facility] [address] [place] [address] * MAGNESIUM (07/16/2015 5:23 EST) Magnesium 2.1 1.7 - 2.8 mg/dl 07/16/2015 6:11 [facility] Blood specimen (specimen) BLOOD SPECIMEN / Unknown 07/16/2015 5:23 EST 07/16/2015 5:36 EST Tamika Harris MD CHEMISTRY & BLOOD GA S ORDERABLES Performing Organization Address [facility] Co de Phone Number [facility] [address] [place] [address] * ELECTROLYTES (07/16/2015 5:23 EST) Sodium 136 136 - 145 mEq/L 07/16/2015 6:11 [facility] Potassium 4.9 3.5 - 5.0 mEq/L 07/16/2015 6:11 [facility] Chloride 100 96 - 110 mEq/L 07/16/2015 6:11 [facility] CO2 27 24 - 32 mEq/L 07/16/2015 6:11 [facility] Blood specimen (specimen) BLOOD SPECIMEN / Unknown 07/16/2015 5:23 EST 07/16/2015 5:36 EST Tamika Harris MD CHEMISTRY & BLOOD GA S ORDERABLES Performing Organization Address [facility] Co de Phone Number [facility] [address] [place] [address] * CREATININE (07/16/2015 5:23 EST) Creatinine 0.91 0.66 - 1.25 mg/dl 07/16/2015 6:11 [facility] GFR, Calculated 93 >60 ml/min/1.7 3m2 07/16/2015 6:11 [facility] Comment: eGFR calculated using CKD-EPI equation for non Americans. Multiply eGFR by 1.16 for Americans. Blood specimen (specimen) BLOOD SPECIMEN / Unknown 07/16/2015 5:23 EST 07/16/2015 5:36 EST Tamika Harris MD CHEMISTRY & BLOOD GA S ORDERABLES Performing Organization Address City/[facility]/ZIP Co de Phone Number [facility] [address] [place] [address] * BUN (07/16/2015 5:23 EST) BUN 22 10 - 26 mg/dl 07/16/2015 6:[address] [facility] Blood specimen (specimen) BLOOD SPECIMEN / Unknown 07/16/2015 5:23 EST 07/16/2015 5:36 EST Tamika Harris MD CHEMISTRY & BLOOD GA S ORDERABLES Performing Organization Address [facility] de Phone Number [facility] [address] [place] [address] * EKG 12-LEAD (07/16/2015 4:26 EST) 07/16/2015 4:[address] [facility] EKG - 07/19/2015 13:33 EST ? [facility] ? Test Date: ?2015-07-16 Pat Name: ? LAN FERNANDEZ ?Department: ?? TONG 5 ? Room: ? MW533 Gender: ? 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 [id number] : ?1955 ? Requested By: PANTERA Carpio Order Number: [id number] ? Reading MD: ?? ROBERTA RANGEL MD ? Measurements Intervals ?Mckenzie ? Rate: ? 77 ? P: ?31 MO: ? 162 ?QRS: ?4 QRSD: ? 101 ?T: ?35 QT: ? 363 ? QTc: ?411 ? Interpretive Statements SINUS RHYTHM INCOMPLETE RIGHT BUNDLE BRANCH BLOCK Compared to ECG 07/13/2015 12:11:09 No significant changes I reviewed the tracing and have either agreed or edited the findings in this report. Electronically Signed On 07-19-15 13:33:37 EST by ROBERTA RANGEL MD. 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 Electronically Signed On 07-19-15 13:33:37 EST by ROBERTA MADDOX. Tamika Harris MD CARDIAC ECG ORDERABL ES [facility] EKG documented in this encounter Visit Diagnoses Diagnosis Chest pain- Primary Chest pain, unspecified Chest pain, unspecified chest pain type S/P coronary artery stent placement Postsurgical percutaneous transluminal coronary angioplasty status Unstable angina ([facility] Intermediate coronary syndrome documented in this encounter Administered Medications Inactive Administered Medications - up to 3 most recent administrations Medication Order MAR Action Action Date Dose Rate Site aspirin EC tablet 81 mg 81 mg, oral, DAILY, First dose on Wed07/16/15 at 0900, Until Discontinued, Routine Given 07/18/2015 9:49 EST 81 mg Given 07/17/2015 8:27 EST 81 mg Given 07/16/2015 8:20 EST 81 mg aspirin tablet 650 mg 650 mg, oral, NOW X1, 1 dose, On Wed07/16/15 at 1100, Routine Given 07/16/2015 10:53 EST 650 mg atorvastatin (LIPITOR) tablet 40 mg 40 mg, oral, AT BEDTIME, First dose on Wed07/16/15 at 2100, Until Discontinued, Routine Given 07/17/2015 20:55 EST 40 mg Given 07/16/2015 20:42 EST 40 mg bivalirudin (ANGIOMAX) 227.2727 mg in sodium chloride (NS) 0.9 % 50 mL infusion 227.2727 mg, intravenous, FA IP EQF CONTINUOUS PRN FOR ONE STEP MEDS, Starting on Wed07/17/15 at 0932, Until Wed07/17/15 at 1018, Routine New Bag 07/17/2015 9:46 EST 1.605 mg/kg/hr 34.7 mL/ hr New Bag 07/17/2015 9:32 EST 1.466 mg/kg/hr 31.7 mL/hr bivalirudin (ANGIOMAX) injection intravenous, PRN, Starting on Wed07/17/15 at 0930, Until Wed07/17/15 at 1018 Given 07/17/2015 9:30 EST 67.575 mg IV ceFAZolin (ANCEF) injection intravenous, PRN, Starting on Wed07/17/15 at 0906, Until Wed07/17/15 at 0906, Routine Given 07/17/2015 9:06 EST 1 g IV clopidogrel (PLAVIX) tablet 75 mg 75 mg, oral, DAILY, First dose on Wed07/16/15 at 0900, Until Discontinued, Routine Given 07/18/2015 9:49 EST 75 mg Given 07/17/2015 8:27 EST 75 mg Given 07/16/2015 8:20 EST 75 mg fentaNYL citrate (PF) 50 mcg/mL injection intravenous, PRN, Starting on Wed07/17/15 at 0907, Until Wed07/17/15 at 0907, Routine Given 07/17/2015 9:07 EST 25 mcg IV heparin in 1/2 NS 25,000 unit/250 mL infusion 15 Units/kg/hr ? 82.6 kg Adjusted weight (12.39 mL/hr, rounded to 12.4 mL/hr), intravenous, CONTINUOUS, Starting on Wed07/16/15 at 0500, Until Wed07/17/15 at 1018, Routine New Bag 07/17/2015 1:04 EST 15 Units/kg/hr 12.4 mL/ hr Rate Documented 07/17/2015 0:16 EST 15 Units/kg/hr 12.4 mL /hr Rate Documented 07/16/2015 19:40 EST 15 Units/kg/hr 12.4 m L/hr ibuprofen (MOTRIN) tablet 400 mg 400 mg, oral, 4 TIMES DAILY, First dose on Wed07/17/15 at 1200, Until Discontinued, Routine Given 07/18/2015 9:49 EST 400 mg Given 07/17/2015 20:55 EST 400 mg Given 07/17/2015 16:40 EST 400 mg lisinopril (PRINIVIL, ZESTRIL) tablet 5 mg 5 mg, oral, DAILY, First dose on 3/8/16 at 0900, Until Discontinued, Routine Given 07/18/2015 9:48 EST 5 mg Given 07/17/2015 8:28 EST 5 mg Given 07/16/2015 8:21 EST 5 mg metoprolol XL (TOPROL-XL) tablet 25 mg 25 mg, oral, DAILY, First dose on Wed07/16/15 at 0900, Until Discontinued, Routine Given 07/18/2015 9:48 EST 25 mg Given 07/17/2015 8:27 EST 25 mg Given 07/16/2015 8:20 EST 25 mg midazolam (PF) (VERSED) 1 mg/mL injection intravenous, PRN, Starting on Wed07/17/15 at 0907, Until Wed07/17/15 at 0932, Routine Given 07/17/2015 9:32 EST 1 mg IV Given 07/17/2015 9:11 EST 1 mg IV Given 07/17/2015 9:07 EST 1 mg IV morphine injection 2-4 mg 2-4 mg, intravenous, EVERY 5 MIN PRN, Starting on Wed07/16/15 at 0418, Until Herlinda 07/18/15 at 1336, Pain, Routine Given 07/16/2015 20:41 EST 4 mg Given 07/16/2015 18:17 EST 4 mg Given 07/16/2015 13:50 EST 2 mg nitroglycerin 400 mcg/ml in D5W 250 ml infusion 5-15 mcg/min (0.75-2.25 mL/hr, rounded to 0.8-2.3 mL/hr), intravenous, CONTINUOUS, Starting on Wed07/16/15 at 0545, Until Wed07/17/15 at 1150, Routine Rate Documented 07/17/2015 0:16 EST 15 mcg/min 2.3 mL/hr Rate Documented 07/16/2015 19:40 EST 15 mcg/min 2.3 mL/hr Rate Change 07/16/2015 11:57 EST 15 mcg/min 2.3 mL/hr sodium chloride 0.9 % (NS) infusion intravenous, FA IP EQF CONTINUOUS PRN FOR ONE STEP MEDS, Starting on Wed07/17/15 at 0858, Until Wed07/17/15 at 0858, Routine New Bag 07/17/2015 8:58 EST 25 mL/hr 25 mL/hr sodium chloride 0.9 % flush 3 mL 3 mL, intravenous, EVERY 8 HOURS, First dose on Wed07/16/15 at 0800, Until Discontinued, Routine Given 07/18/2015 9:50 EST 3 mL Given 07/17/2015 23:30 EST 3 mL Given 07/17/2015 16:40 EST 10 mL documented in this encounter Active and Recently Administered Medications Times are shown in EST. Scheduled Medication Order 07/16/2015 07/17/2015 07/18/2015 aspirin EC tablet 81 mg (CANCELED) 81 mg, oral, DAILY, First dose on Wed07/16/15 at 0900, Until Discontinued, Routine 0820 (Given - Provider: Theo Lee RN) 08 (Given - Provider: Anam Rudd RN) 0949 (Given - Provider: Edita Bernabe RN) aspirin tablet 650 mg (COMPLETED) 650 mg, oral, NOW X1, 1 dose, On Wed07/16/15 at 1100, Routine 1053 (Given - Provider: Theo Lee RN) atorvastatin (LIPITOR) tablet 40 mg (CANCELED) 40 mg, oral, AT BEDTIME, First dose on Wed07/16/15 at 2100, Until Discontinued, Routine 2041 (Given - Provider: Osmin Dodd RN) 2054 (Given - Provider: Georgiana Vang RN) clopidogrel (PLAVIX) tablet 75 mg (CANCELED) 75 mg, oral, DAILY, First dose on Wed07/16/15 at 0900, Until Discontinued, Routine 0820 (Given - Provider: Theo Lee RN) 08 (Given - Provider: Anam Rudd RN) 0949 (Given - Provider: Edita Bernabe RN) ibuprofen (MOTRIN) tablet 400 mg 400 mg, oral, 4 TIMES DAILY, First dose on Wed07/17/15 at 1200, Until Discontinued, Routine 1127 (Given - Provider: Anam Rudd RN - Comment: mild wayne)1640 (Given - Provider: Georgiana Vang, MELANIE)2054 (Given - Provider: Georgiana Vang RN) 0949 (Given - Provider: Edita Bernabe RN) lisinopril (PRINIVIL, ZESTRIL) tablet 5 mg (CANCELED) 5 mg, oral, DAILY, First dose on Wed07/16/15 at 0900, Until Discontinued, Routine 0821 (Given - Provider: Theo Lee RN) 0828 (Given - Provider: Anam Rudd RN) 0948 (Given - Provider: Edita Bernabe, MELANIE) metoprolol XL (TOPROL-XL) tablet 25 mg (CANCELED) 25 mg, oral, DAILY, First dose on Wed07/16/15 at 0900, Until Discontinued, Routine 0820 (Given - Provider: Theo Lee RN) 0827 (Given - Provider: Anam Rudd, MELANIE) 0948 (Given - Provider: Edita Bernabe RN) sodium chloride 0.9 % flush 3 mL (CANCELED) 3 mL, intravenous, EVERY 8 HOURS, First dose on Wed07/16/15 at 0800, Until Discontinued, Routine 0835 (Given - Provider: Theo Lee RN)1537 (Given - Provider: Theo Lee RN) 0016 (Given - Provider: Osmin Dodd RN)0830 (Not Given - Provider: Anam Rudd RN - Reason: Order parameters not met - Comment: iv infusing)1640 (Given - Provider: Georgiana Vang RN)2330 (Given - Provider: Carly Lazo RN) 0950 (Given - Provider: Edita Bernabe, MELANIE - Comment: given with assessment) Continuous Medication Order 07/16/2015 07/17/2015 07/18/2015 heparin in 1/2 NS 25,000 unit/250 mL infusion (CANCELED) 15 Units/kg/hr ? 82.6 kg Adjusted weight (12.39 mL/hr, rounded to 12.4 mL/hr), intravenous, CONTINUOUS, Starting on Wed07/16/15 at 0500, Until Wed07/17/15 at 1018, Routine 0449 (New Bag - Provider: Osmin Dodd RN)0816 (Rate Documented - Provider: Theo Lee RN)1059 (Rate Documented - Provider: Theo Lee RN)1940 (Rate Documented - Provider: Osmin Dodd RN) 0016 (Rate Documented - Provider: Osmin Dodd RN)0104 (New Bag - Provider: Rosa Barger RN)0858 (Completed - Provider: Nicolle Ulloa RN) nitroglycerin 400 mcg/ml in D5W 250 ml infusion (CANCELED) 5-15 mcg/min (0.75-2.25 mL/hr, rounded to 0.8-2.3 mL/hr), intravenous, CONTINUOUS, Starting on Wed07/16/15 at 0545, Until Wed07/17/15 at 1150, Routine 0554 (New Bag - Provider: Osmin Dodd RN)0814 (Rate Change - Provider: Theo Lee RN)0951 (Rate Change - Provider: Theo Lee RN)1056 (Rate Change - Provider: Theo Lee RN)1157 (Rate Change - Provider: Theo Lee RN)1940 (Rate Documented - Provider: Osmin Dodd RN) 0016 (Rate Documented - Provider: Osmin Dodd RN)0858 (Completed - Provider: Nicolle Ulloa RN) PRN Medication Order 07/16/2015 07/17/2015 07/18/2015 bivalirudin (ANGIOMAX) 227.2727 mg in sodium chloride (NS) 0.9 % 50 mL infusion (CANCELED) 227.2727 mg, intravenous, FA IP EQF CONTINUOUS PRN FOR ONE STEP MEDS, Starting on Wed07/17/15 at 0932, Until Wed07/17/15 at 1018, Routine 0932 (New Bag - Provider: Brittany Zambrano RN - Comment: Bival is actually mixed 250 mg in 55cc ns. Prism is incorrect)0946 (New Bag - Provider: Brittany Zambrano RN)1005 (Completed - Provider: Micah Diaz RN) bivalirudin (ANGIOMAX) injection (CANCELED) intravenous, PRN, Starting on Wed07/17/15 at 0930, Until Wed07/17/15 at 1018 0930 (Given - Provider: Brittany Zambrano RN) ceFAZolin (ANCEF) injection (COMPLETED) intravenous, PRN, Starting on Wed07/17/15 at 0906, Until Wed07/17/15 at 0906, Routine 0906 (Given - Provider: Brittany Zambrano, RN) fentaNYL citrate (PF) 50 mcg/mL injection (COMPLETED) intravenous, PRN, Starting on Wed07/17/15 at 0907, Until Wed07/17/15 at 0907, Routine 0907 (Given - Provider: Brittany Zambrano, RN) midazolam (PF) (VERSED) 1 mg/mL injection (COMPLETED) intravenous, PRN, Starting on Wed07/17/15 at 0907, Until Wed07/17/15 at 0932, Routine 0907 (Given - Provider: Brittany Zambrano, MELANIE)0911 (Given - Provider: Brittany Zambrano, RN)0932 (Given - Provider: Brittany Zambrano, RN) morphine injection 2-4 mg (CANCELED) 2-4 mg, intravenous, EVERY 5 MIN PRN, Starting on Tu07/16/15 at 0418, Until Herlinda 07/18/15 at 1336, Pain, Routine 0816 (Given - Provider: Theo Lee RN)0959 (Given - Provider: Theo Lee RN)1350 (Given - Provider: Theo Lee RN)1817 (Given - Provider: Theo Lee, MELANIE)2041 (Given - Provider: Osmin Dodd RN) sodium chloride 0.9 % (NS) infusion (COMPLETED) intravenous, FA IP EQF CONTINUOUS PRN FOR ONE STEP MEDS, Starting on Wed07/17/15 at 0858, Until Wed07/17/15 at 0858, Routine 0858 (New Bag - Provider: Nicolle Ulloa RN) documented in this encounter Orders Medications Ordered That Vignesh ht Not Have Been Administered Count Last Ordered Date First Ordered Date acetaminophen (TYLENOL) tablet 650 mg 2 01/201607/16/2015 lidocaine-EPINEPHrine 2 %-1: 100,000 injection 5-10 mL 1 07/17/2015 heparin 1,000 unit/mL inject ion 2,900 Units 1 07/16/2015 heparin 1,000 unit/mL inject ion 5,800 Units 1 07/16/2015 nitroGLYCERIN (NITROSTAT) SL tablet 0.4 mg 2 07/16/2015 Diet Count Last Ordered Date First Orde red Date DISCHARGE DIET 2 07/18/2015 07/17/2015 Nursing Count Last Ordered Date First Orde red Date ACTIVITY INSTRUCTIONS 4 07/18/20152015 BATHING INSTRUCTIONS 2 07/18/2015 016 DRIVING INSTRUCTIONS 1 07/18/2015 CONTRAINDICATION TO ANTICOAG ULATION THERAPY 1 07/17/2015 PATIENT NOT A CANDIDATE FOR MECHANICAL VTE PROPHYLAXIS 1 07/17/2015 WOUND CARE INSTRUCTIONS 1 07/17/2015 VTE PHARMACOLOGIC PROPHYLAXI S CURRENTLY ORDERED OR ON ALTERNATIVE THER 1 07/16/2015 Admission Count Last Ordered Date First Orde red Date STATUS: INPATIENT ACUTE ADMISSION 1 016 STATUS: OUTPATIENT OBSERVATION SERVICES 1 0 07/16/2015 Transfer Count Last Ordered Date First Orde red Date NOTIFY PPS OF DISCHARGE COMPLETE 1 07/18/19 16 UR PATIENT STATUS CHANGE 2 07/17/201512/2015 Discharge Count Last Ordered Date First Orde red Date DISCHARGE PATIENT 1 07/18/2015 Legal Count Last Ordered Date First Orde red Date MISCELLANEOUS DISCHARGE INSTRUCTIONS 7 07/0807/17/2015 documented in this encounter Care Teams Brusher Tender Relationship Specialty Start Date End Date Jony Castellon MD [address] [place] [id number] PCP - General 07/04/15 10/12/17 documented as of this encounter
--- OUTSIDE RECORDS SUMMARY | 2023-11-25 01:39 | XMS_ITS | Encounter Summary ---
Author Organization [facility] Address [address] [place] [address] Care Team Providers Care Reducing System Operator Name Role Phone Jony Castellon MD Primary Care Provider [phone] Encounter Details Date Type Department Care Team (Late st Contact Info) Description 07/16/2015 Phlebotomy Only [address] [address] [facility], Outpatient Social History Tobacco Use Types Packs/Day Years [...] No 07/16/2015 documented as of this encounter Plan of Treatment Upcoming Encounters Date Type Department Care Team (Late st Contact Info) Description 12/28/2023 13:00 EDT Office Visit [facility] Cardiology - [facility] [address] [place] [address] Rosalind Mckeon, LEA [address] [facility] [address] [place] [address] documented as of this encounter Visit Diagnoses Not on filedocumented in this encounter Care Teams Reducing System Operator Relationship Specialty Start Date End Date Jony Castellon MD [address] [place] [id number] PCP - General 07/04/15 10/12/17 documented as of this encounter
--- OUTSIDE RECORDS SUMMARY | 2023-11-25 01:39 | XMS_ITS | Patient Health Record ---
Author Organization [facility] Address [address] [place] [address] Care Team Providers Care Spring Coverer Name Role Phone [facility] Primary Care Provider Unavailable Lee Keenan Unavailable [phone] REASON FOR REFERRAL No Information MEDICATIONS Medication SIG (Take, Route, Frequency, Duration) Notes Start Date End Date Status ASPIR 81 81 mg 1 tab(s) orally once a day STOP*please review for potential update for e-prescription and drug interaction check* Active Atorvastatin Calcium 40 mg 1 tab(s) orally once a day Active PLAN OF TREATMENT No Information Insurance Providers Payer Name Payer Address Payer Phone Subscriber Number Group Number Insured Name Patient Relationship to Insured Coverage Start Date Coverage End Date [place] [address] RAS FERNANDEZ Self - patient is the insured
--- OUTSIDE RECORDS SUMMARY | 2023-11-25 01:39 | XMS_ITS | Encounter Summary ---
Author Organization [facility] Address [address] [place] [address] Care Team Providers Care 5Th Grade Teacher Name Role Phone Jony Castellon MD Primary Care Provider [phone] Encounter Details Date Type Department Care Team (Late st Contact Info) Description 08/06/2015 Phlebotomy Only [facility] [address] [place] [address] Piano Technician, Outpatient Coronary artery disease involving [place] coronary artery of [place] heart without angina pectoris; Dark urine Social History Tobacco Use Types Packs/Day Years [...] No 08/06/2015 documented as of this encounter Plan of Treatment Upcoming Encounters Date Type Department Care Team (Late st Contact Info) Description 12/28/2023 13:00 EDT Office Visit [facility] Cardiology - [facility] [address] [place] [address] Rosalind Mckeon, LEA [address] [place] [address] documented as of this encounter Procedures Procedure Name Priority Date/Time Associated Diagnosis Comments CK Routine 08/06/2015 11:20 EDT Dark urine COMPREHENSIVE METABOLIC PANEL (CMP) Routine 08/06/2015 11:20 EDT Coronary artery disease involving [place] coronary artery of [place] heart without angina pectoris documented in this encounter Results * CK (08/06/2015 11:20 EDT) CK 91 0 - 250 U/L 08/06/2015 13:04 EDT [facility] Blood specimen (specimen) BLOOD SPECIMEN / Unknown 08/06/2015 11:20 EDT 08/06/2015 12:43 EDT Ken Kapadia MD CHEMISTRY & BLOOD GA S ORDERABLES [facility] [address] [place] [address] * (ABNORMAL) COMPREHENSIVE METABOLIC PANEL (CMP) (08/06/2015 11:20 EDT) Potassium 5.2(H) 3.5 - 5.0 mEq/L 08/06/2015 13:04 EDT [facility] Sodium 140 136 - 145 mEq/L 08/06/2015 13:04 EDT [facility] Chloride 101 96 - 110 mEq/L 08/06/2015 13:04 EDT [facility] CO2 28 24 - 32 mEq/L 08/06/2015 13:04 [facility] Total Alkaline Phosphatase 69 38 - 126 U/L 08/06/2015 13:04 [facility] Bilirubin, Total 1.3 <1.4 mg/dl 08/06/19 16 13:04 [facility] AST 25 15 - 46 U/L 08/06/2015 13:04 [facility] ALT 45 21 - 72 U/L 08/06/2015 13:04 [facility] Albumin 4.5 3.4 - 4.9 g/dl 08/06/2015 13:04 [facility] Total Protein 7.3 6.3 - 8.2 g/dl 08/06/2015 13:04 [facility] Creatinine 0.98 0.66 - 1.25 mg/dl 08/06/2015 13:04 [facility] GFR, Calculated 85 >60 ml/min/1.7 3m2 08/06/2015 13:04 [facility] Comment: eGFR calculated using CKD-EPI equation for non Americans. Multiply eGFR by 1.16 for Americans. BUN 26 10 - 26 mg/dl 08/06/2015 13:04 [facility] Calcium 9.7 8.5 - 10.5 mg/dl 08/06/2015 13:04 [facility] Calculated Calcium 9.6 8.5 - 10.5 mg/dl 08/06/2015 13:04 [facility] Glucose, Serum 95 70 - 100 mg/dl 08/06/2015 13:04 [facility] Fasting? No 08/06/2015 11:24 [facility] Blood specimen (specimen) BLOOD SPECIMEN / Unknown 08/06/2015 11:20 EDT 08/06/2015 12:43 EDT Ken Kapadia MD CHEMISTRY & BLOOD GA S ORDERABLES [facility] [address] [place] [address] documented in this encounter Visit Diagnoses Diagnosis Coronary artery disease involving [place] coronary artery of [place] heart without angina pectoris Dark urine Other nonspecific finding on examination of urine documented in this encounter Care Teams 5Th Grade Teacher Relationship Specialty Start Date End Date Jony Castellon MD [address] [place] [id number] PCP - General 07/04/15 10/12/17 documented as of this encounter
--- OUTSIDE RECORDS SUMMARY | 2023-11-25 01:39 | XMS_ITS | Encounter Summary ---
Author Organization [facility] Address [address] [place] [address] Care Team Providers Care Custodial Officer Name Role Phone Jony Castellon MD Primary Care Provider Reason for Visit * Reason Onset Date Comments Results 08/08/2015 Labs of 08/06/15 Returning Call 08/08/2015 to Trish Encounter Details Date Type Department Care Team (Late st Contact Info) Description 08/08/2015 Telephone [facility] Cardiology - [address] [place] [address] Trish No RN Results (Labs of 08/06/15); Returning Call (to Trish) Social History Tobacco Use Types Packs/Day Years [...] No 08/06/2015 Cognitive Status Response Date of Assess ent Because of a physical, menta l, or emotional condition, does this person have serious difficulty concentrating, remembering, or making decisions? No 08/06/2015 documented as of this encounter Miscellaneous Notes * Telephone Encounter - Trish No RN - 08/08/2015 [address] Beckett reviewed his lab results of 08/06/15 and advised his labs look fine. Hewas pleased with the news. No communication barriers noted. Trish No RN * Telephone Encounter - Abril Zamora - 08/08/2015 1116 EDT Reason for Call: Results and Returning Call Summary/Symptoms: Pt returning a call to Trish. Please call Abril Zamora 08/08/2015 11:16 * Telephone Encounter - Trish No RN - 08/08/2015 1031 EDT ----- Message from Ken Beckett MD sent at 08/08/2015 9:34 EDT ----- Labs look fine can let patient know Ken Beckett MD documented in this encounter Plan of Treatment Upcoming Encounters Date Type Department Care Team (Late st Contact Info) Description 12/28/2023 13:00 EDT Office Visit [facility] Cardiology - [place] [address] Rosalind Mckeon PA-C [address] [place] [address] [place] [address] documented as of this encounter Visit Diagnoses Not on filedocumented in this encounter Care Teams Custodial Officer Relationship Specialty Start Date End Date Jony Castellon MD [address] [place] [address] PCP - General 07/04/15 10/12/17 documented as of this encounter
--- OUTSIDE RECORDS SUMMARY | 2023-11-25 01:39 | XMS_ITS | Encounter Summary ---
Author Organization [facility] Address [address] [place] [address] Care Team Providers Care Mine Laborer Name Role Phone Jony Castellon MD Primary Care Provider Reason for Visit * Reason Onset Date Comments Paperwork request 07/29/2017 Letter of Card iac Clearance for Colonoscopy Other 08/02/2017 Cardiac Clearanc e Returning Call 07/29/2017 To Daysi Medication Questions 08/04/2017 aspirin and colo Encounter Details Date Type Department Care Team (Late st Contact Info) Description 07/29/2017 Telephone [facility] Cardiology - [address] [place] [address] Ken Kapadia MD [address] [place] [address] Paperwork request (Letter of Cardiac Clearance for Colonoscopy); Other (Cardiac Clearance); Returning Call (To Daysi); Medication Questions (aspirin and colo) Social History Tobacco Use Types Packs/Day Years [...] Telephone Encounter - Trish No, RN - 08/03/2017 1409 EDT Carly freeman/ Cr. Spencer's office calling to request a letter of cardiac clearance for Colonoscopy.She clarifies this is for routine screening. No date scheduled until clearance letter done. Patient is s/p LHC w/ PCI 07/16/17. Last OV 10/13/16. Trish No RN Need to see patient, havent seen since 10/2016 EdMD Carly Foster/ Dr. Spencer's Office notified. Advised I've not yet been able to connect with patient.Will update her when I know more. Trish No, RN * Telephone Encounter - Ailne Gutierrez - 08/02/2017 1445 EDT Reason for Call: Paperwork request (Letter of Cardiac Clearance for Colonoscopy); Other (Cardiac Clearance); and Returning Call (To Daysi) Summary/Symptoms: Patient returning call to Daysi Mireles Carrier 08/02/2017 14:45 * Telephone Encounter - Desmond Burdick - 08/02/2017 [address] Jones Office calling back and left the fax number listed above in contacts for the letter to be faxed over .. Thank you. * Telephone Encounter - Sabina Alejandro - 08/02/2017 [address] Spencer's office calling, office performing the pts upcoming Colonoscopy, calling in regards to Cardiac Clearance. Office is waiting for approval prior to scheduling the procedure - looking to connect. Noted that our office has been trying to contact the pt without success. Please review and call Carly - KODI OK. * Telephone Encounter - Shanda Solomon - 07/29/2017 1203 EDT Reason for Call: Paperwork request (Letter of Cardiac Clearance for Colonoscopy) Summary/Symptoms: Please contact regarding obtaining a letter of Cardiac Clearance for Colonoscopy. Shanda Solomon 07/29/2017 12:03 documented in this encounter Plan of Treatment Upcoming Encounters Date Type Department Care Team (Late st Contact Info) Description 12/28/2023 13:00 EDT Office Visit [facility] Cardiology - [address] [place] [address] Rosalind Mckeon, LEA [address] [facility] [address] [place] [address] documented as of this encounter Visit Diagnoses Not on filedocumented in this encounter Care Teams Mine Laborer Relationship Specialty Start Date End Date Jony Castellon MD [address] [place] [address] PCP - General 07/04/15 10/12/17 documented as of this encounter
--- OUTSIDE RECORDS SUMMARY | 2023-11-25 01:39 | XMS_ITS | Encounter Summary ---
Author Organization [facility] Address [address] [place] [address] Care Team Providers Care Purchasing Analyst Name Role Phone Jony Castellon MD Primary Care Provider [phone] Reason for Visit * Reason Comments Coronary Artery Disease 6 month follow u p, has not been well, has gained weioght. Seems like nothing heals when he gets hurt. Has been having chest pains off and of. Says he hurt himself and never went to a doctor. Encounter Details Date Type Department Care Team (Latest Contact Info) Description 04/16/2016 13:50 EST Office Visit [facility] Cardiology - [address] [place] [address] Ken Kapadia MD [address] [place] [address] Atherosclerosis of [place] coronary artery of [place] heart without angina pectoris (Primary Dx) Social [...] Sign Reading Time Taken Comments Blood Pressure 144/82 04/16/2016 1351 EST Pulse 75 04/16/2016 1351 EST Temperature - - Respiratory Rate - - Oxygen Saturation 98% 04/16/2016 1351 EST Inhaled Oxygen Concentration - - Weight 88.9 kg (196 lb) 04/16/2016 1351 EST Height - - Body Mass Index 26.58 10/08/2015 1038 EDT documented in this encounter Functional Status [...] visiting a doctor's office or shopping? No 10/08/2015 Cognitive Status Response Date of Assessm ent Because of a physical, menta l, or emotional condition, does this person have serious difficulty concentrating, remembering, or making decisions? No 10/08/2015 documented as of this encounter Progress Notes * Ken Kapadia MD - 04/16/2016 1411 EST Subjective: Patient is a 61 y.o. male who presents for follow-up of CAD. Patient reports chest injury when using pipe wrench this summer. Then atypical chest pain after. UNLIKE cardiac pain. He denies chest painon exertion and dyspnea on exertion. He describes his symptoms as not changed. He has been compliant with his medications. Medications side effects include bruising from plavix Past Medical History Diagnosis Date ??? Abnormal nuclear stress test ??? Chest pain radiating to arm ??? Family history of coronary artery disease ??? HLD (hyperlipidemia) Patient Active Problem List Diagnosis Date Noted ??? Subsequent non-ST elevation (NSTEMI) myocardial infarction within 4 weeks of initial /05/2016 Priority: Medium ??? Chest pain 07/08/2015 Priority: Medium Current Outpatient Prescriptions Medication Sig Dispense Refill [...] by mouth daily. 90 Tab 3 ??? famotidine (PEPCID) 20 mg tablet Take 1 Tab by mouth daily. (Patient not taking: Reported on 04/16/2016) 90 Tab 3 ??? ibuprofen (MOTRIN) 400 mg tablet Take 1 Tab by mouth 4 times daily. (Patient not taking: Reported on 04/16/2016) 16 Tab 0 ??? lisinopril (PRINIVIL, ZESTRIL) 5 mg tablet Take 1 Tab by mouth daily. (Patient not taking: Reported on 04/16/2016) 90 Tab 1 ??? LORazepam (ATIVAN) 0.5 mg tablet Take [...] listed above, all others are negative. Objective: Visit Vitals ??? BP (!) 144/82 ??? Pulse 75 ??? Wt 88.9 kg (196 lb) ??? SpO2 98% ??? BMI 26.58 kg/m2 Body mass index is 26.58 kg/(m^2). Physical Exam: General: Alert, cooperative, no distress, [...] 89 07/13/2015 Assessment: Lan Lima is a 61 y.o. year old male who presents with cad. Stable Plan: D/c PLavix documented in this encounter Plan of Treatment Upcoming Encounters Date Type Department Care Team (Late st Contact Info) Description 12/28/2023 13:00 EDT Office Visit [facility] Cardiology - [address] [facility] [place], [place] [id number] Rosalind Mckeon, PAKatharina [address] [facility] [address] [place] [address] documented as of this encounter Visit Diagnoses Diagnosis Atherosclerosis of [place] coronary artery of [place] heart without angina pectoris- Primary documented in this encounter Discontinued Medications Medication Sig Discontinue Reason Start Date End Da te clopidogrel (PLAVIX) 75 mg tablet Take 1 Tab by mouth daily. 07/08/2015 04/16/2016 documented as of this encounter Historical Medications * This list may reflect changes made after this encounter. Medication Sig Dispensed Refills Start Date End Date LORazepam (ATIVAN) 0.5 mg tablet Take 1 mg by mouth 2 times daily. 06/05/2019 added in this encounter Care Teams Purchasing Analyst Relationship Specialty Start Date End Date Jony Castellon MD [address] [place] [address] [address] [place] [address] PCP - General 07/04/15 10/12/17 documented as of this encounter
--- OUTSIDE RECORDS SUMMARY | 2023-11-25 01:39 | XMS_ITS | Encounter Summary ---
Author Organization [facility] Address [address] [place] [address] Care Team Providers Care Netezza Developer Name Role Phone Veronica Servin MD Primary Care Provider [phone] Reason for Visit * Reason Onset Date Comments Nail Problem 08/02/2018 purple Shortness of Breath 08/02/2018 Encounter Details Date Type Department Care Team (Late st Contact Info) Description 08/02/2018 Telephone [facility] Cardiology - [address] [place] [address] Ken Kapadia MD [address] [place] [address] Nail Problem (purple); Shortness of Breath Social History Tobacco Use Types Packs/Day Years [...] Telephone Encounter - Nidhi Toledo RN - 08/03/2018 0930 EDT Spoke to , pt will be here for FUR with Dr Kapadia tomorrow. * Telephone Encounter - Nidhi Toledo RN - 08/02/2018 1614 EDT Call from Alina at Dr Orellana's office. She stated that pt has cyanotic nailbeds, but 02 sats are fine. States he had been using a hairdye that contains a compound called Phenylenediamine, and PCP isn't sure that it may cause methemoglobinemia. PCP also came onto phone, Dr Orellana, stated he is not sure why pt is cyanotic and feels he shouldbe seen by Cardiology soon. * Telephone Encounter - Nidhi Toledo RN - 08/02/2018 1536 EDT Spoke to pt, he stated he went to PCP office last 07/[address] Orellana as his regular MD wasout that day. States has had a bit of back pain, lower and SOB. Let him know would get records from PCP to review with Kang and that he will need to most likelybe seen Soon. Advised if became more severe with SOB and it started lasting longer, as well as back pain, to go to nearest ER No learning barriers identified. Pt agrees with plan. LM with Dr Orellana's RN, Alina- left to call my direct line to get labs faxed here and office note, and to call me. * Telephone Encounter - Jennie Mcghee V. - 08/02/2018 1448 EDT Patient reporting that he has not had any energy lately and becomes short of breath easily. His nails have turned dark purple. Saw PCP for this, who is not sure what is causing this and told patient to call this office. documented in this encounter Plan of Treatment Upcoming Encounters Date Type Department Care Team (Late st Contact Info) Description 12/28/2023 13:00 EDT Office Visit [facility] Cardiology - [address] [place] [address] Rosalind Mckeon, PA-C [address] [facility] [address] [place] [address] documented as of this encounter Visit Diagnoses Not on filedocumented in this encounter Care Teams Netezza Developer Relationship Specialty Start Date End Date Veronica Servin MD PCP - General 10/13/17 08/22/18 documented as of this encounter
--- OUTSIDE RECORDS SUMMARY | 2023-11-25 01:39 | XMS_ITS | Encounter Summary ---
Author Organization [facility] Address [address] [place] [address] Care Team Providers Care Sushi Chef Name Role Phone Veronica Servin MD Primary Care Provider [phone] Reason for Visit * Reason Onset Date Comments Paperwork request 03/15/2018 Encounter Details Date Type Department Care Team (Late st Contact Info) Description 03/15/2018 Telephone [facility] Cardiology - [address] [place] [address] Ken Kapadia MD [address] [place] [address] Paperwork request Social History Tobacco Use Types Packs/Day Years [...] Telephone Encounter - Trish No, RN - 03/15/2018 1247 EST Clinic Note, Physician note of Clearance for Colonoscopy, Stress Test faxed to [facility] att: Dr. Mariana Ventura as per Patient's request. Left message for patient generic line - he may call for update. Trish No RN * Telephone Encounter - Kellen Headley - 03/15/2018 0855 EST Patient had a check upwith Dr Kapadia recently to clear him for a colonoscopy. Please send a copy of that visit to [facility] C/o Dr Mariana [facility] [phone] Originally the paperwork was sent to [facility] but the patient has changed his mind asto where he will have the procedure documented in this encounter Plan of Treatment Upcoming Encounters Date Type Department Care Team (Late st Contact Info) Description 12/28/2023 13:00 EDT Office Visit [facility] Cardiology - [address] [place] [address] Rosalind Mckeon, FANC [address] [facility] [address] [place] [address] documented as of this encounter Visit Diagnoses Not on filedocumented in this encounter Care Teams Sushi Chef Relationship Specialty Start Date End Date Veronica Servin MD PCP - General 10/13/17 08/22/18 documented as of this encounter
--- OUTSIDE RECORDS SUMMARY | 2023-11-25 01:39 | XMS_ITS | Encounter Summary ---
Author Organization [facility] Address [address] [place] [address] Care Team Providers Care Sampler Tester Name Role Phone Jony Castellon MD Primary Care Provider [phone] Reason for Visit * Reason Comments Coronary Artery Disease Chest Pain an ache if I push hi mself too hard Encounter Details Date Type Department Care Team (Latest Contact Info) Description 10/08/2015 10:20 EDT Office Visit [facility] Cardiology - [address] [place] [address] Ken Kapadia MD [address] [place] [address] Atherosclerosis of [place] coronary artery of [place] heart without angina pectoris [I25.10] (Primary Dx) Discharge Disposition: Auto Discharge Social History Tobacco [...] Sign Reading Time Taken Comments Blood Pressure 98/64 10/08/2015 1038 EDT Pulse 60 10/08/2015 1038 EDT Temperature - - Respiratory Rate - - Oxygen Saturation 98% 10/08/2015 1038 EDT Inhaled Oxygen Concentration - - Weight 84.4 kg (186 lb) 10/08/2015 1038 EDT Height 182.9 cm (6') 10/08/2015 1038 EDT Body Mass Index 25.23 10/08/2015 1038 EDT documented in this encounter [...] No 10/08/2015 documented as of this encounter Discharge Diagnoses Diagnosis I25.10 Atherosclerotic heart disease of [place] coronary artery without angina pectoris-I25.10[ICD-10-CM] documented in this encounter Discharge Disposition Disposition Code Departure Means Destination Auto Discharge documented in this encounter Progress Notes * Ken Kapadia MD - 10/08/2015 1053 EDT Subjective: Patient is a 60 y.o. male who presents for evaluation of cad. Patient reports pain free for the most part. Occasional chest pain if he works hard all day. He denies chest pain on exertion and dyspneaon exertion. He describes his symptoms as improved. He has been compliant with his medications. Medications side effects include none Past Medical History Diagnosis Date ??? Chest pain radiating to arm ??? Abnormal nuclear stress test ??? HLD (hyperlipidemia) ??? Family history of coronary artery disease Patient Active Problem List Diagnosis Date Noted ??? Subsequent non-ST elevation (NSTEMI) myocardial infarction within 4 weeks of initial [id number]/05/2016 Priority: Medium ??? Chest pain 07/08/2015 Priority: [...] by mouth daily. 90 Tab 3 ??? ibuprofen (MOTRIN) 400 mg tablet Take 1 Tab by mouth 4 times daily. 16 Tab 0 ??? lisinopril (PRINIVIL, ZESTRIL) 5 mg tablet Take 1 Tab by mouth daily. 90 Tab 1 ??? metoprolol XL (TOPROL-XL) 25 mg tablet Take 1 Tab by mouth daily. 90 Tab 3 ??? nitroGLYCERIN (NITROSTAT) 0.[address] 0.4 mg under the tongue every 5 minutes as needed for Chest Pain. No current facility-administered medications for this visit. Review of Systems A ten point ROS was performed. Pertinent positives are listed above, all others are negative. Objective: BP 98/64 mmHg Pulse 60 Ht 182.9 cm (72) Wt 84.369 kg (186 lb) BMI 25.22 kg/m2 SpO2 98% Body mass index is 25.22 kg/(m^2). Physical Exam: General: Alert, cooperative, no [...] 89 07/13/2015 Assessment: Lan Lima is a 60 y.o. year old male who presents with cad. 3 months from last event w/ nl LVfunction Plan: D/c Toprol documented in this encounter Plan of Treatment Upcoming Encounters Date Type Department Care Team (Late st Contact Info) Description 12/28/2023 13:00 EDT Office Visit [facility] Cardiology - [facility] [address] [facility] [place], [place] [id number] Rosalind Mckeon, PA-C [address] [facility] [address] [place] [address] documented as of this encounter Visit Diagnoses Diagnosis Atherosclerosis of [place] coronary artery of [place] heart without angina pectoris [I25.10]- Primary documented in this encounter Care Teams Sampler Tester Relationship Specialty Start Date End Date Jony Castellon MD [address] [place] [address] PCP - General 07/04/15 10/12/17 documented as of this encounter
--- OUTSIDE RECORDS SUMMARY | 2023-11-25 01:39 | XMS_ITS | Encounter Summary ---
Author Organization [facility] Address [address] [place] [address] Care Team Providers Care Continuous Process Coffee Roaster Name Role Phone Unavailable Primary Care Provider Unavailabl e Encounter Details Date Type Department Care Team (Late st Contact Info) Description 09/14/2007 Results Only [facility] - [facility] [address] [place] [address] Rebel Huitron MD [address] [place] [id number] Social History Tobacco Use Types Packs/Day Years Used Date Smoking Tobacco: Never Assessed Sex and Gender Information Value Date Recorded Sex Assigned at Male 06/05/2019 10:10 EST Gender Identity Male 06/05/2019 10:10 EST Sexual Orientation Not on file documented as of this encounter Plan of Treatment Upcoming Encounters Date Type Department Care Team (Late st Contact Info) Description 12/28/2023 13:00 EDT Office Visit [facility] Cardiology - [address] [address] Rosalind Mckeon PA-C [address] [facility] [address] [place] [address] documented as of this encounter Procedures Procedure Name Priority Date/Time Associated Diagnosis Comments SURGICAL PATHOLOGY Routine 09/14/2007 0:00 EDT documented in this encounter Results * SURGICAL PATHOLOGY (09/14/2007 0:00 EDT) Pathology Report: SURGICAL PATHOLOGY REPORT Reports generated via electronic interface contain original data; however they are lacking the format of the original report. Caution should be taken when reading/interpreti ng unformatted reports. Name: ? LAN LIMA ? Accession #: ? [id number] ? : ? 1955 (Age: 52) ??M ? Collect Date: ? 09/14/2007 ? Location: ? [facility] ? Receive Date: ? 09/15/2007 ? Provider: REBEL HUITRON MD Copy to: YANELY HART DO ? Final Pathologic Diagnosis: A. ?Colon, transverse, polyp, biopsy: 1. ?Hyperplastic polyp. B. ?Rectum, polyp, biopsies: 1. ?Fragments of hyperplastic polyps. Document reviewed and electronically signed by: MODESTO ROMAN MD Report ??Date: 09/19/2007 10:27 By the signature above, the attending physician certifies that he/she has personally conducted a gross and/or microscopic examination of the described specimens and rendered or confirmed the above diagnosis. Specimen(s) Received: A. ?Transverse colon polyp B. ? Rectal polyp Clinical History: ? Rectal bleeding Gross Description: ? Received in Hollande's fixative labelled Lima and #1 transverse colon polyp is a soft briones-pink tissue fragment measuring 0.4 x 0.3 x 0.2 cm. ??The specimen is entirely submitted as (A). Received in Hollande's fixative labelled Lima and rectal polyp are three soft briones-pink tissue fragments ranging from 0.2 x 0.2 x 0.2 cm to 0.3 x 0.3 x 0.2 cm. ??The specimen is entirely submitted as (B). ??(Kang Hauser)/tmg End of Report [facility]LE[facility] BOOTH 09/14/2007 09/15/2007 14: 54 EDT Rebel Huitron MD PATHOLOGY ORDERABLES [facility] [address] [place] [address] documented in this encounter Visit Diagnoses Not on filedocumented in this encounter
--- OUTSIDE RECORDS SUMMARY | 2023-11-25 01:39 | XMS_ITS | Encounter Summary ---
Author Organization [facility] Address [address] [place] [address] Care Team Providers Care Log Sawyer Name Role Phone Unknown, Provider Primary Care Provider [phone] Encounter Details Date Type Department Care Team (Late st Contact Info) Description 07/02/2015 Results Only Imaging [facility]- [facility] [phone] Erick Holden MD [address] [place] [id number] Social History Tobacco Use Types Packs/Day Years Used Date Smoking Tobacco: Never Assessed Sex and Gender Information Value Date Recorded Sex Assigned at Male 06/05/2019 10:10 EST Gender Identity Male 06/05/2019 10:10 EST Sexual Orientation Not on file documented as of this encounter Plan of Treatment Upcoming Encounters Date Type Department Care Team (Late st Contact Info) Description 12/28/2023 13:00 EDT Office Visit [facility] Cardiology - [address] [place], [place] [phone] Rosalind Mckeon PA-C [address] [facility] [address] [place] [address] documented as of this encounter Procedures Procedure Name Priority Date/Time Associated Diagnosis Comments LEFT HEART CATH 07/08/2015 9:08 EST documented in this encounter Results * LEFT HEART CATH (07/08/2015 9:08 EST) Anatomical Region Laterality Modality Other 07/08/2015 9:08 EST Narrative 07/16/2015 17:12 EST Cardiology [address] [place] [address] ?? Catheterization Laboratory Study Patient: Lan Lima ? Study Date: ?07/08/2015 ? Accession #: ? [id number] : ? 1955 Referring Physician: Unknown, Doctor Diagnostic Attending: ??Ken Kapadia Interventional Attending: ?? Ken Kapadia Diagnostic Fellow: Jean Pierre Gotti Interventional Fellow: Lia Snow ATTESTATION: Dr. Ken Kapadia was present and supervising for the entire procedure, I Dr. Stephanie Snow was the initial author of this report. I, Dr. Ken Kapadia have reviewed and agree with the findings of this report. PROCEDURE PLAN: Based on the diagnostic study percutaneous coronary intervention is indicated. RESEARCH STUDY: Patient is not enrolled in any research studies. IMPRESSIONS: 1. Moderate triple vessel coronary artery disease. 2. Unstable angina. The culprit lesion was identified, reperfusion was ?? successfully achieved, and myocardial function was preserved. 3. Intravascular ultrasound cross sectional area of the LAD was done to ensure ?? well apposition of the LAD stent. High pressure 4.0 balloon was used. Distal ?? RCA lesion was also IVUS and due to atherosclerosis in the area and ?? narrowing, DARLIN was placed. 4. Which is significant for ischemia. SUMMARY: 1. HPI and indications: Dyspnea. Unstable angina. 2. LAD: Proximal vessel lesion: There is a diffuse, 26mm (L), 80%stenosis. This ?? lesion is irregularly contoured, hazy, eccentric, and a bifurcation lesion. ?? There is MALATHI grade 3 flow (brisk flow) across the lesion. The lesion is ?? significant by visual estimate. The distal vessel supplies a large vascular ?? territory. The lesion is a likely culprit for the patient's anginal symptoms ?? and clinical presentation and an ACC/AHA type B2 moderate risk lesion for ?? intervention, with 2 or more adverse characteristics. The lesion was stented ?? using a drug-eluting stent (see 2nd lesion intervention), with balloon ?? angioplasty, jailing the first diagonal. Following intervention, there is a ?? residual 0% stenosis with an excellent angiographic appearance and MALATHI grade ?? 3 flow (brisk flow). Mid-vessel lesion: There is a diffuse, 12mm (L), ?? 80%stenosis. This lesion is irregularly contoured, hazy, eccentric, and a ?? bifurcation lesion. There is MALATHI grade 3 flow (brisk flow) across the ?? lesion. The lesion is significant by visual estimate. The distal vessel ?? supplies a moderate-sized vascular territory. The lesion is a likely culprit ?? for the patient's anginal symptoms and clinical presentation and an ACC/AHA ?? type B1 moderate risk lesion for intervention, with 1 adverse ?? characteristic. The lesion was stented using a drug-eluting stent (see 4th ?? lesion intervention), with balloon angioplasty, jailing the first diagonal. ?? Following intervention, there is a residual 0% stenosis with an excellent ?? angiographic appearance and MALATHI grade 3 flow (brisk flow). 3. 1st diagonal: Ostial lesion: There is a diffuse, 12mm (L), 80%stenosis. This ?? lesion is irregularly contoured, hazy, eccentric, and a bifurcation lesion. ?? There is MALATHI grade 3 flow (brisk flow) across the lesion. The lesion is ?? significant by visual estimate. The distal vessel supplies a moderate-sized ?? vascular territory. The lesion is a likely culprit for the patient's anginal ?? symptoms and clinical presentation and an ACC/AHA type B moderate risk ?? lesion for intervention. The lesion was stented using a drug-eluting stent ?? (see 3rd lesion intervention), with balloon angioplasty. Following ?? intervention, there is a residual 0% stenosis with an excellent angiographic ?? appearance and MALATHI grade 3 flow (brisk flow). 4. 1st obtuse marginal: Proximal vessel lesion: There is a diffuse, 16mm (L), ?? 95%stenosis. This lesion is irregularly contoured, hazy, and eccentric. There ?? is MALATHI grade 3 flow (brisk flow) across the lesion. The lesion is ?? significant by visual estimate. The distal vessel supplies a moderate-sized ?? vascular territory. The lesion is a likely culprit for the patient's anginal ?? symptoms and clinical presentation and an ACC/AHA type B moderate risk ?? lesion for intervention. The lesion was stented using a drug-eluting stent ?? (see 1st lesion intervention), with balloon angioplasty. Following ?? intervention, there is a residual 0% stenosis with an excellent angiographic ?? appearance and MALATHI grade 3 flow (brisk flow). 5. Right coronary: Distal vessel lesion: There is a diffuse, 16mm (L), ?? 80%stenosis. This lesion is irregularly contoured and eccentric. There is ?? MALATHI grade 3 flow (brisk flow) across the lesion. The lesion is significant ?? by visual estimate. The distal vessel supplies a moderate-sized vascular ?? territory. The lesion is a likely culprit for the patient's anginal symptoms ?? and clinical presentation and an ACC/AHA type B moderate risk lesion for ?? intervention. The lesion was stented using a drug-eluting stent (see 5th ?? lesion intervention), with balloon angioplasty. Following intervention, there ?? is a residual 0% stenosis with an excellent angiographic appearance and MALATHI ?? grade 3 flow (brisk flow). 6. Impressions: Intravascular ultrasound cross sectional area of the LAD was ?? done to ensure well apposition of the LAD stent. High pressure 4.0 balloon ?? was used. Distal RCA lesion was also IVUS and due to atherosclerosis in the ?? area and narrowing, DARLIN was placed. Which is significant for ischemia. RECOMMENDATIONS: 1. ACC recommendation: PCI w/o planned CABG. 2. Patient management should include aggressive medical therapy, risk factor ?? modification, lifestyle change to reduce stress, avoidance of all tobacco ?? products, an exercise program, and low fat diet. 3. Continue aspirin, at 81mgPOdaily, indefinitely. 4. Clopidogrel (Plavix), 75mgPOdaily, for 12mon. HISTORY: Dyspnea. ??Unstable angina. ??Functional status: ?? CCS class IV (angina at rest or with any physical activity). ??Risk factors: ??Family history of coronary artery disease. Dyslipidemia. ??Allergies: ??No known allergies. LABS, PRIOR TESTS, PROCEDURES AND SURGERY: Prothrombin time (PT) of 11 sec. ??Hematocrit of 44.3 %. ??Platelet count of 239 th/ul. ??Serum potassium (K) of 4.4 mEq/l. ??Blood urea nitrogen of 29 mg/dl. Hemoglobin (pre-procedure) of 15.6 g/dl. ??International normalized ratio (INR) of 1. ??Stress myocardial perfusion imaging. ? Normal. STUDY DATA: Study status: ??Cardiac cath: elective. Percutaneous coronary intervention: elective. ??Patient status: ??Outpatient. ??Location: ??Catheterization laboratory. Sex: male. Patient is 60yr old. Weight: 94.1kg. Procedures performed: ?Right femoral artery access. ?Left heart catheterization with ventriculography. ?Left coronary angiography. ?Right coronary angiography. ?Right common femoral angiography. ?Lesion intervention: ?? Percutaneous intervention on the 95% stenosis in the proximal 1st obtuse marginal. ?Balloon angioplasty. ?Stent placement. Lesion intervention: ?? Percutaneous intervention on the 80% stenosis in the proximal LAD. ?Balloon angioplasty. ?Stent placement. ?Stent placement. ??Balloon angioplasty. ?Interventional IVUS examination. ?Balloon angioplasty. ?Lesion intervention: ?? Percutaneous intervention on the 80% stenosis at the ostium of the 1st diagonal. ?Balloon angioplasty. Balloon angioplasty. ?Stent placement. ?Lesion intervention: Percutaneous intervention on the 80% stenosis in the mid LAD. ?Balloon angioplasty. ?Lesion intervention: ?? Percutaneous intervention on the 80% stenosis in the distal right coronary. ?Interventional IVUS examination. ?? Stent placement. ANESTHESIA: Conscious sedation for pain control by [...] in the usual sterile manner. 3. Right femoral artery access. A 6F St. Yg ACT Ultimum sheath was advanced ?? into the vessel. 4. Left heart catheterization with ventriculography. A 6F Pigtail catheter was ?? advanced across the aortic valve to the left ventricle under fluoroscopic ?? guidance. Contrast was injected by hand. 5. Selective left coronary angiography. A 6F Runway AR1 catheter was advanced ?? into the left coronary vessel ostium under fluoroscopic guidance. Contrast ?? was injected by hand. Images were obtained in multiple projections. 6. Selective right coronary angiography. A 6F AR Mod catheter was advanced into ?? the right coronary vessel ostium under fluoroscopic guidance. Contrast was ?? injected by hand. Images were obtained in multiple projections. 7. Activated clotting time measurement. ACT was 256sec. 8. Selective right common femoral angiography, under fluoroscopic guidance. A ?? catheter was advanced into the right common femoral artery. Contrast was ?? injected by hand. Images were obtained. 9. Right femoral artery hemostasis. 6 FR Angioseal VIP was used at the access ?? site. 1st lesion intervention: Percutaneous intervention on the 95% stenosis in the proximal 1st obtuse marginal. 1. Vessel setup was performed. A 6F XB 3.5 guiding catheter was advanced into ?? the vessel. 2. Vessel setup was performed. A 180 Prowater wire was used to cross the lesion. 3. Balloon angioplasty. A 2mm (D) x 15mm (L), Buffalo RX balloon was positioned ?? across the lesion and given a single inflation with a maximum inflation ?? pressure of 13atm. 4. Stent placement. A 2.5mm (D) x 16mm (L), Synergy stent was advanced across ?? the lesion and deployed with a single inflation and a maximum pressure of ?? 12atm. The resulting stenosis was 0%. 2nd lesion intervention: Percutaneous intervention on the 80% stenosis in the proximal LAD. 1. Vessel setup was performed. A 180 Prowater wire was used to cross the lesion. 2. Balloon angioplasty. A 3.5mm (D) x 20mm (L), Trek balloon was positioned ?? across the lesion and given a single inflation with a maximum inflation ?? pressure of 16atm. 3. Stent placement. A 3.5mm (D) x 28mm (L), Synergy stent was advanced across ?? the lesion and deployed with a single inflation and a maximum pressure of ?? 14atm. The resulting stenosis was 0%. 4. Stent placement. A 2.5mm (D) x 16mm (L), Synergy stent was advanced across ?? the lesion and deployed with a single inflation and a maximum pressure of ?? 14atm. The resulting stenosis was 0%. 5. Balloon angioplasty. A 3.5mm (D) x 15mm (L), Trek balloon was positioned ?? across the lesion and given a single inflation with a maximum inflation ?? pressure of 12atm. 6. Intravascular ultrasound evaluation. 7. Balloon angioplasty. A 4mm (D) x 20mm (L), NC Quantum Buffalo balloon was ?? positioned across the lesion and given three inflations with a maximum ?? inflation pressure of 16atm. 3rd lesion intervention: Percutaneous intervention on the 80% stenosis at the ostium of the 1st diagonal. 1. Vessel setup was performed. A .014/180 Runthrough wire was used to cross the ?? lesion. 2. Balloon angioplasty. A 3.5mm (D) x 20mm (L), Trek balloon was positioned ?? across the lesion and given a single inflation with a maximum inflation ?? pressure of 12atm. 3. Vessel setup was performed. A 180 Prowater wire was used to cross the lesion. 4. Balloon angioplasty. A 2mm (D) x 15mm (L), Buffalo RX balloon was positioned ?? across the lesion and given a single inflation with a maximum inflation ?? pressure of 10atm. 5. Stent placement. A 2.25mm (D) x 20mm (L), Synergy stent was advanced across ?? the lesion and deployed with a single inflation and a maximum pressure of ?? 10atm. The resulting stenosis was 0%. 4th lesion intervention: Percutaneous intervention on the 80% stenosis in the mid LAD. 1. Vessel setup was performed. A .014/180 Runthrough wire was used. 2. Balloon angioplasty. A 3.5mm (D) x 15mm (L), Trek balloon was positioned ?? across the lesion and given a single inflation with a maximum inflation ?? pressure of 14atm. 5th lesion intervention: Percutaneous intervention on the 80% stenosis in the distal right coronary. 1. Vessel setup was performed. A 6F Runway AR1 guiding catheter was advanced ?? into the vessel. 2. Vessel setup was performed. A .014/180 Runthrough wire was used to cross the ?? lesion. 3. Intravascular ultrasound evaluation. 4. Stent placement. A 3.5mm (D) x 16mm (L), Synergy stent was advanced across ?? the lesion and deployed with a single inflation and a maximum pressure of ?? 10atm. The resulting stenosis was 0%. STUDY COMPLETION: The estimated blood loss was 10ml. All catheters inserted during the procedure were removed. The patient tolerated the procedure well and was discharged from the lab. There were no complications. ??Contrast: ?? Omnipaque 330ml (total dose). Fluoroscopy time: ??19.3min. ??Fluoroscopy dose: ??97.1cGy. CORONARY ARTERIES: The coronary circulation is right dominant. Left main: ??Normal. LAD: ??Proximal vessel lesion: There is a diffuse, 26mm (L), 80%stenosis. This lesion is irregularly contoured, hazy, eccentric, and a bifurcation lesion. There is MALATHI grade 3 flow (brisk flow) across the lesion. The lesion is significant by visual estimate. The distal vessel supplies a large vascular territory. The lesion is a likely culprit for the patient's anginal symptoms and clinical presentation and an ACC/AHA type B2 moderate risk lesion for intervention, with 2 or more adverse characteristics. The lesion was stented using a drug-eluting stent (see 2nd lesion intervention), with balloon angioplasty, jailing the first diagonal. Following intervention, there is a residual 0% stenosis with an excellent angiographic appearance and MALATHI grade 3 flow (brisk flow). There were no site complications. ??Mid-vessel lesion: There is a diffuse, 12mm (L), 80%stenosis. This lesion is irregularly contoured, hazy, eccentric, and a bifurcation lesion. There is MALATHI grade 3 flow (brisk flow) across the lesion. The lesion is significant by visual estimate. The distal vessel supplies a moderate-sized vascular territory. The lesion is a likely culprit for the patient's anginal symptoms and clinical presentation and an ACC/AHA type B1 moderate risk lesion for intervention, with 1 adverse characteristic. The lesion was stented using a drug-eluting stent (see 4th lesion intervention), with balloon angioplasty, jailing the first diagonal. Following intervention, there is a residual 0% stenosis with an excellent angiographic appearance and MALATHI grade 3 flow (brisk flow). There were no site complications. 1st diagonal: ??Ostial lesion: There is a diffuse, 12mm (L), 80%stenosis. This lesion is irregularly contoured, hazy, eccentric, and a bifurcation lesion. There is MALATHI grade 3 flow (brisk flow) across the lesion. The lesion is significant by visual estimate. The distal vessel supplies a moderate-sized vascular territory. The lesion is a likely culprit for the patient's anginal symptoms and clinical presentation and an ACC/AHA type B moderate risk lesion for intervention. The lesion was stented using a drug-eluting stent (see 3rd lesion intervention), with balloon angioplasty. Following intervention, there is a residual 0% stenosis with an excellent angiographic appearance and MALATHI grade 3 flow (brisk flow). There were no site complications. 1st obtuse marginal: ??Proximal vessel lesion: There is a diffuse, 16mm (L), 95%stenosis. This lesion is irregularly contoured, hazy, and eccentric. There is MALATHI grade 3 flow (brisk flow) across the lesion. The lesion is significant by visual estimate. The distal vessel supplies a moderate-sized vascular territory. The lesion is a likely culprit for the patient's anginal symptoms and clinical presentation and an ACC/AHA type B moderate risk lesion for intervention. The lesion was stented using a drug-eluting stent (see 1st lesion intervention), with balloon angioplasty. Following intervention, there is a residual 0% stenosis with an excellent angiographic appearance and MALATHI grade 3 flow (brisk flow). There were no site complications. Right coronary: ??Minor luminal irregularities. ??Distal vessel lesion: There is a diffuse, 16mm (L), 80%stenosis. This lesion is irregularly contoured and eccentric. There is MALATHI grade 3 flow (brisk flow) across the lesion. The lesion is significant by visual estimate. The distal vessel supplies a moderate-sized vascular territory. The lesion is a likely culprit for the patient's anginal symptoms and clinical presentation and an ACC/AHA type B moderate risk lesion for intervention. The lesion was stented using a drug-eluting stent (see 5th lesion intervention), with balloon angioplasty. Following intervention, there is a residual 0% stenosis with an excellent angiographic appearance and MALATHI grade 3 flow (brisk flow). There were no site complications. HEMODYNAMICS: End diastolic pressure in the left ventricle is normal. Pressure measurements across the aortic valve show no evidence of stenosis. + + + Stage description ? Condition1:Condition 1 - + + + LV pressure s/ed ? 118/15 ? + + + Arterial pressure s/d (m) 123/87 (105) ? + + + * Electronically signed by Ken Kapadia MD 2015-07-16 17:12 Procedure Note Ken Kapadia MD - 07/16/[address] [place] [id number] Catheterization Laboratory Study Patient: Lan Lima Study Date:07/08/2015 : 1955 Referring Physician: Robyn, Diagnostic Attending: Ken Kapadia Interventional Attending: Ken Kapadia Diagnostic Fellow: Jean Pierre Gotti Interventional Fellow: Lia Snow ATTESTATION: Dr. Ken Kapadia was present and supervising for the entire procedure, IDr. Stephanie Snow was the initial author of this report. I, Dr. Ken Jonesve reviewed and agree with the findings of this report. PROCEDURE PLAN: Based on the diagnostic study percutaneous coronary intervention isindicated. RESEARCH STUDY: Patient is not enrolled in any research studies. IMPRESSIONS: 1. Moderate triple vessel coronary artery disease. 2. Unstable angina. The culprit lesion was identified, reperfusion was successfully achieved, and myocardial function was preserved. 3. Intravascular ultrasound cross sectional area of the LAD was done toensure well apposition of the LAD stent. High pressure 4.0 balloon was used.Distal RCA lesion was also IVUS and due to atherosclerosis in the area and narrowing, DARLIN was placed. 4. Which is significant for ischemia. SUMMARY: 1. HPI and indications: Dyspnea. Unstable angina. 2. LAD: Proximal vessel lesion: There is a diffuse, 26mm (L), 80%stenosis.This lesion is irregularly contoured, hazy, eccentric, and a bifurcationlesion. There is MALATHI grade 3 flow (brisk flow) across the lesion. The lesionis significant by visual estimate. The distal vessel supplies a largevascular territory. The lesion is a likely culprit for the patient's anginalsymptoms and clinical presentation and an ACC/AHA type B2 moderate risk lesionfor intervention, with 2 or more adverse characteristics. The lesion wasstented using a drug-eluting stent (see 2nd lesion intervention), with balloon angioplasty, jailing the first diagonal. Following intervention, thereis a residual 0% stenosis with an excellent angiographic appearance and TIMIgrade 3 flow (brisk flow). Mid-vessel lesion: There is a diffuse, 12mm (L), 80%stenosis. This lesion is irregularly contoured, hazy, eccentric, aly bifurcation lesion. There is MALATHI grade 3 flow (brisk flow) across the lesion. The lesion is significant by visual estimate. The distal vessel supplies a moderate-sized vascular territory. The lesion is a likelyculprit for the patient's anginal symptoms and clinical presentation and anACC/AHA type B1 moderate risk lesion for intervention, with 1 adverse characteristic. The lesion was stented using a drug-eluting stent (see4th lesion intervention), with balloon angioplasty, jailing the firstdiagonal. Following intervention, there is a residual 0% stenosis with anexcellent angiographic appearance and MALATHI grade 3 flow (brisk flow). 3. 1st diagonal: Ostial lesion: There is a diffuse, 12mm (L), 80%stenosis.This lesion is irregularly contoured, hazy, eccentric, and a bifurcationlesion. There is MALATHI grade 3 flow (brisk flow) across the lesion. The lesionis significant by visual estimate. The distal vessel supplies amoderate-sized vascular territory. The lesion is a likely culprit for the patient'sanginal symptoms and clinical presentation and an ACC/AHA type B moderaterisk lesion for intervention. The lesion was stented using a drug-elutingstent (see 3rd lesion intervention), with balloon angioplasty. Following intervention, there is a residual 0% stenosis with an excellentangiographic appearance and MALATHI grade 3 flow (brisk flow). 4. 1st obtuse marginal: Proximal vessel lesion: There is a diffuse, 16mm(L), 95%stenosis. This lesion is irregularly contoured, hazy, and eccentric.There is MALATHI grade 3 flow (brisk flow) across the lesion. The lesion is significant by visual estimate. The distal vessel supplies amoderate-sized vascular territory. The lesion is a likely culprit for the patient'sanginal symptoms and clinical presentation and an ACC/AHA type B moderaterisk lesion for intervention. The lesion was stented using a drug-elutingstent (see 1st lesion intervention), with balloon angioplasty. Following intervention, there is a residual 0% stenosis with an excellentangiographic appearance and MALATHI grade 3 flow (brisk flow). 5. Right coronary: Distal vessel lesion: There is a diffuse, 16mm (L), 80%stenosis. This lesion is irregularly contoured and eccentric. Thereis MALATHI grade 3 flow (brisk flow) across the lesion. The lesion issignificant by visual estimate. The distal vessel supplies a moderate-sizedvascular territory. The lesion is a likely culprit for the patient's anginalsymptoms and clinical presentation and an ACC/AHA type B moderate risk lesionfor intervention. The lesion was stented using a drug-eluting stent (see5th lesion intervention), with balloon angioplasty. Following intervention,there is a residual 0% stenosis with an excellent angiographic appearance andTIMI grade 3 flow (brisk flow). 6. Impressions: Intravascular ultrasound cross sectional area of the LADwas done to ensure well apposition of the LAD stent. High pressure 4.0balloon was used. Distal RCA lesion was also IVUS and due to atherosclerosis inthe area and narrowing, DARLIN was placed. Which is significant for ischemia. RECOMMENDATIONS: 1. ACC recommendation: PCI w/o planned CABG. 2. Patient management should include aggressive medical therapy, riskfactor modification, lifestyle change to reduce stress, avoidance of alltobacco products, an exercise program, and low fat diet. 3. Continue aspirin, at 81mgPOdaily, indefinitely. 4. Clopidogrel (Plavix), 75mgPOdaily, for 12mon. HISTORY: Dyspnea. Unstable angina. Functional status: CCS class IV (angina atrest or with any physical activity). Risk factors: Family history of coronaryartery disease. Dyslipidemia. Allergies: No known allergies. LABS, PRIOR TESTS, PROCEDURES AND SURGERY: Prothrombin time (PT) of 11 sec. Hematocrit of 44.3 %. Platelet count of239 th/ul. Serum potassium (K) of 4.4 mEq/l. Blood urea nitrogen of 29mg/dl. Hemoglobin (pre-procedure) of 15.6 g/dl. International normalized ratio(INR) of 1. Stress myocardial perfusion imaging. Normal. STUDY DATA: Study status: Cardiac cath: elective. Percutaneous coronary intervention: elective. Patient status: Outpatient. Location: Catheterizationlaboratory. Sex: male. Patient is 60yr old. Weight: 94.1kg. Procedures performed: Right femoral artery access. Left heart catheterization with ventriculography. Left coronary angiography.Right coronary angiography. Right common femoral angiography.Lesion intervention: Percutaneous intervention on the 95% stenosis in theproximal 1st obtuse marginal. Balloon angioplasty. Stent placement. Lesion intervention: Percutaneous intervention on the 80% stenosis inthe proximal LAD. Balloon angioplasty. Stent placement. Stentplacement. Balloon angioplasty. Interventional IVUS examination. Balloon angioplasty. Lesion intervention: Percutaneous intervention onthe 80% stenosis at the ostium of the 1st diagonal. Balloon angioplasty. Balloon angioplasty. Stent placement. Lesion intervention: Percutaneous intervention on the 80% stenosis in the mid LAD. Balloon angioplasty. Lesion intervention: Percutaneous intervention onthe 80% stenosis in the distal right coronary. Interventional IVUSexamination. Stent placement. ANESTHESIA: Conscious sedation for pain control by cardiology staff. PROCEDURE: 1. Initial setup. The patient was brought to the laboratory in the fasting state. A baseline ECG was recorded. Surface ECG leads, automatic cuffblood pressure measurements, and pulse oximetric signals were monitored. 2. Skin preparation. The planned puncture sites were prepped withchlorhexidine and draped in the usual sterile manner. 3. Right femoral artery access. A 6F St. Yg ACT Ultimum sheath wasadvanced into the vessel. 4. Left heart catheterization with ventriculography. A 6F Pigtail catheterwas advanced across the aortic valve to the left ventricle underfluoroscopic guidance. Contrast was injected by hand. 5. Selective left coronary angiography. A 6F Runway AR1 catheter wasadvanced into the left coronary vessel ostium under fluoroscopic guidance.Contrast was injected by hand. Images were obtained in multiple projections. 6. Selective right coronary angiography. A 6F AR Mod catheter was advancedinto the right coronary vessel ostium under fluoroscopic guidance. Contrastwas injected by hand. Images were obtained in multiple projections. 7. Activated clotting time measurement. ACT was 256sec. 8. Selective right common femoral angiography, under fluoroscopicguidance. A catheter was advanced into the right common femoral artery. Contrastwas injected by hand. Images were obtained. 9. Right femoral artery hemostasis. 6 FR Angioseal VIP was used at theaccess site. 1st lesion intervention: Percutaneous intervention on the 95% stenosis in the proximal 1st obtuse marginal. 1. Vessel setup was performed. A 6F XB 3.5 guiding catheter was advancedinto the vessel. 2. Vessel setup was performed. A 180 Prowater wire was used to cross thelesion. 3. Balloon angioplasty. A 2mm (D) x 15mm (L), Buffalo RX balloon waspositioned across the lesion and given a single inflation with a maximum inflation pressure of 13atm. 4. Stent placement. A 2.5mm (D) x 16mm (L), Synergy stent was advancedacross the lesion and deployed with a single inflation and a maximum pressureof 12atm. The resulting stenosis was 0%. 2nd lesion intervention: Percutaneous intervention on the 80% stenosis in the proximal LAD. 1. Vessel setup was performed. A 180 Prowater wire was used to cross thelesion. 2. Balloon angioplasty. A 3.5mm (D) x 20mm (L), Trek balloon waspositioned across the lesion and given a single inflation with a maximum inflation pressure of 16atm. 3. Stent placement. A 3.5mm (D) x 28mm (L), Synergy stent was advancedacross the lesion and deployed with a single inflation and a maximum pressureof 14atm. The resulting stenosis was 0%. 4. Stent placement. A 2.5mm (D) x 16mm (L), Synergy stent was advancedacross the lesion and deployed with a single inflation and a maximum pressureof 14atm. The resulting stenosis was 0%. 5. Balloon angioplasty. A 3.5mm (D) x 15mm (L), Trek balloon waspositioned across the lesion and given a single inflation with a maximum inflation pressure of 12atm. 6. Intravascular ultrasound evaluation. 7. Balloon angioplasty. A 4mm (D) x 20mm (L), NC Quantum Buffalo balloon was positioned across the lesion and given three inflations with a maximum inflation pressure of 16atm. 3rd lesion intervention: Percutaneous intervention on the 80% stenosis at the ostium of the 1stdiagonal. 1. Vessel setup was performed. A .014/180 Runthrough wire was used tocross the lesion. 2. Balloon angioplasty. A 3.5mm (D) x 20mm (L), Trek balloon waspositioned across the lesion and given a single inflation with a maximum inflation pressure of 12atm. 3. Vessel setup was performed. A 180 Prowater wire was used to cross thelesion. 4. Balloon angioplasty. A 2mm (D) x 15mm (L), Buffalo RX balloon waspositioned across the lesion and given a single inflation with a maximum inflation pressure of 10atm. 5. Stent placement. A 2.25mm (D) x 20mm (L), Synergy stent was advancedacross the lesion and deployed with a single inflation and a maximum pressureof 10atm. The resulting stenosis was 0%. 4th lesion intervention: Percutaneous intervention on the 80% stenosis in the mid LAD. 1. Vessel setup was performed. A .014/180 Runthrough wire was used. 2. Balloon angioplasty. A 3.5mm (D) x 15mm (L), Trek balloon waspositioned across the lesion and given a single inflation with a maximum inflation pressure of 14atm. 5th lesion intervention: Percutaneous intervention on the 80% stenosis in the distal rightcoronary. 1. Vessel setup was performed. A 6F Runway AR1 guiding catheter wasadvanced into the vessel. 2. Vessel setup was performed. A .014/180 Runthrough wire was used tocross the lesion. 3. Intravascular ultrasound evaluation. 4. Stent placement. A 3.5mm (D) x 16mm (L), Synergy stent was advancedacross the lesion and deployed with a single inflation and a maximum pressureof 10atm. The resulting stenosis was 0%. STUDY COMPLETION: The estimated blood loss was 10ml. All catheters inserted during theprocedure were removed. The patient tolerated the procedure well and was dischargedfrom the lab. There were no complications. Contrast: Omnipaque 330ml (totaldose). Fluoroscopy time: 19.3min. Fluoroscopy dose: 97.1cGy. CORONARY ARTERIES: The coronary circulation is right dominant. Left main: Normal. LAD: Proximal vessel lesion: There is a diffuse, 26mm (L), 80%stenosis.This lesion is irregularly contoured, hazy, eccentric, and a bifurcationlesion. There is MALATHI grade 3 flow (brisk flow) across the lesion. The lesion is significant by visual estimate. The distal vessel supplies a largevascular territory. The lesion is a likely culprit for the patient's anginalsymptoms and clinical presentation and an ACC/AHA type B2 moderate risk lesion for intervention, with 2 or more adverse characteristics. The lesion wasstented using a drug-eluting stent (see 2nd lesion intervention), with balloon angioplasty, jailing the first diagonal. Following intervention, there john paul residual 0% stenosis with an excellent angiographic appearance and TIMIgrade 3 flow (brisk flow). There were no site complications. Mid-vessel lesion:There is a diffuse, 12mm (L), 80%stenosis. This lesion is irregularly contoured,hazy, eccentric, and a bifurcation lesion. There is MALATHI grade 3 flow (briskflow) across the lesion. The lesion is significant by visual estimate. Thedistal vessel supplies a moderate-sized vascular territory. The lesion is alikely culprit for the patient's anginal symptoms and clinical presentation andan ACC/AHA type B1 moderate risk lesion for intervention, with 1 adverse characteristic. The lesion was stented using a drug-eluting stent (see 4th lesion intervention), with balloon angioplasty, jailing the firstdiagonal. Following intervention, there is a residual 0% stenosis with an excellent angiographic appearance and MALATHI grade 3 flow (brisk flow). There were nosite complications. 1st diagonal: Ostial lesion: There is a diffuse, 12mm (L), 80%stenosis.This lesion is irregularly contoured, hazy, eccentric, and a bifurcationlesion. There is MALATHI grade 3 flow (brisk flow) across the lesion. The lesion is significant by visual estimate. The distal vessel supplies amoderate-sized vascular territory. The lesion is a likely culprit for the patient'sanginal symptoms and clinical presentation and an ACC/AHA type B moderate risklesion for intervention. The lesion was stented using a drug-eluting stent (see3rd lesion intervention), with balloon angioplasty. Following intervention,there is a residual 0% stenosis with an excellent angiographic appearance and TIMIgrade 3 flow (brisk flow). There were no site complications. 1st obtuse marginal: Proximal vessel lesion: There is a diffuse, 16mm(L), 95%stenosis. This lesion is irregularly contoured, hazy, and eccentric.There is MALATHI grade 3 flow (brisk flow) across the lesion. The lesion issignificant by visual estimate. The distal vessel supplies a moderate-sized vascularterritory. The lesion is a likely culprit for the patient's anginal symptoms andclinical presentation and an ACC/AHA type B moderate risk lesion forintervention. The lesion was stented using a drug-eluting stent (see 1st lesionintervention), with balloon angioplasty. Following intervention, there is a residual 0% stenosis with an excellent angiographic appearance and MALATHI grade 3 flow(brisk flow). There were no site complications. Right coronary: Minor luminal irregularities. Distal vessel lesion:There is a diffuse, 16mm (L), 80%stenosis. This lesion is irregularly contoured and eccentric. There is MALATHI grade 3 flow (brisk flow) across the lesion. Thelesion is significant by visual estimate. The distal vessel supplies amoderate-sized vascular territory. The lesion is a likely culprit for the patient'sanginal symptoms and clinical presentation and an ACC/AHA type B moderate risklesion for intervention. The lesion was stented using a drug-eluting stent (see5th lesion intervention), with balloon angioplasty. Following intervention,there is a residual 0% stenosis with an excellent angiographic appearance and TIMIgrade 3 flow (brisk flow). There were no site complications. HEMODYNAMICS: End diastolic pressure in the left ventricle is normal. Pressuremeasurements across the aortic valve show no evidence of stenosis. + + + Stage description Condition1:Condition 1 - + + + LV pressure s/ed 118/15 + + + Arterial pressure s/d (m) 123/87 (105) + + + * Electronically signed by Ken Kapadia MD 2015-07-16 17:12 Erick Holden MD CARDIAC CATH ORDERAB LES documented in this encounter Visit Diagnoses Not on filedocumented in this encounter Care Teams Log Sawyer Relationship Specialty Start Date End Date Unknown, Provider, PCP - General 03/15/15 07/03/15 documented as of this encounter
--- OUTSIDE RECORDS SUMMARY | 2023-11-25 01:39 | XMS_ITS | Encounter Summary ---
Author Organization [facility] Address [address] [place] [address] Care Team Providers Care Power Bender Operator Name Role Phone Jony Castellon MD Primary Care Provider [phone] Reason for Visit * Reason Onset Date Comments Medication Questions 04/16/2016 Plavix Encounter Details Date Type Department Care Team (Late st Contact Info) Description 04/16/2016 Telephone [facility] Cardiology - [address] [place], [place] [phone] Ken Kapadia MD [address] [place] [address] Medication Questions (Plavix) Social History Tobacco Use Types Packs/Day Years [...] No 10/08/2015 documented as of this encounter Ordered Prescriptions Prescription Sig Dispensed Refills Start Date End Da te lisinopril (PRINIVIL, ZESTRIL) 5 mg tablet Take 1 Tab by mouth daily. 90 Tab 1 04/23/2016 10/13/2016 documented in this encounter Miscellaneous Notes * Addendum Note - Trish Leslie RN - 04/23/2016 1301 ESTAddended by: TRISH LESLIE on: 04/23/2016 13:01 Modules accepted: Orders * Telephone Encounter - Trish Leslie RN - 04/22/2016 1142 EST Left messages asking patient to please call back with further information so we can assist him. Trish Leslie RN Patient returned my call. He clarified his question was regarding the Lisinopril 5 mg/ day. He had not been taking it due to a low BP. He realizes this was when he had been taking the Metoprolol which has since been discontinued on 10/08/15. He noted his BP was up at his most recent OV on 04/16/16: 144/82. He forgot to bring it up at the time and now questions if Dr. Kapadia wants him to restart it? Trish Leslie RN Id like him on the lisinopril Ken Kapadia MD Patient notified. He accepted this. Will send in a new script. No communication barriers noted. Trish Leslie RN * Telephone Encounter - Aline Liriano - 04/16/2016 1632 EST Pt wanted to call and verify if he is supposed to restart Plavix or just be done with it. Please contact documented in this encounter Plan of Treatment Upcoming Encounters Date Type Department Care Team (Late st Contact Info) Description 12/28/2023 13:00 EDT Office Visit [facility] Cardiology - [address] [place], [place] [phone] Rosalind Mckeon, PAYogeshC [address] [facility] [address] [place] [address] documented as of this encounter Visit Diagnoses Not on filedocumented in this encounter Discontinued Medications Medication Sig Discontinue Reason Start Date End Da te lisinopril (PRINIVIL, ZESTRIL) 5 mg tablet Take 1 Tab by mouth daily. Reorder 07/09/2015 04/23/2016 documented as of this encounter Care Teams Power Bender Operator Relationship Specialty Start Date End Date Jony Castellon MD [address] [place] [id number] PCP - General 07/04/15 10/12/17 documented as of this encounter
--- OUTSIDE RECORDS SUMMARY | 2023-11-25 01:39 | XMS_ITS | Encounter Summary ---
Author Organization [facility] Address [address] [place] [address] Care Team Providers Care Refrigerator Repair Technician Name Role Phone Veronica Servin MD Primary Care Provider [phone] Reason for Visit * Reason Onset Date Comments Other 10/28/2017 Update re: statu s of Appointment/ Clearance for Colonoscopy Encounter Details Date Type Department Care Team (Late st Contact Info) Description 10/28/2017 Telephone [facility] Cardiology - [address] [place] [address] Trish No RN Other (Update re: status of Appointment/ Clearance for Colonoscopy) Social History Tobacco Use Types Packs/Day Years [...] Telephone Encounter - Trish No, RN - 10/28/[address] [place] w/ Dr. Spencer, [facility] calling to inquire about status of Cardiology OV and Clearance for Colonoscopy. She reports the Colonoscopy is for routine screening. Advised Patient did keep his OV w/ Dr. Kapadia on 10/14/17. He is scheduled for an ETT on 11/08/17. Advised I will watch for the results & f/u with Dr. Kapadia re: Clearance for the Colonoscopy. Trish No, RN documented in this encounter Plan of Treatment Upcoming Encounters Date Type Department Care Team (Late st Contact Info) Description 12/28/2023 13:00 EDT Office Visit [facility] Cardiology - [address] [place] [address] Rosalind Mckeon PA-C [address] [place] [address] [place] [phone] documented as of this encounter Visit Diagnoses Not on filedocumented in this encounter Care Teams Refrigerator Repair Technician Relationship Specialty Start Date End Date Veronica Servin MD PCP - General 10/13/17 08/22/18 documented as of this encounter
--- OUTSIDE RECORDS SUMMARY | 2023-11-25 01:39 | XMS_ITS | Encounter Summary ---
Author Organization [facility] Address [address] [place] [address] Care Team Providers Care Lung Gun Operator Name Role Phone Veronica Servin MD Primary Care Provider [phone] Reason for Visit * Reason Comments Cardiac Testing * Cardiology (Routine) - Order Cancelled Specialty Diagnoses / Procedures Referred By Contac t Referred To Contact Diagnoses Coronary artery disease involving [place] coronary artery of [place] heart without angina pectoris Procedures EXERCISE TOLERANCE TEST Ken Kapadia MD [address] [facility] [place] [address] Referral ID Status Reason Start Date Expiration Date V isits Requested Visits Authorized [id number] Order Cancelled 10/14/2017 1 1 Encounter Details Date Type Department Care Team (Latest Contact Info) Description 11/08/2017 9:00 EDT Procedure visit [facility] Cardiology - [address] [place] [address] Ken Kapadia MD [address] [place] [address] StressYasemin Discharge Disposition: Auto Discharge Social History Tobacco [...] Diagnoses Diagnosis I25.10 Atherosclerotic heart disease of [place] coronary artery without angina pectoris-I25.10[ICD-10-CM] Z82.49 Family history of ischemic heart disease and other diseases of the circulatory system-Z82.49[ICD-10-CM] E78.5 Hyperlipidemia, unspecified-E78.5[ICD-10-CM] documented in this encounter Discharge Disposition Disposition Code Departure Means Destination Auto Discharge documented in this encounter Plan of Treatment Upcoming Encounters Date Type Department Care Team (Late st Contact Info) Description 12/28/2023 13:00 EDT Office Visit [facility] Cardiology - [address] [place] [address] [address] Rosalind Mckeon, LEA [address] [place] [address] [place] [phone] documented as of this encounter Procedures Procedure Name Priority Date/Time Associated Diagnosis Comments STRESS TEST - SCANNED 11/08/2017 20:25 EDT documented in this encounter Results * STRESS TEST - SCANNED (11/08/2017 20:25 EDT) Anatomical Region Laterality Modality Other 11/08/2017 20:2 5 EDT Scan 2 Biometry Teacher IMG OTHER IMAGING O RDERABLES documented in this encounter Visit Diagnoses Not on filedocumented in this encounter Care Teams Lung Gun Operator Relationship Specialty Start Date End Date Dobbertin, Veronica M, MD PCP - General 10/13/17 08/22/18 documented as of this encounter
--- OUTSIDE RECORDS SUMMARY | 2023-11-25 01:39 | XMS_ITS | Encounter Summary ---
Author Organization [facility] Address [address] [place] [address] Care Team Providers Care Overhead Crane Truck Loader Name Role Phone Jony Castellon MD Primary Care Provider [phone] Reason for Visit * Reason Comments Coronary Artery Disease Post stemi, has been to the hospital twice since he saw you last. Was cathed again and another stent was placed. Still having occational pain in between his shoulder blades as well as an aching in his chest. Other sometimes almost pas ses out when he stands. * Consult (Routine) - Closed Specialty Diagnoses / Procedures Referred By [facility] Referred To Contact Cardiology Diagnoses NSTEMI (non-ST elevated myocardial infarction) ([facility]) Renny Prince MD [address] [place], [place] [id number] [facility] [address] [place] [address] Referral ID Status Reason Start Date Expiration Date V isits Requested Visits Authorized [id number] Closed Specialty Services Required 07/13/2015 1 1 Encounter Details Date Type Department Care Team (Late st Contact Info) Description 08/06/2015 10:50 EDT Office Visit 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 [I25.119] Social History Tobacco Use Types Packs/Day Years [...] Sign Reading Time Taken Comments Blood Pressure 108/78 08/06/2015 1051 EDT Pulse 63 08/06/2015 1051 EDT Temperature - - Respiratory Rate - - Oxygen Saturation 96% 08/06/2015 1051 EDT Inhaled Oxygen Concentration - - Weight 88.9 kg (196 lb) 08/06/2015 1051 EDT Height 182.9 cm (6') 08/06/2015 1051 EDT Body Mass Index 26.58 08/06/2015 1051 EDT documented in this encounter Functional Status [...] No 08/06/2015 documented as of this encounter Ordered Prescriptions Prescription Sig Dispensed Refills Start Date End Da te famotidine (PEPCID) 20 mg tablet Take 1 Tab by mouth daily. 90 Tab 3 08/06/2015 06/05/2019 documented in this encounter Progress Notes * Ken Kapadia MD - 08/06/2015 1113 EDT Subjective: Patient is a 60 y.o. male who presents for follow-up of CAD. Patient reports left sided chest ache.He denies chest pain on exertion and dyspnea on exertion. He describes his symptoms as improved. Notes intermittent intrascapular pain at rest NOT with exercise. No more pleuritic CP He has been compliant with his medications. Medications side effects include dark urine and light yellow stools Past Medical History Diagnosis Date ??? Chest pain radiating to arm ??? Abnormal nuclear stress test ??? HLD (hyperlipidemia) ??? Family history of coronary artery disease Patient Active Problem List Diagnosis Date Noted ??? Subsequent non-ST elevation (NSTEMI) myocardial infarction within 4 weeks of initial kelgjyfjvs61/05/2016 Priority: Medium ??? Chest pain 07/08/2015 Priority: [...] above, all others are negative. Objective: BP 108/78 mmHg Pulse 63 Ht 182.9 cm (72) Wt 88.905 kg (196 lb) BMI 26.58 kg/m2 SpO2 96% Body mass index is 26.58 kg/(m^2). Physical [...] Review: Lab Results Component Value Date NA 139 07/18/2015 K 5.0 07/18/2015 CL 103 07/18/2015 CO2 26 07/18/2015 BUN 23 07/18/2015 CREATININE 0.95 07/18/2015 Lab Results Component Value Date WBC 7.15 07/18/2015 HGB 12.5* 07/18/2015 HCT 36.2* 07/18/2015 MCV 90 07/18/2015 PLT 256 07/18/2015 Lab Results Component Value Date CHOL 168 07/13/2015 TRIG 130 07/13/2015 HDL 53 07/13/2015 LDLBASE 89 07/13/2015 Assessment: Lan Lima is a 60 y.o. year old male who presents with cad. Atypical chest back pain ? reflux Plan: Start pepcid Check LFT's Switch lisinopril to HS documented in this encounter Plan of Treatment Upcoming Encounters Date Type Department Care Team (Late st Contact Info) Description 12/28/2023 13:00 EDT Office Visit [facility] Cardiology - [address] [place] [address] Rosalind Mckeon PA-C [address] [facility] [address] [place] [address] documented as of this encounter Results * CK (08/06/2015 11:20 EDT) CK 91 0 - 250 U/L 08/06/2015 13:04 [facility] Blood specimen (specimen) BLOOD SPECIMEN / Unknown 08/06/2015 11:20 EDT 08/06/2015 12:43 EDT Ken Kapadia MD CHEMISTRY & BLOOD GA S ORDERABLES [facility] [address] [place] [address] * (ABNORMAL) COMPREHENSIVE METABOLIC PANEL (CMP) (08/06/2015 11:20 EDT) Potassium 5.2(H) 3.5 - 5.0 mEq/L 08/06/2015 13:04 [facility] Sodium 140 136 - 145 mEq/L 08/06/2015 13:04 [facility] Chloride 101 96 - 110 mEq/L 08/06/2015 13:04 [facility] CO2 28 24 - 32 mEq/L 08/06/2015 13:04 [facility] Total Alkaline Phosphatase 69 38 - 126 U/L 08/06/2015 13:04 [facility] Bilirubin, Total 1.3 <1.4 mg/dl 08/06/19 16 13:04 [facility] AST 25 15 - 46 U/L 08/06/2015 13:04 [facility] ALT 45 21 - 72 U/L 08/06/2015 13:04 [facility] Albumin 4.5 3.4 - 4.9 g/dl 08/06/2015 13:04 [facility] Total Protein 7.3 6.3 - 8.2 g/dl 08/06/2015 13:04 [facility] Creatinine 0.98 0.66 - 1.25 mg/dl 08/06/2015 13:04 [facility] GFR, Calculated 85 >60 ml/min/1.7 3m2 08/06/2015 13:04 [facility] Comment: eGFR calculated using CKD-EPI equation for non Americans. Multiply eGFR by 1.16 for Americans. BUN 26 10 - 26 mg/dl 08/06/2015 13:04 EDT [facility] Calcium 9.7 8.5 - 10.5 mg/dl 08/06/2015 13:04 EDT [facility] Calculated Calcium 9.6 8.5 - 10.5 mg/dl 08/06/2015 13:04 EDT [facility] Glucose, Serum 95 70 - 100 mg/dl 08/06/2015 13:04 T [facility] Fasting? No 08/06/2015 11:24 EDT [facility] Blood specimen (specimen) BLOOD SPECIMEN / Unknown 08/06/2015 11:20 EDT 08/06/2015 12:43 EDT Ken Kapadia MD CHEMISTRY & BLOOD GA S ORDERABLES Performing Organization Address City/State/[facility] Co de Phone Number [facility] [address] [place] [address] documented in this encounter Visit Diagnoses Diagnosis Coronary artery disease involving cowlitz coronary artery of cowlitz heart without angina pectoris- Primary Dark urine Other nonspecific finding on examination of urine 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
--- OUTSIDE RECORDS SUMMARY | 2023-11-25 01:39 | XMS_ITS | Encounter Summary ---
Author Organization [facility] Address [address] [place] [address] Care Team Providers Care Air Saw Operator Name Role Phone Jony Castellon MD Primary Care Provider [phone] Reason for Visit * Reason Onset Date Comments Other 09/05/2015 Need Clarificati on. Encounter Details Date Type Department Care Team (Late st Contact Info) Description 09/05/2015 Telephone [facility] Cardiology - [address] [place] [address] Trish No, MELANIE Other (Need Clarification.) Social History Tobacco Use Types Packs/Day Years [...] Telephone Encounter - Trish No, RN - 09/05/2015 5600 EDT [facility] calling to request clarification. She received Dr. Kapadia's advice regarding Pre- Dental Procedure instructions and considerations: ( possible abscess ) No neeed to change meds, no antibiotic prophylaxis requred Ken Kapadia MD She needs confirmation when it is safe to proceed w/ Dental Treatment in view of recent PCI? Will they need to delay Treatment; if so how long? Patient is s/p [facility] w/ DARLIN PCI - 5 stents 07/08/15.?? S/p [facility] w/ DESPCI - stent x 1 & dissection repair on 07/17/15. Trish No RN No need to delay treatment Ken Kapadia MD Dental office notified via fax and phone. Trish No RN documented in this encounter Plan of Treatment Upcoming Encounters Date Type Department Care Team (Late st Contact Info) Description 12/28/2023 13:00 EDT Office Visit [facility] Cardiology - [address] [place], [place] [phone] Rosalind Mckeon, LEA [address] [facility] [address] [place] [address] documented as of this encounter Visit Diagnoses Not on filedocumented in this encounter Care Teams Air Saw Operator Relationship Specialty Start Date End Date Jony Castellon MD [address] [place] [address] PCP - General 07/04/15 10/12/17 documented as of this encounter
--- OUTSIDE RECORDS SUMMARY | 2023-11-25 01:39 | XMS_ITS | Encounter Summary ---
Author Organization [facility] Address [address] [place] [address] Care Team Providers Care Chief Service Observer Name Role Phone Veronica Servin MD Primary Care Provider [phone] Reason for Visit * Reason Comments Coronary Artery Disease 1 YR - angina th at comes and goes. Encounter Details Date Type Department Care Team (Late st Contact Info) Description 10/14/2017 9:00 EDT Office Visit [facility] Cardiology - [address] [place] [address] Ken Tracy MD [address] [place] [address] [place] [address] Coronary artery disease involving [place]cree coronary artery of chippe[place]cree heart without angina pectoris (Primary Dx) Social [...] Sign Reading Time Taken Comments Blood Pressure 146/86 10/14/2017 0852 EDT Pulse 60 10/14/2017 0852 EDT Temperature - - Respiratory Rate - - Oxygen Saturation 98% 10/14/2017 0852 EDT Inhaled Oxygen Concentration - - Weight 89.8 kg (198 lb) 10/14/2017 0852 EDT Height 182.9 cm (6') 10/14/2017 0852 EDT Body Mass Index 26.85 10/14/2017 0852 EDT documented in this encounter Functional Status [...] at bedtime. 90 Tab 3 10/14/2017 06/01/2019 documented in this encounter Progress Notes * Ken Tracy MD - 10/14/2017 0902 EDT Subjective: Patient is a 62 y.o. male who presents for follow-up of CAD. Patient reports some chest, shoulder and back pain in stressful work situation. He denies orthopnea. He describes his symptoms as worsened. He has been compliant with his medications. Medications side effects include none Past Medical History: Diagnosis Date ??? Abnormal nuclear stress test ??? Chest pain radiating to arm ??? Family history of coronary artery disease ??? HLD (hyperlipidemia) Patient Active Problem List Diagnosis Date Noted ??? Subsequent non-ST elevation (NSTEMI) myocardial infarction within 4 weeks of initial infarction([facility]) 07/13/2015 Priority: Medium ??? Chest pain [...] all others are negative. Objective: BP (!) 146/86 Pulse 60 Ht 182.9 cm (72) Wt 89.8 kg (198 lb) SpO2 98% BMI 26.85 kg/m2 Body mass index is 26.85 kg/(m^2). Physical Exam: General: Alert, cooperative, no [...] 53 07/13/2015 LDLBASE 89 07/13/2015 Assessment: Lan Fernandez is a 62 y.o. year old male who presents with cad Plan: ett documented in this encounter Miscellaneous Notes * Addendum Note - Ken Tracy MD - 10/14/2017 0905 EDTAddended by: KEN TRACY on: 10/14/2017 09:05 Modules accepted: Orders documented in this encounter Plan of Treatment Upcoming Encounters Date Type Department Care Team (Late st Contact Info) Description 12/28/2023 13:00 EDT Office Visit [facility] Cardiology - [facility] [address] [place] [address] Rosalind Mckeon PA-C [address] [place] [address] documented as of this encounter Procedures Procedure Name Priority Date/Time Associated Diagnosis Comments EXERCISE TOLERANCE TEST WAVEFORM Routine 11/08/2017 8:50 EDT documented in this encounter Results * EXERCISE TOLERANCE TEST WAVEFORM (11/08/2017 8:50 EDT) Anatomical Region Laterality Modality Other 11/08/2017 8:50 EDT Narrative 11/08/2017 9:20 EDT For report of this Waveform, see associated Image Study. ? [facility] Stress ? Test Date: ?2017-11-08 Pat Name: ? LAN FERNANDEZ ?Department: ? Room: ? Gender: ? Male ? Business Services Tech: ?? : ?1955 ? Requested By: ROSSANA Kohli Order Number: [id number] ?Johnny SCHWAB: ? Interpretive Statements Procedure Note ELECTRICAL ENGINEERING DIRECTOR, IMAGING - 11/08/2017 For report of this Waveform, see associated Image Study. [facility] Stress Test Date: 2017-11-08 Pat Name: LAN FERNANDEZ Department: Room: Gender: Male Business Services Tech: : 1955 Requested By: ROSSANA Kohli Order Number: [id number] Johnny SCHWAB: Interpretive Statements Ken Tracy MD CARDIAC SERVICES ORD ERABLES documented in this encounter Visit Diagnoses Diagnosis Coronary artery disease involving [place]pe[place]-cree coronary artery of chip[place]cree heart without angina pectoris- Primary documented in this encounter Discontinued Medications Medication Sig Discontinue Reason Start Date End Da te atorvastatin (LIPITOR) 40 mg tablet Take 1 Tab by mouth at bedtime. Reorder 07/08/2015 10/14/2017 documented as of this encounter Care Teams Chief Service Observer Relationship Specialty Start Date End Date Veronica Servin MD PCP - General 10/13/17 08/22/18 documented as of this encounter
--- OUTSIDE RECORDS SUMMARY | 2023-11-25 01:39 | XMS_ITS | Encounter Summary ---
Author Organization [facility] Address [address] [place] [address] Care Team Providers Care Heater Engineer Helper Name Role Phone Veronica Servin MD Primary Care Provider [phone] Reason for Visit * Reason Onset Date Comments Results 11/09/2017 Stress Test of Encounter Details Date Type Department Care Team (Late st Contact Info) Description 11/09/2017 Telephone [facility] Cardiology - [address] [place], [place] [phone] Trish No RN Results (Stress Test of 11/08/17) Social History Tobacco Use Types Packs/Day Years [...] Telephone Encounter - Trish No, RN - 11/09/2017 1111 EDT Stress Test of 11/08/17 results available for review. Ordered to determine Cardiac Clearance for Colonoscopy. [facility]/ Dr. Spencer @ [facility] awaiting update. [phone]. Trish No RN Stress test fine He's fine to have colonoscopy MD [facility] Marc notified. Note faxed for reference. . Trish No RN documented in this encounter Plan of Treatment Upcoming Encounters Date Type Department Care Team (Late st Contact Info) Description 12/28/2023 13:00 EDT Office Visit [facility] Cardiology - [address] [id number] Rosalind Mckeon, PA-C [address] [place] [address] [place] [address] documented as of this encounter Visit Diagnoses Not on filedocumented in this encounter Care Teams Heater Engineer Helper Relationship Specialty Start Date End Date Veronica Servin MD PCP - General 10/13/17 08/22/18 documented as of this encounter
--- OUTSIDE RECORDS SUMMARY | 2023-11-25 01:39 | XMS_ITS | Encounter Summary ---
Author Organization [facility] Address [address] [place] [address] Care Team Providers Care Irrigation Equipment Remover Name Role Phone Jony Castellon MD Primary Care Provider [phone] Reason for Visit * Reason Comments Follow-up no cardiac complaint s Encounter Details Date Type Department Care Team (Latest Contact Info) Description 10/13/2016 13:50 EDT Office Visit [facility] Cardiology - [address] [place] [address] Ken Kapadia MD [address] [place] [address] Atherosclerosis of [place] coronary artery of [place] heart without angina pectoris (Primary Dx) Social [...] Sign Reading Time Taken Comments Blood Pressure 130/78 10/13/2016 1344 EDT Pulse 71 10/13/2016 1344 EDT Temperature - - Respiratory Rate - - Oxygen Saturation 97% 10/13/2016 1344 EDT Inhaled Oxygen Concentration - - Weight 90.7 kg (200 lb) 10/13/2016 1344 EDT Height 182.9 cm (6') 10/13/2016 1344 EDT Body Mass Index 27.12 10/13/2016 1344 EDT documented in this encounter Functional Status [...] No 10/13/2016 documented as of this encounter Progress Notes * Ken Kapadia MD - 10/13/2016 4471 EDT Subjective: Patient is a 61 y.o. male who presents for follow-up of cad. Patient reports doing ok. He denies chest pain on exertion and dyspnea on exertion. He describes his symptoms as not changed. He has been compliant with his medications. Medications side effects include cough from lisinopril Past Medical History: Diagnosis Date ??? Abnormal nuclear stress test ??? Chest pain radiating to arm ??? Family history of coronary artery disease ??? HLD (hyperlipidemia) Patient Active Problem List Diagnosis Date Noted ??? Subsequent non-ST elevation (NSTEMI) myocardial infarction within 4 weeks of initial vxmjigzysa03/05/2016 Priority: Medium ??? Chest pain 07/08/2015 Priority: [...] mouth daily. (Patient not taking: Reported on 10/13/2016) 90 Tab 1 ??? LORazepam (ATIVAN) 0.5 [...] above, all others are negative. Objective: BP 130/78 Pulse 71 Ht 182.9 cm (72) Wt 90.7 kg (200 lb) SpO2 97% BMI 27.12 kg/m2 Body mass index is 27.12 kg/(m^2). Physical Exam: General: Alert, cooperative, no [...] Description 12/28/2023 13:00 EDT Office Visit [facility] Cardiology - [facility] [address] [facility] [place], [place] [phone] Rosalind Mckeon, PAYogeshC [address] [facility] [address] [place] [address] documented as of this encounter Visit Diagnoses Diagnosis Atherosclerosis of [place] coronary artery of [place] heart without angina pectoris- Primary documented in this encounter Discontinued Medications Medication Sig Discontinue Reason Start Date End Da te lisinopril (PRINIVIL, ZESTRIL) 5 mg tablet Take 1 Tab by mouth daily. 04/23/2016 10/13/2016 documented as of this encounter Care Teams Irrigation Equipment Remover Relationship Specialty Start Date End Date Jony Castellon MD [address] [place] [address] PCP - General 07/04/15 10/12/17 documented as of this encounter
--- OUTSIDE RECORDS SUMMARY | 2023-11-25 01:39 | XMS_ITS | Encounter Summary ---
Author Organization [facility] Address [address] [place] [address] Care Team Providers Care Optics Engineer Name Role Phone Jony Castellon MD Primary Care Provider [phone] Encounter Details Date Type Department Care Team (Late st Contact Info) Description 10/08/2015 Orders Only [facility] Cardiology - [address] [place] [address] Daysi Bermudez, RN [address] [place] [address] Social History Tobacco Use Types Packs/Day Years [...] No 10/08/2015 documented as of this encounter Plan of Treatment Upcoming Encounters Date Type Department Care Team (Late st Contact Info) Description 12/28/2023 13:00 EDT Office Visit [facility] Cardiology - [address] [facility] [place] [address] Rosalind Mckeon, PAKatharina [address] [facility] [address] [place] [address] documented as of this encounter Visit Diagnoses Not on filedocumented in this encounter Discontinued Medications Medication Sig Discontinue Reason Start Date End Da te metoprolol XL (TOPROL-XL) 25 mg tablet Take 1 Tab by mouth daily. Therapy completed 07/08/2015 10/08/2015 documented as of this encounter Care Teams Optics Engineer Relationship Specialty Start Date End Date Jony Castellon MD [address] [place] [address] PCP - General 07/04/15 10/12/17 documented as of this encounter
--- OUTSIDE RECORDS SUMMARY | 2023-11-25 01:40 | XMS_ITS | Encounter Summary ---
Author Organization [facility] Address [facility] [place] [address] Care Team Providers Care Machine Greaser Name Role Phone Clifford Smith MD, John Primary Care Provider Encounter Details Date Type Department Care Team (Late st Contact Info) Description 06/26/2019 Ancillary Procedure Radiology at [facility] [address] [place] [address] Blake Rodriguez MD [address] [facility] [place] [address] Social History Tobacco Use Types Packs/Day Years Used Date Smoking Tobacco: Never Assessed Sex and Gender Information Value Date Recorded Sex Assigned at Not on file Gender Identity Not on file Sexual Orientation Not on file documented as of this encounter Plan of Treatment Not on file documented as of this encounter Procedures Procedure Name Priority Date/Time Associated Diagnosis Comments FILM LIBRARY STORAGE ONLY MR SPINE Routine 06/26/2019 12:00 AM EST documented in this encounter Results * Film Library- Storage Only MR Spine (06/26/2019 12:00 AM EST) Narrative [facility] - 07/18/2019 2:57 PM EDT This exam is auto-finalizing. It's purpose is for storage only. Blake Rodriguez MD IMG FILM LIBRARY ORD ERABLES [place], [place] documented in this encounter Visit Diagnoses Not on filedocumented in this encounter Care Teams Machine Greaser Relationship Specialty Start Date End Date Eder Horton MD [address] [place], [place] [address] PCP - General 04/01/10 documented as of this encounter
--- OUTSIDE RECORDS SUMMARY | 2023-11-25 01:40 | XMS_ITS | Clinical Summary ---
Author Organization [facility] Address [facility] [address] Care Team Providers Care Human Factors Engineer Name Role Phone Clifford Smith MD, John Primary Care Provider [phone] Allergies No known active allergies Immunizations Name Administration Dates Next Due Tdap 09/22/2005 Social History Tobacco Use Types Packs/Day Years Used Date Smoking Tobacco: Never Assessed Sex and Gender Information Value Date Recorded Sex Assigned at Not on file Gender Identity Not on file Sexual Orientation Not on file Plan of Treatment Health Maintenance Due Date Last Done Comments CT Colonography 1955 Colonoscopy 1955 Colorectal Cancer Screening 1955 FIT DNA 1955 FIT 1955 Sigmoidoscopy (10 year) with FIT yearly 1955 Sigmoidoscopy 1955 Hepatitis C Screening 1975 Lipid Screening 1975 Zoster vaccine (1 of 2) 2007 Advance Directive 2012 Tetanus vaccine 09/23/2015 09/22/2005 Pneumoccocal Vaccine: 65+ (1 of 1 - PCV) 2022 Covid-19 Vaccine (1 - 2022-24 season) 2023 Influenza (Flu) vaccine (1 o f 1 - Influenza standard series) 01/09/2024 Tdap adult Completed 09/22/2005 Care Teams Human Factors Engineer Relationship Specialty Start Date End Date Eder Horton MD [address] [place], [place] [address] PCP - General 04/01/10
--- NOTE | 2023-11-25 08:07 | DI.RAD_ITS ---
Exam(s) XR LUMBAR SPINE COMPLETE EXAM: XR LUMBAR SPINE COMPLETE CLINICAL HISTORY: left leg numbness; hx of DJD,back pain,m54.9. TECHNIQUE: 2D digital imaging was performed. COMPARISON: CR XR LUMBAR SPINE COMPLETE from 03/28/2021 FINDINGS: Five views. There is no evidence of fracture, listhesis, nor pars interarticularis defects. There is unchanged m ild disc space narrowing at L2-3 level again noted. There also now left-sided osteophytes at this le juan antonio. No other significant disc space narrowing evident. Bone density normal. No osseous lesions. There is minimal facet joint degenerative change at L5-S1. Sacroiliac joints appear unremarkable. T here is no scoliosis. IMPRESSION: Mild disc space narrowing at L2-3 level with left-sided osteophytes at this level. DATA REPOSITORY: RADIATION DOSE DELIVERED:
== END ==
PROVIDERS: PCP Family Medicine; Visit Provider Family Medicine
DX: M54.59 Other low back pain (principal); R20.0 Anesthesia of skin; M51.36 Other intervertebral disc degeneration, lumbar region; M47.817 Spondylosis without myelopathy or radiculopathy, lumbosacral region; M25.78 Osteophyte, vertebrae
CPT/HCPCS: 72110

== ENCOUNTER 2024-12-07 08:08 | Outpatient (CLI) | payer MEDICARE, SELFPAY ==
[2024-12-07 18:01] LABS: PSA, Screening 0.9 ng/mL (<=4.5)
== END 2024-12-07 08:09 | disposition home or self-care (01) ==
PROVIDERS: PCP Family Medicine; Visit Provider Family Medicine
DX: Z12.5 Encounter for screening for malignant neoplasm of prostate (principal)
CPT/HCPCS: 36415; 84153